=== PATIENT | male | born 1955 | race Caucasian/White ===

== ENCOUNTER 2017-03-11 08:49 | Emergency (ER) | payer MEDICARE, MEDICAID ==
[2017-03-11] MEDS ORDERED: MORPHINE SULFATE 10 MG/ML INJ IV ONE (09:42)
[2017-03-11 09:49] LABS: ABSOLUTE BASOPHILS # (AUTO) 0.1 10^3/uL (0.0-0.2); ABSOLUTE EOSINOPHILS # (AUTO) 0.5 10^3/uL (0.0-0.6); ABSOLUTE LYMPHOCYTES (AUTO) 2.4 10^3/uL (0.5-4.7); ABSOLUTE MONOCYTES (AUTO) 0.6 10^3/uL (0.1-1.4); ABSOLUTE NEUT (AUTO) 4.9 10^3/uL (1.7-8.2); BASOPHILS % (AUTO) 0.7 % (0-2); HEMATOCRIT 47.2 % (37.9-51.0); HEMOGLOBIN 15.9 g/dL (13.5-17.0); HGB HCT DIFFERENCE 0.5; LYMPHOCYTES % (AUTO) 28.5 % (13-45); MEAN CORPUSCULAR HGB CONC 33.8 g/dL (32.0-36.0); MEAN CORPUSCULAR VOLUME 98 fl (80-97); MONOCYTES % (AUTO) 7.2 % (3-13); RED BLOOD COUNT 4.83 10^6/uL (4.35-5.55); RED CELL DISTRIBUTION WIDTH 14.6 % (11.5-14.0); SEGMENTED NEUTROPHILS % (AUTO) 57.6 % (42-78); WHITE BLOOD COUNT 8.5 10^3/uL (4.0-10.5)
[2017-03-11 10:13] LABS: ALANINE AMINOTRANSFERASE 18 U/L (21-72); ALKALINE PHOSPHATASE 88 U/L (38-126); ANION GAP 9 (5-19); ASPARTATE AMINO TRANSFERASE 15 U/L (17-59); BILIRUBIN,DIRECT 0.5 mg/dL (0.0-0.4); BILIRUBIN,TOTAL 0.8 mg/dL (0.2-1.3); BLOOD UREA NITROGEN 14 mg/dL (7-20); CALCIUM 9.8 mg/dL (8.4-10.2); CARBON DIOXIDE 31 mmol/L (22-30); CHLORIDE 100 mmol/L (98-107); GLUCOSE 98 mg/dL (75-110); POTASSIUM 4.5 mmol/L (3.6-5.0); SODIUM 140.4 mmol/L (137-145); TOTAL PROTEIN 7.3 g/dL (6.3-8.2)
--- NOTE | 2017-03-11 10:49 | ER Document Report ---
ED General - General Chief Complaint: Fall Stated Complaint: FALL SLURRED SPEECH RIB PAIN Mode of Arrival: Wheelchair Information source: Patient Notes: 62 yr old male presents with complaints of head injury , chest wall injury 3 days ago. pt admits to pain with movement, had slurred speach the day after but as since resolved. denies any other complaints TRAVEL OUTSIDE OF THE [place] IN LAST 30 DAYS: No - HPI Onset: Other - 3 days Onset/Duration: Persistent Quality of pain: Achy Severity: Moderate Pain Level: 2 Associated symptoms: Shortness of breath Exacerbated by: Coughing, Deep breathing Relieved by: Denies Similar symptoms previously: No Recently seen / treated by doctor: No - Related Data Allergies/Adverse Reactions: No Known Allergies Allergy (Verified 03/11/17 08:57) Past Medical History - Social History Smoking Status: Current Every Day Smoker Cigarette use (# per day): Yes Chew tobacco use (# tins/day): No Smoking Education Provided: No Frequency of alcohol use: None Drug Abuse: None Family History: Reviewed & Not Pertinent Patient has suicidal ideation: No Patient has homicidal ideation: No - Past Medical History Cardiac Medical History: Reports: Hx Congestive Heart Failure - Right sided, Hx Hypertension Endocrine Medical History: Reports: Hx Diabetes Mellitus Type 2 Renal/ Medical History: Denies: Hx Peritoneal Dialysis Musculoskeltal Medical History: Reports Hx Arthritis Psychiatric Medical History: Reports: Hx Depression Past Surgical History: Reports: Hx Orthopedic Surgery - Cervical fusion, lumbar back surgery R rotator cuff, L knee arthrosscopy - Immunizations Hx Diphtheria, Pertussis, Tetanus Vaccination: Yes Hx Pneumococcal Vaccination: 08/05/13 Review of Systems - Review of Systems Notes: REVIEW OF SYSTEMS: CONSTITUTIONAL : Denies fever, chills, or sweats. Denies recent illness. EENT: Denies eye, ear, throat, or mouth pain or symptoms. Denies nasal or sinus congestion or discharge. Denies throat, tongue, or mouth swelling or difficulty swallowing. CARDIOVASCULAR: Denies chest pain. Denies palpitations or racing or irregular heart beat. Denies ankle edema. RESPIRATORY: Denies cough, cold, or chest congestion. Denies shortness of breath, difficulty breathing, or wheezing. GASTROINTESTINAL: Denies abdominal pain or distention. Denies nausea, vomiting , or diarrhea. Denies blood in vomitus, stools, or per rectum. Denies black, tarry stools. Denies constipation. GENITOURINARY: Denies difficulty urinating, painful urination, burning, frequency, blood in urine, or discharge. MUSCULOSKELETAL: Denies back or neck pain or stiffness. Denies joint pain or swelling. SKIN: Denies rash, lesions or sores. HEMATOLOGIC : Denies easy bruising or bleeding. LYMPHATIC: Denies swollen, enlarged glands. NEUROLOGICAL: Denies confusion or altered mental status. Denies passing out or loss of consciousness. Denies dizziness or lightheadedness. Denies headache. Denies weakness or paralysis or loss of use of either side. Denies problems with gait or speech. Denies sensory loss, numbness, or tingling. Denies seizures. PSYCHIATRIC: Denies anxiety or stress. Denies depression, suicidal ideation, or homicidal ideation. ALL OTHER SYSTEMS REVIEWED AND NEGATIVE. Dictation was performed using [employer] voice recognition software PHYSICAL EXAMINATION: GENERAL: Well-appearing, well-nourished and in no acute distress. HEAD: Right frontal contusion EYES: Pupils equal round and reactive to light, extraocular movements intact, sclera anicteric, conjunctiva are normal. ENT: Nares patent, oropharynx clear without exudates. Moist mucous membranes. NECK: Normal range of motion, supple without lymphadenopathy LUNGS: decreased breath sounds o nthe left, tender to palpation ribs 5 through 10 HEART: Regular rate and rhythm without murmurs ABDOMEN: Soft, nontender, nondistended abdomen. No guarding, no rebound. No masses appreciated. Musculoskeletal: Normal range of motion, no pitting or edema. No cyanosis. NEUROLOGICAL: Cranial nerves grossly intact. Normal speech, normal gait. Normal sensory, motor exams PSYCH: Normal mood, normal affect. SKIN: Warm, Dry, normal turgor, no rashes or lesions noted. Physical Exam - Vital signs Vitals: Temp Pulse Resp BP Pulse Ox 97.5 F 94 16 151/93 H 100 03/11/17 08:59 03/11/17 08:59 03/11/17 08:59 03/11/17 08:59 03/11/17 08:59 Course - Re-evaluation Re-evalutation: 03/11/17 10:49 emergent xray consistent with fx and small effusion, ct pending 03/11/17 11:41 CT does note a seventh rib fracture as well as a small effusion, patient will be discharged home with primary care follow-up After performing a Medical Screening Examination, I estimate there is LOW risk for INTRACRANIAL HEMORRHAGE, UNSTABLE SPINE FRACTURE, CENTRAL CORD SYNDROME, CAUDA EQUINA, THORACIC AORTIC DISSECTION, PNEUMOTHORAX, PERFORATED BOWEL, RUPTURED ABDOMINAL AORTIC ANEURYSM, ACUTE TENDON RUPTURE, COMPARTMENT SYNDROME, or OPEN FRACTURE, thus I consider the discharge disposition reasonable. Also, there is no evidence or peritonitis, sepsis, or toxicity. I have reevaluated this patient multiple times and no significant life threatening changes are noted. The patient and I have discussed the diagnosis and risks, and we agree with discharging home to follow-up with their primary doctor with the understanding that symptoms and presentations can change. We also discussed returning to the Emergency Department immediately if new or worsening symptoms occur. We have discussed the symptoms which are most concerning (e.g., bloody stool, fever, changing or worsening pain, vomiting) that necessitate immediate return. - Vital Signs Vital signs: Temp Pulse Resp BP Pulse Ox 97.5 F 94 16 151/93 H 100 03/11/17 08:59 03/11/17 08:59 03/11/17 08:59 03/11/17 08:59 03/11/17 08:59 - Laboratory Result Diagrams: 03/11/17 09:37 03/11/17 09:37 Laboratory results interpreted by me: 03/11/17 03/11/17 09:37 09:37 MCV 98 H RDW 14.6 H Carbon Dioxide 31 H Direct Bilirubin 0.5 H AST 15 L ALT 18 L - Diagnostic Test Radiology reviewed: Image reviewed, Reports reviewed Discharge - Discharge Clinical Impression: Pleural effusion Fracture of ribs, seven, closed Qualifiers: Encounter type: initial encounter Laterality: left Qualified Code(s): S22.42XA - Multiple fractures of ribs, left side, initial encounter for closed fracture Condition: Stable Disposition: HOME, SELF-CARE Instructions: Rib Injuries and Fractures ([facility]) Prescriptions: Oxycodone HCl/Acetaminophen [Percocet 5-325 mg Tablet] 1 - 2 tab PO Q4H PRN #25 tablet PRN Reason: Referrals: JAVON HOLLINS MD [NO LOCAL MD] - Follow up tomorrow
[2017-03-11] MEDS ORDERED: HYDROMORPHONE HCL INJ/PF 2 MG/ML AMPULE IV ONE (11:15)
[2017-03-11] MEDS ORDERED: HYDROCODONE/ACETAMINOPHEN 5-325 MG 6 TAB/DSPK PO SCH (13:00)
[2017-03-11 13:49] VITALS: BP 101/82
== END 2017-03-11 12:50 | disposition home or self-care (01) ==
LOC: ER 08:49
DX: S22.42XA Multiple fractures of ribs, left side, initial encounter for closed fracture (principal); S00.93XA Contusion of unspecified part of head, initial encounter; W19.XXXA Unspecified fall, initial encounter; J90 Pleural effusion, not elsewhere classified; F17.210 Nicotine dependence, cigarettes, uncomplicated; I10 Essential (primary) hypertension; E11.9 Type 2 diabetes mellitus without complications
CPT/HCPCS: 99284; 96374; 96375; 36415; 85025; 80053; 71020; 70450; 71260; 72125; J2270; J1170; A9270

== ENCOUNTER → 2017-09-19 | Outpatient (CLI) | payer MEDICARE, MEDICAID ==
--- NOTE | 2017-09-19 10:31 | RADIOLOGY REPORT (SQ) ---
EXAM DESCRIPTION: MRI HEAD WITHOUT COMPLETED DATE/TIME: 09/19/2017 9:37 am REASON FOR STUDY: G40.009LOCAL-REL IDIO EPI W SEIZ OF LOC ONST,NOT NTRCT,W/O STAT EPI G40.009 LOCAL -REL IDIO EPI W SEIZ OF LOC ONST,NOT NTRCT,W/O COMPARISON: None. TECHNIQUE: Multiplanar imaging includes non-contrasted T1, T2, FLAIR, and diffusion with ADC map seq uences. Images stored on PACS. LIMITATIONS: None. FINDINGS: ANATOMY: No anomalies. Normal vascular flow voids. Pituitary fossa normal. CSF SPACES: Normal in size and contour. No hemorrhage. CEREBRUM: Sulci and gyri normal in size and contour. Normal white matter signal on FLAIR imaging. No evidence of hemorrhage, mass, or extraaxial fluid collection. POSTERIOR FOSSA: No signal alteration. No hemorrhage. No edema, masses or mass effect. Internal judah tory canals, cerebello-pontine angles are normal. Small amount of fluid in the mastoid air cells anabella aterally. DIFFUSION IMAGING: Negative for acute or sub-acute infarction. ORBITS: No masses. Globes normal. PARANASAL SINUSES: No fluid levels. OTHER: No other significant finding. IMPRESSION: No acute abnormality in the brain. EVIDENCE OF ACUTE STROKE: NO. TECHNICAL DOCUMENTATION: JOB ID: [id number]- All Rights Reserved
--- NOTE | 2017-10-05 14:29 | CAROTID DOPPLER PRO FEE REPORT ---
CAROTID DUPLEX DOPPLER REPORT PATIENT NAME: ZI DAVE ROOM#: DATE OF STUDY: 09/19/2017 DATE OF : 1955 REFERRING MD: ULISSES JOHNSON M.D. ORDER NO: [id number] TECHNOLOGIST: Theodora Leon INDICATION: TIA STUDY: The color carotid duplex scan was performed with real time images and real time Doppler velocity measurements. Doppler velocity measurements were as follows: MEASUREMENT: RIGHT LEFT CCA PSV (prox/mid) 80 cm/sec 90 cm/sec CCA PSV (distal) 59 cm/sec 57 cm/sec CCA EDV (prox/mid) 14 cm/sec 17 cm/sec CCA EDV (distal) 13 cm/sec 12 cm/sec ICA PSV (proximal) 67 cm/sec 68 cm/sec ICA PSV (distal) 72 cm/sec 58 cm/sec ICA EDV (proximal) 11 cm/sec 10 cm/sec ICA EDV (distal) 24 cm/sec 14 cm/sec ECA 100 cm/sec 109 cm/sec ICA/CCA RATIO: 1.2 on the right and 1.2 on the left. Vertebral signals are antegrade. FINAL IMPRESSION: BILATERALLY NORMAL CAROTIDS WITH ANTERIOR GRADE VERTEBRAL SIGNALS. INTERPRETING PHYSICIAN: ULISSES JOHNSON M.D. /: LEONA TT: [id number] ID: [id number] /: [id number] TD: [id number] JOB: [id number] cc:ULISSES JOHNSON M.D. >
== END ==
LOC: SP 07:52
PROVIDERS: ATTEND Specialist
DX: G40.009 Localization-related (focal) (partial) idiopathic epilepsy and epileptic syndromes with seizures of localized onset, not intractable, without status epilepticus (principal); Z86.73 Personal history of transient ischemic attack (TIA), and cerebral infarction without residual deficits
CPT/HCPCS: 70551; 93880

== ENCOUNTER 2017-10-15 12:13 | Inpatient (IN) | payer MEDICARE, MEDICAID ==
--- NOTE | 2017-10-15 12:46 | ER Document Report ---
ED General - General Stated Complaint: WEAKNESS Time Seen by Provider: 10/15/17 12:22 Notes: 62-year-old male with past medical history including high blood pressure and COPD who presents today with EMS secondary to short periods of confusion for the last 24-48 hours. This was noticed by friends he lives with at home. Patient himself denies any confusion. He denies specifically also any headache , neck pain, chest pain, back pain, or extremity pain other than his chronic right leg pain for which he uses a cane. Patient denies any nausea, vomiting, fevers, or diarrhea. He states he has had a nonproductive cough without chest pain for week. Patient refused the first EMS call but then accepted the second both initiated by his roommates. Patient does state that he drinks occasionally but denies any recent alcohol usage. TRAVEL OUTSIDE OF THE [place] IN LAST 30 DAYS: No - HPI Onset: Other - See above Onset/Duration: Gradual Quality of pain: No pain Severity: Moderate Pain Level: Denies Associated symptoms: Other - See above Exacerbated by: Denies Relieved by: Denies Similar symptoms previously: No Recently seen / treated by doctor: No - Related Data Allergies/Adverse Reactions: No Known Allergies Allergy (Verified 03/11/17 08:57) Past Medical History - General Information source: Patient - Social History Smoking Status: Former Smoker Cigarette use (# per day): No Chew tobacco use (# tins/day): No Smoking Education Provided: No Frequency of alcohol use: None Family History: Reviewed & Not Pertinent - Past Medical History Cardiac Medical History: Reports: Hx Congestive Heart Failure - Right sided, Hx Hypertension Endocrine Medical History: Reports: Hx Diabetes Mellitus Type 2 Renal/ Medical History: Denies: Hx Peritoneal Dialysis Musculoskeltal Medical History: Reports Hx Arthritis Psychiatric Medical History: Reports: Hx Depression Past Surgical History: Reports: Hx Orthopedic Surgery - Cervical fusion, lumbar back surgery R rotator cuff, L knee arthrosscopy - Immunizations Hx Diphtheria, Pertussis, Tetanus Vaccination: Yes Hx Pneumococcal Vaccination: 08/05/13 Review of Systems - Review of Systems Constitutional: denies: Fever EENT: denies: Eye discharge, Nose discharge Respiratory: denies: Short of breath Gastrointestinal: denies: Vomiting Genitourinary: denies: Dysuria Musculoskeletal: denies: Leg swelling Skin: Other - no hives. denies: Rash Neurological/Psychological: Other - no slurred speech -: Yes All other systems reviewed and negative Physical Exam - Vital signs Vitals: Resp Pulse Ox 13 91 L 10/15/17 12:42 10/15/17 12:42 Notes: Reviewed vital signs and nursing note as charted by RN. CONSTITUTIONAL: Alert and oriented and responds appropriately to questions. Well -appearing; well-nourished HEAD: Normocephalic; atraumatic EYES: PERRL; no nystagmus; full extraocular range of motion ENT: Normal nose; no rhinorrhea; moist mucous membranes; pharynx without lesions noted NECK: Supple without meningismus; non-tender; carotid bruit; no cervical lymphadenopathy, no masses CARD: Regular rate and rhythm; no murmurs, no clicks, no rubs, no gallops; symmetric distal pulses RESP: Normal chest excursion without splinting or tachypnea; breath sounds clear and equal bilaterally; scattered rhonchi without wheezing ABD/GI: Normal bowel sounds; non-distended; soft, non-tender BACK: The back appears normal and is non-tender to palpation, there is no CVA tenderness EXT: Normal ROM in all joints; non-tender to palpation; no cyanosis, no effusions, no edema SKIN: Normal color for age and race; warm; dry; good turgor; capillary refill < 2 seconds; no acute lesions noted NEURO: CN II through XII are intact. Patient has 5 out of 5 bilateral upper and lower extremity strength with sensation intact to light touch. No nystagmus noted PSYCH: The patient's mood and manner are appropriate. Grooming and personal hygiene are appropriate. Course - Re-evaluation Re-evalutation: 10/15/17 12:45 Patient is AAO 4 at this time. No focal neurological deficits. Minimal rhonchi bilaterally. Patient has a history of COPD with a current room air saturation of 90-95%. Patient denies any and all pain. Given the history, we will obtain basic labs, and ammonia level, a PCO2 level, a CT scan of the head and an x-ray of the chest. 10/15/17 12:53 Patient had multiple oxycodone tablets without a bottle just loose in his pockets when we took off his pants. 10/15/17 13:58 EKG shows heart of 86, normal sinus rhythm, normal axis, no obvious ST elevation or depression. 10/15/17 14:54 Labs as recorded. Initial troponin as recorded. Patient still denies any chest pain. X-ray shows old rib fractures with no obvious pneumonia. CT scan of the head is unremarkable for an acute occlusive process. 10/15/17 14:58 Patient still has no focal neurological deficits. Patient is currently oriented AAO 4. Given the transient episodes of confusion, unknown to the patient, patient will be admitted for further evaluation including most likely an MRI of the brain, carotid Dopplers, and echo of the heart. There is some concern that this is related to the patient's Percocet usage, but patient does not agree. - Vital Signs Vital signs: Temp Pulse Resp BP Pulse Ox 20 145/74 H 94 10/15/17 14:01 10/15/17 14:01 10/15/17 14:01 - Laboratory Result Diagrams: 10/15/17 12:54 10/15/17 12:54 Laboratory results interpreted by me: 10/15/17 10/15/17 10/15/17 12:54 12:54 12:54 RBC 3.91 L Hgb 13.0 L MCV 98 H RDW 15.0 H Plt Count 138 L Chloride 97 L Carbon Dioxide 31 H Direct Bilirubin 0.5 H AST 16 L Urine Protein 30 H Discharge - Discharge Clinical Impression: Altered mental status, unspecified Qualifiers: Altered mental status type: unspecified Qualified Code(s): R41.82 - Altered mental status, unspecified Condition: Fair Disposition: ADMITTED OBSERVATION Admitting Provider: Hospitalist Unit Admitted: Telemetry
--- NOTE | 2017-10-15 13:19 | RADIOLOGY REPORT (SQ) ---
EXAM DESCRIPTION: CT HEAD WITHOUT COMPLETED DATE/TIME: 10/15/2017 1:09 pm REASON FOR STUDY: 20; intermittent AMS COMPARISON: MRI brain 09/19/2017 CT brain 03/11/2017, 09/29/2015, 07/23/2010, 04/10/2009, 01/07/2008 TECHNIQUE: Axial images acquired through the brain without intravenous contrast. Images reviewed wi th bone, brain and subdural windows. Images stored on PACS. All CT scanners at this facility use dose modulation, iterative reconstruction, and/or weight based d osing when appropriate to reduce radiation dose to as low as reasonably achievable (ALARA). [facility]: Dose Right [facility]: CareDose [facility]: Dose Right [facility]: Teradose 4D [facility]: [employer] RADIATION DOSE: CT Rad equipment meets quality standard of care and radiation dose reduction techniq ues were employed. CTDIvol: 64.6 mGy. DLP: 1163 mGy-cm. mGy. LIMITATIONS: Mild motion artifact FINDINGS: VENTRICLES: Normal size and contour. CEREBRUM: No masses. No hemorrhage. No midline shift. No evidence for acute infarction. Normal gra y/white matter differentiation. No areas of low density in the white matter. CEREBELLUM: No masses. No hemorrhage. No alteration of density. No evidence for acute infarction. EXTRAAXIAL SPACES: No fluid collections. No masses. ORBITS AND GLOBE: No intra- or extraconal masses. Normal contour of globe without masses. CALVARIUM: No fracture. PARANASAL SINUSES: There is mucous membrane thickening in the right frontal sinus, right anterior eth moid air cells, and bilateral maxillary sinuses. Fluid left mastoid air cell. SOFT TISSUES: No mass or hematoma. OTHER: No other significant finding. IMPRESSION: No acute intracranial changes Inflammatory changes in the paranasal sinuses and left mastoid air cells. EVIDENCE OF ACUTE STROKE: NO. COMMENT: Quality ID # [id number]: Final reports with documentation of one or more dose reduction techniques (e.g., Automated exposure control, adjustment of the mA and/or kV according to patient size, use of iterative reconstruction technique) TECHNICAL DOCUMENTATION: JOB ID: [id number] [employer]- All Rights Reserved
[2017-10-15 13:20] LABS: ABSOLUTE EOSINOPHILS # (AUTO) 0.1 10^3/uL (0.0-0.6); ABSOLUTE LYMPHOCYTES (AUTO) 1.5 10^3/uL (0.5-4.7); ABSOLUTE MONOCYTES (AUTO) 0.8 10^3/uL (0.1-1.4); ABSOLUTE NEUT (AUTO) 7.1 10^3/uL (1.7-8.2); BASOPHILS % (AUTO) 0.3 % (0-2); EOSINOPHILS % (AUTO) 1.5 % (0-6); HEMATOCRIT 38.4 % (37.9-51.0); HGB HCT DIFFERENCE 0.6; LYMPHOCYTES % (AUTO) 15.4 % (13-45); MEAN CORPUSCULAR HEMOGLOBIN 33.2 pg (27.0-33.4); MEAN CORPUSCULAR HGB CONC 33.8 g/dL (32.0-36.0); MEAN CORPUSCULAR VOLUME 98 fl (80-97); MONOCYTES % (AUTO) 8.3 % (3-13); RED BLOOD COUNT 3.91 10^6/uL (4.35-5.55); SEGMENTED NEUTROPHILS % (AUTO) 74.5 % (42-78); WHITE BLOOD COUNT 9.5 10^3/uL (4.0-10.5)
--- NOTE | 2017-10-15 13:26 | RADIOLOGY REPORT (SQ) ---
EXAM DESCRIPTION: CHEST PA/LAT COMPLETED DATE/TIME: 10/15/2017 1:16 pm REASON FOR STUDY: 20, confusion COMPARISON: CT chest 03/11/2017 Two-view chest 03/11/2017, 09/27/2015 EXAM PARAMETERS: NUMBER OF VIEWS: two views TECHNIQUE: Digital Frontal and Lateral radiographic views of the chest acquired. RADIATION DOSE: NA LIMITATIONS: none FINDINGS: LUNGS AND PLEURA: No opacities, masses or pneumothorax. No pleural effusion. MEDIASTINUM AND HILAR STRUCTURES: No masses or contour abnormalities. HEART AND VASCULAR STRUCTURES: Mild cardiomegaly, new compared to March 2017 BONES: Multiple old healed left lateral rib fractures. Old distal right clavicle fracture with widen ing at the AC joint stable compared to the 09/27/2015 HARDWARE: None in the chest. OTHER: No other significant finding. IMPRESSION: Mild cardiomegaly. No acute infiltrates Multiple old healed left lateral rib fractures TECHNICAL DOCUMENTATION: JOB ID: [id number]- All Rights Reserved
[2017-10-15 13:43] LABS: APPEARANCE,URINE CLEAR; BILIRUBIN,URINE NEGATIVE (NEGATIVE); GLUCOSE, URINE NEGATIVE (NEGATIVE); KETONES,URINE NEGATIVE (NEGATIVE); LEUKOCYTE ESTERASE,URINE NEGATIVE (NEGATIVE); NITRITE,URINE NEGATIVE (NEGATIVE); PROTEIN,URINE 30 mg/dL (NEGATIVE); URINE SPECIFIC GRAVITY 1.016; UROBILINOGEN,URINE NEGATIVE mg/dL (<2.0)
[2017-10-15 13:50] LABS: ALANINE AMINOTRANSFERASE 36 U/L (21-72); ALKALINE PHOSPHATASE 91 U/L (38-126); ANION GAP 10 (5-19); ASPARTATE AMINO TRANSFERASE 16 U/L (17-59); BILIRUBIN,DIRECT 0.5 mg/dL (0.0-0.4); BILIRUBIN,TOTAL 0.8 mg/dL (0.2-1.3); BLOOD UREA NITROGEN 17 mg/dL (7-20); CALCIUM 8.9 mg/dL (8.4-10.2); CARBON DIOXIDE 31 mmol/L (22-30); CHLORIDE 97 mmol/L (98-107); CREATININE RESULT 0.86 mg/dL (0.52-1.25); GLUCOSE 93 mg/dL (75-110); POTASSIUM 4.5 mmol/L (3.6-5.0); TOTAL PROTEIN 6.5 g/dL (6.3-8.2)
[2017-10-15 13:52] LABS: ALCOHOL < 10 mg/dL (NONE DETECTED)
[2017-10-15] MEDS ORDERED: IPRATROPIUM/ALBUTEROL 0.5-2.5 MG/3 ML AMPUL NEB PRN (16:56)
--- NOTE | 2017-10-15 18:15 | PDOC H&P ---
History of Present Illness Admission Date/PCP: 10/15/17 15:21 History of Present Illness: ZI DAVE JR is a 62 year old male With a past medical history of [id number] diabetes Hypertension Diabetic neuropathy Arthritis Dizziness/vertigo Chronic back pain Past surgical history: Multiple orthopedic surgeries in the past He lives with his friend Mr. Jarrell Carrillo's parents. I spoke to his friend as well as his friend's father and they said that over the past 2 years he has had difficulty with walking and has been unstable and this has been gradually getting worse. He does use a cane. He feels that he may have been taking his Ambien and oxycodone more frequently than prescribed. The patient's primary care physician Dr. Bright left town recently and he saw Dr. Cruz who is a neurologist last week. Dr. Cruz gave him a prescription for 120 pills of 20 mg oxycodone as well as a refill of Ambien. The patient's housemates noticed that last night he fell 2 or 3 times and this morning they found him in bed incoherent and confused. EMS was called. The patient refused to come to the hospital. Later today he was found to have persistent confusion and EMS was called again and he was brought to the emergency room. CAT scan of the brain was unremarkable. Chest x-ray was within normal limits. Labs were normal. He was referred for admission. He currently denies any chest pain or shortness of breath. No sore throat or cough. Denies any fever. Denies any nausea abdominal pain diarrhea hematemesis or melena. The emergency room nurse told me that while she was getting ready to help him go for the CAT scan of his brain she found a bottle of oxycodone in his trouser pocket and it had been filled 2 days ago- 120 pills of 20 mg each. She counted the remaining pills and that were only 83. Patient was unable to explain what happened to the remaining pills. Past him about it he says he thinks he has been taking 1 pill every 4-5 hours. Past Medical History Cardiac Medical History: Reports: Congestive Heart Failure - Right-sided, Hyperlipidema, Hypertension Pulmonary Medical History: Reports: Chronic Obstructive Pulmonary Disease (COPD) Endocrine Medical History: Reports: Diabetes Mellitus Type 2, Other Endocrine History Note: Diabetes Neuropathy Musculoskeltal Medical History: Reports: Arthritis Psychiatric Medical History: Reports: Depression Past Surgical History Past Surgical History: Reports: Orthopedic Surgery - Cervical fusion, lumbar back surgery R rotator cuff, L knee arthrosscopy Social History Smoking Status: Current Every Day Smoker Frequency of Alcohol Use: Rare Hx Recreational Drug Use: No Hx Prescription Drug Abuse: No - Advance Directive Resuscitation Status: Full Code Family History Family History: CAD, DM Parental Family History Reviewed: Yes - Diabetes Children Family History Reviewed: Yes Sibling(s) Family History Reviewed.: Yes Medication/Allergy Home Medications: Atorvastatin Calcium [Lipitor 10 mg Tablet] 10 mg PO QHS 10/15/17 Gabapentin [Neurontin] 600 mg PO Q6 10/15/17 Lisinopril [Prinivil] 20 mg PO DAILY 10/15/17 Meloxicam [Mobic] 15 mg PO DAILY 10/15/17 Metformin HCl [Glucophage 500 mg Tablet] 500 mg PO DAILY 10/15/17 Oxycodone HCl 20 mg PO Q6HP PRN 10/15/17 Zolpidem Tartrate [Ambien] 10 mg PO QHS 10/15/17 Allergies/Adverse Reactions: No Known Allergies Allergy (Verified 03/11/17 08:57) Review of Systems Constitutional: ABSENT: chills, fever(s), headache(s), weight gain, weight loss Eyes: ABSENT: as per HPI, visual disturbances, other Ears: ABSENT: as per HPI, hearing changes, other Cardiovascular: ABSENT: as per HPI, chest pain, dyspnea on exertion, edema, orthropnea, palpitations, other Respiratory: ABSENT: as per HPI, cough, dyspnea, hemoptysis, sputum, other Gastrointestinal: PRESENT: vomiting. ABSENT: as per HPI, abdominal pain, bloating, coffee ground emesis, constipation, diarrhea, dysphagia, heartburn, hematemesis, hematochezia, melena, nausea, other Neurological: PRESENT: abnormal gait, confusion, frequent falls, lack of coordination, memory loss Endocrine: ABSENT: as per HPI, cold intolerance, flushing, heat intolerance, menstrual abnormalities, polydipsia, polyphagia, polyuria, other Hematologic/Lymphatic: ABSENT: as per HPI, easy bleeding, easy bruising, lymphadenopathy, other Allergic/Immunologic: ABSENT: as per HPI, seasonal rhinorrhea, other Physical Exam Vital Signs: Temp Pulse Resp BP Pulse Ox 17 154/80 H 95 10/15/17 15:01 10/15/17 15:01 10/15/17 15:01 General appearance: PRESENT: no acute distress, obese Head exam: PRESENT: atraumatic, normocephalic Eye exam: PRESENT: conjunctiva pink, EOMI, PERRLA Ear exam: PRESENT: normal external ear exam Mouth exam: PRESENT: moist, tongue midline Teeth exam: PRESENT: poor dentation. ABSENT: dental caries, dental tenderness, edentulous, other Throat exam: ABSENT: post pharyngeal erythema, tonsillar erythema, tonsillar exudate, tonsillogmegaly, other Neck exam: ABSENT: carotid bruit, full ROM, JVD, meningismus, tenderness, thyromegaly, tracheal deviation, tracheostomy, other Respiratory exam: PRESENT: clear to auscultation anabella. ABSENT: rales, rhonchi, wheezes Cardiovascular exam: PRESENT: RRR. ABSENT: diastolic murmur, rubs, systolic murmur Pulses: PRESENT: normal carotid pulses GI/Abdominal exam: PRESENT: normal bowel sounds, soft Rectal exam: PRESENT: deferred Extremities exam: PRESENT: full ROM. ABSENT: calf tenderness, clubbing, pedal edema Musculoskeletal exam: ABSENT: normal inspection, other Neurological exam: PRESENT: oriented to place, oriented to situation Psychiatric exam: PRESENT: anxious Skin exam: PRESENT: abrasion Results Impressions: Head CT 10/15/17 12:22 IMPRESSION: No acute intracranial changes Inflammatory changes in the paranasal sinuses and left mastoid air cells. EVIDENCE OF ACUTE STROKE: NO. Chest X-Ray 10/15/17 12:41 IMPRESSION: Mild cardiomegaly. No acute infiltrates Multiple old healed left lateral rib fractures Assessment & Plan - Diagnosis (1) Diabetes type 2, uncontrolled Is this a current diagnosis for this admission?: Yes Plan: Hold metformin. Short Acting insulin sliding scale before meals Diabetic diet Check Hemoglobin A1c (2) Diabetic neuropathy Qualifiers: Diabetes mellitus complication detail: diabetic polyneuropathy Is this a current diagnosis for this admission?: Yes Plan: Continue gabapentin (3) Chronic back pain Qualifiers: Back pain location: back pain in unspecified location Is this a current diagnosis for this admission?: Yes Plan: Patient is likely taking multiple oxycodone pills inadvertently. (4) Hypertension Qualifiers: Hypertension type: essential hypertension Qualified Code(s): I10 - Essential (primary) hypertension Is this a current diagnosis for this admission?: Yes Plan: Continue lisinopril. Monitor closely. (5) Insomnia Is this a current diagnosis for this admission?: Yes Plan: Hold Ambien due to confusion (6) Altered mental status, unspecified Qualifiers: Altered mental status type: unspecified Qualified Code(s): R41.82 - Altered mental status, unspecified - Time Time Spent: 30 to 50 Minutes Medications reviewed and adjusted accordingly: Yes Anticipated discharge: Other Within: Other - Inpatient Certification Medical Necessity: Need Close Monitoring Due to Risk of Patient Decompensation, Need for Neurological Checks - Frequent falls confusion, Specter drug overdosesuspected inadvertent drug overdose. Post Hospital Care: Other
[2017-10-15] MEDS ORDERED: DEXTROSE 40% GEL 15 GM TUBE PO PRN ×2 (18:17)
[2017-10-15] MEDS ORDERED: DEXTROSE 50%-WATER 25 GM/50 ML DISP.SYRIN IV PRN ×2 (18:17)
[2017-10-15] MEDS ORDERED: INSULIN REG, HUMAN 100 UNIT/ML 3 ML VIAL (PYX) SUBCUT PRN (18:17)
[2017-10-15] MEDS ORDERED: GLUCAGON,HUMAN RECOMB 1 MG INJ IM PRN (18:17)
[2017-10-15 19:22] LABS: APPEARANCE,URINE CLEAR; BILIRUBIN,URINE NEGATIVE (NEGATIVE); GLUCOSE, URINE NEGATIVE (NEGATIVE); KETONES,URINE NEGATIVE (NEGATIVE); LEUKOCYTE ESTERASE,URINE NEGATIVE (NEGATIVE); NITRITE,URINE NEGATIVE (NEGATIVE); PROTEIN,URINE NEGATIVE (NEGATIVE); URINE SPECIFIC GRAVITY 1.004; UROBILINOGEN,URINE NEGATIVE mg/dL (<2.0)
[2017-10-15] MEDS: GABAPENTIN 300 MG CAPSULE PO SCH (19:37)
[2017-10-15 19:57] LABS: URINE BARBITURATES SCREEN NEGATIVE; URINE METHADONE SCREEN NEGATIVE; URINE PHENCYCLIDINE SCREEN NEGATIVE
[2017-10-15] MEDS ORDERED: INFLUENZA ADLT QUAD (36MOS+) 2017-18 VAC 0.5 ML SYR IM PRN (20:38)
[2017-10-15] MEDS ORDERED: ENOXAPARIN SODIUM INJ 40 MG/0.4 ML DISP.SYRIN SUBCUT ONE (20:45)
[2017-10-15 21:11] LABS: URINE OPIATES LOW UNCONFIRMED POSITIVE
[2017-10-15] MEDS: ATORVASTATIN CALCIUM 10 MG TABLET PO SCH (22:19)
[2017-10-15] MEDS: OXYCODONE HCL IR 5 MG TABLET PO PRN (22:19)
--- NOTE | 2017-10-15 22:58 | EKG REPORT ---
SEVERITY:- BORDERLINE ECG - SINUS RHYTHM PROBABLE LEFT ATRIAL ABNORMALITY : Confirmed by: Shahid Agarwal 15-Oct-2017 22:58:01
[2017-10-16] MEDS: GABAPENTIN 300 MG CAPSULE PO SCH ×5 (00:33→23:13)
[2017-10-16] MEDS ORDERED: LORAZEPAM INJ 2 MG/1 ML VIAL ONE (04:10)
[2017-10-16] MEDS ORDERED: LEVETIRACETAM 1500 MG/NACL-ISO 1,500 MG/100 ML RTUPB IV ONE (04:11)
[2017-10-16] MEDS ORDERED: LORAZEPAM INJ 2 MG/1 ML VIAL IV ONE (04:11)
[2017-10-16] MEDS ORDERED: FOLIC ACID INJ 5 MG/1 ML 10 ML VIAL IV PRN (04:32)
[2017-10-16] MEDS ORDERED: THIAMINE HCL INJ 200 MG/2 ML VIAL IV PRN (04:32)
[2017-10-16] MEDS ORDERED: THIAMINE HCL 100 MG, FOLIC ACID 1 MG in NORMAL SALINE 250 ML IV ONE (04:45)
[2017-10-16 04:52] LABS: PARTIAL THROMBOPLASTIN TIME 35.5 SEC (23.5-35.8); PROTHROMBIN TIME 13.2 SEC (11.4-15.4)
[2017-10-16 04:55] LABS: D-DIMER 0.57 ug/mL (0.00-0.50)
[2017-10-16 05:11] LABS: ANION GAP 9 (5-19); BLOOD UREA NITROGEN 12 mg/dL (7-20); CALCIUM 9.2 mg/dL (8.4-10.2); CARBON DIOXIDE 32 mmol/L (22-30); CHLORIDE 100 mmol/L (98-107); CHOLESTEROL 156.55 mg/dL (0-200); CREATININE RESULT 0.72 mg/dL (0.52-1.25); Direct HDL 66 mg/dL (>40); GLUCOSE 94 mg/dL (75-110); MAGNESIUM 1.6 mg/dL (1.6-2.3); PHOSPHORUS 2.7 mg/dL (2.5-4.5); POTASSIUM 4.5 mmol/L (3.6-5.0); SODIUM 140.6 mmol/L (137-145); TRIGLYCERIDES 75 mg/dL (<150)
[2017-10-16 05:21] LABS: DIRECT LDL 84 mg/dL (<100)
[2017-10-16] MEDS ORDERED: FOLIC ACID INJ 5 MG/1 ML 10 ML VIAL ONE (05:32)
[2017-10-16] MEDS ORDERED: THIAMINE HCL INJ 200 MG/2 ML VIAL ONE (05:33)
[2017-10-16] MEDS: OXYCODONE HCL IR 5 MG TABLET PO PRN ×2 (07:58→23:14)
--- NOTE | 2017-10-16 08:04 | EKG REPORT ---
SEVERITY:- ABNORMAL ECG - SINUS RHYTHM PROBABLE LEFT ATRIAL ABNORMALITY ABNORMAL T, CONSIDER ISCHEMIA, ANTERIOR LEADS BORDERLINE PROLONGED QT INTERVAL : Confirmed by: Shahid Agarwal 16-Oct-2017 08:04:32
--- NOTE | 2017-10-16 08:18 | Physician Advisory Note ---
Physician Advisor ProgressNote .: Pursuant to the plan for [facility], I have reviewed the medical record for this patient. Physician Advisor Statement: Welcome to [facility]! Please consider documenting, if you agree: 1. Principal Dx requiring hospitalization as Dx #1 in all notes (DM-2, or AMS? ) 2. Medical necessity: see below. Status: Medicare pt w/evidence for acute respiratory depression, intermittent confusion/incoherence, vomiting, elevated trop I, appropriately brought in as Outpt Obs to start due to suspected inadvertent overdose. As of 12/12 AM, pt w/ tachypnea of 23, O2 sat 100% RA. If not clinically stable for d/c on 12, please document ongoing issues/concerns, & consider change to Inpatient status. Thanks! CK
[2017-10-16] MEDS ORDERED: (PENDING PHARMACY ID) (Lisinopril [Prinivil] 20 MG) PO SCH (10:00)
[2017-10-16] MEDS ORDERED: DIAZEPAM 2 MG TABLET PO SCH (10:00)
--- NOTE | 2017-10-16 11:02 | RADIOLOGY REPORT (SQ) ---
EXAM DESCRIPTION: MRI HEAD WITHOUT COMPLETED DATE/TIME: 10/16/2017 9:25 am REASON FOR STUDY: Altered mental status R41.82 ALTERED MENTAL STATUS, UNSPECIFIED E10.69 TYPE 1 DI ABETES MELLITUS WITH OTHER SPECIFIED COMPLIC K29.70 GASTRITIS, UNSPECIFIED, WITHOUT BLEEDING COMPARISON: CT brain 09/29/2015, 03/11/2017, 10/15/2017 MRI brain 09/19/2017 TECHNIQUE: Multiplanar imaging includes non-contrasted T1, T2, FLAIR, and diffusion with ADC map seq uences. Images stored on PACS. LIMITATIONS: Motion artifact FINDINGS: ANATOMY: No developmental anomalies. Normal vascular flow voids. Pituitary fossa normal. CSF SPACES: Normal in size and contour. No hemorrhage. CEREBRUM: Sulci and gyri normal in size and contour. Normal white matter signal on FLAIR imaging. No evidence of hemorrhage, mass, or extraaxial fluid collection. POSTERIOR FOSSA: No signal alteration. No hemorrhage. No edema, masses or mass effect. Internal judah tory canals, cerebello-pontine angles, mastoids normal. DIFFUSION IMAGING: Negative for acute or sub-acute infarction. ORBITS: No masses. Globes normal. PARANASAL SINUSES: Right maxillary sinus mucus or serous retention cyst. Mucous membrane thickening bilateral ethmoid air cells. Fluid in the bilateral mastoid air cells OTHER: No other significant finding. IMPRESSION: No acute ischemic change Mucous membrane thickening in the ethmoid air cells and right maxillary sinus. Fluid in the bilatera l mastoid air cells. EVIDENCE OF ACUTE STROKE: NO. TECHNICAL DOCUMENTATION: JOB ID: [id number] [employer]- All Rights Reserved
[2017-10-16] MEDS: DOCUSATE SODIUM 100 MG CAPSULE PO SCH (11:33)
[2017-10-16] MEDS: LISINOPRIL 10 MG TABLET PO SCH (11:34)
[2017-10-16] MEDS: DIAZEPAM 2 MG TABLET PO SCH ×3 (11:34→18:44)
[2017-10-16] MEDS: MELOXICAM 15 MG TABLET PO SCH (11:36)
[2017-10-16] MEDS: ENOXAPARIN SODIUM INJ 40 MG/0.4 ML DISP.SYRIN SUBCUT SCH (12:52)
[2017-10-16] MEDS: MAGNESIUM OXIDE 400 MG TABLET PO SCH (15:34)
[2017-10-16] MEDS: MAGNESIUM SULFATE/D5W 1 GM/100 ML RTUPB IV SCH ×2 (15:38→15:41)
--- NOTE | 2017-10-16 17:47 | PDOC PROGRESS REPORT ---
Subjective Progress Note for:: 10/16/17 Reason For Visit: METABOLIC ENCEPHALOPATHY, SUSPECTED DUE The patient is a 62-year-old male with a history of diabetes and hypertension. He also has chronic back pain and was recently prescribed a one-month supply of oxycodone and Ambien. He lives with his friend's parents and they called EMS because he was confused. It was noted that multiple Ambien and oxycodone pills were missing. Patient was very confused and disoriented on admission it was felt to be secondary to inadvertent overuse of his medication. Patient also has a history of heavy alcohol use and overnight had some alcohol withdrawal seizures. MRI of the brain done today was unremarkable. He has been sedated all day with the Valium. The patient has been switched to inpatient status because he will certainly need more than 2 midnight stay and safe disposition planned. Physical Exam Vital Signs: Temp Pulse Resp BP Pulse Ox 98.7 F 87 19 160/95 H 98 10/16/17 15:22 10/16/17 15:22 10/16/17 15:22 10/16/17 15:22 10/16/17 15:22 Intake & Output 10/15/17 10/16/17 10/17/17 06:59 06:59 06:59 Intake Total 620 Balance 620 Additional comments: Middle-aged male lying comfortably in bed not in acute distress HEENT: Pupils equal reactive light. Moist pink oropharyngeal mucosa Lungs: Normal effort, faint expiratory wheezing with no crackles Cardiac: S1-S2 regular no murmurs heard, positive trace pedal edema bilaterally Abdomen: Soft, obese, no focal tenderness Results Impressions: Head CT 10/15/17 12:22 IMPRESSION: No acute intracranial changes Inflammatory changes in the paranasal sinuses and left mastoid air cells. EVIDENCE OF ACUTE STROKE: NO. Chest X-Ray 10/15/17 12:41 IMPRESSION: Mild cardiomegaly. No acute infiltrates Multiple old healed left lateral rib fractures Head MRI 10/16/17 00:00 IMPRESSION: No acute ischemic change Mucous membrane thickening in the ethmoid air cells and right maxillary sinus. Fluid in the bilateral mastoid air cells. EVIDENCE OF ACUTE STROKE: NO. Assessment & Plan - Diagnosis (1) Diabetes type 2, uncontrolled Is this a current diagnosis for this admission?: Yes Plan: Metformin on hold. Continue sliding scale insulin. (2) Diabetic neuropathy Qualifiers: Diabetes mellitus complication detail: diabetic polyneuropathy Is this a current diagnosis for this admission?: Yes (3) Chronic back pain Qualifiers: Back pain location: back pain in unspecified location Is this a current diagnosis for this admission?: Yes (4) Hypertension Qualifiers: Hypertension type: essential hypertension Qualified Code(s): I10 - Essential (primary) hypertension Is this a current diagnosis for this admission?: Yes Plan: On lisinopril (5) Insomnia Is this a current diagnosis for this admission?: Yes (6) Altered mental status, unspecified Qualifiers: Altered mental status type: unspecified Qualified Code(s): R41.82 - Altered mental status, unspecified (7) Alcohol withdrawal Plan: Continue current supportive treatment with benzodiazepines, seizure precautions , fall precautions, We will need to get case management involved since he will most likely require nursing home facility placement. - Time Time Spent with patient: 25-34 minutes
[2017-10-16] MEDS: ATORVASTATIN CALCIUM 10 MG TABLET PO SCH (21:43)
[2017-10-17] MEDS: ACETAMINOPHEN 325 MG TABLET PO PRN (03:25)
[2017-10-17] MEDS: GABAPENTIN 300 MG CAPSULE PO SCH ×4 (05:08→23:31)
[2017-10-17] MEDS: OXYCODONE HCL IR 5 MG TABLET PO PRN ×2 (05:08→22:10)
--- NOTE | 2017-10-17 10:51 | EEG PRO FEE REPORT ---
EEG INTERPRETATION PATIENT NAME: ZI DAVE ROOM#: 402 ORDER#: [id number] DATE OF STUDY: 10/16/2017 : 1955 REFERRING MD: AKHIL CHAVEZ M.D. DIAGNOSIS: Altered mental status REPORT The background activity consists of 6-7 Hz low to medium voltage theta throughout. There is occasional motion artifact but no clear further focal slowing, amplitude asymmetry, or other definite epileptiform or paroxysmal discharges are noted. IMPRESSION Overall the record appears a somewhat slow EEG for stated age of 62 implying possible very mild generalized cerebral dysfunction such as from a toxic, or metabolic or other generalized cause of cerebral dysfunction. INTERPRETING PHYSICIAN: ULISSES JOHNSON M.D. /: MTEFFT TT: 1043 ID: [id number] /: [id number] TD: 1530 JOB: [id number] cc:Kaylen MARROQUIN M.D. > MTDD
[2017-10-17] MEDS: LISINOPRIL 10 MG TABLET PO SCH (11:22)
[2017-10-17] MEDS: DOCUSATE SODIUM 100 MG CAPSULE PO SCH (11:22)
[2017-10-17] MEDS: DIAZEPAM 2 MG TABLET PO SCH ×2 (11:22→18:39)
[2017-10-17] MEDS: MELOXICAM 15 MG TABLET PO SCH (11:23)
[2017-10-17] MEDS: THIAMINE HCL 100 MG, FOLIC ACID 1 MG in NORMAL SALINE 250 ML IV SCH (11:26)
[2017-10-17] MEDS: ENOXAPARIN SODIUM INJ 40 MG/0.4 ML DISP.SYRIN SUBCUT SCH (11:27)
[2017-10-17] MEDS: MAGNESIUM OXIDE 400 MG TABLET PO SCH (14:29)
--- NOTE | 2017-10-17 18:47 | PDOC PROGRESS REPORT ---
Subjective Progress Note for:: 10/17/17 Subjective:: No complaints at present. Feels better today. Reason For Visit: METABOLIC ENCEPHALOPATHY, SUSPECTED DUE Physical Exam Vital Signs: Temp Pulse Resp BP Pulse Ox 98.3 F 73 16 142/73 H 93 10/17/17 15:45 10/17/17 15:45 10/17/17 15:45 10/17/17 15:45 10/17/17 15:45 Intake & Output 10/16/17 10/17/17 10/18/17 06:59 06:59 06:59 Intake Total 1162 1750 Output Total 1100 1620 Balance 62 130 Weight 125.4 kg Additional comments: Middle-aged gentleman lying comfortably in bed not in acute distress Lungs: Clear to auscultation bilaterally, normal respiratory effort Cardiac: S1-S2 regular no murmurs heard Abdomen: Soft, obese, no focal tenderness Skin: Warm and dry Results Impressions: Head CT 10/15/17 12:22 IMPRESSION: No acute intracranial changes Inflammatory changes in the paranasal sinuses and left mastoid air cells. EVIDENCE OF ACUTE STROKE: NO. Chest X-Ray 10/15/17 12:41 IMPRESSION: Mild cardiomegaly. No acute infiltrates Multiple old healed left lateral rib fractures Head MRI 10/16/17 00:00 IMPRESSION: No acute ischemic change Mucous membrane thickening in the ethmoid air cells and right maxillary sinus. Fluid in the bilateral mastoid air cells. EVIDENCE OF ACUTE STROKE: NO. Assessment & Plan - Diagnosis (1) Diabetic neuropathy Qualifiers: Diabetes mellitus complication detail: diabetic polyneuropathy Is this a current diagnosis for this admission?: Yes Plan: Continue gabapentin (2) Chronic back pain Qualifiers: Back pain location: back pain in unspecified location Is this a current diagnosis for this admission?: Yes (3) Hypertension Qualifiers: Hypertension type: essential hypertension Qualified Code(s): I10 - Essential (primary) hypertension Is this a current diagnosis for this admission?: Yes (4) Insomnia Is this a current diagnosis for this admission?: Yes (5) Altered mental status, unspecified Qualifiers: Altered mental status type: unspecified Qualified Code(s): R41.82 - Altered mental status, unspecified Plan: Multifactorial, improving. (7) Diabetes type 2, controlled Is this a current diagnosis for this admission?: Yes - Time Time Spent with patient: 15-24 minutes
[2017-10-17] MEDS: ATORVASTATIN CALCIUM 10 MG TABLET PO SCH (22:10)
[2017-10-18] MEDS: ACETAMINOPHEN 325 MG TABLET PO PRN (04:14)
[2017-10-18] MEDS: OXYCODONE HCL IR 5 MG TABLET PO PRN ×3 (05:12→21:23)
[2017-10-18] MEDS: GABAPENTIN 300 MG CAPSULE PO SCH ×4 (05:13→23:19)
[2017-10-18] MEDS: ENOXAPARIN SODIUM INJ 40 MG/0.4 ML DISP.SYRIN SUBCUT SCH (09:00)
[2017-10-18] MEDS: LISINOPRIL 10 MG TABLET PO SCH (09:09)
[2017-10-18] MEDS: THIAMINE HCL 100 MG, FOLIC ACID 1 MG in NORMAL SALINE 250 ML IV SCH (09:09)
[2017-10-18] MEDS: MELOXICAM 15 MG TABLET PO SCH (09:09)
[2017-10-18] MEDS: DIAZEPAM 2 MG TABLET PO SCH (09:09)
[2017-10-18] MEDS: DOCUSATE SODIUM 100 MG CAPSULE PO SCH (09:09)
[2017-10-18] MEDS ORDERED: LORAZEPAM 1 MG TABLET PO PRN (09:35)
[2017-10-18] MEDS ORDERED: LORAZEPAM INJ 2 MG/1 ML VIAL IV PRN (09:37)
[2017-10-18] MEDS: LORAZEPAM 1 MG TABLET PO SCH ×3 (10:48→17:49)
[2017-10-18] MEDS: THIAMINE HCL 100 MG TABLET PO SCH (10:48)
[2017-10-18] MEDS: FOLIC ACID 1 MG TABLET PO SCH (10:48)
[2017-10-18] MEDS: MAGNESIUM OXIDE 400 MG TABLET PO SCH (14:36)
--- NOTE | 2017-10-18 16:59 | PDOC PROGRESS REPORT ---
Subjective Progress Note for:: 10/18/17 Subjective:: No complaints at present. Reason For Visit: METABOLIC ENCEPHALOPATHY, SUSPECTED DUE Physical Exam Vital Signs: Temp Pulse Resp BP Pulse Ox 97.6 F 66 18 160/83 H 100 10/18/17 11:39 10/18/17 14:00 10/18/17 11:39 10/18/17 11:39 10/18/17 11:39 Intake & Output 10/17/17 10/18/17 10/19/17 06:59 06:59 06:59 Intake Total 1162 2666 Output Total 1100 2570 Balance 62 96 Weight 125.4 kg 123.5 kg Additional comments: Obese middle-aged male sitting up in bed not in acute distress Lungs: Clear to auscultation bilaterally normal respiratory effort Cardiac: S1-S2 regular no murmurs heard Abdomen: Soft, obese no focal tenderness normal bowel sounds Extremities: He has no swelling redness and tenderness of [place] to of both his feet which appears chronic. Results Impressions: Head CT 10/15/17 12:22 IMPRESSION: No acute intracranial changes Inflammatory changes in the paranasal sinuses and left mastoid air cells. EVIDENCE OF ACUTE STROKE: NO. Chest X-Ray 10/15/17 12:41 IMPRESSION: Mild cardiomegaly. No acute infiltrates Multiple old healed left lateral rib fractures Head MRI 10/16/17 00:00 IMPRESSION: No acute ischemic change Mucous membrane thickening in the ethmoid air cells and right maxillary sinus. Fluid in the bilateral mastoid air cells. EVIDENCE OF ACUTE STROKE: NO. Assessment & Plan - Diagnosis (1) Metabolic encephalopathy Plan: Multifactorial due to a combination of polypharmacy and alcohol use. (2) Seizures Plan: Due to alcohol withdrawal. EEG showed generalized slowing most likely due to metabolic encephalopathy. Continue Ativan scheduled and also as needed for signs of alcohol withdrawal or recurrent seizures. MRI of the brain was unremarkable. (3) Alcohol withdrawal Plan: Continue current supportive treatment with benzodiazepines, seizure precautions , fall precautions, Physical therapy and occupational therapy evaluation. (4) Diabetic neuropathy Qualifiers: Diabetes mellitus complication detail: diabetic polyneuropathy Is this a current diagnosis for this admission?: Yes Plan: Continue gabapentin (5) Chronic back pain Qualifiers: Back pain location: back pain in unspecified location Is this a current diagnosis for this admission?: Yes (6) Hypertension Qualifiers: Hypertension type: essential hypertension Qualified Code(s): I10 - Essential (primary) hypertension Is this a current diagnosis for this admission?: Yes Plan: Continue lisinopril (7) Insomnia Is this a current diagnosis for this admission?: Yes (8) Diabetes type 2, controlled Is this a current diagnosis for this admission?: Yes - Time Time Spent with patient: 15-24 minutes - Plan Summary Plan Summary: He will need physical therapy to determine safe disposition. He has been having multiple falls at home. He is also not safe due to his heavy alcohol use and also took multiple doses of oxycodone and Ambien
[2017-10-18] MEDS: POLYVINYL ALCOHOL 1.4% OPH SOLN 15 ML OU SCH ×2 (17:49→21:23)
--- NOTE | 2017-10-18 18:24 | RADIOLOGY REPORT (SQ) ---
EXAM DESCRIPTION: FOOT LEFT COMPLETE COMPLETED DATE/TIME: 10/18/2017 5:58 pm REASON FOR STUDY: pain and swelling, r/o trauma/fracture R41.82 ALTERED MENTAL STATUS, UNSPECIFIED E10.69 TYPE 1 DIABETES MELLITUS WITH OTHER SPECIFIED COMPLIC K29.70 GASTRITIS, UNSPECIFIED, WITHOUT BLEEDING COMPARISON: None. NUMBER OF VIEWS: Three views. TECHNIQUE: AP, lateral and oblique radiographic images acquired of the left foot. LIMITATIONS: None. FINDINGS: MINERALIZATION: Osteopenia. BONES: No acute fracture or dislocation. No worrisome bone lesions. Prominent plantar and dorsal ca lcaneal spurs are present. JOINTS: Degenerative joint changes seen in the 2nd proximal interphalangeal joint. Possible hammerto es involving the 2nd through 4th digits. SOFT TISSUES: No soft tissue swelling. No foreign body. OTHER: No other significant finding. IMPRESSION: Calcaneal spurs. Degenerative joint changes. Possible hammertoes. No acute abnormalit y. TECHNICAL DOCUMENTATION: JOB ID: [id number] [employer]- All Rights Reserved
--- NOTE | 2017-10-18 18:25 | RADIOLOGY REPORT (SQ) ---
EXAM DESCRIPTION: FOOT RIGHT COMPLETE COMPLETED DATE/TIME: 10/18/2017 5:58 pm REASON FOR STUDY: pain and swelling 2nd toe, r/o trauma/fracture R41.82 ALTERED MENTAL STATUS, UNSP ECIFIED E10.69 TYPE 1 DIABETES MELLITUS WITH OTHER SPECIFIED COMPLIC K29.70 GASTRITIS, UNSPECIFIED, WITHOUT BLEEDING COMPARISON: None. NUMBER OF VIEWS: Three views. TECHNIQUE: AP, lateral and oblique radiographic images acquired of the right foot. LIMITATIONS: None. FINDINGS: MINERALIZATION: Normal. BONES: No fracture dislocation. Plantar calcaneal spur. JOINTS: Degenerative joint changes involving the 1st metatarsal-phalangeal joint, the 1st interphalan geal joint, and the 2nd proximal interphalangeal joint. SOFT TISSUES: No soft tissue swelling. No foreign body. OTHER: No other significant finding. IMPRESSION: Calcaneal spur. Degenerative joint disease. No acute abnormality. TECHNICAL DOCUMENTATION: JOB ID: [id number] [employer]- All Rights Reserved
[2017-10-18] MEDS: ATORVASTATIN CALCIUM 10 MG TABLET PO SCH (21:23)
[2017-10-19 05:30] LABS: HEMOGLOBIN 13.1 g/dL (13.5-17.0); HGB HCT DIFFERENCE 1.3; MEAN CORPUSCULAR HEMOGLOBIN 33.7 pg (27.0-33.4); MEAN CORPUSCULAR HGB CONC 34.5 g/dL (32.0-36.0); MEAN CORPUSCULAR VOLUME 98 fl (80-97); RED BLOOD COUNT 3.88 10^6/uL (4.35-5.55); RED CELL DISTRIBUTION WIDTH 14.6 % (11.5-14.0); WHITE BLOOD COUNT 7.2 10^3/uL (4.0-10.5)
[2017-10-19] MEDS: GABAPENTIN 300 MG CAPSULE PO SCH ×4 (05:52→23:59)
[2017-10-19 05:56] LABS: ALANINE AMINOTRANSFERASE 21 U/L (21-72); ALBUMIN 3.5 g/dL (3.5-5.0); ALKALINE PHOSPHATASE 75 U/L (38-126); ANION GAP 9 (5-19); ASPARTATE AMINO TRANSFERASE 12 U/L (17-59); BILIRUBIN,DIRECT 0.2 mg/dL (0.0-0.4); BILIRUBIN,TOTAL 0.5 mg/dL (0.2-1.3); BLOOD UREA NITROGEN 24 mg/dL (7-20); CALCIUM 9.4 mg/dL (8.4-10.2); CARBON DIOXIDE 29 mmol/L (22-30); CHLORIDE 104 mmol/L (98-107); CREATININE RESULT 0.82 mg/dL (0.52-1.25); GLUCOSE 79 mg/dL (75-110); MAGNESIUM 1.8 mg/dL (1.6-2.3); POTASSIUM 4.7 mmol/L (3.6-5.0); SODIUM 142.4 mmol/L (137-145); TOTAL PROTEIN 5.9 g/dL (6.3-8.2)
[2017-10-19] MEDS: OXYCODONE HCL IR 5 MG TABLET PO PRN ×3 (05:59→18:29)
[2017-10-19] MEDS: LISINOPRIL 10 MG TABLET PO SCH (09:59)
[2017-10-19] MEDS: ENOXAPARIN SODIUM INJ 40 MG/0.4 ML DISP.SYRIN SUBCUT SCH (09:59)
[2017-10-19] MEDS: FOLIC ACID 1 MG TABLET PO SCH (10:00)
[2017-10-19] MEDS: LORAZEPAM 1 MG TABLET PO SCH ×3 (10:00→18:29)
[2017-10-19] MEDS: THIAMINE HCL 100 MG TABLET PO SCH (10:01)
[2017-10-19] MEDS: MELOXICAM 15 MG TABLET PO SCH (10:01)
[2017-10-19] MEDS: POLYVINYL ALCOHOL 1.4% OPH SOLN 15 ML OU SCH ×4 (10:01→21:41)
[2017-10-19] MEDS: DOCUSATE SODIUM 100 MG CAPSULE PO SCH (10:02)
[2017-10-19] MEDS: MAGNESIUM OXIDE 400 MG TABLET PO SCH (13:58)
--- NOTE | 2017-10-19 17:06 | PDOC PROGRESS REPORT ---
Subjective Progress Note for:: 10/19/17 Subjective:: He feels better today. Walked using a rolling walker with physical therapy. He is a chronic cough. Smokes half a pack a day. No shortness of breath no chest pain. Reason For Visit: METABOLIC ENCEPHALOPATHY, SUSPECTED DUE Physical Exam Vital Signs: Temp Pulse Resp BP Pulse Ox 98.3 F 72 19 160/73 H 98 10/19/17 15:29 10/19/17 15:29 10/19/17 15:29 10/19/17 15:29 10/19/17 15:29 Intake & Output 10/18/17 10/19/17 10/20/17 06:59 06:59 06:59 Intake Total 2666 1220 857 Output Total 2570 1375 575 Balance 96 -155 282 Weight 123.5 kg 124.1 kg Additional comments: Middle-aged gentleman sitting up in bed not in acute distress Lungs: Isolated rhonchi, no wheezing or crackles, normal respiratory effort Cardiac: S1-S2 regular, no calf tenderness no cyanosis no thrills palpable no JVD Abdomen: Soft, obese, no focal tenderness, normal bowel sounds Results Laboratory Results: 10/19/17 04:16 10/19/17 04:16 10/19/17 10/19/17 04:16 04:16 WBC 7.2 RBC 3.88 L Hgb 13.1 L Hct 38.0 MCV 98 H MCH 33.7 H MCHC 34.5 RDW 14.6 H Plt Count 145 L Sodium 142.4 Potassium 4.7 Chloride 104 Carbon Dioxide 29 Anion Gap 9 BUN 24 H Creatinine 0.82 Est GFR ( Amer) > 60 Est GFR (Non-Af Amer) > 60 Glucose 79 Calcium 9.4 Phosphorus 4.0 Magnesium 1.8 Total Bilirubin 0.5 AST 12 L ALT 21 Alkaline Phosphatase 75 Total Protein 5.9 L Albumin 3.5 Impressions: Head CT 10/15/17 12:22 IMPRESSION: No acute intracranial changes Inflammatory changes in the paranasal sinuses and left mastoid air cells. EVIDENCE OF ACUTE STROKE: NO. Chest X-Ray 10/15/17 12:41 IMPRESSION: Mild cardiomegaly. No acute infiltrates Multiple old healed left lateral rib fractures Head MRI 10/16/17 00:00 IMPRESSION: No acute ischemic change Mucous membrane thickening in the ethmoid air cells and right maxillary sinus. Fluid in the bilateral mastoid air cells. EVIDENCE OF ACUTE STROKE: NO. Foot X-Ray 10/18/17 00:00 IMPRESSION: Calcaneal spur. Degenerative joint disease. No acute abnormality. Status: Imported from PACS Assessment & Plan - Diagnosis (4) Diabetic neuropathy Qualifiers: Diabetes mellitus complication detail: diabetic polyneuropathy Is this a current diagnosis for this admission?: Yes (5) Chronic back pain Qualifiers: Back pain location: back pain in unspecified location Is this a current diagnosis for this admission?: Yes (6) Hypertension Qualifiers: Hypertension type: essential hypertension Qualified Code(s): I10 - Essential (primary) hypertension Is this a current diagnosis for this admission?: Yes (7) Insomnia Is this a current diagnosis for this admission?: Yes (8) Diabetes type 2, controlled Is this a current diagnosis for this admission?: Yes - Time Time Spent with patient: 25-34 minutes - He will need a safe disposition. The patient had alcohol withdrawal seizures and metabolic encephalopathy upon admission due to polypharmacy and inadvertent opiate and Ambien overdose. A new fall precautions and physical therapy. Case Management is working on disposition options.
[2017-10-19] MEDS: ATORVASTATIN CALCIUM 10 MG TABLET PO SCH (21:41)
[2017-10-20] MEDS: OXYCODONE HCL IR 5 MG TABLET PO PRN ×4 (03:14→22:02)
[2017-10-20] MEDS: GABAPENTIN 300 MG CAPSULE PO SCH ×4 (06:07→23:31)
[2017-10-20] MEDS: ENOXAPARIN SODIUM INJ 40 MG/0.4 ML DISP.SYRIN SUBCUT SCH (09:45)
[2017-10-20] MEDS: DOCUSATE SODIUM 100 MG CAPSULE PO SCH (09:51)
[2017-10-20] MEDS: FOLIC ACID 1 MG TABLET PO SCH (09:51)
[2017-10-20] MEDS: LISINOPRIL 10 MG TABLET PO SCH (09:52)
[2017-10-20] MEDS: POLYVINYL ALCOHOL 1.4% OPH SOLN 15 ML OU SCH ×4 (09:53→22:02)
[2017-10-20] MEDS: MELOXICAM 15 MG TABLET PO SCH (09:53)
[2017-10-20] MEDS: LORAZEPAM 1 MG TABLET PO SCH ×3 (09:53→16:57)
[2017-10-20] MEDS: THIAMINE HCL 100 MG TABLET PO SCH (09:53)
[2017-10-20] MEDS: MAGNESIUM OXIDE 400 MG TABLET PO SCH (13:36)
--- NOTE | 2017-10-20 18:44 | PDOC PROGRESS REPORT ---
Subjective Progress Note for:: 10/20/17 Subjective:: He feels better today. Walked using a rolling walker with physical therapy. He is a chronic cough. Smokes half a pack a day. No shortness of breath no chest pain. Is ambulating well with a walker. Awaiting disposition Reason For Visit: METABOLIC ENCEPHALOPATHY, SUSPECTED DUE Physical Exam Vital Signs: Temp Pulse Resp BP Pulse Ox 98.6 F 75 20 137/73 H 99 10/20/17 15:53 10/20/17 15:53 10/20/17 15:53 10/20/17 15:53 10/20/17 15:53 Intake & Output 10/19/17 10/20/17 10/21/17 06:59 06:59 06:59 Intake Total 1220 1667 1307 Output Total 1375 1575 550 Balance -155 92 757 Weight 124.1 kg 124.6 kg Head exam: PRESENT: atraumatic, normocephalic Eye exam: PRESENT: EOMI Ear exam: PRESENT: normal external ear exam Mouth exam: PRESENT: moist Respiratory exam: PRESENT: clear to auscultation anabella. ABSENT: accessory muscle use Cardiovascular exam: PRESENT: RRR. ABSENT: rubs GI/Abdominal exam: PRESENT: normal bowel sounds, soft. ABSENT: tenderness Rectal exam: PRESENT: deferred Results Laboratory Results: 10/19/17 04:16 10/19/17 04:16 Impressions: Head CT 10/15/17 12:22 IMPRESSION: No acute intracranial changes Inflammatory changes in the paranasal sinuses and left mastoid air cells. EVIDENCE OF ACUTE STROKE: NO. Chest X-Ray 10/15/17 12:41 IMPRESSION: Mild cardiomegaly. No acute infiltrates Multiple old healed left lateral rib fractures Head MRI 10/16/17 00:00 IMPRESSION: No acute ischemic change Mucous membrane thickening in the ethmoid air cells and right maxillary sinus. Fluid in the bilateral mastoid air cells. EVIDENCE OF ACUTE STROKE: NO. Foot X-Ray 10/18/17 00:00 IMPRESSION: Calcaneal spur. Degenerative joint disease. No acute abnormality. Assessment & Plan - Diagnosis (4) Diabetic neuropathy Qualifiers: Diabetes mellitus complication detail: diabetic polyneuropathy Is this a current diagnosis for this admission?: Yes (5) Chronic back pain Qualifiers: Back pain location: back pain in unspecified location Is this a current diagnosis for this admission?: Yes (6) Hypertension Qualifiers: Hypertension type: essential hypertension Qualified Code(s): I10 - Essential (primary) hypertension Is this a current diagnosis for this admission?: Yes (7) Insomnia Is this a current diagnosis for this admission?: Yes (8) Diabetes type 2, controlled Is this a current diagnosis for this admission?: Yes - Time Time Spent with patient: Less than 15 minutes - Plan Summary Plan Summary: Awaiting disposition.
[2017-10-20] MEDS: ATORVASTATIN CALCIUM 10 MG TABLET PO SCH (22:02)
[2017-10-21] MEDS: GABAPENTIN 300 MG CAPSULE PO SCH ×4 (05:13→21:28)
[2017-10-21] MEDS: OXYCODONE HCL IR 5 MG TABLET PO PRN ×4 (05:13→23:16)
[2017-10-21] MEDS: ENOXAPARIN SODIUM INJ 40 MG/0.4 ML DISP.SYRIN SUBCUT SCH (09:11)
[2017-10-21] MEDS: FOLIC ACID 1 MG TABLET PO SCH (09:12)
[2017-10-21] MEDS: LISINOPRIL 10 MG TABLET PO SCH (09:12)
[2017-10-21] MEDS: DOCUSATE SODIUM 100 MG CAPSULE PO SCH (09:12)
[2017-10-21] MEDS: LORAZEPAM 1 MG TABLET PO SCH ×3 (09:13→17:06)
[2017-10-21] MEDS: MELOXICAM 15 MG TABLET PO SCH (09:13)
[2017-10-21] MEDS: THIAMINE HCL 100 MG TABLET PO SCH (09:14)
[2017-10-21] MEDS: POLYVINYL ALCOHOL 1.4% OPH SOLN 15 ML OU SCH ×4 (09:14→21:28)
[2017-10-21] MEDS ORDERED: HYDROCHLOROTHIAZIDE 12.5 MG CAPSULE PO SCH (12:33)
--- NOTE | 2017-10-21 12:40 | PDOC PROGRESS REPORT ---
Subjective Progress Note for:: 10/21/17 Subjective:: He feels better today. Walked using a rolling walker with physical therapy. He is a chronic cough. Smokes half a pack a day. No shortness of breath no chest pain. Is requesting oxycodone be increased to 10 mg every 6 hours. He feels well he has been ambulating well. His arthritis does bother him and he usually takes 20 mg of oxycodone at home. Patient has found housing and tells me that he will be ready to leave tomorrow. Pressures are running high. Lisinopril dose was increased to 40 mg. I will also go ahead and add 12.5 mg of hydrochlorothiazide. Reason For Visit: METABOLIC ENCEPHALOPATHY, SUSPECTED DUE Physical Exam Vital Signs: Temp Pulse Resp BP Pulse Ox 98.0 F 76 20 146/83 H 98 10/21/17 11:34 10/21/17 11:34 10/21/17 11:34 10/21/17 11:34 10/21/17 11:34 Intake & Output 10/20/17 10/21/17 10/22/17 06:59 06:59 06:59 Intake Total 1667 1557 Output Total 1575 850 Balance 92 707 Weight 124.6 kg 124.6 kg Additional comments: Middle-aged gentleman sitting up comfortably in bed not in acute distress Lungs: Clear to auscultation bilaterally normal respiratory effort Cardiac: S1-S2 regular no peripheral edema no cyanosis no calf tenderness Abdomen: Soft, obese, no focal tenderness normal bowel sounds Skin: Warm and dry Results Laboratory Results: 10/19/17 04:16 10/19/17 04:16 Impressions: Head CT 10/15/17 12:22 IMPRESSION: No acute intracranial changes Inflammatory changes in the paranasal sinuses and left mastoid air cells. EVIDENCE OF ACUTE STROKE: NO. Chest X-Ray 10/15/17 12:41 IMPRESSION: Mild cardiomegaly. No acute infiltrates Multiple old healed left lateral rib fractures Head MRI 10/16/17 00:00 IMPRESSION: No acute ischemic change Mucous membrane thickening in the ethmoid air cells and right maxillary sinus. Fluid in the bilateral mastoid air cells. EVIDENCE OF ACUTE STROKE: NO. Foot X-Ray 10/18/17 00:00 IMPRESSION: Calcaneal spur. Degenerative joint disease. No acute abnormality. Assessment & Plan - Diagnosis (4) Diabetic neuropathy Qualifiers: Diabetes mellitus complication detail: diabetic polyneuropathy Is this a current diagnosis for this admission?: Yes (5) Chronic back pain Qualifiers: Back pain location: back pain in unspecified location Is this a current diagnosis for this admission?: Yes (6) Hypertension Qualifiers: Hypertension type: essential hypertension Qualified Code(s): I10 - Essential (primary) hypertension Is this a current diagnosis for this admission?: Yes (7) Insomnia Is this a current diagnosis for this admission?: Yes (8) Diabetes type 2, controlled Is this a current diagnosis for this admission?: Yes - Time Time Spent with patient: Less than 15 minutes - Plan Summary Plan Summary: Waiting disposition. Continue current management.
[2017-10-21] MEDS: MAGNESIUM OXIDE 400 MG TABLET PO SCH (13:29)
[2017-10-21] MEDS ORDERED: HYDROCHLOROTHIAZIDE 12.5 MG CAPSULE PO ONE (13:30)
--- NOTE | 2017-10-21 16:26 | PDOC CONSULTATION ---
Consultation Consult Date: 10/19/17 Attending physician:: AKHIL SOMMER Consult reason:: dyspnea History of Present Illness Admission Date/PCP: 10/16/17 07:58 History of Present Illness: ZI DAVE JR is a 62 year old male the emergency room because of falls CT scan significant amounts of which cannot be accounted for. He has been noted in the past have witnessed apneas admits to restless sleep nocturia 2-3 times per night unrestful sleep and excessive daytime somnolence. He denies shortness of breath with dips and exertion has occasional cough is usually nonproductive he denies hemoptysis his PPD status is negative dates unknown. Denies history of chronic lung disease as a child or adolescent. He states that he has been exposed to large amounts of chemicals and dust in the past. Has no pets and no recent travel. He denies angina-like chest pain sleeps on 2 pillows occasional PND occasional nocturnal cough and rare edema. Past Medical History Cardiac Medical History: Reports: Congestive Heart Failure - Right-sided, Hyperlipidema, Hypertension Pulmonary Medical History: Reports: Chronic Obstructive Pulmonary Disease (COPD) EENT Medical History: Denies: Ears, Nose Neurological Medical History: Denies: Multiple Sclerosis, Seizures Endocrine Medical History: Reports: Diabetes Mellitus Type 2, Other Renal/ Medical History: Denies: Nephrolithiasis Malignancy Medical History: Reports: None GI Medical History: Denies: Crohn's Disease, Ulcerative Colitis Musculoskeltal Medical History: Reports: Arthritis Denies: Fibromyalgia Skin Medical History: Denies: Psoriasis Psychiatric Medical History: Reports: Depression Traumatic Medical History: Denies: Traumatic Brain Injury Hematology: Denies: Sickle Cell Disease, Bleeding Tendencies Infectious Medical History: Denies: Hepatitis B, Hepatitis C Past Surgical History Past Surgical History: Reports: Orthopedic Surgery - Cervical fusion, lumbar back surgery R rotator cuff, L knee arthrosscopy Social History Information Source: Patient, [facility] Records 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 Smoking Status: Current Every Day Smoker Cigarettes Packs Per Day: 10 Number of Years Smokin Passive smoke exposure as: Both Frequency of Alcohol Use: Occasional Hx Recreational Drug Use: Yes Drugs: Cocaine, Marijuana Hx Prescription Drug Abuse: Yes Do you have pets?: No Have you had any respiratory illnesses as a child?: No Have you been exposed to any sick contacts recently?: No Have you had any recent respiratory illnesses?: No Have you travelled outside of [place] in the past 12 months?: No - Advance Directive Resuscitation Status: Full Code Family History Family History: CAD, DM Parental Family History Reviewed: Yes Children Family History Reviewed: Yes Sibling(s) Family History Reviewed.: Yes Medication/Allergy Home Medications: Atorvastatin Calcium [Lipitor 10 mg Tablet] 10 mg PO QHS 10/15/17 Gabapentin [Neurontin] 600 mg PO Q6 10/15/17 Lisinopril [Prinivil] 20 mg PO DAILY 10/15/17 Meloxicam [Mobic] 15 mg PO DAILY 10/15/17 Metformin HCl [Glucophage 500 mg Tablet] 500 mg PO DAILY 10/15/17 Oxycodone HCl 20 mg PO Q6HP PRN 10/15/17 Zolpidem Tartrate [Ambien] 10 mg PO QHS 10/15/17 Allergies/Adverse Reactions: No Known Allergies Allergy (Verified 03/11/17 08:57) Review of Systems Constitutional: PRESENT: fatigue, headache(s). ABSENT: anorexia, chills, fever( s), night sweats Eyes: ABSENT: visual disturbances Ears: ABSENT: hearing changes Nose, Mouth, and Throat: ABSENT: mouth pain, sore throat Cardiovascular: PRESENT: orthropnea. ABSENT: chest pain, dyspnea on exertion Respiratory: ABSENT: hemoptysis Gastrointestinal: ABSENT: abdominal pain, bloating, coffee ground emesis, diarrhea, dysphagia, heartburn, hematemesis, hematochezia, melena, nausea, vomiting Genitourinary: PRESENT: nocturia. ABSENT: difficulty urinating, dysuria, hematuria Musculoskeletal: ABSENT: deformity, joint swelling Integumentary: ABSENT: lesions, pruritus, rash Neurological: PRESENT: dizziness, frequent falls. ABSENT: abnormal gait, abnormal movements, abnormal speech, confusion, convulsions, memory loss Psychiatric: ABSENT: hallucinations, homidical ideation, suicidal ideation Endocrine: ABSENT: menstrual abnormalities, polydipsia, polyuria Hematologic/Lymphatic: ABSENT: easy bruising Physical Exam Vital Signs: Temp Pulse Resp BP Pulse Ox 98.0 F 78 19 147/67 H 96 10/19/17 11:22 10/19/17 11:22 10/19/17 11:22 10/19/17 11:22 10/19/17 11:22 Intake & Output 10/18/17 10/19/17 10/20/17 06:59 06:59 06:59 Intake Total 2666 1220 Output Total 9940 1375 Balance 96 -155 Weight 123.5 kg 124.1 kg General appearance: PRESENT: no acute distress, cooperative, disheveled, obese. ABSENT: hard of hearing, mild distress, morbidly obese, severe distress, thin , well-developed Head exam: PRESENT: atraumatic, normocephalic Eye exam: PRESENT: conjunctiva pale, EOMI. ABSENT: conjunctival injection, conjunctiva pink, nystagmus, periorbital swelling, scleral icterus Mouth exam: PRESENT: moist, neck supple, tongue midline, other - [place] 4. ABSENT: dry mucosa, laceration Neck exam: ABSENT: carotid bruit, JVD, lymphadenopathy, thyromegaly, tracheal deviation, tracheostomy Respiratory exam: PRESENT: decreased breath sounds, prolonged expiratory phas, rhonchi, symmetrical, unlabored. ABSENT: accessory muscle use, chest wall tenderness, clear to auscultation anabella, crackles, rales, retraction, stridor, tachypnea, wheezes Cardiovascular exam: PRESENT: RRR, +S1, +S2. ABSENT: irregular rhythm, rubs Pulses: PRESENT: normal radial pulses GI/Abdominal exam: PRESENT: normal bowel sounds, soft. ABSENT: distended, guarding, mass, organolmegaly, rebound, tenderness Extremities exam: ABSENT: clubbing, joint swelling Musculoskeletal exam: ABSENT: deformity, dislocation Neurological exam: PRESENT: alert, awake Psychiatric exam: PRESENT: normal mood Skin exam: PRESENT: dry, warm Results Laboratory Results: 10/19/17 04:16 10/19/17 04:16 10/19/17 10/19/17 04:16 04:16 WBC 7.2 RBC 3.88 L Hgb 13.1 L Hct 38.0 MCV 98 H MCH 33.7 H MCHC 34.5 RDW 14.6 H Plt Count 145 L Sodium 142.4 Potassium 4.7 Chloride 104 Carbon Dioxide 29 Anion Gap 9 BUN 24 H Creatinine 0.82 Est GFR ( Amer) > 60 Est GFR (Non-Af Amer) > 60 Glucose 79 Calcium 9.4 Phosphorus 4.0 Magnesium 1.8 Total Bilirubin 0.5 AST 12 L ALT 21 Alkaline Phosphatase 75 Total Protein 5.9 L Albumin 3.5 Impressions: Head CT 10/15/17 12:22 IMPRESSION: No acute intracranial changes Inflammatory changes in the paranasal sinuses and left mastoid air cells. EVIDENCE OF ACUTE STROKE: NO. Chest X-Ray 10/15/17 12:41 IMPRESSION: Mild cardiomegaly. No acute infiltrates Multiple old healed left lateral rib fractures Head MRI 10/16/17 00:00 IMPRESSION: No acute ischemic change Mucous membrane thickening in the ethmoid air cells and right maxillary sinus. Fluid in the bilateral mastoid air cells. EVIDENCE OF ACUTE STROKE: NO. Foot X-Ray 10/18/17 00:00 IMPRESSION: Calcaneal spur. Degenerative joint disease. No acute abnormality. Assessment & Plan - Diagnosis (1) Uncontrolled daytime somnolence Is this a current diagnosis for this admission?: Yes Plan: nocturnal polysomnogram as outpatient (2) Alcohol withdrawal Is this a current diagnosis for this admission?: Yes Plan: DT precautions nutritional supplements (3) Hypertension Qualifiers: Hypertension type: essential hypertension Qualified Code(s): I10 - Essential (primary) hypertension Is this a current diagnosis for this admission?: Yes Plan: stable at this time
[2017-10-21] MEDS: ATORVASTATIN CALCIUM 10 MG TABLET PO SCH (21:28)
[2017-10-22] MEDS: OXYCODONE HCL IR 5 MG TABLET PO PRN ×2 (05:24→11:13)
[2017-10-22 06:40] LABS: ANION GAP 10 (5-19); BLOOD UREA NITROGEN 23 mg/dL (7-20); CALCIUM 9.7 mg/dL (8.4-10.2); CARBON DIOXIDE 32 mmol/L (22-30); CHLORIDE 100 mmol/L (98-107); CREATININE RESULT 0.93 mg/dL (0.52-1.25); GLUCOSE 91 mg/dL (75-110); MAGNESIUM 1.9 mg/dL (1.6-2.3); POTASSIUM 4.9 mmol/L (3.6-5.0)
[2017-10-22] MEDS: DOCUSATE SODIUM 100 MG CAPSULE PO SCH (09:27)
[2017-10-22] MEDS: MELOXICAM 15 MG TABLET PO SCH (09:28)
[2017-10-22] MEDS: LISINOPRIL 10 MG TABLET PO SCH (09:28)
[2017-10-22] MEDS: THIAMINE HCL 100 MG TABLET PO SCH (09:28)
[2017-10-22] MEDS: LORAZEPAM 1 MG TABLET PO SCH (09:29)
[2017-10-22] MEDS: FOLIC ACID 1 MG TABLET PO SCH (09:29)
[2017-10-22] MEDS: POLYVINYL ALCOHOL 1.4% OPH SOLN 15 ML OU SCH (09:29)
[2017-10-22] MEDS: GABAPENTIN 300 MG CAPSULE PO SCH (09:43)
[2017-10-22] MEDS ORDERED: HYDROCHLOROTHIAZIDE 12.5 MG CAPSULE PO SCH (10:00)
[2017-10-22 12:32] VITALS: BP 152/76
--- NOTE | 2017-10-22 12:51 | PDOC PROGRESS REPORT ---
Subjective Progress Note for:: 10/22/17 Subjective:: Without complaints Reason For Visit: METABOLIC ENCEPHALOPATHY, SUSPECTED DUE Physical Exam Vital Signs: Temp Pulse Resp BP Pulse Ox 98.2 F 77 19 152/76 H 97 10/22/17 12:29 10/22/17 12:29 10/22/17 12:29 10/22/17 12:29 10/22/17 12:29 Intake & Output 10/21/17 10/22/17 10/23/17 06:59 06:59 06:59 Intake Total 1557 680 Output Total 850 300 Balance 707 380 Weight 124.6 kg 124.6 kg General appearance: PRESENT: no acute distress, cooperative, disheveled, obese, well-developed. ABSENT: mild distress, morbidly obese, severe distress Head exam: PRESENT: atraumatic, normocephalic Eye exam: PRESENT: conjunctiva pale, EOMI. ABSENT: conjunctival injection, conjunctiva pink, nystagmus, periorbital swelling, scleral icterus Mouth exam: PRESENT: moist, neck supple, tongue midline. ABSENT: dry mucosa, laceration Neck exam: ABSENT: carotid bruit, JVD, lymphadenopathy, thyromegaly, tracheal deviation, tracheostomy Respiratory exam: PRESENT: decreased breath sounds, prolonged expiratory phas, rhonchi, symmetrical, unlabored. ABSENT: accessory muscle use, chest wall tenderness, clear to auscultation anabella, crackles, rales, retraction, stridor, tachypnea, wheezes Cardiovascular exam: PRESENT: RRR, +S1, +S2. ABSENT: irregular rhythm, rubs Pulses: PRESENT: normal radial pulses GI/Abdominal exam: PRESENT: normal bowel sounds, soft. ABSENT: distended, guarding, mass, organolmegaly, rebound, tenderness Extremities exam: ABSENT: clubbing, joint swelling Musculoskeletal exam: ABSENT: deformity, dislocation Neurological exam: PRESENT: alert, awake Psychiatric exam: PRESENT: normal mood Skin exam: PRESENT: dry, warm Results Laboratory Results: 10/19/17 04:16 10/22/17 05:44 10/22/17 05:44 Sodium 142.0 Potassium 4.9 Chloride 100 Carbon Dioxide 32 H Anion Gap 10 BUN 23 H Creatinine 0.93 Est GFR ( Amer) > 60 Est GFR (Non-Af Amer) > 60 Glucose 91 Calcium 9.7 Magnesium 1.9 Impressions: Head CT 10/15/17 12:22 IMPRESSION: No acute intracranial changes Inflammatory changes in the paranasal sinuses and left mastoid air cells. EVIDENCE OF ACUTE STROKE: NO. Chest X-Ray 10/15/17 12:41 IMPRESSION: Mild cardiomegaly. No acute infiltrates Multiple old healed left lateral rib fractures Head MRI 10/16/17 00:00 IMPRESSION: No acute ischemic change Mucous membrane thickening in the ethmoid air cells and right maxillary sinus. Fluid in the bilateral mastoid air cells. EVIDENCE OF ACUTE STROKE: NO. Foot X-Ray 10/18/17 00:00 IMPRESSION: Calcaneal spur. Degenerative joint disease. No acute abnormality. Assessment & Plan - Diagnosis (1) Uncontrolled daytime somnolence Is this a current diagnosis for this admission?: Yes Plan: sleep study as OP (2) Alcohol withdrawal Is this a current diagnosis for this admission?: No (3) Hypertension Qualifiers: Qualified Code(s): I10 - Essential (primary) hypertension Is this a current diagnosis for this admission?: Yes Plan: stable at this time
--- NOTE | 2017-10-22 13:18 | Pulmonary Function Test ---
Pulmonary Function Test Date of Procedure:: 10/19/17 INDICATION:: Dyspnea Referring Provider: Dr. João Green - Report Spirometry: FVC 2.57 L 45% postbronchodilator therapy 2.89 L 55% FEV1 1.99 L 47% post bronchodilator therapy 2.35 L 56% FEV1/FVC % 70 postbronchodilator therapy 81 predicted 77 FEF 25-75% 3.04 L 73% postbronchodilator therapy 3.13 L 75% Impression: Severe obstructive ventilatory defect insignificant response to bronchodilator therapy. If clinically warranted complete PFT study may add additional information
--- NOTE | 2017-10-22 18:42 | PDOC DISCHARGE SUMMARY ---
General - Admit/Disc Date/PCP Admission Date/Primary Care Provider: 10/16/17 07:58 DR. Darren Reid- formerly [facility] care Appointment on 11/09/17 Discharge Date: 10/22/17 - Discharge Diagnosis (3) Alcohol withdrawal Is this a current diagnosis for this admission?: Yes (4) Diabetic neuropathy Is this a current diagnosis for this admission?: Yes (5) Chronic back pain Is this a current diagnosis for this admission?: Yes (6) Hypertension Is this a current diagnosis for this admission?: Yes (7) Insomnia Is this a current diagnosis for this admission?: Yes (8) Diabetes type 2, controlled Is this a current diagnosis for this admission?: Yes - Additional Information Resuscitation Status: Full Code Discharge Diet: As Tolerated Discharge Activity: Activity As Tolerated Prescriptions: Hydrochlorothiazide [Hydrodiuril 12.5 mg Capsule] 12.5 mg PO DAILY #30 capsule Lisinopril [Prinivil 10 mg Tablet] 40 mg PO DAILY #30 tablet Magnesium Oxide [Mag-Ox 400 mg Tablet] 400 mg PO DAILY@1400 #30 tablet Thiamine HCl [Thiamine 100 mg Tablet] 100 mg PO DAILY #30 tablet Home Medications: Atorvastatin Calcium [Lipitor 10 mg Tablet] 10 mg PO QHS 10/15/17 Gabapentin [Neurontin] 600 mg PO Q6 10/15/17 Meloxicam [Mobic] 15 mg PO DAILY 10/15/17 Metformin HCl [Glucophage 500 mg Tablet] 500 mg PO DAILY 10/15/17 Hydrochlorothiazide [Hydrodiuril 12.5 mg Capsule] 12.5 mg PO DAILY #30 capsule 10/22/17 Lisinopril [Prinivil 10 mg Tablet] 40 mg PO DAILY #30 tablet 10/22/17 Magnesium Oxide [Mag-Ox 400 mg Tablet] 400 mg PO DAILY@1400 #30 tablet 10/22/17 Oxycodone HCl [Oxy-Ir 5 mg Tablet] 10 mg PO Q6HP PRN tablet 10/22/17 Thiamine HCl [Thiamine 100 mg Tablet] 100 mg PO DAILY #30 tablet 10/22/17 History of Present Illness History of Present Illness: ZI DAVE JR is a 62 year old male With a past medical history of Yju-yonnxvm-vthpzyujc diabetes Hypertension Diabetic neuropathy Arthritis Dizziness/vertigo Chronic back pain Past surgical history: Multiple orthopedic surgeries in the past He lives with his friend Mr. Jarrell Carrillo's parents. I spoke to his friend as well as his friend's father and they said that over the past 2 years he has had difficulty with walking and has been unstable and this has been gradually getting worse. He does use a cane. He feels that he may have been taking his Ambien and oxycodone more frequently than prescribed. The patient's primary care physician Dr. Bright left town recently and he saw Dr. Cruz who is a neurologist last week. Dr. Cruz gave him a prescription for 120 pills of 20 mg oxycodone as well as a refill of Ambien. The patient's housemates noticed that last night he fell 2 or 3 times and this morning they found him in bed incoherent and confused. EMS was called. The patient refused to come to the hospital. Later today he was found to have persistent confusion and EMS was called again and he was brought to the emergency room. CAT scan of the brain was unremarkable. Chest x-ray was within normal limits. Labs were normal. He was referred for admission. He currently denies any chest pain or shortness of breath. No sore throat or cough. Denies any fever. Denies any nausea abdominal pain diarrhea hematemesis or melena. The emergency room nurse told me that while she was getting ready to help him go for the CAT scan of his brain she found a bottle of oxycodone in his trouser pocket and it had been filled 2 days ago- 120 pills of 20 mg each. She counted the remaining pills and that were only 83. He admitted to drinking heavily at home and forgetting home frequently he was taking his oxycodone and Ambien. He also reported that he thought that his housemates were perhaps delaying his oxycodone and Ambien pills and also his money. Overnight on the night of his admission he developed alcohol withdrawal seizures. MRI of the brain was unremarkable EEG showed diffuse going suggestive of metabolic encephalopathy. He was treated with benzodiazepines vgkbio-zmv-ugcju and as needed. His Ambien was stopped. Oxycodone was cut back initially to 5 mg as needed every 6 hours and then to 10 mg as needed. He arranged for a different living arrangement and home health was set up for him. He was prescribed a rolling walker. He is to establish primary care as an outpatient. Blood pressures remained high so adjustments were made. Lisinopril dose was doubled to 40 mg and hydrochlorothiazide 12.5 mg was added to his regimen. Hospital Course Hospital Course: See above. Physical Exam Vital Signs: Temp Pulse Resp BP Pulse Ox 98.2 F 77 19 152/76 H 97 10/22/17 12:29 10/22/17 12:29 10/22/17 12:29 10/22/17 12:29 10/22/17 12:29 Intake & Output 10/21/17 10/22/17 10/23/17 06:59 06:59 06:59 Intake Total 1557 680 Output Total 850 300 Balance 707 380 Weight 124.6 kg 124.6 kg Additional comments: Lace gentleman sitting up in bed not in acute distress Lungs: Clear to auscultation bilaterally normal respiratory effort Abdomen: Soft, obese, no focal tenderness normal bowel sounds Cardiac: S1-S2 regular no murmurs heard no peripheral edema no cyanosis no calf tenderness Results Laboratory Results: 10/19/17 04:16 10/22/17 05:44 10/22/17 05:44 Sodium 142.0 Potassium 4.9 Chloride 100 Carbon Dioxide 32 H Anion Gap 10 BUN 23 H Creatinine 0.93 Est GFR ( Amer) > 60 Est GFR (Non-Af Amer) > 60 Glucose 91 Calcium 9.7 Magnesium 1.9 Impressions: Head CT 10/15/17 12:22 IMPRESSION: No acute intracranial changes Inflammatory changes in the paranasal sinuses and left mastoid air cells. EVIDENCE OF ACUTE STROKE: NO. Chest X-Ray 10/15/17 12:41 IMPRESSION: Mild cardiomegaly. No acute infiltrates Multiple old healed left lateral rib fractures Head MRI 10/16/17 00:00 IMPRESSION: No acute ischemic change Mucous membrane thickening in the ethmoid air cells and right maxillary sinus. Fluid in the bilateral mastoid air cells. EVIDENCE OF ACUTE STROKE: NO. Foot X-Ray 10/18/17 00:00 IMPRESSION: Calcaneal spur. Degenerative joint disease. No acute abnormality. Plan Time Spent: Greater than 30 Minutes - Discharge home. Home health set up. Rolling walker prescribed. Establish primary care 1 week.
== END 2017-10-22 13:30 | disposition home or self-care (01) | DRG 897 ==
LOC: ER 12:13 → EH 15:21 → 4N 17:47 → OBSVTOIN 10-16 07:58
PROVIDERS: ADMIT Internal Medicine; ATTEND Internal Medicine
PROC: 3E0F73Z Introduction of Anti-inflammatory into Respiratory Tract, Via Natural or Artificial Opening (ICD-10-PCS; principal; 2017-10-16)
PROC: 3E0234Z Introduction of Serum, Toxoid and Vaccine into Muscle, Percutaneous Approach (ICD-10-PCS; 2017-10-22)
DX: F10.239 Alcohol dependence with withdrawal, unspecified (principal); G89.29 Other chronic pain; M54.9 Dorsalgia, unspecified; G47.00 Insomnia, unspecified; M19.90 Unspecified osteoarthritis, unspecified site; M77.30 Calcaneal spur, unspecified foot; I50.814 Right heart failure due to left heart failure; E78.5 Hyperlipidemia, unspecified; I11.0 Hypertensive heart disease with heart failure; J44.9 Chronic obstructive pulmonary disease, unspecified; F32.9 Major depressive disorder, single episode, unspecified; F17.210 Nicotine dependence, cigarettes, uncomplicated; F14.90 Cocaine use, unspecified, uncomplicated; F12.90 Cannabis use, unspecified, uncomplicated; R40.0 Somnolence; E11.42 Type 2 diabetes mellitus with diabetic polyneuropathy; E66.01 Morbid (severe) obesity due to excess calories; Z68.35 Body mass index [BMI] 35.0-35.9, adult; Z23 Encounter for immunization; Z79.899 Other long term (current) drug therapy; Z83.3 Family history of diabetes mellitus; Z82.49 Family history of ischemic heart disease and other diseases of the circulatory system
CPT/HCPCS: 36415; 70450; 70551; 71020; 80048; 80053; 80061; 80307; 81001; 82140; 82962; 83036; 83735; 84100; 84443; 84484; 85025; 85027; 85379; 85610; 85730; 90686; 93005; 93010; 94010; 94640; 95819; 99285; G8978-GP; G8979-GP; G8987-GO; G8988-GO; J1650; J2060; J3411; J3475; J3490; J7050; J7620

== ENCOUNTER → 2018-01-28 | Outpatient (CLI) | payer MEDICARE, MEDICAID ==
--- NOTE | 2018-01-28 10:36 | RADIOLOGY REPORT (SQ) ---
EXAM DESCRIPTION: MRA HEAD WITHOUT COMPLETED DATE/TIME: 01/28/2018 9:58 am REASON FOR STUDY: OTHER TRANSIENT CEREBRAL ISCHEMIC ATTACKS AND RELATED SYNDROME M54.12 RADICULOPAT HY, CERVICAL REGION G45.8 OTH TRANSIENT CEREBRAL ISCHEMIC ATTACKS AND RELATED SY COMPARISON: None. TECHNIQUE: Axial 3-D [id number]-[id number] acquisition imaging performed through the brain in the area of t [place]. Images reformatted using 3-D MIPS. LIMITATIONS: None. FINDINGS: SOURCE IMAGES: No unexpected findings on source images. No large masses. 3-D MIP: No aneurysm. No occlusions. No significant stenosis. OTHER: No other significant finding. IMPRESSION: NORMAL MRA OF THE [place]. TECHNICAL DOCUMENTATION: JOB ID: [id number] [employer]- All Rights Reserved Reading location - IP/workstation name: [email or web address]
--- NOTE | 2018-01-28 11:00 | RADIOLOGY REPORT (SQ) ---
EXAM DESCRIPTION: MRI CERVICAL SPINE WITHOUT COMPLETED DATE/TIME: 01/28/2018 9:58 am REASON FOR STUDY: RADICULOPATHY, CERVICAL REGION M54.12 RADICULOPATHY, CERVICAL REGION G45.8 OTH T RANSIENT CEREBRAL ISCHEMIC ATTACKS AND RELATED SY COMPARISON: None. TECHNIQUE: Sagittal and Axial imaging includes T1, T2, STIR and gradient echo sequences. LIMITATIONS: Patient motion. FINDINGS: ALIGNMENT: Mild anterolisthesis C4 relative to C5. VERTEBRAE: Intact. BONE MARROW: Normal. No marrow replacement or reactive changes. DISCS: Desiccation multiple levels. C5- 6 is fused. HARDWARE: None in the spine. CORD AND BASE OF BRAIN: Normal in size and signal intensity. SOFT TISSUES: No soft tissue masses. C1-C2: No significant spinal stenosis. C2-C3: Mild spinal stenosis due disc osteophyte complex and ligament thickening. Severe neural yudith inal narrowing bilaterally. C3-C4: Mild spinal stenosis. Severe neural foraminal narrowing bilaterally. C4-C5: Mild spinal stenosis. Severe neural foraminal narrowing bilaterally. C5-C6: Mild -moderate spinal stenosis. Moderate left and severe right neural foraminal narrowing. C6-C7: Mild spinal stenosis. Severe neural foraminal narrowing bilaterally. C7-T1: Mild spinal stenosis. Severe neural foraminal narrowing bilaterally. UPPER THORACIC: Incompletely imaged. No significant spinal stenosis or exit foraminal stenosis. OTHER: No other significant finding. IMPRESSION: Mild -moderate spinal stenosis. Varying degrees of neural foraminal stenosis. TECHNICAL DOCUMENTATION: JOB ID: [id number] [employer]- All Rights Reserved Reading location - IP/workstation name: [email or web address]
== END ==
LOC: RAD 09:12
PROVIDERS: ATTEND Specialist
DX: M54.12 Radiculopathy, cervical region (principal); M48.02 Spinal stenosis, cervical region; G45.8 Other transient cerebral ischemic attacks and related syndromes
CPT/HCPCS: 70544; 72141

== ENCOUNTER → 2018-04-10 | Outpatient (CLI) | payer MEDICARE, MEDICAID ==
--- NOTE | 2018-04-10 10:16 | RADIOLOGY REPORT (SQ) ---
EXAM DESCRIPTION: HAND BILATERAL 2 VIEWS COMPLETED DATE/TIME: 04/10/2018 9:46 am REASON FOR STUDY: RHEUMATOID ARTHRITIS WITH RHEUMATOID FACTOR M05.9 RHEUMATOID ARTHRITIS WITH RHEUM ATOID FACTOR, UNSPECIFIED COMPARISON: None. EXAM PARAMETERS: NUMBER OF VIEWS: Two views right hand. Two views left hand. TECHNIQUE: AP and lateral radiographic images acquired of bilateral hands. LIMITATIONS: None. FINDINGS: RIGHT HAND: MINERALIZATION: Normal. BONES: No acute fracture or dislocation. No worrisome bone lesions. No significant osteophytes. JOINTS: No erosions. No rubin-articular osteopenia. No chondrocalcinosis. SOFT TISSUES: No swelling. No calcifications. OTHER: No other significant finding. LEFT HAND: MINERALIZATION: Normal. BONES: No acute fracture or dislocation. No worrisome bone lesions. No significant osteophytes. JOINTS: No erosions. No rubin-articular osteopenia. No chondrocalcinosis. SOFT TISSUES: No swelling. No calcifications. OTHER: No other significant finding. IMPRESSION: NEGATIVE STUDY BILATERAL HANDS. NO ACUTE POST-TRAUMATIC CHANGES. NO EXPLANATION FOR PAIN . TECHNICAL DOCUMENTATION: JOB ID: [id number] [employer]- All Rights Reserved Reading location - IP/workstation name: [email or web address]
--- NOTE | 2018-04-10 10:20 | RADIOLOGY REPORT (SQ) ---
EXAM DESCRIPTION: KNEE BILAT AP UPRIGHT COMPLETED DATE/TIME: 04/10/2018 9:46 am REASON FOR STUDY: RHEUMATOID ARTHRITIS WITH RHEUMATOID FACTOR,UNSPECIFIED M05.9 RHEUMATOID ARTHRITI S WITH RHEUMATOID FACTOR, UNSPECIFI COMPARISON: None. NUMBER OF VIEWS: One view. TECHNIQUE: AP standing bilateral knees. LIMITATIONS: None. FINDINGS: MINERALIZATION: Normal. RIGHT KNEE BONES: No acute fracture. No worrisome bone lesions. MEDIAL COMPARTMENT: Prominent marginal osteophytes. Moderate joint space narrowing. No chondrocal cinosis. LATERAL COMPARTMENT: No significant osteophytes. No joint space narrowing. Mild chondrocalcinosis . LEFT KNEE BONES: No acute fracture. No worrisome bone lesions. MEDIAL COMPARTMENT: No significant osteophytes. Moderate joint space narrowing. No chondrocalcino sis. LATERAL COMPARTMENT: Marginal osteophytes. No joint space narrowing. Mild chondrocalcinosis IMPRESSION: Mild degenerative joint changes as described. TECHNICAL DOCUMENTATION: JOB ID: [id number] [employer]- All Rights Reserved Reading location - IP/workstation name: [email or web address]
--- NOTE | 2018-04-10 10:25 | RADIOLOGY REPORT (SQ) ---
EXAM DESCRIPTION: HIPS BILATERAL COMPLETED DATE/TIME: 04/10/2018 9:46 am REASON FOR STUDY: RHEUMATOID ARTHRITIS WITH RHEUMATOID FACTOR,UNSPECIFIED M05.9 RHEUMATOID ARTHRITI S WITH RHEUMATOID FACTOR, UNSPECIFI COMPARISON: None. NUMBER OF VIEWS: Two views TECHNIQUE: AP pelvis and additional frog-leg view of both hips. LIMITATIONS: None. FINDINGS: MINERALIZATION: Normal. HIPS: No acute fracture or dislocation. No worrisome bone lesions. PELVIS AND SACRUM: No acute fracture or dislocation. No worrisome bone lesions. PUBIS AND ISCHIUM: No acute fracture. LOWER LUMBAR SPINE: Degenerative disc changes and spondylosis. SOFT TISSUES: No findings. OTHER: No other significant finding. IMPRESSION: Normal pelvis and hips. Lumbar degenerative disc changes and spondylosis. TECHNICAL DOCUMENTATION: JOB ID: [id number] [employer]- All Rights Reserved Reading location - IP/workstation name: [email or web address]
--- NOTE | 2018-04-10 10:29 | RADIOLOGY REPORT (SQ) ---
EXAM DESCRIPTION: SHOULDER BILAT 2 OR MORE VIEWS COMPLETED DATE/TIME: 04/10/2018 9:46 am REASON FOR STUDY: RHEUMATOID ARTHRITIS WITH RHEUMATOID FACTOR,UNSPECIFIED M05.9 RHEUMATOID ARTHRITI S WITH RHEUMATOID FACTOR, UNSPECIFI COMPARISON: None. NUMBER OF VIEWS: Three views. TECHNIQUE: Internal rotation, external rotation, and Y view images acquired of the right and left sh oulder. LIMITATIONS: None. FINDINGS: MINERALIZATION: Normal. BONES: No acute fracture or dislocation. No worrisome bone lesions. JOINTS: No dislocation. VISUALIZED LUNGS AND RIBS: No pneumothorax. No rib fracture. SOFT TISSUES: No radiopaque foreign body. Faintly defined soft tissue calcifications are present on the right just lateral to and inferior to the acromion. OTHER: No other significant finding. IMPRESSION: Calcific tendinopathy on the right. No acute abnormality. TECHNICAL DOCUMENTATION: JOB ID: [id number] [employer]- All Rights Reserved Reading location - IP/workstation name: [email or web address]
== END ==
LOC: OD 08:35
PROVIDERS: ATTEND Internal Medicine
DX: M05.9 Rheumatoid arthritis with rheumatoid factor, unspecified (principal)
CPT/HCPCS: 73522; 73565

== ENCOUNTER → 2019-02-11 | Outpatient (CLI) | payer MEDICARE, MEDICAID ==
--- NOTE | 2019-02-11 11:57 | RADIOLOGY REPORT (SQ) ---
EXAM DESCRIPTION: KNEE LEFT 2 VIEWS COMPLETED DATE/TIME: 02/11/2019 11:32 am REASON FOR STUDY: PAIN IN LEFT KNEE M25.562 PAIN IN LEFT KNEE COMPARISON: Left knee films 12/30/2012 NUMBER OF VIEWS: Two views. TECHNIQUE: AP and lateral radiographic images acquired of the left knee. LIMITATIONS: None. FINDINGS: MINERALIZATION: Normal. BONES: No acute fracture or dislocation. No worrisome bone lesions. JOINT: Small suprapatellar knee joint effusion. There is diffuse chondrocalcinosis throughout the me dial and lateral compartment. Moderate medial and lateral compartment joint space narrowing and oste ophyte formation. High-grade patellofemoral compartment joint space narrowing with moderate bony spu rring. SOFT TISSUES: No soft tissue swelling. No radio-opaque foreign body. OTHER: No other significant finding. IMPRESSION: Joint effusion Tricompartment osteoarthritis No acute displaced fracture TECHNICAL DOCUMENTATION: JOB ID: [id number] [employer]- All Rights Reserved Reading location - IP/workstation name: [email or web address]
== END ==
LOC: OD 11:13
PROVIDERS: ATTEND Internal Medicine
DX: M25.562 Pain in left knee (principal); M17.12 Unilateral primary osteoarthritis, left knee; M25.462 Effusion, left knee

== ENCOUNTER → 2019-04-30 | Outpatient (CLI) | payer MEDICARE, MEDICAID ==
[2019-04-30 11:08] LABS: ABSOLUTE BASOPHILS # (AUTO) 0.1 10^3/uL (0.0-0.2); ABSOLUTE EOSINOPHILS # (AUTO) 0.4 10^3/uL (0.0-0.6); ABSOLUTE LYMPHOCYTES (AUTO) 2.8 10^3/uL (0.5-4.7); ABSOLUTE MONOCYTES (AUTO) 0.8 10^3/uL (0.1-1.4); ABSOLUTE NEUT (AUTO) 6.7 10^3/uL (1.7-8.2); BASOPHILS % (AUTO) 0.6 % (0-2); EOSINOPHILS % (AUTO) 3.6 % (0-6); HEMATOCRIT 37.6 % (37.9-51.0); HEMOGLOBIN 12.7 g/dL (13.5-17.0); LYMPHOCYTES % (AUTO) 25.9 % (13-45); MEAN CORPUSCULAR HEMOGLOBIN 33.2 pg (27.0-33.4); MEAN CORPUSCULAR HGB CONC 33.7 g/dL (32.0-36.0); MEAN CORPUSCULAR VOLUME 99 fl (80-97); MONOCYTES % (AUTO) 7.5 % (3-13); PLATELET COUNT 235 10^3/uL (150-450); RED BLOOD COUNT 3.82 10^6/uL (4.35-5.55); SEGMENTED NEUTROPHILS % (AUTO) 62.4 % (42-78); TOTAL CELLS COUNTED % (AUTO) 100 %; WHITE BLOOD COUNT 10.7 10^3/uL (4.0-10.5)
[2019-04-30 11:40] LABS: ALANINE AMINOTRANSFERASE 15 U/L (21-72); ALBUMIN 4.2 g/dL (3.5-5.0); ALKALINE PHOSPHATASE 74 U/L (38-126); ANION GAP 9 (5-19); ASPARTATE AMINO TRANSFERASE 15 U/L (17-59); BILIRUBIN,DIRECT 0.3 mg/dL (0.0-0.4); BILIRUBIN,TOTAL 0.5 mg/dL (0.2-1.3); BLOOD UREA NITROGEN 12 mg/dL (7-20); CALCIUM 9.4 mg/dL (8.4-10.2); CARBON DIOXIDE 30 mmol/L (22-30); CHLORIDE 97 mmol/L (98-107); GLUCOSE 109 mg/dL (75-110); POTASSIUM 4.9 mmol/L (3.6-5.0); TOTAL PROTEIN 6.6 g/dL (6.3-8.2)
[2019-05-02 11:38] LABS: CREATININE URINE 19.2 mg/dL (Not Estab.)
[2019-05-02 14:55] LABS: MICROALBUMIN URINE <3.0 ug/mL (Not Estab.)
== END ==
LOC: OD 10:33
PROVIDERS: ATTEND Family Medicine
DX: T14.8XXA Other injury of unspecified body region, initial encounter (principal); E11.9 Type 2 diabetes mellitus without complications; X58.XXXA Exposure to other specified factors, initial encounter
CPT/HCPCS: 36415; 80053; 82043; 82570; 83036; 85025

== ENCOUNTER 2020-07-19 16:10 | Inpatient (IN) | payer MEDICARE, MEDICAID ==
[2020-07-19] MEDS ORDERED: MORPHINE SULFATE 10 MG/ML INJ IV ONE (16:31)
[2020-07-19] MEDS ORDERED: ONDANSETRON HCL INJ/PF 4 MG/2 ML SDV IV ONE (16:32)
--- NOTE | 2020-07-19 16:40 | RADIOLOGY REPORT (SQ) ---
EXAM DESCRIPTION: CHEST SINGLE VIEW IMAGES COMPLETED DATE/TIME: 07/19/2020 4:25 pm REASON FOR STUDY: bed mp fall elevated hr COMPARISON: 02/18/2019 EXAM PARAMETERS: NUMBER OF VIEWS: One view. TECHNIQUE: Single frontal radiographic view of the chest acquired. RADIATION DOSE: NA LIMITATIONS: None. FINDINGS: LUNGS AND PLEURA: Patchy right basilar airspace disease. Questionable additional left bas ilar opacities. Likely small bilateral effusions, right greater than left. No pneumothorax. MEDIASTINUM AND HILAR STRUCTURES: No masses. Contour normal. HEART AND VASCULAR STRUCTURES: Enlarged cardiac silhouette. BONES: No acute findings. HARDWARE: None in the chest. OTHER: No other significant finding. IMPRESSION: Ill-defined bibasilar opacities possibly infectious/inflammatory or edema. Small bilateral effusions, right greater left. TECHNICAL DOCUMENTATION: JOB ID: [id number] 2010 [employer]- All Rights Reserved Reading location - IP/workstation name: [email or web address]
[2020-07-19] MEDS ORDERED: NORMAL SALINE 1000 ML 1,000 ML IV ONE ×2 (16:51→20:18)
[2020-07-19 16:57] LABS: HEMATOCRIT 37.5 % (37.9-51.0); HEMOGLOBIN 12.7 g/dL (13.5-17.0); MEAN CORPUSCULAR HEMOGLOBIN 30.4 pg (27.0-33.4); MEAN CORPUSCULAR HGB CONC 33.8 g/dL (32.0-36.0); MEAN CORPUSCULAR VOLUME 90 fl (80-97); PLATELET COUNT 289 10^3/uL (150-450); RED BLOOD COUNT 4.16 10^6/uL (4.35-5.55)
[2020-07-19 16:59] LABS: INTERNATIONAL RATION (INR) 1.19; PROTHROMBIN TIME 15.3 SEC (11.4-15.4)
[2020-07-19 17:08] LABS: VENOUS BLOOD BASE EXCESS -0.2 mmol/L; VENOUS BLOOD HCO3 23.3 mmol/L (20-32); VENOUS BLOOD PCO2 34.8 mmHg (35-63); VENOUS BLOOD PH 7.44 (7.30-7.42)
[2020-07-19 17:21] LABS: ALBUMIN 3.8 g/dL (3.5-5.0); ALKALINE PHOSPHATASE 140 U/L (38-126); ANION GAP 11 (5-19); ASPARTATE AMINO TRANSFERASE 20 U/L (17-59); BILIRUBIN,DIRECT 0.8 mg/dL (0.0-0.4); BILIRUBIN,TOTAL 1.2 mg/dL (0.2-1.3); BLOOD UREA NITROGEN 17 mg/dL (7-20); CARBON DIOXIDE 26 mmol/L (22-30); CHLORIDE 92 mmol/L (98-107); GLUCOSE 184 mg/dL (75-110); POTASSIUM 3.9 mmol/L (3.6-5.0); TOTAL PROTEIN 6.7 g/dL (6.3-8.2)
[2020-07-19 17:24] LABS: ABSOLUTE MONOCYTES # (MANUAL) 1.2 10^3/uL (0.1-1.4); BASOPHILS % (MANUAL) 0 % (0-2); EOSINOPHILS % (MANUAL) 0 % (0-6); LYMPHOCYTES % (MANUAL) 0 % (13-45); METAMYELOCYTES % (MANUAL) 2 % (0-1); MONOCYTES % (MANUAL) 3 % (3-13); SEGMENTED NEUTROPHILS % (MAN) 95 % (42-78); TOTAL CELLS COUNTED 100
[2020-07-19 17:25] LABS: ANISOCYTOSIS SLIGHT; PLATELET COMMENT ADEQUATE
--- NOTE | 2020-07-19 17:26 | EKG REPORT ---
SEVERITY:- BORDERLINE ECG - SINUS TACHYCARDIA PROBABLE LEFT ATRIAL ABNORMALITY : Confirmed by: Shahid Agarwal 19-Jul-2020 17:25:16
[2020-07-19 17:27] LABS: WHITE BLOOD COUNT 38.9 10^3/uL (4.0-10.5)
[2020-07-19 17:31] LABS: NT PRO BNP 537 pg/mL (<125)
[2020-07-19 17:42] LABS: TROPONIN I < 0.012 ng/mL
--- NOTE | 2020-07-19 18:33 | RADIOLOGY REPORT (SQ) ---
EXAM DESCRIPTION: CTA CHEST IMAGES COMPLETED DATE/TIME: 07/19/2020 6:16 pm REASON FOR STUDY: right sided cp COMPARISON: 03/11/2017 TECHNIQUE: CT scan of the chest performed using helical scanning technique with dynamic intravenous contrast injection. Images reviewed with lung, soft tissue and bone windows. Reconstructed coronal and sagittal MPR images reviewed. Additional 3 dimensional post-processing performed to develop Maximal Intensity Projection images (OH P). All images stored on PACS. All CT scanners at this facility use dose modulation, iterative reconstruction, and/or weight based d osing when appropriate to reduce radiation dose to as low as reasonably achievable (ALARA). [facility]: Dose Right [facility]: CareDose [facility]: Dose Right [facility]: Teradose 4D [facility]: [place] CONTRAST TYPE AND DOSE: 75 mL Omnipaque 350- low osmolar. Contrast bolus adequate for pulmonary arteries and aorta. RENAL FUNCTION: BUN 17 creatinine 1.01 RADIATION DOSE: CT Rad equipment meets quality standard of care and radiation dose reduction techniq ues were employed. CTDIvol: 19.8 - 41.8 mGy. DLP: 5424 mGy-cm. . LIMITATIONS: None. FINDINGS: LUNGS AND PLEURA: Somewhat loculated pleural effusion with associated atelectatic changes in the right lower lobe. AORTA AND GREAT VESSELS: No aneurysm. No dissection. HEART: No pericardial effusion. Moderate to marked coronary artery calcifications. PULMONARY ARTERIES: No emboli visualized in the main pulmonary arteries or the segmental branches. HILAR AND MEDIASTINAL STRUCTURES: No identified masses or abnormal nodes. HARDWARE: None in the chest. UPPER ABDOMEN: See separate report of the CT of the abdomen. THYROID AND OTHER SOFT TISSUES: No masses. No adenopathy. BONES: No acute or significant finding. 3D MIPS: Confirm above findings. OTHER: No other significant finding. IMPRESSION: 1. No pulmonary embolus. No aortic aneurysm or dissection. 2. Somewhat loculated right pleural effusion with airspace disease in the right lower lobe, atelecta sis versus pneumonia. COMMENT: Quality ID # [id number]: Final reports with documentation of one or more dose reduction techniques (e.g., Automated exposure control, adjustment of the mA and/or kV according to patient size, use of iterative reconstruction technique) TECHNICAL DOCUMENTATION: JOB ID: [id number] 2010 [employer]- All Rights Reserved Reading location - IP/workstation name: [email or web address]
--- NOTE | 2020-07-19 18:40 | RADIOLOGY REPORT (SQ) ---
EXAM DESCRIPTION: CT ABD/PELVIS WITH IV ONLY IMAGES COMPLETED DATE/TIME: 07/19/2020 6:16 pm REASON FOR STUDY: right abd pain COMPARISON: None. TECHNIQUE: CT scan of the abdomen and pelvis performed using helical scanning technique with dynamic intravenous contrast injection. No oral contrast. Images reviewed with lung, soft tissue, and bone windows. Reconstructed coronal and sagittal MPR images reviewed. Delayed images for evaluation of the urinary system also acquired. All images stored on PACS. All CT scanners at this facility use dose modulation, iterative reconstruction, and/or weight based d osing when appropriate to reduce radiation dose to as low as reasonably achievable (ALARA). [facility]: Dose Right [facility]: CareDose [facility]: Dose Right [facility]: Teradose 4D [facility]: [employer] CONTRAST TYPE AND DOSE: contrast/concentration: Isovue 350.00 mmol/ml; Total Contrast Delivered: 75. 0 ml; Total Saline Delivered: 55.0 ml RENAL FUNCTION: BUN 17 creatinine 1.01 RADIATION DOSE: . LIMITATIONS: None. FINDINGS: LOWER CHEST: See separate report of the CT of the chest. LIVER: Normal size. No masses. No dilated ducts. SPLEEN: Normal size. No focal lesions. PANCREAS: No masses. No significant calcifications. No adjacent inflammation or peripancreatic fluid collections. Pancreatic duct not dilated. GALLBLADDER: No identified stones by CT criteria. No inflammatory changes to suggest cholecystitis. ADRENAL GLANDS: No significant masses or asymmetry. RIGHT KIDNEY AND URETER: No solid masses. No significant calcifications. No hydronephrosis or hyd roureter. LEFT KIDNEY AND URETER: No solid masses. No significant calcifications. No hydronephrosis or hydr oureter. AORTA AND VESSELS: No aneurysm. No dissection. Renal arteries, SMA, celiac without stenosis. RETROPERITONEUM: No retroperitoneal adenopathy, hemorrhage or masses. BOWEL AND PERITONEAL CAVITY: No masses or inflammatory changes. No free fluid or peritoneal masses. APPENDIX: Not identified. PELVIS: No mass. No free fluid. Normal bladder. ABDOMINAL WALL: No masses. No hernias. BONES: Lumbar degenerative disc disease and spondylosis. OTHER: No other significant finding. IMPRESSION: No acute finding in the abdomen or pelvis. Lumbar degenerative changes. TECHNICAL DOCUMENTATION: JOB ID: [id number] Quality ID # [id number]: Final reports with documentation of one or more dose reduction techniques (e.g., Au tomated exposure control, adjustment of the mA and/or kV according to patient size, use of iterative reconstruction technique) 2010 [employer]- All Rights Reserved Reading location - IP/workstation name: [email or web address]
[2020-07-19] MEDS ORDERED: AZITHROMYCIN INJ 500 MG VIAL IV ONE (18:42)
[2020-07-19] MEDS ORDERED: CEFTRIAXONE 2 GM/D5W RTU 2 GM/50 ML RTUPB IV ONE (18:42)
--- NOTE | 2020-07-19 19:39 | ER Document Report ---
ED Cardiac - General Chief Complaint: Chest Wall Pain Stated Complaint: CHEST WALL PAIN Time Seen by Provider: 07/19/20 16:25 Mode of Arrival: Medic Information source: Patient TRAVEL OUTSIDE OF THE [place] IN LAST 30 DAYS: No - HPI Notes: Patient presents with right-sided chest pain. He states that he had a fall 2 days ago when he was taking out the garbage. He states he slipped and fell on his right side. He states since that time he has had increasing right-sided pain. It is worse with movement and better with rest. It does radiate up the right side of his body. It is constant severe and sharp. He has had somewhat of a cough and he is also felt mildly short of breath. No vomiting or diarrhea. No significant abdominal pain. No head injuries. Patient states he has not had any type of tobacco use or alcohol use since before 2018. - Related Data Allergies/Adverse Reactions: No Known Allergies Allergy (Verified 03/11/17 08:57) Past Medical History - General Information source: Patient - Social History Smoking Status: Former Smoker Frequency of alcohol use: None Drug Abuse: None Family History: CAD, DM - Past Medical History Cardiac Medical History: Reports: Hx Congestive Heart Failure - Right-sided, Hx Hypercholesterolemia, Hx Hypertension Pulmonary Medical History: Reports: Hx COPD Neurological Medical History: Denies: Hx Seizures Endocrine Medical History: Reports: Hx Diabetes Mellitus Type 2 Renal/ Medical History: Denies: Hx Peritoneal Dialysis GI Medical History: Denies: Hx Crohn's Disease, Hx Ulcerative Colitis Musculoskeletal Medical History: Reports Hx Arthritis, Denies Hx Fibromyalgia Skin Medical History: Denies Hx Psoriasis Psychiatric Medical History: Reports: Hx Depression Traumatic Medical History: Denies: Hx Traumatic Brain Injury Past Surgical History: Reports: Hx Orthopedic Surgery - Cervical fusion, lumbar back surgery R rotator cuff, L knee arthrosscopy - Immunizations Hx Diphtheria, Pertussis, Tetanus Vaccination: Yes Hx Pneumococcal Vaccination: 08/05/13 Review of Systems - Review of Systems Constitutional: Malaise, Weakness Cardiovascular: Chest pain, Palpitations Respiratory: Hurts to breathe, Short of breath Gastrointestinal: denies: Abdominal pain -: Yes All other systems reviewed and negative Physical Exam - Vital signs Vitals: Resp Pulse Ox 22 H 92 07/19/20 16:13 07/19/20 16:13 Interpretation: Tachycardic, Tachypneic - General General appearance: Alert, Anxious In distress: Mild - HEENT Head: Normocephalic, Atraumatic Eyes: Normal Pupils: PERRL - Respiratory Respiratory status: Respiratory distress - mild Chest status: Tender - Patient's right lateral chest is tender to palpation but there is no crepitus. Breath sounds: Decreased air movement - Bilaterally greatest on the right Chest palpation: Normal - Cardiovascular Rhythm: Tachycardia Heart sounds: Normal auscultation Murmur: No - Abdominal Inspection: Morbidly Obese Distension: No distension Bowel sounds: Normal Tenderness: Nontender Organomegaly: No organomegaly - Back Back: Normal, Nontender - Extremities General upper extremity: Normal inspection, Nontender, Normal color, Normal ROM, Normal temperature General lower extremity: Normal inspection, Nontender, Normal color, Normal ROM, Normal temperature. No: Marlena's sign - Neurological Neuro grossly intact: Yes Cognition: Normal Orientation: AAOx4 [place] Coma Scale Eye Opening: Spontaneous [place] Coma Scale Verbal: Oriented [place] Coma Scale Motor: Obeys Commands [place] Coma Scale Total: 15 Speech: Normal Motor strength normal: LUE, RUE, LLE, RLE Sensory: Normal - Psychological Associated symptoms: Normal affect, Normal mood - Skin Skin Temperature: Warm Skin Moisture: Dry Skin Color: Pale Course - Re-evaluation Re-evalutation: 07/19/20 19:41 Patient presents with right-sided chest pain after a fall. There is no evidence of bony injury. He does have an apparent effusion and infiltrate. He also has a significantly elevated white blood cell count. There is no evidence of COVID exposure. He will be treated as an outpatient pneumonia. He has some diffuse ST depression that was not present on previous EKG however all of his pain is right lateral. I think that the ST depression may be demand related because of his significant tachycardia when the EKG was done. After fluids and antibiotics patient is no longer tachycardic. And does feel better. His initial troponin is negative. Patient will require admission for observation and serial laboratories, and antibiotic and fluids. - Vital Signs Vital signs: Temp Pulse Resp BP Pulse Ox 98.8 F 20 119/63 94 07/19/20 18:52 07/19/20 19:16 07/19/20 19:16 07/19/20 19:16 - Laboratory Result Diagrams: 07/19/20 16:28 07/19/20 16:28 Laboratory results interpreted by me: 07/19/20 07/19/20 07/19/20 16:28 16:28 16:28 WBC 38.9 H* RBC 4.16 L Hgb 12.7 L Hct 37.5 L Seg Neuts % (Manual) 95 H Lymphocytes % (Manual) 0 L Metamyelocytes % 2 H Abs Neuts (Manual) 37.7 H Abs Lymphs (Manual) 0.0 L VBG pH VBG pCO2 Sodium 128.8 L Chloride 92 L Glucose 184 H Direct Bilirubin 0.8 H Alkaline Phosphatase 140 H NT-Pro-B Natriuret Pep 537 H 07/19/20 16:28 WBC RBC Hgb Hct Seg Neuts % (Manual) Lymphocytes % (Manual) Metamyelocytes % Abs Neuts (Manual) Abs Lymphs (Manual) VBG pH 7.44 H VBG pCO2 34.8 L Sodium Chloride Glucose Direct Bilirubin Alkaline Phosphatase NT-Pro-B Natriuret Pep - Diagnostic Test Radiology reviewed: Image reviewed, Reports reviewed - EKG Interpretation by Co EKG shows normal: Sinus rhythm Rate: Tachycardia - 123 Rhythm: NSR Flomot/QRS: No: Right axis deviation, Left axis deviation Additional EKG results interpreted by wa: 07/19/20 19:39 Patient appears to have diffuse ST depression. Discharge - Discharge Clinical Impression: Pneumonia Qualifiers: Pneumonia type: due to unspecified organism Laterality: right Lung location: lower lobe of lung Qualified Code(s): J18.9 - Pneumonia, unspecified organism Condition: Serious Disposition: ADMITTED INPATIENT Admitting Provider: Solitario (Hospitalist) Unit Admitted: Medical Floor
[2020-07-19] MEDS ORDERED: LORAZEPAM INJ 2 MG/1 ML VIAL IV PRN (20:43)
[2020-07-19] MEDS ORDERED: GLUCAGON,HUMAN RECOMB 1 MG INJ IM PRN (20:43)
[2020-07-19] MEDS ORDERED: PROMETHAZINE HCL INJ 25 MG/1 ML VIAL IV PRN (20:43)
[2020-07-19] MEDS ORDERED: DEXTROSE 40% GEL 15 GM TUBE PO PRN ×2 (20:43)
[2020-07-19] MEDS ORDERED: DEXTROSE 50%-WATER 25 GM/50 ML DISP.SYRIN IV PRN ×2 (20:43)
[2020-07-19] MEDS ORDERED: GUAIFENESIN SYRP 200 MG/10 ML UDC PO PRN (20:43)
[2020-07-19] MEDS ORDERED: HYDRALAZINE HCL INJ/PF 20 MG/1 ML SDV IV PRN (20:43)
[2020-07-19] MEDS ORDERED: MAG HYDROX/AL HYDROX/SIMETH SUSP 30 ML UDCUP PO PRN (20:43)
[2020-07-19] MEDS ORDERED: METOPROLOL TARTRATE PF/INJ 5 MG/5 ML SDV IV PRN (20:43)
[2020-07-19] MEDS ORDERED: MAGNESIUM HYDROXIDE SUSP 30 ML UDCUP PO PRN (20:43)
--- NOTE | 2020-07-19 21:43 | EKG REPORT ---
SEVERITY:- ABNORMAL ECG - SINUS RHYTHM NONSPECIFIC T ABNORMALITIES, ANTERIOR LEADS : Confirmed by: Shahid Agarwal 19-Jul-2020 21:43:10
[2020-07-19] MEDS: HEPARIN SOD (PORCINE) 5,000 UNIT/ML 1 ML VIAL SUBCUT SCH (22:37)
[2020-07-19] MEDS: FAMOTIDINE 20 MG TABLET PO SCH (22:38)
[2020-07-19] MEDS: MORPHINE SULFATE 10 MG/ML INJ IV PRN (22:44)
[2020-07-19] MEDS: MELATONIN 5 MG TABLET PO PRN (22:57)
[2020-07-20] MEDS: RINGERS SOLUTION,LACTATED 1,000 ML IV PRN ×4 (00:55→20:00)
[2020-07-20] MEDS: MORPHINE SULFATE 10 MG/ML INJ IV PRN ×6 (01:13→22:11)
[2020-07-20] MEDS: IPRATROPIUM BROMIDE 0.02% NEB 0.5 MG/2.5 ML AMPUL NEB SCH ×3 (01:21→15:58)
[2020-07-20] MEDS: LEVALBUTEROL HCL NEB 1.25 MG/3 ML AMPUL NEB SCH ×3 (01:21→15:58)
[2020-07-20] MEDS: HEPARIN SOD (PORCINE) 5,000 UNIT/ML 1 ML VIAL SUBCUT SCH ×3 (05:08→21:19)
--- NOTE | 2020-07-20 06:07 | PDOC H&P ---
History of Present Illness Admission Date/PCP: 07/19/20 19:55 Dr. Vaughan Patient complains of: Right chest pain History of Present Illness: ZI MAHONEY is a 65 year old male who presents the emergency room with a 2- day history of right-sided chest pain. He admits suffering a fall 2 days ago, when he slipped while putting garbage in a dumpster, suffering a blow to his right chest. He immediately experienced severe sharp pain in his lateral right lower chest that has been constant since the injury. His pain has been accompanied by mild dyspnea and is associated with an intermittent nonproductive cough. He has chest pain is worsened with movements of his torso. He denies other injuries or loss of consciousness. He denies other associated or accompanying signs and symptoms. He denies prior similar episodes. He has not identified any additional aggravating or ameliorating factors for his right chest pain. In the emergency room he was found to have a white blood count of 3 8,900 with a right-sided pneumonia and loculated pleural effusion on CT of the chest. He was initially tachycardic and hypoxic but his tachycardia responded to IV fluid and his hypoxia was corrected with supplemental oxygen 2 L/min via nasal cannula. He was subsequently admitted to the hospital for further evaluation and treatment. Past Medical History Cardiac Medical History: Reports: Congestive Heart Failure - Right-sided, Hyperlipidema, Hypertension Denies: Atrial Fibrillation, Coronary Artery Disease, Myocardial Infarction Pulmonary Medical History: Reports: Chronic Obstructive Pulmonary Disease (COPD) Denies: Asthma EENT Medical History: Denies: Cataracts, Ears - Hearing aids Neurological Medical History: Reports: Other - Diabetic peripheral neuropathy Denies: Hemorrhagic CVA, Ischemic CVA, Seizures Endocrine Medical History: Reports: Diabetes Mellitus Type 2, Obesity Denies: Diabetes Mellitus Type 1, Hyperthyroidism, Hypothyroidism Renal/ Medical History: Denies: Chronic Kidney Disease, Nephrolithiasis Malignancy Medical History: Reports: None GI Medical History: Denies: Cirrhosis, Crohn's Disease, Gastroesophageal Reflux Disease, Hepatitis, Peptic Ulcer Disease, Ulcerative Colitis Musculoskeltal Medical History: Reports: Arthritis - Rheumatoid arthritis, Other - Chronic back pain Denies: Fibromyalgia, Gout Skin Medical History: Denies: Eczema, Psoriasis Psychiatric Medical History: Reports: Alcohol Dependency, Depression, Tobacco Dependency Denies: Substance Abuse Traumatic Medical History: Reports: None Denies: Traumatic Brain Injury Hematology: Denies: Anemia, Sickle Cell Disease, Bleeding Tendencies Infectious Medical History: Reports: None Past Surgical History Past Surgical History: Reports: Orthopedic Surgery - Cervical fusion, lumbar back surgery, R rotator cuff, L knee arthroscopy Social History Information Source: Patient Lives with: Family Smoking Status: Former Smoker - Discontinued use of tobacco in late 2018 Electronic Cigarette use?: No Frequency of Alcohol Use: None - Discontinued use of alcohol in late 2018 Hx Recreational Drug Use: No Drugs: None Hx Prescription Drug Abuse: No - Advance Directive Resuscitation Status: Full Code Surrogate healthcare decision maker:: Edmundo Mahoney Family History Family History: CAD, DM Parental Family History Reviewed: Yes Children Family History Reviewed: No Sibling(s) Family History Reviewed.: Yes Medication/Allergy Home Medications: Amlodipine Besylate [Norvasc 10 mg Tablet] 10 mg PO DAILY 02/19/19 Aspirin [Ecotrin] 81 mg PO DAILY 02/19/19 Metformin HCl [Glucophage] 1,000 mg PO BID 02/19/19 Methotrexate Sodium [Rheumatrex 2.5 mg Tablet] 7.5 mg PO MO@1000 02/19/19 Oxycodone HCl 15 mg PO QIDP PRN 02/19/19 Tamsulosin HCl [Flomax 0.4 mg Cap.sr] 0.4 mg PO DAILY 02/19/19 Valsartan/Hydrochlorothiazide [Valsartan-Hctz 320-25 mg Tab] 1 each PO DAILY 02/19/19 Allergies/Adverse Reactions: No Known Allergies Allergy (Verified 03/11/17 08:57) Review of Systems Constitutional: ABSENT: chills, fever(s) Eyes: ABSENT: visual disturbances, other - Eye pain Ears: ABSENT: hearing changes, other - Ear pain Nose, Mouth, and Throat: ABSENT: headache(s), sore throat Cardiovascular: PRESENT: as per HPI, chest pain. ABSENT: palpitations Respiratory: PRESENT: as per HPI, cough, dyspnea. ABSENT: hemoptysis, sputum Gastrointestinal: ABSENT: abdominal pain, constipation, diarrhea, nausea, vomiting Genitourinary: ABSENT: dysuria, hematuria Musculoskeletal: PRESENT: back pain - Chronic. ABSENT: joint swelling, muscle weakness Integumentary: ABSENT: pruritus, rash Neurological: ABSENT: confusion, convulsions, focal weakness, memory loss, syncope Psychiatric: ABSENT: anxiety, depression Endocrine: ABSENT: cold intolerance, heat intolerance Hematologic/Lymphatic: ABSENT: easy bleeding, easy bruising Allergic/Immunologic: ABSENT: seasonal rhinorrhea Physical Exam Vital Signs: Temp Pulse Resp BP Pulse Ox 98.8 F 20 119/63 94 07/19/20 18:52 07/19/20 19:16 07/19/20 19:16 07/19/20 19:16 Intake & Output 07/17/20 07/18/20 07/19/20 23:59 23:59 23:59 Intake Total 1300 Balance 1300 Weight 139.6 kg General appearance: PRESENT: no acute distress, cooperative, morbidly obese Head exam: PRESENT: atraumatic, normocephalic Eye exam: PRESENT: conjunctiva pink. ABSENT: conjunctival injection, scleral icterus Ear exam: PRESENT: normal external ear exam. ABSENT: bleeding, drainage Mouth exam: PRESENT: dry mucosa, neck supple Neck exam: ABSENT: thyromegaly, tracheal deviation Respiratory exam: PRESENT: chest wall tenderness - Right lateral lower chest wall tender to palpation, decreased breath sounds - Right lower chest, rales - Coarse rales right lower lung galvan, symmetrical Cardiovascular exam: PRESENT: RRR. ABSENT: clicks, gallop, rubs Pulses: PRESENT: normal radial pulses, normal dorsalis pedis pul Vascular exam: PRESENT: normal capillary refill. ABSENT: pallor GI/Abdominal exam: PRESENT: normal bowel sounds, soft. ABSENT: tenderness Rectal exam: PRESENT: deferred Extremities exam: ABSENT: joint swelling, pedal edema Musculoskeletal exam: ABSENT: deformity, dislocation Neurological exam: PRESENT: alert, oriented to person, oriented to place, oriented to time, oriented to situation, CN II-XII grossly intact. ABSENT: motor sensory deficit Psychiatric exam: PRESENT: appropriate affect, normal mood Skin exam: PRESENT: dry, intact, warm. ABSENT: jaundice, rash, urticaria Results Laboratory Results: 07/19/20 16:28 07/19/20 16:28 07/19/20 07/19/20 07/19/20 16:28 16:28 16:28 WBC 38.9 H* RBC 4.16 L Hgb 12.7 L Hct 37.5 L MCV 90 MCH 30.4 MCHC 33.8 RDW 14.0 Plt Count 289 Seg Neutrophils % Not Reportable VBG pH 7.44 H VBG pCO2 34.8 L VBG HCO3 23.3 VBG Base Excess -0.2 Sodium 128.8 L Potassium 3.9 Chloride 92 L Carbon Dioxide 26 Anion Gap 11 BUN 17 Creatinine 1.01 Est GFR ( Amer) > 60 Glucose 184 H Lactic Acid Calcium 9.0 Total Bilirubin 1.2 AST 20 Alkaline Phosphatase 140 H Total Protein 6.7 Albumin 3.8 07/19/20 07/19/20 16:28 19:41 WBC RBC Hgb Hct MCV MCH MCHC RDW Plt Count Seg Neutrophils % VBG pH VBG pCO2 VBG HCO3 VBG Base Excess Sodium Potassium Chloride Carbon Dioxide Anion Gap BUN Creatinine Est GFR ( Amer) Glucose Lactic Acid 1.9 1.5 Calcium Total Bilirubin AST Alkaline Phosphatase Total Protein Albumin 07/19/20 16:28 Troponin I < 0.012 NT-Pro-B Natriuret Pep 537 H Impressions: Chest X-Ray 07/19/20 00:00 IMPRESSION: Ill-defined bibasilar opacities possibly infectious/inflammatory or edema. Small bilateral effusions, right greater left. Abdomen/Pelvis CT 07/19/20 16:27 IMPRESSION: No acute finding in the abdomen or pelvis. Lumbar degenerative changes. Chest/Abdomen CTA 07/19/20 16:27 IMPRESSION: 1. No pulmonary embolus. No aortic aneurysm or dissection. 2. Somewhat loculated right pleural effusion with airspace disease in the right lower lobe, atelectasis versus pneumonia. Assessment and Plan - Diagnosis (1) Community acquired pneumonia of right lower lobe of lung Is this a current diagnosis for this admission?: Yes (2) Acute respiratory failure with hypoxia Is this a current diagnosis for this admission?: Yes (3) Leukocytosis Qualifiers: Leukocytosis type: unspecified Qualified Code(s): D72.829 - Elevated white blood cell count, unspecified Is this a current diagnosis for this admission?: Yes (4) Fall Qualifiers: Encounter type: initial encounter Qualified Code(s): W19.XXXA - Unspecified fall, initial encounter Is this a current diagnosis for this admission?: Yes (5) Contusion of right chest wall Qualifiers: Encounter type: initial encounter Qualified Code(s): S20.211A - Contusion of right front wall of thorax, initial encounter Is this a current diagnosis for this admission?: Yes (6) Diabetes mellitus type 2 in obese Is this a current diagnosis for this admission?: Yes (7) Diabetic neuropathy Qualifiers: Diabetes mellitus type: type 2 Diabetes mellitus complication detail: diabetic polyneuropathy Qualified Code(s): E11.42 - Type 2 diabetes mellitus with diabetic polyneuropathy Is this a current diagnosis for this admission?: Yes (8) Hypertension Qualifiers: Hypertension type: essential hypertension Qualified Code(s): I10 - Essential (primary) hypertension Is this a current diagnosis for this admission?: Yes (9) Rheumatoid arthritis Qualifiers: Rheumatoid arthritis location: knee Laterality: bilateral Is this a current diagnosis for this admission?: Yes (10) Chronic back pain Qualifiers: Back pain location: low back pain Back pain laterality: unspecified Sciatica presence: unspecified whether sciatica present Qualified Code(s): M54.5 - Low back pain; G89.29 - Other chronic pain Is this a current diagnosis for this admission?: Yes (11) Morbid obesity with BMI of 40.0-44.9, adult Is this a current diagnosis for this admission?: Yes - Plan Summary Summary: Patient will be admitted to medical floor he will receive routine supportive and symptomatic cares. He will be treated with IV antibiotics utilizing Rocephin and azithromycin. An interventional radiology consultation will be obtained for evacuation of his loculated right pleural effusion. Serial CBCs will be o btained to monitor his leukocytosis. Serial lactic acid levels will be performed. He will receive IV fluids utilizing lactated Ringer solution at 167 mL/h initially. He will receive supplemental oxygen utilizing O2 via nasal cannula as needed to maintain an adequate oxygen saturation. He will receive an aggressive pulmonary toilet utilizing Xopenex, Atrovent, Pulmicort and Mucomyst delivered via nebulizer. He will receive morphine sulfate 2 to 4 mg IV every 2 hours as needed for pain. He will receive Ativan 1 mg IV every 4 hours as needed anxiety or restlessness. Before meals and at bedtime Accu-Cheks will be obtained with sliding scale insulin for hyperglycemia and with a hypoglycemic protocol in place. Patient will be on a cardiac and diabetic restricted diet. Patient's usual home medications will be restarted, as appropriate, as soon as his medication list can be verified and reconciled. CBCs, metabolic profiles and additional laboratory and/or radiographic evaluations will be obtained as needed. - Time Time Spent with patient: 15-24 minutes Medications reviewed and adjusted accordingly: Yes Anticipated Discharge Disposition: Home with Home Health Anticipated Discharge Timeframe: Undetermined - Inpatient Certification Based on my medical assessment, after consideration of the patient's comorbidities, presenting symptoms, or acuity I expect that the services needed warrant INPATIENT care.: Yes I certify that my determination is in accordance with my understanding of Medicare's requirements for reasonable and necessary INPATIENT services [42 CFR 412.3e].: Yes Medical Necessity: Significant Comorbidiites Make Outpatient Treatment Too Risky, Need For IV Fluids, Need for Nebulizer Therapy and Monitoring of Response, Need for IV Antibiotics, Risk of Complication if Not Cared For in Hospital
[2020-07-20 07:59] LABS: VENOUS BLOOD PH 7.46 (7.30-7.42)
[2020-07-20 08:00] LABS: VENOUS BLOOD BASE EXCESS 0.3 mmol/L; VENOUS BLOOD HCO3 23.6 mmol/L (20-32)
[2020-07-20] MEDS: ACETYLCYSTEINE 20% SOLN 800 MG/4 ML VIAL.NEB NEB SCH ×2 (08:06→20:27)
[2020-07-20] MEDS: BUDESONIDE NEB 0.5 MG/2 ML AMPUL NEB SCH ×2 (08:06→20:27)
[2020-07-20 08:11] LABS: HEMATOCRIT 34.2 % (37.9-51.0); HEMOGLOBIN 11.7 g/dL (13.5-17.0); MEAN CORPUSCULAR HEMOGLOBIN 31.7 pg (27.0-33.4); MEAN CORPUSCULAR HGB CONC 34.3 g/dL (32.0-36.0); MEAN CORPUSCULAR VOLUME 92 fl (80-97); PLATELET COUNT 261 10^3/uL (150-450); WHITE BLOOD COUNT 27.7 10^3/uL (4.0-10.5)
[2020-07-20 08:16] LABS: ANION GAP 10 (5-19); BLOOD UREA NITROGEN 16 mg/dL (7-20); CALCIUM 8.6 mg/dL (8.4-10.2); CARBON DIOXIDE 23 mmol/L (22-30); CHLORIDE 94 mmol/L (98-107); CHOLESTEROL 130.91 mg/dL (0-200); GLUCOSE 131 mg/dL (75-110); POTASSIUM 4.4 mmol/L (3.6-5.0); TRIGLYCERIDES 111 mg/dL (<150)
[2020-07-20 08:27] LABS: DIRECT LDL 53 mg/dL (<100)
[2020-07-20] MEDS: CEFTRIAXONE 1 GM/D5W RTU 1 GM/50 ML RTUPB IV SCH (09:57)
[2020-07-20] MEDS: DOCUSATE SODIUM 100 MG CAPSULE PO SCH ×2 (10:00→20:57)
[2020-07-20] MEDS ORDERED: MIDAZOLAM 2 MG/2 ML INJ ONE (11:17)
[2020-07-20] MEDS ORDERED: FENTANYL CITRATE INJ/PF 100 MCG/2 ML AMPUL ONE (11:18)
[2020-07-20 12:32] LABS: PATH REVIEW PATHOLOGIST REVIEWED
[2020-07-20] MEDS ORDERED: DEXAMETHASONE SOD PHOS INJ 10 MG/1 ML VIAL IV ONE (12:55)
[2020-07-20] MEDS ORDERED: DEXAMETHASONE SOD PHOSPHATE INJ 4 MG/1 ML VIAL IV ONE (13:30)
[2020-07-20 13:42] LABS: C-REACTIVE PROTEIN 526.4 mg/L (<10.0)
--- NOTE | 2020-07-20 13:43 | PDOC PROGRESS REPORT ---
Subjective Progress Note for:: 07/20/20 Subjective:: Critical care intervention Rapid response was called while the patient was in CAT scan. He had just had the drain placed in the loculated pleural effusion. He became extremely short of breath, tachycardic, hypoxic and diaphoretic. Reason For Visit: PNEUMONIA Physical Exam Vital Signs: Temp Pulse Resp BP Pulse Ox 98.8 F 111 H 20 128/59 H 99 07/20/20 09:16 07/20/20 09:16 07/20/20 09:16 07/20/20 09:16 07/20/20 09:16 Pulse Oximeter Continuous Start: 07/19/20 20:46 Freq: RTQ4 Status: Hold Protocol: Document 07/20/20 08:05 JDR (Rec: 07/20/20 10:02 [id number] [email or web address]) Additional RT Notes Other pt on nurse monitor for O2 sats. Pulse Oximetry Assessment Equipment Usage Equipment Standby Continuous SpO2 Machine # 0 Intake & Output 07/19/20 07/20/20 07/21/20 06:59 06:59 06:59 Intake Total 2500 250 Output Total 400 Balance 2100 250 Weight 133.3 kg General appearance: PRESENT: severe distress - Patient is diaphoretic. Struggling to find a comfortable position. IR stated that heels are ready pulled on his pleural drain Head exam: PRESENT: atraumatic, normocephalic Ear exam: PRESENT: normal external ear exam. ABSENT: bleeding, drainage Respiratory exam: PRESENT: accessory muscle use, chest wall tenderness - Right side. He did fall and hit his ribs prior to admission. Pigtail drain emanating from the right side of his back., prolonged expiratory phas, rales, symmetrical, tachypnea, wheezes, other - Pigtail chest tube right back. ABSENT: retraction Cardiovascular exam: PRESENT: +S1, +S2, tachycardia. ABSENT: bradycardia, diastolic murmur, irregular rhythm, systolic murmur GI/Abdominal exam: PRESENT: normal bowel sounds, soft, other - Protuberant abdomen. ABSENT: tenderness Extremities exam: PRESENT: +1 edema Neurological exam: PRESENT: alert, awake, oriented to person, oriented to place, oriented to situation Psychiatric exam: PRESENT: agitated - Was able to redirect and settle with verbal interaction, anxious Skin exam: PRESENT: pallor, other - Diaphoresis Results Laboratory Results: 07/20/20 07:39 07/20/20 07:39 07/19/20 07/19/20 07/19/20 16:28 16:28 16:28 WBC 38.9 H* RBC 4.16 L Hgb 12.7 L Hct 37.5 L MCV 90 MCH 30.4 MCHC 33.8 RDW 14.0 Plt Count 289 Seg Neutrophils % Not Reportable VBG pH 7.44 H VBG pCO2 34.8 L VBG HCO3 23.3 VBG Base Excess -0.2 Sodium 128.8 L Potassium 3.9 Chloride 92 L Carbon Dioxide 26 Anion Gap 11 BUN 17 Creatinine 1.01 Est GFR ( Amer) > 60 Glucose 184 H Lactic Acid Calcium 9.0 Magnesium Total Bilirubin 1.2 AST 20 Alkaline Phosphatase 140 H Total Protein 6.7 Albumin 3.8 Triglycerides Cholesterol LDL Cholesterol Direct VLDL Cholesterol HDL Cholesterol TSH 07/19/20 07/19/20 07/19/20 16:28 19:41 22:43 WBC RBC Hgb Hct MCV MCH MCHC RDW Plt Count Seg Neutrophils % VBG pH VBG pCO2 VBG HCO3 VBG Base Excess Sodium Potassium Chloride Carbon Dioxide Anion Gap BUN Creatinine Est GFR ( Amer) Glucose Lactic Acid 1.9 1.5 1.3 Calcium Magnesium Total Bilirubin AST Alkaline Phosphatase Total Protein Albumin Triglycerides Cholesterol LDL Cholesterol Direct VLDL Cholesterol HDL Cholesterol TSH 07/20/20 07/20/20 07/20/20 02:54 07:39 07:39 WBC 27.7 H RBC 3.70 L Hgb 11.7 L Hct 34.2 L MCV 92 MCH 31.7 MCHC 34.3 RDW 14.0 Plt Count 261 Seg Neutrophils % VBG pH VBG pCO2 VBG HCO3 VBG Base Excess Sodium Potassium Chloride Carbon Dioxide Anion Gap BUN Creatinine Est GFR ( Amer) Glucose Lactic Acid 1.1 1.0 Calcium Magnesium Total Bilirubin AST Alkaline Phosphatase Total Protein Albumin Triglycerides Cholesterol LDL Cholesterol Direct VLDL Cholesterol HDL Cholesterol TSH 07/20/20 07/20/20 07/20/20 07:39 07:39 07:39 WBC RBC Hgb Hct MCV MCH MCHC RDW Plt Count Seg Neutrophils % VBG pH 7.46 H VBG pCO2 34.0 L VBG HCO3 23.6 VBG Base Excess 0.3 Sodium 127.3 L Potassium 4.4 Chloride 94 L Carbon Dioxide 23 Anion Gap 10 BUN 16 Creatinine 0.79 Est GFR ( Amer) > 60 Glucose 131 H Lactic Acid Calcium 8.6 Magnesium 1.7 Total Bilirubin AST Alkaline Phosphatase Total Protein Albumin Triglycerides 111 Cholesterol 130.91 LDL Cholesterol Direct 53 VLDL Cholesterol 22.0 HDL Cholesterol 44 TSH 0.85 07/19/20 07/19/20 16:28 20:05 Troponin I < 0.012 < 0.012 NT-Pro-B Natriuret Pep 537 H Impressions: Abdomen/Pelvis CT 07/19/20 16:27 IMPRESSION: No acute finding in the abdomen or pelvis. Lumbar degenerative changes. Chest/Abdomen CTA 07/19/20 16:27 IMPRESSION: 1. No pulmonary embolus. No aortic aneurysm or dissection. 2. Somewhat loculated right pleural effusion with airspace disease in the right lower lobe, atelectasis versus pneumonia. Assessment and Plan - Diagnosis (1) Acute respiratory failure with hypoxia Is this a current diagnosis for this admission?: Yes Plan: Upon arrival to CT scan the patient is already diaphoretic. He is tachypneic. A nonrebreather mask has been put on the patient. The pigtail drain chest tube is in the right side of the back. Patient is very restless trying to find a comfortable position. On exam and then confirmed with chest x-ray there is no evidence of a pneumothorax. Once the nonrebreather mask was in place and the patient settled somewhat his oxygen saturations increased into the 90s. BiPAP was available but not utilized immediately. Once the patient was stable he was transported back to the third floor to room 301. Once back in the room he was most comfortable sitting up in the chair. He still required oxygen but we will try and wean from the nonrebreather mask as tolerated. He does have nebulizer treatments available. He is white blood cell count was 38,000 on admission. His absolute neutrophil count was 0 and this is concerning for COVID. I did add ferritin and C-reactive protein. C-reactive protein was 526 with a normal ferritin. Unfortunately it was too late to add dimer and LDH. I will add those for tomorrow. We will connect the Pleur-evac to continuous wall suction. I did explain to Mr. Mahoney that Dr. Reid is aware of his admission and will be seeing him as opposed to the hospitalist service. (2) Tachycardia Is this a current diagnosis for this admission?: Yes Plan: The patient was tachycardic with pulse rate into the 130s. It is hard to know how much of this is due to his anxiety and tachypnea with difficulty breathing. Twelve-lead EKG shows sinus tach and there are no ST changes. (3) Pleural effusion Is this a current diagnosis for this admission?: Yes Plan: The percutaneous drain was successfully placed. Radiology feels that the patient is dislodged the tube somewhat but chest x-ray confirmed that there was enough of the tube left in place to continue drainage into the Pleur-evac. (4) Rib pain Is this a current diagnosis for this admission?: Yes Plan: The patient did continue to report pain on his right side. Evidently he had fallen at home. I did not see any large ecchymosis. He was slightly tender in that area. - Plan Summary Summary: Patient will be admitted to medical floor he will receive routine supportive and symptomatic cares. He will be treated with IV antibiotics utilizing Rocephin and azithromycin. An interventional radiology consultation will be obtained for evacuation of his loculated right pleural effusion. Serial CBCs will be obtained to monitor his leukocytosis. Serial lactic acid levels will be performed. He will receive IV fluids utilizing lactated Ringer solution at 167 mL/h initially. He will receive supplemental oxygen utilizing O2 via nasal cannula as needed to maintain an adequate oxygen saturation. He will receive an aggressive pulmonary toilet utilizing Xopenex, Atrovent, Pulmicort and Mucomyst delivered via nebulizer. He will receive morphine sulfate 2 to 4 mg IV every 2 hours as needed for pain. He will receive Ativan 1 mg IV every 4 hours as needed anxiety or restlessness. Before meals and at bedtime Accu-Cheks will be obtained with sliding scale insulin for hyperglycemia and with a hypoglycemic protocol in place. Patient will be on a cardiac and diabetic restricted diet. Patient's usual home medications will be restarted, as appropriate, as soon as his medication list can be verified and reconciled. CBCs, metabolic profiles and additional laboratory and/or radiographic evaluations will be obtained as needed. - Time Total Critical Time (Minutes): 50 Anticipated Discharge Disposition: Unknown Anticipated Discharge Timeframe: Unknown
[2020-07-20] MEDS: AZITHROMYCIN 500 MG in DEXTROSE 5%-WATER 250 ML IV SCH (14:11)
[2020-07-20] MEDS: FAMOTIDINE 20 MG TABLET PO SCH ×2 (14:14→21:20)
--- NOTE | 2020-07-20 14:22 | RADIOLOGY REPORT (SQ) ---
EXAM DESCRIPTION: CHEST SINGLE VIEW IMAGES COMPLETED DATE/TIME: 07/20/2020 12:44 pm REASON FOR STUDY: SUDDEN SOB COMPARISON: 07/19/2020. NUMBER OF VIEWS: One view. TECHNIQUE: Single frontal radiographic image of the chest acquired. LIMITATIONS: None. FINDINGS: LUNGS AND PLEURA: Decrease in right pleural effusion. No pneumothorax. MEDIASTINUM AND HEART: Stable heart size and mediastinal structures. SUPPORT DEVICES: Pleural drainage catheter tip overlying right diaphragm and midclavicular line. BONY STRUCTURES: No acute findings. HARDWARE: None. OTHER: No other significant finding. IMPRESSION: No pneumothorax status post thoracentesis. Reading location - IP/workstation name: [email or web address]
--- NOTE | 2020-07-20 14:43 | RADIOLOGY REPORT (SQ) ---
EXAM DESCRIPTION: CT THORACENTESIS W/CHEST TUBE; CT NEEDLE PLACEMENT IMAGES COMPLETED DATE/TIME: 07/20/2020 12:07 pm REASON FOR STUDY: Loculated right pleural effusion; CHEST TUBE COMPARISON: None FLUORO TIME: 2.7 minute 47 images saved to PACS. TECHNIQUE: Image guided chest tube placement using sterile technique. LIMITATIONS: None FINDINGS: After written consent was obtained and explaining the risks and benefits of conscious luan tion , the patient was placed left side down. A time out was then called for site verification. An e ntry site was then marked using CT guidance. The posterior right wall was then prepped and draped in a sterile fashion. The site was then anesthetized using 2.5 ml of 1% lidocaine solution. An 11 blad e scalpel was used to make a small skin incision. A 18g -7cm needle was advanced into the chest wall . A.038 guidewire was passed through the needle. The tract was then dilated using a 10 Mexican dilat or. A 10 fr drain was then placed over the wire. The catheter was then attached to the collection d evice. The entry site was covered with a sterile bandage. IV conscious sedation was administered and physician direction by the registered nurse using 1 keyshawn grams of Versed and 50 micrograms of fentanyl. Physiologic monitoring was provided before, during, an d after sedation. The total sedation time was 30 minutes. Documentation face to face time, the performing proceduralist, spent monitoring the patient: 10minute s. IMPRESSION: SUCCESSFUL PLACEMENT OF A RIGHT SIDED CHEST TUBE USING CT GUIDANCE. COMMENT: Patient medication list reviewed: Yes- Quality ID# [id number]:Eligible professional attests to do cumenting in the medical record they obtained, updated, or reviewed the patient's current medications . Quality ID 145: Final reports for procedures using fluoroscopy that document radiation exposure fara sayda, or exposure time and number of fluorographic images (if radiation exposure indices are not avail able) TECHNICAL DOCUMENTATION: JOB ID: [id number] 2010 [employer]- All Rights Reserved Reading location - IP/workstation name: [email or web address]
[2020-07-20 15:07] LABS: FLUID APPEARANCE SLIGHTLY HAZY; FLUID COLOR YELLOW; FLUID TYPE PLEURAL; FLUID VISCOSITY LIQUID
[2020-07-20 15:50] LABS: FLUID SOURCE LUNG
[2020-07-20] MEDS: HYDROCHLOROTHIAZIDE 25 MG TABLET PO SCH (17:26)
[2020-07-20] MEDS: VALSARTAN 160 MG TABLET PO SCH (17:27)
[2020-07-20] MEDS: METFORMIN HCL 500 MG TABLET PO SCH (17:27)
[2020-07-20] MEDS: GABAPENTIN 300 MG CAPSULE PO SCH (21:20)
[2020-07-20] MEDS: MELATONIN 5 MG TABLET PO PRN (21:20)
[2020-07-20] MEDS: INSULIN REG, HUMAN 100 UNIT/ML 3 ML VIAL (PYX) SUBCUT PRN (22:12)
[2020-07-21] MEDS: LEVALBUTEROL HCL NEB 1.25 MG/3 ML AMPUL NEB SCH ×3 (00:07→16:15)
[2020-07-21] MEDS: IPRATROPIUM BROMIDE 0.02% NEB 0.5 MG/2.5 ML AMPUL NEB SCH ×3 (00:07→16:15)
[2020-07-21] MEDS: RINGERS SOLUTION,LACTATED 1,000 ML IV PRN (04:09)
[2020-07-21] MEDS: MORPHINE SULFATE 10 MG/ML INJ IV PRN ×9 (04:18→22:14)
[2020-07-21 04:37] LABS: HEMATOCRIT 30.5 % (37.9-51.0); HEMOGLOBIN 10.3 g/dL (13.5-17.0); MEAN CORPUSCULAR HEMOGLOBIN 31.1 pg (27.0-33.4); MEAN CORPUSCULAR VOLUME 92 fl (80-97); PLATELET COUNT 219 10^3/uL (150-450); RED BLOOD COUNT 3.32 10^6/uL (4.35-5.55); RED CELL DISTRIBUTION WIDTH 14.2 % (11.5-14.0); WHITE BLOOD COUNT 17.5 10^3/uL (4.0-10.5)
[2020-07-21 04:58] LABS: ANION GAP 11 (5-19); BLOOD UREA NITROGEN 24 mg/dL (7-20); CALCIUM 8.7 mg/dL (8.4-10.2); CARBON DIOXIDE 23 mmol/L (22-30); CHLORIDE 94 mmol/L (98-107); GLUCOSE 150 mg/dL (75-110); POTASSIUM 4.7 mmol/L (3.6-5.0)
[2020-07-21] MEDS: HEPARIN SOD (PORCINE) 5,000 UNIT/ML 1 ML VIAL SUBCUT SCH ×3 (05:03→22:12)
[2020-07-21] MEDS: GABAPENTIN 300 MG CAPSULE PO SCH ×3 (05:03→22:12)
[2020-07-21] MEDS: BUDESONIDE NEB 0.5 MG/2 ML AMPUL NEB SCH ×2 (08:15→20:45)
[2020-07-21] MEDS: ACETYLCYSTEINE 20% SOLN 800 MG/4 ML VIAL.NEB NEB SCH ×2 (08:15→20:45)
--- NOTE | 2020-07-21 09:16 | RADIOLOGY REPORT (SQ) ---
EXAM DESCRIPTION: CHEST SINGLE VIEW IMAGES COMPLETED DATE/TIME: 07/21/2020 8:54 am REASON FOR STUDY: follow up RT chest tube placement COMPARISON: 07/20/2020 NUMBER OF VIEWS: One view. TECHNIQUE: Single frontal radiographic image of the chest acquired. LIMITATIONS: None. FINDINGS: LUNGS AND PLEURA: Small bore right-sided chest tube remains in place. No pneumothorax. P ersistent small right effusion and right basilar airspace disease. MEDIASTINUM AND HILAR STRUCTURES: Stable heart size and mediastinal structures. HEART AND VASCULAR STRUCTURES: Stable appearance. BONES: No acute findings. HARDWARE: None in the chest. OTHER: No other significant finding. IMPRESSION: Right-sided chest tube remains in place. No pneumothorax. No significant interval kapoor ge in the chest. TECHNICAL DOCUMENTATION: JOB ID: [id number] 2010 [employer]- All Rights Reserved Reading location - IP/workstation name: [email or web address]
[2020-07-21] MEDS: DOCUSATE SODIUM 100 MG CAPSULE PO SCH ×2 (09:38→17:28)
[2020-07-21] MEDS: ASPIRIN 81 MG TABLET, ENT COATED PO SCH (09:59)
[2020-07-21] MEDS: METFORMIN HCL 500 MG TABLET PO SCH (09:59)
[2020-07-21] MEDS: AMLODIPINE BESYLATE 10 MG TABLET PO SCH (09:59)
[2020-07-21] MEDS: FAMOTIDINE 20 MG TABLET PO SCH ×2 (09:59→22:12)
[2020-07-21] MEDS: VALSARTAN 160 MG TABLET PO SCH (09:59)
[2020-07-21] MEDS: HYDROCHLOROTHIAZIDE 25 MG TABLET PO SCH (10:00)
[2020-07-21] MEDS: DEXAMETHASONE SOD PHOS INJ 10 MG/1 ML VIAL IV SCH (10:00)
[2020-07-21] MEDS ORDERED: (PENDING PHARMACY ID) (Valsartan/Hydrochlorothiazide [Valsartan-Hctz 320-25 Mg Tab] 1 EACH PO SCH (10:00)
[2020-07-21] MEDS: CEFTRIAXONE 1 GM/D5W RTU 1 GM/50 ML RTUPB IV SCH (10:04)
[2020-07-21] MEDS: AZITHROMYCIN 500 MG in DEXTROSE 5%-WATER 250 ML IV SCH (11:54)
--- NOTE | 2020-07-21 18:17 | PDOC PROGRESS REPORT ---
Subjective Progress Note for:: 07/21/20 Subjective:: Patient was seen today by the bedside, he was admitted on July 19, 2020 when he presented to the emergency room for evaluation of 2-day history of right-sided chest pain. There was antecedent history of fall, he slipped while putting garbage in a dumpster he thought the chest pain was related to the fall the emergency room he was found to have severe leukocytosis WBC at presentation was 30,900, There was associated pneumonia., CT chest demonstrated loculated right pleural effusion. Patient was admitted initially by hospitalist was transferred to my service today, is a patient I followed outpatient previously until he transfer his service to another physician, he wants to return back to our practice and is requesting for me to take over his care in the hospital.The chart was reviewed Reason For Visit: PNEUMONIA Physical Exam Vital Signs: Temp Pulse Resp BP Pulse Ox 97.5 F 80 16 121/94 H 95 07/21/20 15:50 07/21/20 16:19 07/21/20 16:19 07/21/20 15:50 07/21/20 16:19 Pulse Oximeter Continuous Start: 07/19/20 20:46 Freq: RTQ4 Status: Hold Protocol: Document 07/20/20 08:05 JDR (Rec: 07/20/20 10:02 J [email or web address]) Additional RT Notes Other pt on nurse monitor for O2 sats. Pulse Oximetry Assessment Equipment Usage Equipment Standby Continuous SpO2 Machine # 0 Intake & Output 07/20/20 07/21/20 07/22/20 06:59 06:59 06:59 Intake Total 2500 4304 800 Output Total 400 1180 30 Balance 2100 3124 770 Weight 133.3 kg 133.3 kg General appearance: PRESENT: no acute distress Eye exam: PRESENT: PERRLA Respiratory exam: PRESENT: clear to auscultation anabella Cardiovascular exam: PRESENT: +S1, +S2 GI/Abdominal exam: PRESENT: soft Neurological exam: PRESENT: alert Results Laboratory Results: 07/21/20 03:40 07/21/20 03:40 07/21/20 07/21/20 03:40 03:40 WBC 17.5 H RBC 3.32 L Hgb 10.3 L Hct 30.5 L MCV 92 MCH 31.1 MCHC 34.0 RDW 14.2 H Plt Count 219 Sodium 127.5 L Potassium 4.7 Chloride 94 L Carbon Dioxide 23 Anion Gap 11 BUN 24 H Creatinine 1.02 Est GFR ( Amer) > 60 Glucose 150 H Calcium 8.7 Magnesium 2.0 07/19/20 07/19/20 16:28 20:05 Troponin I < 0.012 < 0.012 NT-Pro-B Natriuret Pep 537 H Impressions: Thoracentesis 07/19/20 11:00 IMPRESSION: SUCCESSFUL PLACEMENT OF A RIGHT SIDED CHEST TUBE USING CT GUIDANCE. Abdomen/Pelvis CT 07/19/20 16:27 IMPRESSION: No acute finding in the abdomen or pelvis. Lumbar degenerative changes. Chest/Abdomen CTA 07/19/20 16:27 IMPRESSION: 1. No pulmonary embolus. No aortic aneurysm or dissection. 2. Somewhat loculated right pleural effusion with airspace disease in the right lower lobe, atelectasis versus pneumonia. Guidance Needle Placement CT 07/20/20 00:00 IMPRESSION: SUCCESSFUL PLACEMENT OF A RIGHT SIDED CHEST TUBE USING CT GUIDANCE. Chest X-Ray 07/20/20 23:59 IMPRESSION: Right-sided chest tube remains in place. No pneumothorax. No significant interval change in the chest. Assessment & Plan - Diagnosis (1) Acute respiratory failure with hypoxia Is this a current diagnosis for this admission?: Yes Plan: Patient presently not requiring noninvasive positive pressure ventilation, BiPAP is on supplemental oxygen (2) Pleural effusion, right Is this a current diagnosis for this admission?: Yes Plan: He has a chest tube in place at the moment (3) Morbid obesity due to excess calories Is this a current diagnosis for this admission?: Yes (4) Community acquired pneumonia of right lower lobe of lung Is this a current diagnosis for this admission?: Yes Plan: Continue present IV antibiotic, ceftriaxone and azithromycin (5) Rheumatoid arthritis Qualifiers: Rheumatoid arthritis location: knee Laterality: bilateral Is this a current diagnosis for this admission?: Yes - Time Time Spent with patient: 35 or more minutes Level of Care: IMCU Medications reviewed and adjusted accordingly: Yes Anticipated DC Timeframe: within 72 hours
[2020-07-21] MEDS: MELATONIN 5 MG TABLET PO PRN (22:12)
[2020-07-22] MEDS: MORPHINE SULFATE 10 MG/ML INJ IV PRN ×10 (00:30→20:15)
[2020-07-22] MEDS: LEVALBUTEROL HCL NEB 1.25 MG/3 ML AMPUL NEB SCH ×3 (01:01→15:45)
[2020-07-22] MEDS: IPRATROPIUM BROMIDE 0.02% NEB 0.5 MG/2.5 ML AMPUL NEB SCH ×3 (01:01→15:45)
[2020-07-22] MEDS: GABAPENTIN 300 MG CAPSULE PO SCH ×3 (05:40→21:09)
[2020-07-22] MEDS: HEPARIN SOD (PORCINE) 5,000 UNIT/ML 1 ML VIAL SUBCUT SCH ×3 (05:40→21:09)
[2020-07-22 05:43] LABS: HEMATOCRIT 30.1 % (37.9-51.0); HEMOGLOBIN 10.2 g/dL (13.5-17.0); MEAN CORPUSCULAR HEMOGLOBIN 30.9 pg (27.0-33.4); MEAN CORPUSCULAR HGB CONC 33.9 g/dL (32.0-36.0); MEAN CORPUSCULAR VOLUME 91 fl (80-97); PLATELET COUNT 256 10^3/uL (150-450); RED BLOOD COUNT 3.31 10^6/uL (4.35-5.55); RED CELL DISTRIBUTION WIDTH 14.1 % (11.5-14.0); WHITE BLOOD COUNT 14.4 10^3/uL (4.0-10.5)
[2020-07-22 06:05] LABS: ANION GAP 8 (5-19); BLOOD UREA NITROGEN 29 mg/dL (7-20); CALCIUM 8.9 mg/dL (8.4-10.2); CARBON DIOXIDE 24 mmol/L (22-30); CHLORIDE 97 mmol/L (98-107); GLUCOSE 152 mg/dL (75-110)
[2020-07-22] MEDS: BUDESONIDE NEB 0.5 MG/2 ML AMPUL NEB SCH ×2 (07:43→20:18)
[2020-07-22] MEDS: ACETYLCYSTEINE 20% SOLN 800 MG/4 ML VIAL.NEB NEB SCH ×2 (07:43→20:18)
[2020-07-22] MEDS: CEFTRIAXONE 1 GM/D5W RTU 1 GM/50 ML RTUPB IV SCH (09:13)
[2020-07-22] MEDS: HYDROCHLOROTHIAZIDE 25 MG TABLET PO SCH (09:14)
[2020-07-22] MEDS: VALSARTAN 160 MG TABLET PO SCH (09:14)
[2020-07-22] MEDS: DOCUSATE SODIUM 100 MG CAPSULE PO SCH ×2 (09:14→17:19)
[2020-07-22] MEDS: METFORMIN HCL 500 MG TABLET PO SCH (09:14)
[2020-07-22] MEDS: FAMOTIDINE 20 MG TABLET PO SCH ×2 (09:14→21:09)
[2020-07-22] MEDS: ASPIRIN 81 MG TABLET, ENT COATED PO SCH (09:14)
[2020-07-22] MEDS: AMLODIPINE BESYLATE 10 MG TABLET PO SCH (09:15)
[2020-07-22] MEDS: DEXAMETHASONE SOD PHOS INJ 10 MG/1 ML VIAL IV SCH (09:21)
[2020-07-22] MEDS: AZITHROMYCIN 500 MG in DEXTROSE 5%-WATER 250 ML IV SCH (10:12)
[2020-07-22] MEDS: OXYCODONE HCL IR 5 MG TABLET PO PRN ×3 (11:10→22:45)
[2020-07-22] MEDS: INSULIN REG, HUMAN 100 UNIT/ML 3 ML VIAL (PYX) SUBCUT PRN (17:19)
[2020-07-22] MEDS: RINGERS SOLUTION,LACTATED 1,000 ML IV PRN (20:16)
[2020-07-22] MEDS: LEVALBUTEROL HCL NEB 0.63 MG/3 ML AMPUL NEB PRN (20:18)
[2020-07-22] MEDS: MELATONIN 5 MG TABLET PO PRN (21:09)
--- NOTE | 2020-07-22 21:18 | PDOC PROGRESS REPORT ---
Subjective Progress Note for:: 07/22/20 Subjective:: Patient was seen today by the bedside, he was admitted on July 19, 2020 when he presented to the emergency room for evaluation of 2-day history of right-sided chest pain. There was antecedent history of fall, he slipped while putting garbage in a dumpster he thought the chest pain was related to the fall the emergency room he was found to have severe leukocytosis WBC at presentation was 30,900, There was associated pneumonia., CT chest demonstrated loculated right pleural effusion. Patient was admitted initially by hospitalist was transferred to my service today, is a patient I followed outpatient previously until he transfer his service to another physician, he wants to return back to our practice and is requesting for me to take over his care in the hospital.The chart was reviewed. She complains of pain, requesting increase frequency of oxycodone Reason For Visit: PNEUMONIA Physical Exam Vital Signs: Temp Pulse Resp BP Pulse Ox 97.9 F 76 16 120/61 96 07/22/20 17:08 07/22/20 20:18 07/22/20 20:18 07/22/20 17:08 07/22/20 20:18 Pulse Oximeter Continuous Start: 07/19/20 20:46 Freq: RTQ4 Status: Complete Protocol: Document 07/20/20 08:05 J (Rec: 07/20/20 10:02 J [email or web address]) Additional RT Notes Other pt on nurse monitor for O2 sats. Pulse Oximetry Assessment Equipment Usage Equipment Standby Continuous SpO2 Machine # 0 Intake & Output 07/21/20 07/22/20 07/23/20 06:59 06:59 06:59 Intake Total 4304 2540 800 Output Total 1180 2080 1000 Balance 3124 460 -200 Weight 133.3 kg 133.4 kg 133.4 kg General appearance: PRESENT: no acute distress Eye exam: PRESENT: PERRLA Respiratory exam: PRESENT: clear to auscultation anabella Cardiovascular exam: PRESENT: +S1, +S2 GI/Abdominal exam: PRESENT: soft Neurological exam: PRESENT: alert Results Laboratory Results: 07/22/20 04:33 07/22/20 04:33 07/20/20 07/22/20 07/22/20 11:55 04:33 04:33 WBC 14.4 H RBC 3.31 L Hgb 10.2 L Hct 30.1 L MCV 91 MCH 30.9 MCHC 33.9 RDW 14.1 H Plt Count 256 Sodium 128.8 L Potassium 5.0 Chloride 97 L Carbon Dioxide 24 Anion Gap 8 BUN 29 H Creatinine 0.98 Est GFR ( Amer) > 60 Glucose 152 H Calcium 8.9 Magnesium 2.0 Fluid Total Protein 4.1 07/19/20 16:28 Blood Blood Culture (PCR) - Final 07/20/20 11:55 Pleural Fluid Gram Stain - Final 07/19/20 07/19/20 16:28 20:05 Troponin I < 0.012 < 0.012 NT-Pro-B Natriuret Pep 537 H Impressions: Thoracentesis 07/19/20 11:00 IMPRESSION: SUCCESSFUL PLACEMENT OF A RIGHT SIDED CHEST TUBE USING CT GUIDANCE. Abdomen/Pelvis CT 07/19/20 16:27 IMPRESSION: No acute finding in the abdomen or pelvis. Lumbar degenerative changes. Chest/Abdomen CTA 07/19/20 16:27 IMPRESSION: 1. No pulmonary embolus. No aortic aneurysm or dissection. 2. Somewhat loculated right pleural effusion with airspace disease in the right lower lobe, atelectasis versus pneumonia. Guidance Needle Placement CT 07/20/20 00:00 IMPRESSION: SUCCESSFUL PLACEMENT OF A RIGHT SIDED CHEST TUBE USING CT GUIDANCE. Chest X-Ray 07/20/20 23:59 IMPRESSION: Right-sided chest tube remains in place. No pneumothorax. No significant interval change in the chest. Assessment & Plan - Diagnosis (1) Acute respiratory failure with hypoxia Is this a current diagnosis for this admission?: Yes Plan: Patient presently not requiring noninvasive positive pressure ventilation, BiPAP is on supplemental oxygen (2) Pleural effusion, right Is this a current diagnosis for this admission?: Yes (3) Morbid obesity due to excess calories Is this a current diagnosis for this admission?: Yes (4) Community acquired pneumonia of right lower lobe of lung Is this a current diagnosis for this admission?: Yes Plan: Patient is negative for SARS-CoV-2, follow chest x-ray (5) Rheumatoid arthritis Qualifiers: Rheumatoid arthritis location: knee Laterality: bilateral Is this a current diagnosis for this admission?: Yes - Time Time Spent with patient: 35 or more minutes Level of Care: IMCU Medications reviewed and adjusted accordingly: Yes Anticipated discharge: Home Anticipated DC Timeframe: within 72 hours
--- NOTE | 2020-07-22 22:30 | RADIOLOGY REPORT (SQ) ---
AP Portable chest: 07/22/2020 9:28 PM CDT History: 65-year old patient with concerns for pneumonia. Comparison: Chest radiograph performed 07/19/2020. Findings: The cardiomediastinal silhouette is enlarged. There are bibasilar airspace opacities with a trace left effusion.. There is a pigtail catheter seen at the right lung base. There is suggestion of a trace right medial basilar pneumothorax. The patient has known fractures of the left and seventh ribs. Impression: There is a pigtail catheter at the right lung base with suggestion of a trace medial basilar pneumothorax. There is a trace left effusion with bibasilar airspace opacities present.
[2020-07-23] MEDS: IPRATROPIUM BROMIDE 0.02% NEB 0.5 MG/2.5 ML AMPUL NEB SCH ×3 (00:09→15:43)
[2020-07-23] MEDS: LEVALBUTEROL HCL NEB 1.25 MG/3 ML AMPUL NEB SCH ×3 (00:09→15:43)
[2020-07-23] MEDS: OXYCODONE HCL IR 5 MG TABLET PO PRN ×5 (03:13→20:51)
[2020-07-23] MEDS: GABAPENTIN 300 MG CAPSULE PO SCH ×3 (05:53→21:28)
[2020-07-23] MEDS: HEPARIN SOD (PORCINE) 5,000 UNIT/ML 1 ML VIAL SUBCUT SCH ×3 (05:53→21:28)
[2020-07-23] MEDS: ACETYLCYSTEINE 20% SOLN 800 MG/4 ML VIAL.NEB NEB SCH ×2 (08:39→21:06)
[2020-07-23] MEDS: BUDESONIDE NEB 0.5 MG/2 ML AMPUL NEB SCH ×2 (08:39→21:06)
[2020-07-23] MEDS: CEFTRIAXONE 1 GM/D5W RTU 1 GM/50 ML RTUPB IV SCH (09:11)
[2020-07-23] MEDS: DOCUSATE SODIUM 100 MG CAPSULE PO SCH ×2 (09:12→17:11)
[2020-07-23] MEDS: METFORMIN HCL 500 MG TABLET PO SCH (09:13)
[2020-07-23] MEDS: AMLODIPINE BESYLATE 10 MG TABLET PO SCH (09:13)
[2020-07-23] MEDS: HYDROCHLOROTHIAZIDE 25 MG TABLET PO SCH (09:13)
[2020-07-23] MEDS: FAMOTIDINE 20 MG TABLET PO SCH ×2 (09:13→21:28)
[2020-07-23] MEDS: ASPIRIN 81 MG TABLET, ENT COATED PO SCH (09:13)
[2020-07-23] MEDS: VALSARTAN 160 MG TABLET PO SCH (09:15)
[2020-07-23 09:32] LABS: HEMOGLOBIN 10.6 g/dL (13.5-17.0); MEAN CORPUSCULAR HEMOGLOBIN 31.1 pg (27.0-33.4); MEAN CORPUSCULAR HGB CONC 34.3 g/dL (32.0-36.0); MEAN CORPUSCULAR VOLUME 91 fl (80-97); PLATELET COUNT 255 10^3/uL (150-450); RED BLOOD COUNT 3.41 10^6/uL (4.35-5.55); RED CELL DISTRIBUTION WIDTH 14.2 % (11.5-14.0); WHITE BLOOD COUNT 10.2 10^3/uL (4.0-10.5)
[2020-07-23 09:51] LABS: ALBUMIN 3.1 g/dL (3.5-5.0); ALKALINE PHOSPHATASE 107 U/L (38-126); ANION GAP 11 (5-19); ASPARTATE AMINO TRANSFERASE 19 U/L (17-59); BILIRUBIN,DIRECT 0.3 mg/dL (0.0-0.4); BILIRUBIN,TOTAL 0.4 mg/dL (0.2-1.3); BLOOD UREA NITROGEN 27 mg/dL (7-20); CALCIUM 9.2 mg/dL (8.4-10.2); CARBON DIOXIDE 23 mmol/L (22-30); CHLORIDE 95 mmol/L (98-107); GLUCOSE 147 mg/dL (75-110); POTASSIUM 4.8 mmol/L (3.6-5.0); TOTAL PROTEIN 5.8 g/dL (6.3-8.2)
[2020-07-23] MEDS: AZITHROMYCIN 500 MG in DEXTROSE 5%-WATER 250 ML IV SCH (10:01)
[2020-07-23 10:12] LABS: ABSOLUTE LYMPHOCYTES# (MANUAL) 2.1 10^3/uL (0.5-4.7); ABSOLUTE MONOCYTES # (MANUAL) 0.7 10^3/uL (0.1-1.4); BAND NEUTROPHILS % (MANUAL) 2 % (3-5); BASOPHILS % (MANUAL) 0 % (0-2); EOSINOPHILS % (MANUAL) 0 % (0-6); LYMPHOCYTES % (MANUAL) 21 % (13-45); MONOCYTES % (MANUAL) 7 % (3-13); SEGMENTED NEUTROPHILS % (MAN) 70 % (42-78); TOTAL CELLS COUNTED 100
[2020-07-23 10:13] LABS: ANISOCYTOSIS SLIGHT; PLATELET COMMENT ADEQUATE
[2020-07-23] MEDS: INSULIN REG, HUMAN 100 UNIT/ML 3 ML VIAL (PYX) SUBCUT PRN ×2 (11:56→17:11)
[2020-07-23] MEDS: RINGERS SOLUTION,LACTATED 1,000 ML IV PRN (14:47)
--- NOTE | 2020-07-23 17:26 | Operative Report ---
Nonrecallable Operative Report DATE OF SURGERY: 07/23/20 PREOPERATIVE DIAGNOSIS: rt pleural effusion POSTOPERATIVE DIAGNOSIS: rt pleural effkusion OPERATION: removal of chest tube right chest SURGEON: CHELSEA FORTUNE ANESTHESIA: Other TISSUE REMOVED OR ALTERED: none COMPLICATIONS: none ESTIMATED BLOOD LOSS: 0 INTRAOPERATIVE FINDINGS: see note PROCEDURE: Procedure was done in the patient's room. She had a previous percutaneous pleural catheter placed by interventional radiology for a small right pleural effusion which is resolved since his hospital stay. The tube has not been draining any fluid for the last couple of days and in fact has been off to suction. Dr. Reid asked me to remove the tube as the patient is being discharged home the next day or so. Procedure the chest tube site was prepped with Betadine the dressing was removed the sutures were divided with a sterile scissors and the tube was removed quickly with a deep inspiration and a Xeroform gauze was placed over the hole. It was fixed in place with secure tape which completed the procedure. We will obtain a chest x-ray as a follow-up.
--- NOTE | 2020-07-23 18:17 | RADIOLOGY REPORT (SQ) ---
EXAM DESCRIPTION: CHEST SINGLE VIEW IMAGES COMPLETED DATE/TIME: 07/23/2020 5:53 pm REASON FOR STUDY: f/u chest tube removal right chest COMPARISON: 07/22/2020 EXAM PARAMETERS: NUMBER OF VIEWS: One view. TECHNIQUE: Single frontal radiographic view of the chest acquired. RADIATION DOSE: NA LIMITATIONS: None. FINDINGS: LUNGS AND PLEURA: Cannot exclude medial basilar pneumothorax. Hazy opacification in the r ight lung is unchanged. Chest tube has been removed. MEDIASTINUM AND HILAR STRUCTURES: No masses. Contour normal. HEART AND VASCULAR STRUCTURES: Heart size is borderline. No pulmonary edema. BONES: No acute findings. HARDWARE: None in the chest. OTHER: No other significant finding. IMPRESSION: Borderline heart size without pulmonary edema. Cannot exclude a right medial basilar pn eumothorax. Cannot exclude airspace disease in the right mid and lower lung versus fluid in the fiss ure. TECHNICAL DOCUMENTATION: JOB ID: [id number] 2010 [employer]- All Rights Reserved Reading location - IP/workstation name: [email or web address]
[2020-07-23] MEDS: LEVALBUTEROL HCL NEB 0.63 MG/3 ML AMPUL NEB PRN (21:06)
--- NOTE | 2020-07-23 21:10 | PDOC PROGRESS REPORT ---
Subjective Progress Note for:: 07/23/20 Subjective:: Patient seen by the bedside, chest tube was removed today, he continues to make progress Reason For Visit: PNEUMONIA Physical Exam Vital Signs: Temp Pulse Resp BP Pulse Ox 98.1 F 82 20 110/52 L 99 07/23/20 16:06 07/23/20 16:06 07/23/20 16:06 07/23/20 16:06 07/23/20 16:06 Pulse Oximeter Continuous Start: 07/19/20 20:46 Freq: RTQ4 Status: Complete Protocol: Document 07/20/20 08:05 JDR (Rec: 07/20/20 10:02 JDR [email or web address]) Additional RT Notes Other pt on nurse monitor for O2 sats. Pulse Oximetry Assessment Equipment Usage Equipment Standby Continuous SpO2 Machine # 0 Intake & Output 07/22/20 07/23/20 07/24/20 06:59 06:59 06:59 Intake Total 2540 800 2425 Output Total 2080 2175 2275 Balance 460 -1375 150 Weight 133.4 kg 133.4 kg General appearance: PRESENT: no acute distress Eye exam: PRESENT: PERRLA Respiratory exam: PRESENT: clear to auscultation anabella Cardiovascular exam: PRESENT: +S1, +S2 GI/Abdominal exam: PRESENT: soft Neurological exam: PRESENT: alert Results Laboratory Results: 07/23/20 09:05 07/23/20 09:05 07/23/20 07/23/20 09:05 09:05 WBC 10.2 RBC 3.41 L Hgb 10.6 L Hct 31.0 L MCV 91 MCH 31.1 MCHC 34.3 RDW 14.2 H Plt Count 255 Seg Neutrophils % Not Reportable Sodium 128.6 L Potassium 4.8 Chloride 95 L Carbon Dioxide 23 Anion Gap 11 BUN 27 H Creatinine 0.77 Est GFR ( Amer) > 60 Glucose 147 H Calcium 9.2 Total Bilirubin 0.4 AST 19 Alkaline Phosphatase 107 Total Protein 5.8 L Albumin 3.1 L 07/19/20 16:28 Blood Blood Culture (PCR) - Final 07/19/20 16:28 Blood Blood Culture - Final Micrococcus Species 07/20/20 11:55 Pleural Fluid Gram Stain - Final 07/19/20 07/19/20 16:28 20:05 Troponin I < 0.012 < 0.012 NT-Pro-B Natriuret Pep 537 H Impressions: Thoracentesis 07/19/20 11:00 IMPRESSION: SUCCESSFUL PLACEMENT OF A RIGHT SIDED CHEST TUBE USING CT GUIDANCE. Abdomen/Pelvis CT 07/19/20 16:27 IMPRESSION: No acute finding in the abdomen or pelvis. Lumbar degenerative changes. Chest/Abdomen CTA 07/19/20 16:27 IMPRESSION: 1. No pulmonary embolus. No aortic aneurysm or dissection. 2. Somewhat loculated right pleural effusion with airspace disease in the right lower lobe, atelectasis versus pneumonia. Guidance Needle Placement CT 07/20/20 00:00 IMPRESSION: SUCCESSFUL PLACEMENT OF A RIGHT SIDED CHEST TUBE USING CT GUIDANCE. Chest X-Ray 07/23/20 00:00 IMPRESSION: Borderline heart size without pulmonary edema. Cannot exclude a right medial basilar pneumothorax. Cannot exclude airspace disease in the right mid and lower lung versus fluid in the fissure. Assessment & Plan - Diagnosis (1) Acute respiratory failure with hypoxia Is this a current diagnosis for this admission?: Yes Plan: Patient presently not requiring noninvasive positive pressure ventilation, BiPAP is on supplemental oxygen (2) Pleural effusion, right Is this a current diagnosis for this admission?: Yes (3) Morbid obesity due to excess calories Is this a current diagnosis for this admission?: Yes (4) Community acquired pneumonia of right lower lobe of lung Is this a current diagnosis for this admission?: Yes Plan: Patient is negative for SARS-CoV-2, continue antibiotic (5) Rheumatoid arthritis Qualifiers: Rheumatoid arthritis location: knee Laterality: bilateral Is this a current diagnosis for this admission?: Yes - Time Time Spent with patient: 25-34 minutes Level of Care: IMCU Medications reviewed and adjusted accordingly: Yes Anticipated discharge: Home Anticipated DC Timeframe: within 72 hours
[2020-07-23] MEDS: MELATONIN 5 MG TABLET PO PRN (21:28)
[2020-07-24] MEDS: IPRATROPIUM BROMIDE 0.02% NEB 0.5 MG/2.5 ML AMPUL NEB SCH ×4 (00:07→23:35)
[2020-07-24] MEDS: LEVALBUTEROL HCL NEB 1.25 MG/3 ML AMPUL NEB SCH ×4 (00:07→23:35)
[2020-07-24] MEDS: OXYCODONE HCL IR 5 MG TABLET PO PRN ×6 (01:01→22:11)
[2020-07-24] MEDS: RINGERS SOLUTION,LACTATED 1,000 ML IV PRN (01:03)
[2020-07-24] MEDS: GABAPENTIN 300 MG CAPSULE PO SCH ×3 (05:30→21:52)
[2020-07-24] MEDS: HEPARIN SOD (PORCINE) 5,000 UNIT/ML 1 ML VIAL SUBCUT SCH ×3 (05:30→21:52)
--- NOTE | 2020-07-24 06:45 | Progress Note ---
Provider Note Provider Note: f/u cxr does not show sig ptx please reconsutl surgery as necessary.
[2020-07-24] MEDS: BUDESONIDE NEB 0.5 MG/2 ML AMPUL NEB SCH ×2 (08:30→20:04)
[2020-07-24] MEDS: ACETYLCYSTEINE 20% SOLN 800 MG/4 ML VIAL.NEB NEB SCH ×2 (08:30→20:04)
[2020-07-24] MEDS: FAMOTIDINE 20 MG TABLET PO SCH ×2 (09:44→21:52)
[2020-07-24] MEDS: AMLODIPINE BESYLATE 10 MG TABLET PO SCH (09:44)
[2020-07-24] MEDS: DOCUSATE SODIUM 100 MG CAPSULE PO SCH ×2 (09:44→18:15)
[2020-07-24] MEDS: ASPIRIN 81 MG TABLET, ENT COATED PO SCH (09:44)
[2020-07-24] MEDS: METFORMIN HCL 500 MG TABLET PO SCH (09:44)
[2020-07-24] MEDS: HYDROCHLOROTHIAZIDE 25 MG TABLET PO SCH (09:44)
[2020-07-24] MEDS: VALSARTAN 160 MG TABLET PO SCH (09:45)
--- NOTE | 2020-07-24 10:16 | PDOC PROGRESS REPORT ---
Subjective Progress Note for:: 07/24/20 Subjective:: Patient is feeling better Patient with chest tube removed yesterday No chest pain no short of breath Patient only complaint with ongoing chronic pain issue Reason For Visit: PNEUMONIA Physical Exam Vital Signs: Temp Pulse Resp BP Pulse Ox 98.4 F 113 H 16 103/88 H 95 07/24/20 08:58 07/24/20 07:43 07/24/20 07:43 07/24/20 07:43 07/24/20 07:43 Pulse Oximeter Continuous Start: 07/19/20 20:46 Freq: RTQ4 Status: Complete Protocol: Document 07/20/20 08:05 JDR (Rec: 07/20/20 10:02 JDR [email or web address]) Additional RT Notes Other pt on nurse monitor for O2 sats. Pulse Oximetry Assessment Equipment Usage Equipment Standby Continuous SpO2 Machine # 0 Intake & Output 07/23/20 07/24/20 07/25/20 06:59 06:59 06:59 Intake Total 800 3425 Output Total 2175 3850 Balance -1375 -425 Weight 133.4 kg 129.8 kg General appearance: PRESENT: no acute distress, well-developed, well-nourished Head exam: PRESENT: atraumatic, normocephalic Eye exam: PRESENT: conjunctiva pink, EOMI, PERRLA. ABSENT: scleral icterus Ear exam: PRESENT: normal external ear exam Mouth exam: PRESENT: moist, tongue midline Neck exam: PRESENT: full ROM. ABSENT: carotid bruit, JVD, lymphadenopathy, thyromegaly Respiratory exam: PRESENT: clear to auscultation anabella Cardiovascular exam: PRESENT: RRR. ABSENT: diastolic murmur, rubs, systolic murmur Pulses: PRESENT: normal dorsalis pedis pul, +2 pedal pulses bilateral Vascular exam: PRESENT: normal capillary refill GI/Abdominal exam: PRESENT: normal bowel sounds, soft. ABSENT: distended, guarding, mass, organolmegaly, rebound, tenderness Rectal exam: PRESENT: deferred Neurological exam: PRESENT: alert, awake, oriented to person, oriented to place, oriented to time, oriented to situation, CN II-XII grossly intact. ABSENT: motor sensory deficit Psychiatric exam: PRESENT: appropriate affect, normal mood. ABSENT: homicidal ideation, suicidal ideation Skin exam: PRESENT: dry, intact, warm. ABSENT: cyanosis, rash Results Laboratory Results: 07/23/20 09:05 07/23/20 09:05 07/20/20 11:55 Pleural Fluid Gram Stain - Final 07/20/20 11:55 Pleural Fluid Body Fluid Culture - Final NO AEROBIC OR ANAEROBIC ORGANISMS RECOVERED 07/19/20 16:28 Blood Blood Culture (PCR) - Final 07/19/20 16:28 Blood Blood Culture - Final Micrococcus Species 07/19/20 07/19/20 16:28 20:05 Troponin I < 0.012 < 0.012 NT-Pro-B Natriuret Pep 537 H Impressions: Thoracentesis 07/19/20 11:00 IMPRESSION: SUCCESSFUL PLACEMENT OF A RIGHT SIDED CHEST TUBE USING CT GUIDANCE. Abdomen/Pelvis CT 07/19/20 16:27 IMPRESSION: No acute finding in the abdomen or pelvis. Lumbar degenerative changes. Chest/Abdomen CTA 07/19/20 16:27 IMPRESSION: 1. No pulmonary embolus. No aortic aneurysm or dissection. 2. Somewhat loculated right pleural effusion with airspace disease in the right lower lobe, atelectasis versus pneumonia. Guidance Needle Placement CT 07/20/20 00:00 IMPRESSION: SUCCESSFUL PLACEMENT OF A RIGHT SIDED CHEST TUBE USING CT GUIDANCE. Chest X-Ray 07/23/20 00:00 IMPRESSION: Borderline heart size without pulmonary edema. Cannot exclude a right medial basilar pneumothorax. Cannot exclude airspace disease in the right mid and lower lung versus fluid in the fissure. Assessment & Plan - Diagnosis (1) Acute respiratory failure with hypoxia Is this a current diagnosis for this admission?: Yes (2) Community acquired pneumonia of right lower lobe of lung Is this a current diagnosis for this admission?: Yes (3) Diabetes mellitus type 2 in obese Is this a current diagnosis for this admission?: Yes (4) Chronic back pain Qualifiers: Back pain location: low back pain Back pain laterality: unspecified Sciatica presence: unspecified whether sciatica present Qualified Code(s): M54.5 - Low back pain; G89.29 - Other chronic pain Is this a current diagnosis for this admission?: Yes - Time Time Spent with patient: 15-24 minutes Level of Care: IMCU Medications reviewed and adjusted accordingly: Yes Anticipated discharge: Home Anticipated DC Timeframe: within 48 hours - Plan Summary Plan Summary: We will switch the IV to the p.o. antibiotic continues the current medications
[2020-07-24] MEDS: LEVOFLOXACIN 500 MG TABLET PO SCH (10:27)
[2020-07-24] MEDS: LEVALBUTEROL HCL NEB 0.63 MG/3 ML AMPUL NEB PRN (20:04)
[2020-07-24] MEDS: MELATONIN 5 MG TABLET PO PRN (21:52)
[2020-07-25] MEDS: OXYCODONE HCL IR 5 MG TABLET PO PRN ×6 (02:26→22:16)
[2020-07-25 05:54] LABS: HEMATOCRIT 30.8 % (37.9-51.0); HEMOGLOBIN 10.4 g/dL (13.5-17.0); MEAN CORPUSCULAR HEMOGLOBIN 30.8 pg (27.0-33.4); MEAN CORPUSCULAR HGB CONC 33.8 g/dL (32.0-36.0); MEAN CORPUSCULAR VOLUME 91 fl (80-97); PLATELET COUNT 280 10^3/uL (150-450); RED BLOOD COUNT 3.39 10^6/uL (4.35-5.55); RED CELL DISTRIBUTION WIDTH 14.1 % (11.5-14.0)
[2020-07-25 06:15] LABS: ANION GAP 7 (5-19); BLOOD UREA NITROGEN 25 mg/dL (7-20); CALCIUM 8.7 mg/dL (8.4-10.2); CARBON DIOXIDE 28 mmol/L (22-30); CHLORIDE 94 mmol/L (98-107); GLUCOSE 114 mg/dL (75-110); POTASSIUM 5.1 mmol/L (3.6-5.0)
[2020-07-25] MEDS: HEPARIN SOD (PORCINE) 5,000 UNIT/ML 1 ML VIAL SUBCUT SCH ×3 (06:18→22:20)
[2020-07-25] MEDS: GABAPENTIN 300 MG CAPSULE PO SCH ×3 (06:18→22:17)
[2020-07-25 07:10] LABS: ABSOLUTE LYMPHOCYTES# (MANUAL) 2.1 10^3/uL (0.5-4.7); ABSOLUTE MONOCYTES # (MANUAL) 0.8 10^3/uL (0.1-1.4); BASOPHILS % (MANUAL) 0 % (0-2); EOSINOPHILS % (MANUAL) 1 % (0-6); LYMPHOCYTES % (MANUAL) 14 % (13-45); MONOCYTES % (MANUAL) 5 % (3-13); SEGMENTED NEUTROPHILS % (MAN) 80 % (42-78); TOTAL CELLS COUNTED 100
[2020-07-25 07:12] LABS: ANISOCYTOSIS SLIGHT; PLATELET COMMENT ADEQUATE; PLATELET LARGE PRESENT; TOXIC GRANULATION SLIGHT
[2020-07-25] MEDS: BUDESONIDE NEB 0.5 MG/2 ML AMPUL NEB SCH ×2 (08:03→20:25)
[2020-07-25] MEDS: ACETYLCYSTEINE 20% SOLN 800 MG/4 ML VIAL.NEB NEB SCH ×2 (08:03→20:26)
[2020-07-25] MEDS: IPRATROPIUM BROMIDE 0.02% NEB 0.5 MG/2.5 ML AMPUL NEB SCH ×2 (08:03→16:03)
[2020-07-25] MEDS: LEVALBUTEROL HCL NEB 1.25 MG/3 ML AMPUL NEB SCH ×2 (08:03→16:04)
[2020-07-25] MEDS: INSULIN REG, HUMAN 100 UNIT/ML 3 ML VIAL (PYX) SUBCUT PRN (08:37)
--- NOTE | 2020-07-25 09:50 | PDOC PROGRESS REPORT ---
Subjective Progress Note for:: 07/25/20 Subjective:: Patient is still complaining of fall right side of the chest tube site pain Patient having no fever no chills Patient's white count is elevated Patient is yesterday refused for any IV antibiotic for the Levaquin yesterday Denied any chest pain no short of breath Reason For Visit: PNEUMONIA Physical Exam Vital Signs: Temp Pulse Resp BP Pulse Ox 97.3 F 91 16 110/56 L 97 07/25/20 08:41 07/25/20 07:52 07/25/20 07:52 07/25/20 07:52 07/25/20 07:52 Pulse Oximeter Continuous Start: 07/19/20 20:46 Freq: RTQ4 Status: Complete Protocol: Document 07/20/20 08:05 JDR (Rec: 07/20/20 10:02 J [email or web address]) Additional RT Notes Other pt on nurse monitor for O2 sats. Pulse Oximetry Assessment Equipment Usage Equipment Standby Continuous SpO2 Machine # 0 Intake & Output 07/24/20 07/25/20 07/26/20 06:59 06:59 06:59 Intake Total 3425 1934 Output Total 3850 1575 Balance -425 359 Weight 129.8 kg 134.6 kg General appearance: PRESENT: no acute distress, well-developed, well-nourished Head exam: PRESENT: atraumatic, normocephalic Eye exam: PRESENT: conjunctiva pink, EOMI, PERRLA. ABSENT: scleral icterus Ear exam: PRESENT: normal external ear exam Mouth exam: PRESENT: moist, tongue midline Neck exam: PRESENT: full ROM. ABSENT: carotid bruit, JVD, lymphadenopathy, thyromegaly Cardiovascular exam: PRESENT: RRR. ABSENT: diastolic murmur, rubs, systolic murmur Pulses: PRESENT: normal dorsalis pedis pul, +2 pedal pulses bilateral Vascular exam: PRESENT: normal capillary refill GI/Abdominal exam: PRESENT: normal bowel sounds, soft. ABSENT: distended, guarding, mass, organolmegaly, rebound, tenderness Rectal exam: PRESENT: deferred Musculoskeletal exam: PRESENT: ambulatory Neurological exam: PRESENT: alert, awake, oriented to person, oriented to place, oriented to time, oriented to situation, CN II-XII grossly intact. ABSENT: motor sensory deficit Psychiatric exam: PRESENT: appropriate affect, normal mood. ABSENT: homicidal ideation, suicidal ideation Skin exam: PRESENT: dry, intact, warm. ABSENT: cyanosis, rash Results Laboratory Results: 07/25/20 05:10 07/25/20 05:10 07/25/20 07/25/20 05:10 05:10 WBC 15.0 H RBC 3.39 L Hgb 10.4 L Hct 30.8 L MCV 91 MCH 30.8 MCHC 33.8 RDW 14.1 H Plt Count 280 Seg Neutrophils % Not Reportable Sodium 129.4 L Potassium 5.1 H Chloride 94 L Carbon Dioxide 28 Anion Gap 7 BUN 25 H Creatinine 0.98 Est GFR ( Amer) > 60 Glucose 114 H Calcium 8.7 07/19/20 16:58 Blood Blood Culture - Final NO GROWTH IN 5 DAYS 07/20/20 11:55 Pleural Fluid Gram Stain - Final 07/20/20 11:55 Pleural Fluid Body Fluid Culture - Final NO AEROBIC OR ANAEROBIC ORGANISMS RECOVERED 07/19/20 07/19/20 16:28 20:05 Troponin I < 0.012 < 0.012 NT-Pro-B Natriuret Pep 537 H Impressions: Thoracentesis 07/19/20 11:00 IMPRESSION: SUCCESSFUL PLACEMENT OF A RIGHT SIDED CHEST TUBE USING CT GUIDANCE. Abdomen/Pelvis CT 07/19/20 16:27 IMPRESSION: No acute finding in the abdomen or pelvis. Lumbar degenerative changes. Chest/Abdomen CTA 07/19/20 16:27 IMPRESSION: 1. No pulmonary embolus. No aortic aneurysm or dissection. 2. Somewhat loculated right pleural effusion with airspace disease in the right lower lobe, atelectasis versus pneumonia. Guidance Needle Placement CT 07/20/20 00:00 IMPRESSION: SUCCESSFUL PLACEMENT OF A RIGHT SIDED CHEST TUBE USING CT GUIDANCE. Chest X-Ray 07/23/20 00:00 IMPRESSION: Borderline heart size without pulmonary edema. Cannot exclude a right medial basilar pneumothorax. Cannot exclude airspace disease in the right mid and lower lung versus fluid in the fissure. Assessment & Plan - Diagnosis (1) Acute respiratory failure with hypoxia Is this a current diagnosis for this admission?: Yes (2) Community acquired pneumonia of right lower lobe of lung Is this a current diagnosis for this admission?: Yes (3) Diabetes mellitus type 2 in obese Is this a current diagnosis for this admission?: Yes (4) Chronic back pain Qualifiers: Back pain location: low back pain Back pain laterality: unspecified Sciatica presence: unspecified whether sciatica present Qualified Code(s): M5 4.5 - Low back pain; G89.29 - Other chronic pain Is this a current diagnosis for this admission?: Yes - Time Time Spent with patient: 15-24 minutes Level of Care: IMCU Medications reviewed and adjusted accordingly: Yes Anticipated discharge: Other Anticipated DC Timeframe: Other - Plan Summary Plan Summary: We will repeat start the IV cefepime Get the chest x-ray Use a lidocaine patch
[2020-07-25] MEDS: METFORMIN HCL 500 MG TABLET PO SCH (10:36)
[2020-07-25] MEDS: AMLODIPINE BESYLATE 10 MG TABLET PO SCH (10:36)
[2020-07-25] MEDS: LEVOFLOXACIN 500 MG TABLET PO SCH (10:36)
[2020-07-25] MEDS: ASPIRIN 81 MG TABLET, ENT COATED PO SCH (10:36)
[2020-07-25] MEDS: DOCUSATE SODIUM 100 MG CAPSULE PO SCH ×2 (10:36→18:16)
[2020-07-25] MEDS: HYDROCHLOROTHIAZIDE 25 MG TABLET PO SCH (10:36)
[2020-07-25] MEDS: VALSARTAN 160 MG TABLET PO SCH (10:37)
[2020-07-25] MEDS: FAMOTIDINE 20 MG TABLET PO SCH ×2 (10:40→22:21)
--- NOTE | 2020-07-25 10:41 | RADIOLOGY REPORT (SQ) ---
EXAM DESCRIPTION: CHEST SINGLE VIEW IMAGES COMPLETED DATE/TIME: 07/25/2020 10:21 am REASON FOR STUDY: pain COMPARISON: 07/23/2020 EXAM PARAMETERS: NUMBER OF VIEWS: One view. TECHNIQUE: Single frontal radiographic view of the chest acquired. RADIATION DOSE: NA LIMITATIONS: None. FINDINGS: LUNGS AND PLEURA: Persistent opacity in the right lung with right pleural reaction. Left lung is clear. No obvious pneumothorax. MEDIASTINUM AND HILAR STRUCTURES: No masses. Contour normal. HEART AND VASCULAR STRUCTURES: Heart enlarged. No overt failure. BONES: No acute findings. HARDWARE: None in the chest. OTHER: No other significant finding. IMPRESSION: Persistent right pleural reaction opacity. No identified pneumothorax. TECHNICAL DOCUMENTATION: JOB ID: [id number] [email or web address]- All Rights Reserved Reading location - IP/workstation name: [email or web address]
[2020-07-25] MEDS: LIDOCAINE 5% (700 MG) TRANSDERMAL ADH..PATCH TP SCH (12:37)
[2020-07-25] MEDS: CEFEPIME 1 GM/D5W RTU 1 GM/50 ML RTUPB IV SCH ×2 (12:38→22:20)
[2020-07-25] MEDS: LEVALBUTEROL HCL NEB 0.63 MG/3 ML AMPUL NEB PRN (20:25)
[2020-07-26] MEDS: IPRATROPIUM BROMIDE 0.02% NEB 0.5 MG/2.5 ML AMPUL NEB SCH ×3 (00:05→15:35)
[2020-07-26] MEDS: LEVALBUTEROL HCL NEB 1.25 MG/3 ML AMPUL NEB SCH ×3 (00:05→15:35)
[2020-07-26] MEDS: OXYCODONE HCL IR 5 MG TABLET PO PRN ×4 (02:17→14:35)
[2020-07-26 05:49] LABS: ABSOLUTE BASOPHILS # (AUTO) 0.1 10^3/uL (0.0-0.2); ABSOLUTE EOSINOPHILS # (AUTO) 0.2 10^3/uL (0.0-0.6); ABSOLUTE LYMPHOCYTES (AUTO) 1.5 10^3/uL (0.5-4.7); ABSOLUTE MONOCYTES (AUTO) 0.9 10^3/uL (0.1-1.4); ABSOLUTE NEUT (AUTO) 10.1 10^3/uL (1.7-8.2); BASOPHILS % (AUTO) 0.6 % (0-2); EOSINOPHILS % (AUTO) 1.8 % (0-6); HEMATOCRIT 28.4 % (37.9-51.0); HEMOGLOBIN 9.7 g/dL (13.5-17.0); LYMPHOCYTES % (AUTO) 11.7 % (13-45); MEAN CORPUSCULAR HEMOGLOBIN 31.3 pg (27.0-33.4); MEAN CORPUSCULAR VOLUME 92 fl (80-97); PLATELET COUNT 273 10^3/uL (150-450); RED BLOOD COUNT 3.09 10^6/uL (4.35-5.55); RED CELL DISTRIBUTION WIDTH 14.5 % (11.5-14.0); SEGMENTED NEUTROPHILS % (AUTO) 78.9 % (42-78); TOTAL CELLS COUNTED % (AUTO) 100 %; WHITE BLOOD COUNT 12.8 10^3/uL (4.0-10.5)
[2020-07-26 06:21] LABS: ANION GAP 5 (5-19); BLOOD UREA NITROGEN 25 mg/dL (7-20); CALCIUM 8.8 mg/dL (8.4-10.2); CARBON DIOXIDE 27 mmol/L (22-30); CHLORIDE 95 mmol/L (98-107); GLUCOSE 124 mg/dL (75-110); POTASSIUM 5.1 mmol/L (3.6-5.0)
[2020-07-26] MEDS: GABAPENTIN 300 MG CAPSULE PO SCH ×2 (06:21→14:35)
[2020-07-26] MEDS: HEPARIN SOD (PORCINE) 5,000 UNIT/ML 1 ML VIAL SUBCUT SCH ×2 (06:21→14:40)
[2020-07-26] MEDS: BUDESONIDE NEB 0.5 MG/2 ML AMPUL NEB SCH (08:02)
[2020-07-26] MEDS: ACETYLCYSTEINE 20% SOLN 800 MG/4 ML VIAL.NEB NEB SCH (08:04)
[2020-07-26] MEDS: ASPIRIN 81 MG TABLET, ENT COATED PO SCH (09:47)
[2020-07-26] MEDS: DOCUSATE SODIUM 100 MG CAPSULE PO SCH (09:47)
[2020-07-26] MEDS: LEVOFLOXACIN 500 MG TABLET PO SCH (09:47)
[2020-07-26] MEDS: AMLODIPINE BESYLATE 10 MG TABLET PO SCH (09:48)
[2020-07-26] MEDS: METFORMIN HCL 500 MG TABLET PO SCH (09:48)
[2020-07-26] MEDS: LIDOCAINE 5% (700 MG) TRANSDERMAL ADH..PATCH TP SCH (09:48)
[2020-07-26] MEDS: HYDROCHLOROTHIAZIDE 25 MG TABLET PO SCH (09:48)
[2020-07-26] MEDS: VALSARTAN 160 MG TABLET PO SCH (09:49)
[2020-07-26] MEDS: ACETAMINOPHEN 325 MG TABLET PO PRN ×2 (09:57→14:38)
[2020-07-26] MEDS: CEFEPIME 1 GM/D5W RTU 1 GM/50 ML RTUPB IV SCH (10:13)
[2020-07-26] MEDS: FAMOTIDINE 20 MG TABLET PO SCH (10:14)
[2020-07-26 17:32] VITALS: BP 117/52
--- NOTE | 2020-07-26 19:56 | PDOC DISCHARGE SUMMARY ---
Impression - Admit/DC Date/PCP Admission Date/Primary Care Provider: 07/19/20 19:55 Discharge Date: 07/26/20 - Discharge Diagnosis (1) Acute respiratory failure with hypoxia Is this a current diagnosis for this admission?: Yes (2) Pleural effusion, right Is this a current diagnosis for this admission?: Yes (3) Morbid obesity due to excess calories Is this a current diagnosis for this admission?: Yes (4) Community acquired pneumonia of right lower lobe of lung Is this a current diagnosis for this admission?: Yes (5) Rheumatoid arthritis Is this a current diagnosis for this admission?: Yes - Assessment Summary: Patient will be admitted to medical floor he will receive routine supportive and symptomatic cares. He will be treated with IV antibiotics utilizing Rocephin and azithromycin. An interventional radiology consultation will be obtained for evacuation of his loculated right pleural effusion. Serial CBCs will be obtained to monitor his leukocytosis. Serial lactic acid levels will be performed. He will receive IV fluids utilizing lactated Ringer solution at 167 mL/h initially. He will receive supplemental oxygen utilizing O2 via nasal cannula as needed to maintain an adequate oxygen saturation. He will receive an aggressive pulmonary toilet utilizing Xopenex, Atrovent, Pulmicort and Mucomyst delivered via nebulizer. He will receive morphine sulfate 2 to 4 mg IV every 2 hours as needed for pain. He will receive Ativan 1 mg IV every 4 hours as needed anxiety or restlessness. Before meals and at bedtime Accu-Cheks will be obtained with sliding scale insulin for hyperglycemia and with a hypoglycemic protocol in place. Patient will be on a cardiac and diabetic restricted diet. Patient's usual home medications will be restarted, as appropriate, as soon as his medication list can be verified and reconciled. CBCs, metabolic profiles and additional laboratory and/or radiographic evaluations will be obtained as needed. - Additional Information Resuscitation Status: Full Code Discharge Diet: As Tolerated Discharge Activity: Activity As Tolerated Referrals: JIE BAL MD [ACTIVE STAFF] - 08/03/20 10:30 am Prescriptions: Metformin HCl [Glucophage] 1,000 mg PO DAILY #90 Levofloxacin [Levaquin 500 mg Tablet] 500 mg PO DAILY #7 tablet Gabapentin [Neurontin 300 mg Capsule] 300 mg PO Q8 #90 Amlodipine Besylate [Norvasc 10 mg Tablet] 10 mg PO DAILY #90 Valsartan/Hydrochlorothiazide [Valsartan-Hctz 320-25 mg Tab] 1 each PO DAILY #90 Home Medications: Aspirin [Ecotrin] 81 mg PO DAILY 02/19/19 Oxycodone HCl 15 mg PO QIDP PRN 02/19/19 Furosemide [Lasix 20 mg Tablet] 20 mg PO QAM 07/20/20 Potassium Chloride 10 meq PO DAILY 07/20/20 Amlodipine Besylate [Norvasc 10 mg Tablet] 10 mg PO DAILY #90 07/26/20 Gabapentin [Neurontin 300 mg Capsule] 300 mg PO Q8 #90 07/26/20 Levofloxacin [Levaquin 500 mg Tablet] 500 mg PO DAILY #7 tablet 07/26/20 Metformin HCl [Glucophage] 1,000 mg PO DAILY #90 07/26/20 Valsartan/Hydrochlorothiazide [Valsartan-Hctz 320-25 mg Tab] 1 each PO DAILY #90 07/26/20 History of Present Illiness History of Present Illness: ZI DAVE is a 65 year old male who presents the emergency room with a 2- day history of right-sided chest pain. He admits suffering a fall 2 days ago, when he slipped while putting garbage in a dumpster, suffering a blow to his right chest. He immediately experienced severe sharp pain in his lateral right lower chest that has been constant since the injury. His pain has been accompanied by mild dyspnea and is associated with an intermittent nonproductive cough. He has chest pain is worsened with movements of his torso. He denies other injuries or loss of consciousness. He denies other associated or accompanying signs and symptoms. He denies prior similar episodes. He has not identified any additional aggravating or ameliorating factors for his right chest pain. In the emergency room he was found to have a white blood count of 38,900 with a right-sided pneumonia and loculated pleural effusion on CT of the chest. He was initially tachycardic and hypoxic but his tachycardia responded to IV fluid and his hypoxia was corrected with supplemental oxygen 2 L/min via nasal cannula. He was subsequently admitted to the hospital for further evaluation and treatment. Hospital Course Hospital Course: Patient was admitted for the management of right pleural effusion, pneumonia, he was investigated for SARS-CoV-2, he ruled out for the infection he was treated with IV antibiotic. He was initially admitted under the care of the hospitalist, the care was transferred to my service because of patient's request. He required a pigtail catheter for drainage of the pleural effusion, the effusion was consistent with exudate. He was successfully treated with IV antibiotic, patient has underlining chronic pain partly from both rheumatoid arthritis. Patient insisted on going home today, he was not totally stable yet for discharge but because he has appointment to see pain management tomorrow, he will not stay any day longer in the hospital. Physical Exam Vital Signs: Temp Pulse Resp BP Pulse Ox 97.5 F 83 22 H 117/52 L 96 07/26/20 17:30 07/26/20 17:30 07/26/20 17:30 07/26/20 17:30 07/26/20 17:30 Pulse Oximeter Continuous Start: 07/19/20 20:46 Freq: RTQ4 Status: Complete Protocol: Document 07/20/20 08:05 JDR (Rec: 07/20/20 10:02 JDR [id number]) Additional RT Notes Other pt on nurse monitor for O2 sats. Pulse Oximetry Assessment Equipment Usage Equipment Standby Continuous SpO2 Machine # 0 Intake & Output 07/25/20 07/26/20 07/27/20 06:59 06:59 06:59 Intake Total 1934 1162 594 Output Total 6572 4055 660 Balance 359 413 -66 Weight 134.6 kg 134.6 kg General appearance: PRESENT: no acute distress Eye exam: PRESENT: PERRLA Respiratory exam: PRESENT: clear to auscultation anabella Cardiovascular exam: PRESENT: +S1, +S2 GI/Abdominal exam: PRESENT: soft Neurological exam: PRESENT: alert, CN II-XII grossly intact Results Laboratory Results: WBC 12.8 10^3/uL (4.0-10.5) H 07/26/20 04:53 RBC 3.09 10^6/uL (4.35-5.55) L 07/26/20 04:53 Hgb 9.7 g/dL (13.5-17.0) L 07/26/20 04:53 Hct 28.4 % (37.9-51.0) L 07/26/20 04:53 MCV 92 fl (80-97) 07/26/20 04:53 MCH 31.3 pg (27.0-33.4) 07/26/20 04:53 MCHC 34.0 g/dL (32.0-36.0) 07/26/20 04:53 RDW 14.5 % (11.5-14.0) H 07/26/20 04:53 Plt Count 273 10^3/uL (150-450) 07/26/20 04:53 Lymph % (Auto) 11.7 % (13-45) L 07/26/20 04:53 Towner % (Auto) 7.0 % (3-13) 07/26/20 04:53 Eos % (Auto) 1.8 % (0-6) 07/26/20 04:53 Baso % (Auto) 0.6 % (0-2) 07/26/20 04:53 Absolute Neuts (auto) 10.1 10^3/uL (1.7-8.2) H 07/26/20 04:53 Absolute Lymphs (auto) 1.5 10^3/uL (0.5-4.7) 07/26/20 04:53 Absolute Monos (auto) 0.9 10^3/uL (0.1-1.4) 07/26/20 04:53 Absolute Eos (auto) 0.2 10^3/uL (0.0-0.6) 07/26/20 04:53 Absolute Basos (auto) 0.1 10^3/uL (0.0-0.2) 07/26/20 04:53 Total Counted 100 07/25/20 05:10 Seg Neutrophils % 78.9 % (42-78) H 07/26/20 04:53 Seg Neuts % (Manual) 80 % (42-78) H 07/25/20 05:10 Band Neutrophils % 2 % (3-5) L 07/23/20 09:05 Lymphocytes % (Manual) 14 % (13-45) 07/25/20 05:10 Monocytes % (Manual) 5 % (3-13) 07/25/20 05:10 Eosinophils % (Manual) 1 % (0-6) 07/25/20 05:10 Basophils % (Manual) 0 % (0-2) 07/25/20 05:10 Metamyelocytes % 2 % (0-1) H 07/19/20 16:28 Abs Neuts (Manual) 12.0 10^3/uL (1.7-8.2) H 07/25/20 05:10 Abs Lymphs (Manual) 2.1 10^3/uL (0.5-4.7) 07/25/20 05:10 Abs Monocytes (Manual) 0.8 10^3/uL (0.1-1.4) 07/25/20 05:10 Absolute Eos (Manual) 0.2 10^3/uL (0.0-0.6) 07/25/20 05:10 Abs Basophils (Manual) 0.0 10^3/uL (0.0-0.2) 07/25/20 05:10 Toxic Granulation SLIGHT 07/25/20 05:10 Large Platelets PRESENT 07/25/20 05:10 Platelet Comment ADEQUATE 07/25/20 05:10 Anisocytosis SLIGHT 07/25/20 05:10 PT 15.3 SEC (11.4-15.4) 07/19/20 16:28 INR 1.19 07/19/20 16:28 D-Dimer 0.89 ug/mL (0.00-0.50) H 07/21/20 03:40 VBG pH 7.46 (7.30-7.42) H 07/20/20 07:39 VBG pCO2 34.0 mmHg (35-63) L 07/20/20 07:39 VBG HCO3 23.6 mmol/L (20-32) 07/20/20 07:39 VBG Base Excess 0.3 mmol/L 07/20/20 07:39 Sodium 126.9 mmol/L (137-145) L 07/26/20 04:53 Potassium 5.1 mmol/L (3.6-5.0) H 07/26/20 04:53 Chloride 95 mmol/L (98-107) L 07/26/20 04:53 Carbon Dioxide 27 mmol/L (22-30) 07/26/20 04:53 Anion Gap 5 (5-19) 07/26/20 04:53 BUN 25 mg/dL (7-20) H 07/26/20 04:53 Creatinine 0.98 mg/dL (0.52-1.25) 07/26/20 04:53 Est GFR ( Amer) > 60 (>60) 07/26/20 04:53 Est GFR (MDRD) Non-Af > 60 (>60) 07/26/20 04:53 Glucose 124 mg/dL (75-110) H 07/26/20 04:53 POC Glucose 135 mg/dL (70-110) H 07/26/20 16:40 Hemoglobin A1c % 5.4 % (4.7-6.0) 07/20/20 07:39 Lactic Acid 1.0 mmol/L (0.7-2.1) 07/20/20 07:39 Calcium 8.8 mg/dL (8.4-10.2) 07/26/20 04:53 Magnesium 2.0 mg/dL (1.6-2.3) 07/22/20 04:33 Ferritin 314.00 ng/mL (17.9-464.0) 07/20/20 07:39 Total Bilirubin 0.4 mg/dL (0.2-1.3) 07/23/20 09:05 Direct Bilirubin 0.3 mg/dL (0.0-0.4) 07/23/20 09:05 Neonat Total Bilirubin Not Reportable 07/23/20 09:05 Neonat Direct Bilirubin Not Reportable 07/23/20 09:05 Neonat Indirect Bili Not Reportable 07/23/20 09:05 AST 19 U/L (17-59) 07/23/20 09:05 ALT 18 U/L (<50) 07/23/20 09:05 Alkaline Phosphatase 107 U/L (38-126) 07/23/20 09:05 Lactate Dehydrogenase 91 U/L (120-246) L 07/21/20 03:40 Troponin I < 0.012 ng/mL 07/19/20 20:05 C-Reactive Protein 526.4 mg/L (<10.0) H 07/20/20 07:39 NT-Pro-B Natriuret Pep 537 pg/mL (<125) H 07/19/20 16:28 Total Protein 5.8 g/dL (6.3-8.2) L 07/23/20 09:05 Albumin 3.1 g/dL (3.5-5.0) L 07/23/20 09:05 Triglycerides 111 mg/dL (<150) 07/20/20 07:39 Cholesterol 130.91 mg/dL (0-200) 07/20/20 07:39 LDL Cholesterol Direct 53 mg/dL (<100) 07/20/20 07:39 VLDL Cholesterol 22.0 mg/dL (10-31) 07/20/20 07:39 HDL Cholesterol 44 mg/dL (>40) 07/20/20 07:39 TSH 0.85 uIU/mL (0.47-4.68) 07/20/20 07:39 Fluid Type PLEURAL 07/20/20 11:55 Fluid Source LUNG 07/20/20 11:55 Fluid Color YELLOW 07/20/20 11:55 Fluid Appearance SLIGHTLY HAZY 07/20/20 11:55 Fluid Viscosity LIQUID 07/20/20 11:55 Fluid WBC 5550 /uL 07/20/20 11:55 Fluid RBC 1300 /uL 07/20/20 11:55 Fluid Seg Neutrophils 86 % 07/20/20 11:55 Fluid Lymphocytes 9 % 07/20/20 11:55 Fluid Monocytes 5 % 07/20/20 11:55 Fluid Eosinophils 0 % 07/20/20 11:55 Fluid Basophils 0 % 07/20/20 11:55 Fluid Total Protein 4.1 g/dL (.) 07/20/20 11:55 COVID-19 Source NASOPHARYNGEAL 07/19/20 20:32 COVID-19 (NUZHAT) NOT DETECTED 07/19/20 20:32 Slides for Path Review PATHOLOGIST REVIEWED 07/19/20 16:28 07/19/20 07/19/20 16:28 20:05 Troponin I < 0.012 < 0.012 NT-Pro-B Natriuret Pep 537 H Impressions: Chest X-Ray 07/19/20 00:00 IMPRESSION: Ill-defined bibasilar opacities possibly infectious/inflammatory or edema. Small bilateral effusions, right greater left. Thoracentesis 07/19/20 11:00 IMPRESSION: SUCCESSFUL PLACEMENT OF A RIGHT SIDED CHEST TUBE USING CT GUIDANCE. Abdomen/Pelvis CT 07/19/20 16:27 IMPRESSION: No acute finding in the abdomen or pelvis. Lumbar degenerative changes. Chest/Abdomen CTA 07/19/20 16:27 IMPRESSION: 1. No pulmonary embolus. No aortic aneurysm or dissection. 2. Somewhat loculated right pleural effusion with airspace disease in the right lower lobe, atelectasis versus pneumonia. Chest X-Ray 07/20/20 00:00 IMPRESSION: No pneumothorax status post thoracentesis. Guidance Needle Placement CT 07/20/20 00:00 IMPRESSION: SUCCESSFUL PLACEMENT OF A RIGHT SIDED CHEST TUBE USING CT GUIDANCE. Chest X-Ray 07/20/20 23:59 IMPRESSION: Right-sided chest tube remains in place. No pneumothorax. No significant interval change in the chest. Chest X-Ray 07/23/20 00:00 IMPRESSION: Borderline heart size without pulmonary edema. Cannot exclude a right medial basilar pneumothorax. Cannot exclude airspace disease in the right mid and lower lung versus fluid in the fissure. Chest X-Ray 07/25/20 00:00 IMPRESSION: Persistent right pleural reaction opacity. No identified pneumothorax. Stroke Is this a Stroke Patient?: No Acute Heart Failure Is this a Heart Failure Patient?: No
== END 2020-07-26 17:55 | disposition home or self-care (01) | DRG 193 ==
LOC: ER 16:10 → EH 19:55 → 3W 07-20 00:42 → 3N 07-20 13:00 → 3W 07-21 12:15
PROVIDERS: ADMIT Emergency Medicine; ATTEND Internal Medicine
PROC: 0W9930Z Drainage of Right Pleural Cavity with Drainage Device, Percutaneous Approach (ICD-10-PCS; principal; 2020-07-20)
PROC: 0WP930Z Removal of Drainage Device from Right Pleural Cavity, Percutaneous Approach (ICD-10-PCS; 2020-07-23)
DX: J18.9 Pneumonia, unspecified organism (principal); J96.01 Acute respiratory failure with hypoxia; J91.8 Pleural effusion in other conditions classified elsewhere; J44.0 Chronic obstructive pulmonary disease with (acute) lower respiratory infection; Z68.41 Body mass index [BMI] 40.0-44.9, adult; E78.5 Hyperlipidemia, unspecified; I11.0 Hypertensive heart disease with heart failure; I50.814 Right heart failure due to left heart failure; E11.42 Type 2 diabetes mellitus with diabetic polyneuropathy; E66.01 Morbid (severe) obesity due to excess calories; G89.29 Other chronic pain; M06.9 Rheumatoid arthritis, unspecified; W19.XXXA Unspecified fall, initial encounter; M54.9 Dorsalgia, unspecified; F10.20 Alcohol dependence, uncomplicated; S20.211A Contusion of right front wall of thorax, initial encounter; F32.9 Major depressive disorder, single episode, unspecified; F17.210 Nicotine dependence, cigarettes, uncomplicated; M06.862 Other specified rheumatoid arthritis, left knee; M06.861 Other specified rheumatoid arthritis, right knee; E78.00 Pure hypercholesterolemia, unspecified; Z03.818 Encounter for observation for suspected exposure to other biological agents ruled out; Z79.899 Other long term (current) drug therapy; Z98.1 Arthrodesis status; Z79.891 Long term (current) use of opiate analgesic; Z79.84 Long term (current) use of oral hypoglycemic drugs; Z83.3 Family history of diabetes mellitus; Z82.49 Family history of ischemic heart disease and other diseases of the circulatory system
CPT/HCPCS: 32551; 36415; 71045; 71275; 74177; 77012; 80048; 80053; 80061; 82728; 82803; 82962; 83036; 83605; 83615; 83735; 83880; 84157; 84443; 84484; 85025; 85027; 85379; 85610; 86140; 87040; 87070; 87075; 87077; 87150; 87205; 87635; 88305; 89050; 93005; 93010; 94640; 96361; 96365; 96368; 96375; 99285; C1729; C1769; C1894; C9803; J0456; J0692; J0696; J1100; J1644; J1815; J2250; J2270; J2405; J3010; J3490; J7030; J7060; J7120; J7614; J7644

== ENCOUNTER 2020-08-02 13:03 | Inpatient (IN) | payer MEDICARE, MEDICAID ==
[2020-08-02 13:54] LABS: ABSOLUTE BASOPHILS # (AUTO) 0.1 10^3/uL (0.0-0.2); ABSOLUTE EOSINOPHILS # (AUTO) 0.3 10^3/uL (0.0-0.6); ABSOLUTE LYMPHOCYTES (AUTO) 1.4 10^3/uL (0.5-4.7); ABSOLUTE MONOCYTES (AUTO) 0.8 10^3/uL (0.1-1.4); ABSOLUTE NEUT (AUTO) 6.6 10^3/uL (1.7-8.2); BASOPHILS % (AUTO) 0.8 % (0-2); HEMATOCRIT 30.7 % (37.9-51.0); HEMOGLOBIN 10.6 g/dL (13.5-17.0); LYMPHOCYTES % (AUTO) 15.3 % (13-45); MEAN CORPUSCULAR HEMOGLOBIN 30.6 pg (27.0-33.4); MEAN CORPUSCULAR HGB CONC 34.4 g/dL (32.0-36.0); MEAN CORPUSCULAR VOLUME 89 fl (80-97); PLATELET COUNT 328 10^3/uL (150-450); RED BLOOD COUNT 3.45 10^6/uL (4.35-5.55); SEGMENTED NEUTROPHILS % (AUTO) 71.9 % (42-78); TOTAL CELLS COUNTED % (AUTO) 100 %; WHITE BLOOD COUNT 9.1 10^3/uL (4.0-10.5)
[2020-08-02 14:08] LABS: ALBUMIN 3.5 g/dL (3.5-5.0); ALKALINE PHOSPHATASE 119 U/L (38-126); ANION GAP 8 (5-19); ASPARTATE AMINO TRANSFERASE 20 U/L (17-59); BILIRUBIN,DIRECT 0.4 mg/dL (0.0-0.4); BILIRUBIN,TOTAL 0.5 mg/dL (0.2-1.3); BLOOD UREA NITROGEN 13 mg/dL (7-20); CALCIUM 9.6 mg/dL (8.4-10.2); CARBON DIOXIDE 32 mmol/L (22-30); CHLORIDE 89 mmol/L (98-107); GLUCOSE 103 mg/dL (75-110); POTASSIUM 5.5 mmol/L (3.6-5.0); TOTAL PROTEIN 6.4 g/dL (6.3-8.2)
[2020-08-02 14:19] LABS: NT PRO BNP 166 pg/mL (<125)
[2020-08-02 14:22] LABS: TROPONIN I < 0.012 ng/mL
--- NOTE | 2020-08-02 15:10 | ER Document Report ---
ED General - General Chief Complaint: General Weakness Stated Complaint: WEAKNESS Time Seen by Provider: 08/02/20 13:11 Mode of Arrival: Medic Information source: Patient TRAVEL OUTSIDE OF THE [place] IN LAST 30 DAYS: No - HPI Notes: Patient presents by ambulance complaining of weakness. Patient states he was recently discharged from the hospital after being treated for pneumonia. He states he believes this is better. He states his shortness of breath and his cough are better. He is currently still on antibiotics. He states he called the ambulance today because he was so weak he was unable to get to a standing position. He states he also feels that his lower extremities are swollen bilaterally. He states this weakness is severe and constant. It is worse with movement and better with rest. It is mainly in his lower extremities and prevents him from being able to stand and walk well he states. He states he lives alone and is unable to do his activities of daily living due to the severe weakness. - Related Data Allergies/Adverse Reactions: No Known Allergies Allergy (Verified 03/11/17 08:57) Past Medical History - General Information source: Patient - Social History Smoking Status: Former Smoker Frequency of alcohol use: None Drug Abuse: None Lives with: Alone Family History: CAD, DM - Past Medical History Cardiac Medical History: Reports: Hx Congestive Heart Failure - Right-sided, Hx Hypercholesterolemia, Hx Hypertension Denies: Hx Atrial Fibrillation, Hx Coronary Artery Disease, Hx Heart Attack Pulmonary Medical History: Reports: Hx COPD Denies: Hx Asthma Neurological Medical History: Denies: Hx Seizures Endocrine Medical History: Reports: Hx Diabetes Mellitus Type 2. Denies: Hx Diabetes Mellitus Type 1, Hx Hyperthyroidism, Hx Hypothyroidism Renal/ Medical History: Denies: Hx Peritoneal Dialysis GI Medical History: Denies: Hx Cirrhosis, Hx Crohn's Disease, Hx Gastroesophageal Reflux Disease, Hx Hepatitis, Hx Ulcerative Colitis Musculoskeletal Medical History: Reports Hx Arthritis - Rheumatoid arthritis, Denies Hx Fibromyalgia, Denies Hx Gout Skin Medical History: Denies Hx Eczema, Denies Hx Psoriasis Psychiatric Medical History: Reports: Hx Depression Traumatic Medical History: Denies: Hx Traumatic Brain Injury Infectious Medical History: Denies: Hx Hepatitis Past Surgical History: Reports: Hx Orthopedic Surgery - Cervical fusion, lumbar back surgery, R rotator cuff, L knee arthroscopy - Immunizations Hx Diphtheria, Pertussis, Tetanus Vaccination: Yes Hx Pneumococcal Vaccination: 08/05/13 Review of Systems - Review of Systems Constitutional: Malaise, Weakness, Recent illness Cardiovascular: denies: Chest pain, Palpitations Musculoskeletal: Joint pain, Ankle swelling -: Yes All other systems reviewed and negative Physical Exam - Vital signs Interpretation: Normal - General General appearance: Appears well, Alert - HEENT Head: Normocephalic, Atraumatic Eyes: Normal Pupils: PERRL - Respiratory Respiratory status: No respiratory distress Chest status: Nontender Breath sounds: Normal Chest palpation: Normal - Cardiovascular Rhythm: Regular Heart sounds: Normal auscultation Murmur: No - Abdominal Inspection: Morbidly Obese Distension: No distension Bowel sounds: Normal Tenderness: Nontender Organomegaly: No organomegaly - Back Back: Normal, Nontender - Extremities General upper extremity: Normal inspection, Nontender, Normal color, Normal ROM, Normal temperature General lower extremity: Nontender, Normal color, Normal temperature, Other - Patient is lower extremities have 2+ pitting edema bilaterally.. No: Normal weight bearing - Patient states he is unable to bear weight. I tried to get the patient to stand up by the bed and ambulate however he states that he is too [place] to do this. - Neurological Neuro grossly intact: Yes Cognition: Normal Orientation: AAOx4 [place] Coma Scale Eye Opening: Spontaneous [place] Coma Scale Verbal: Oriented [place] Coma Scale Motor: Obeys Commands [place] Coma Scale Total: 15 Speech: Normal Sensory: Normal - Psychological Associated symptoms: Normal affect, Normal mood - Skin Skin Temperature: Warm Skin Moisture: Dry Skin Color: Normal Course - Re-evaluation Re-evalutation: 08/02/20 15:10 Patient presents with complaints of lower extremity weakness. He states is so severe that he is unable to stand up and do activities of daily living at all his house. He states he lives alone and that this weakness is significantly causing him hardship. He does have hyperkalemia and hyponatremia on laboratory evaluation. Have discussed the case with the primary care physician who is going to admit the patient for further evaluation and possible rehabilitation placement. - Laboratory Result Diagrams: 08/02/20 13:30 08/02/20 13:30 Laboratory results interpreted by me: 08/02/20 08/02/20 08/02/20 13:30 13:30 13:30 RBC 3.45 L Hgb 10.6 L Hct 30.7 L Sodium 128.6 L Potassium 5.5 H Chloride 89 L Carbon Dioxide 32 H NT-Pro-B Natriuret Pep 166 H - EKG Interpretation by Me EKG shows normal: Sinus rhythm Rate: Normal - 96 Rhythm: NSR [place]/QRS: No: Right axis deviation, Left axis deviation Discharge - Discharge Clinical Impression: Weakness, Hyponatremia, Hyperkalemia Condition: Stable Disposition: ADMITTED INPATIENT [facility]: Telemetry
[2020-08-02] MEDS ORDERED: SODIUM POLYSTYRENE SULFONATE 15 GM/60 ML PO ONE (15:12)
[2020-08-02] MEDS ORDERED: NORMAL SALINE 1000 ML 1,000 ML IV ONE (15:12)
[2020-08-02 17:15] LABS: APPEARANCE,URINE CLEAR; BILIRUBIN,URINE NEGATIVE (NEGATIVE); COLOR,URINE STRAW; GLUCOSE, URINE NEGATIVE (NEGATIVE); KETONES,URINE NEGATIVE (NEGATIVE); LEUKOCYTE ESTERASE,URINE NEGATIVE (NEGATIVE); NITRITE,URINE NEGATIVE (NEGATIVE); PROTEIN,URINE NEGATIVE (NEGATIVE); URINE SPECIFIC GRAVITY 1.004; UROBILINOGEN,URINE NEGATIVE mg/dL (<2.0)
--- NOTE | 2020-08-02 17:47 | EKG REPORT ---
SEVERITY:- BORDERLINE ECG - SINUS RHYTHM LOW VOLTAGE THROUGHOUT : Confirmed by: Cristóbal Burkett MD 02-Aug-2020 17:46:30
[2020-08-02] MEDS ORDERED: GABAPENTIN 300 MG CAPSULE PO ONE (18:02)
[2020-08-02] MEDS ORDERED: MORPHINE SULFATE 10 MG/ML INJ IV ONE (18:07)
--- NOTE | 2020-08-02 18:10 | ER Document Report ---
ED [employer]/Exc Criteria - Date/Time patient last known well: Date/Time: 0 - Date/Time patient arrived in ED: _: 1600 - Inclusion Criteria: 1: Patient presented to ED within 3 hours of acute ischemic stroke symptom onset? 2: Did baseline CT exclude intracranial hemorrhage and/or other risk factors? 3: Is the age of the patient 18 years of age or greater? : If any of the above questions are answered "NO" then stop, patient is not a candidate for Alteplase, : If all of the above questions are answered "YES" then continue with Exclusion Criteria. - Exclusion Criteria: 1: Is there evidence of intracranial hemorrhage on baseline CT? 2: Is there suspicion of subarachnoid hemorrhage (even if CT negative)? 3: Is there a history of serious head trauma, recent previous stroke or CO within 3 months? 4: Does the patient have a clinical presentation consistent with CO or post-CO pericarditis? 5: Is there history of intracranial hemorrhage? 6: On repeated measurement is Systolic BP greater than 185mmHg or Diastolic BP greater that 110 mmHg and is aggressive treatment needed to reduce blood pressure to these limits (e.g. constant infusion of an anti-hypertensive)? 7: Did the patient awake with stroke symptoms? 8: Has the patient had a lumbar puncture or an arterial puncture at a non- compressile site within 7 days? 9: With in the last 14 days did the patient have surgery or major trauma? 10: Is the patient or less than 2 weeks? 11: Was there any active bleeding or acute trauma? 12: Does the patient have intracranial neoplasm, arteriovenous malformation or aneurysm? 13: Does the patient have abnormal glucose (less than 50 or greater than 400mg/dl)? Record glucose in Comment. -: No 14: Patient has rapidly improving symptoms at the time Alteplase is to be Administered. 15: Does the patient have any risks for bleeding, including but not limited to: a.: Current use of Coumadin with PT greater than 15 seconds or INR greater than 1.7. b.: Current use of Pradaxa (Dabigatran). c.: Heparin administereed within the past 48 hours and PTT elevated. d.: Platelet count less than 100,000/mm. e.: Major surgery or serious trauma within 14 days. f.: Gastrointestinal or gynecological urinary bleeding within 14 days. g.: Myocardial Infarction (CO) within 3 months. : If the answer to any of the above questions is "YES" then stop, the patient is not a candidate for Alteplase. : If the answer to all of the above questions is "NO" then the patient may be eligible for the Administration of Alteplase. : If the patient is noted to have seizure activity at onset of Stroke symptoms; Consult Neurologist for further evaluation. - The patient is: -: Included and is eligible to receive Alteplase. *Initiate bed placement at higher level of care* Reviewed risks & benefits of thrombolytic therapy: I have reviewed the risks and benefits of thrombolytic therapy with the patient and/or his/her family. -: Excluded and not eligible to receive Alteplase for the above exclusions. -: Excluded and not eligible to receive Alteplase for other reasons (specify in comments): - Diagnosis of TIA: -: Patient presented with transient symptoms that are now resolved and no other neurologic findings are currently present. List symptoms in comments. -: Patient is NOT a candidate for tPA. -: ____(put name in comment) has been consulted for admission and continued evaluation of risk factor assessment. Comment: error/wrong pt
[2020-08-02] MEDS ORDERED: (PENDING PHARMACY ID) (Valsartan/Hydrochlorothiazide [Valsartan-Hctz 320-25 Mg Tab] 1 EACH PO SCH (20:45)
[2020-08-02] MEDS ORDERED: VITAMIN E 200 UNIT PO SCH ×2 (20:45→21:00)
[2020-08-02] MEDS: HYDROCHLOROTHIAZIDE 25 MG TABLET PO SCH (21:24)
[2020-08-02] MEDS: GABAPENTIN 300 MG CAPSULE PO SCH (21:24)
[2020-08-02] MEDS: OXYCODONE HCL IR 5 MG TABLET PO PRN (21:25)
[2020-08-02] MEDS: VALSARTAN 160 MG TABLET PO SCH (21:25)
[2020-08-02] MEDS: MULTIVITAMIN TABLET PO SCH (21:26)
[2020-08-02] MEDS: ASCORBIC ACID 500 MG TABLET PO SCH (21:26)
[2020-08-02] MEDS: ASPIRIN 81 MG TABLET, ENT COATED PO SCH (21:26)
[2020-08-02] MEDS: METFORMIN HCL 500 MG TABLET PO SCH (21:26)
[2020-08-02] MEDS: AMLODIPINE BESYLATE 10 MG TABLET PO SCH (21:26)
--- NOTE | 2020-08-02 22:30 | PDOC H&P ---
History of Present Illness Admission Date/PCP: 08/02/20 15:30 History of Present Illness: ZI DAVE is a 65 year old male.She was recently discharged from this hospital on July 26, 2020 when he presented with pneumonia, he came to the emergency room because of generalized body weakness, inability to ambulate. He has a history of rheumatoid arthritis, he was supposed to be on methotrexate, used to follow with me until he went to a different practice he decided to return back to our practice, he has not follow-up in the office since last hospital discharge. On examination of this patient's he has tremendous inflammatory swelling of multiple joints including both knees, ankles, the toes of the feet, the joints of the and, the proximal interphalangeal joint PIP, the MCP joints this is consistent with severe exacerbation of rheumatoid arthritis. Past Medical History Cardiac Medical History: Reports: Hyperlipidema, Hypertension Pulmonary Medical History: Reports: Chronic Obstructive Pulmonary Disease (COPD) Endocrine Medical History: Reports: Diabetes Mellitus Type 2 Musculoskeltal Medical History: Reports: Arthritis - Rheumatoid arthritis, Other - RA Psychiatric Medical History: Reports: Depression Traumatic Medical History: Denies: Traumatic Brain Injury Past Surgical History Past Surgical History: Reports: Orthopedic Surgery - Cervical fusion, lumbar back surgery, R rotator cuff, L knee arthroscopy Social History Lives with: Alone Smoking Status: Former Smoker Frequency of Alcohol Use: None - Discontinued use of alcohol in late 2018 Hx Recreational Drug Use: No Drugs: None Hx Prescription Drug Abuse: No Family History Family History: CAD, DM Parental Family History Reviewed: Yes Children Family History Reviewed: Yes Sibling(s) Family History Reviewed.: Yes Medication/Allergy Home Medications: Aspirin [Ecotrin] 81 mg PO DAILY 02/19/19 Oxycodone HCl 15 mg PO QIDP PRN 02/19/19 Amlodipine Besylate [Norvasc 10 mg Tablet] 10 mg PO DAILY #90 07/26/20 Gabapentin [Neurontin 300 mg Capsule] 300 mg PO Q8 #07/26/20 Levofloxacin [Levaquin 500 mg Tablet] 500 mg PO DAILY #7 tablet 07/26/20 Metformin HCl [Glucophage] 1,000 mg PO DAILY #90 07/26/20 Valsartan/Hydrochlorothiazide [Valsartan-Hctz 320-25 mg Tab] 1 each PO DAILY #07/26/20 Ascorbic Acid [Vitamin C 500 mg Tablet] 500 mg PO DAILY 08/02/20 Multivitamin [Tab-A-Leonor] 1 each PO DAILY 08/02/20 Vitamin E 200 unit PO DAILY 08/02/20 Allergies/Adverse Reactions: No Known Allergies Allergy (Verified 03/11/17 08:57) Review of Systems Constitutional: ABSENT: chills, fever(s), headache(s), weight gain, weight loss Eyes: ABSENT: visual disturbances Ears: ABSENT: hearing changes Cardiovascular: ABSENT: chest pain, dyspnea on exertion, edema, orthropnea, palpitations Respiratory: ABSENT: cough, hemoptysis Gastrointestinal: ABSENT: abdominal pain, constipation, diarrhea, hematemesis, hematochezia, nausea, vomiting Genitourinary: ABSENT: dysuria, hematuria Musculoskeletal: PRESENT: back pain, joint swelling Integumentary: ABSENT: rash, wounds Neurological: ABSENT: abnormal gait, abnormal speech, confusion, dizziness, focal weakness, syncope Psychiatric: ABSENT: anxiety, depression, homidical ideation, suicidal ideation Endocrine: ABSENT: cold intolerance, heat intolerance, menstrual abnormalities, polydipsia, polyuria Hematologic/Lymphatic: ABSENT: easy bleeding, easy bruising, lymphadenopathy Physical Exam Vital Signs: Temp Pulse Resp BP Pulse Ox 98.1 F 108 H 20 151/65 H 98 08/02/20 21:01 08/02/20 21:01 08/02/20 21:01 08/02/20 21:01 08/02/20 21:01 Intake & Output 08/01/20 08/02/20 08/03/20 06:59 06:59 06:59 Intake Total 1000 Balance 1000 Weight 149.7 kg General appearance: PRESENT: obese Head exam: PRESENT: atraumatic, normocephalic Eye exam: PRESENT: PERRLA Mouth exam: PRESENT: moist, tongue midline Neck exam: PRESENT: full ROM Respiratory exam: PRESENT: clear to auscultation anabella Cardiovascular exam: PRESENT: RRR, +S1, +S2 Vascular exam: PRESENT: normal capillary refill GI/Abdominal exam: PRESENT: normal bowel sounds, soft Rectal exam: PRESENT: deferred Extremities exam: PRESENT: calf tenderness, joint swelling, pedal edema, tenderness Musculoskeletal exam: PRESENT: deformity, tenderness Neurological exam: PRESENT: alert, CN II-XII grossly intact Psychiatric exam: PRESENT: appropriate affect, normal mood Skin exam: PRESENT: dry, intact, warm Results Laboratory Results: 08/02/20 13:30 08/02/20 13:30 08/02/20 08/02/20 08/02/20 13:30 13:30 13:30 WBC 9.1 RBC 3.45 L Hgb 10.6 L Hct 30.7 L MCV 89 MCH 30.6 MCHC 34.4 RDW 14.0 Plt Count 328 Seg Neutrophils % 71.9 Sodium 128.6 L Potassium 5.5 H Chloride 89 L Carbon Dioxide 32 H Anion Gap 8 BUN 13 Creatinine 0.82 Est GFR ( Amer) > 60 Glucose 103 Serum Osmolality Calcium 9.6 Total Bilirubin 0.5 AST 20 Alkaline Phosphatase 119 Total Protein 6.4 Albumin 3.5 TSH 2.60 Urine Color Urine Appearance Urine pH Ur Specific Solon Urine Protein Urine Glucose (UA) Urine Ketones Urine Blood Urine Nitrite Ur Leukocyte Esterase Urine Osmolality 08/02/20 08/02/20 08/02/20 13:30 16:45 16:45 WBC RBC Hgb Hct MCV MCH MCHC RDW Plt Count Seg Neutrophils % Sodium Potassium Chloride Carbon Dioxide Anion Gap BUN Creatinine Est GFR ( Amer) Glucose Serum Osmolality 263 L Calcium Total Bilirubin AST Alkaline Phosphatase Total Protein Albumin TSH Urine Color STRAW Urine Appearance CLEAR Urine pH 7.0 Ur Specific [place] 1.004 Urine Protein NEGATIVE Urine Glucose (UA) NEGATIVE Urine Ketones NEGATIVE Urine Blood NEGATIVE Urine Nitrite NEGATIVE Ur Leukocyte Esterase NEGATIVE Urine Osmolality 185 L 08/02/20 13:30 Troponin I < 0.012 NT-Pro-B Natriuret Pep 166 H Assessment & Plan - Diagnosis (1) Rheumatoid arthritis flare Is this a current diagnosis for this admission?: Yes Plan: He has severe rheumatoid arthritis flare, involving multiple joints with swelli ng pain and deformity, start IV hydrocortisone administer methotrexate and folic acid (2) Diabetes mellitus type 2 in obese Is this a current diagnosis for this admission?: Yes - Time Time Spent: Greater than 70 Minutes Medications reviewed and adjusted accordingly: Yes Anticipated Discharge Disposition: Home, Self Care Anticipated Discharge Timeframe: within 72 hours - Inpatient Certification Based on my medical assessment, after consideration of the patient's comorbidities, presenting symptoms, or acuity I expect that the services needed warrant INPATIENT care.: Yes I certify that my determination is in accordance with my understanding of Medicare's requirements for reasonable and necessary INPATIENT services [42 CFR 412.3e].: Yes
[2020-08-03] MEDS: OXYCODONE HCL IR 5 MG TABLET PO PRN ×4 (03:27→22:35)
[2020-08-03] MEDS: GABAPENTIN 300 MG CAPSULE PO SCH ×3 (05:13→22:35)
[2020-08-03] MEDS: AMLODIPINE BESYLATE 10 MG TABLET PO SCH (10:13)
[2020-08-03] MEDS: MULTIVITAMIN TABLET PO SCH (10:14)
[2020-08-03] MEDS: VALSARTAN 160 MG TABLET PO SCH (10:14)
[2020-08-03] MEDS: ASCORBIC ACID 500 MG TABLET PO SCH (10:14)
[2020-08-03] MEDS: HYDROCHLOROTHIAZIDE 25 MG TABLET PO SCH (10:15)
[2020-08-03] MEDS: METFORMIN HCL 500 MG TABLET PO SCH (10:15)
[2020-08-03] MEDS: ASPIRIN 81 MG TABLET, ENT COATED PO SCH (10:17)
[2020-08-03] MEDS: VITAMIN E (DL, ACETATE) 400 UNIT CAPSULE PO SCH (11:02)
[2020-08-03] MEDS: HYDROCORTISONE SOD SUCCINATE INJ/PF 100 MG/2 ML SDV IV SCH ×2 (14:46→22:35)
[2020-08-03] MEDS: FOLIC ACID 1 MG TABLET PO SCH (14:47)
[2020-08-03] MEDS: METHOTREXATE SODIUM 2.5 MG TABLET PO SCH (14:47)
[2020-08-04] MEDS: GABAPENTIN 300 MG CAPSULE PO SCH ×2 (06:09→14:12)
[2020-08-04] MEDS: OXYCODONE HCL IR 5 MG TABLET PO PRN ×3 (06:09→18:33)
[2020-08-04] MEDS: HYDROCORTISONE SOD SUCCINATE INJ/PF 100 MG/2 ML SDV IV SCH ×2 (06:09→14:12)
[2020-08-04] MEDS: VALSARTAN 160 MG TABLET PO SCH (10:08)
[2020-08-04] MEDS: AMLODIPINE BESYLATE 10 MG TABLET PO SCH (10:08)
[2020-08-04] MEDS: ASPIRIN 81 MG TABLET, ENT COATED PO SCH (10:08)
[2020-08-04] MEDS: FOLIC ACID 1 MG TABLET PO SCH (10:08)
[2020-08-04] MEDS: MULTIVITAMIN TABLET PO SCH (10:08)
[2020-08-04] MEDS: ASCORBIC ACID 500 MG TABLET PO SCH (10:08)
[2020-08-04] MEDS: HYDROCHLOROTHIAZIDE 25 MG TABLET PO SCH (10:09)
[2020-08-04] MEDS: METFORMIN HCL 500 MG TABLET PO SCH (10:09)
[2020-08-04] MEDS ORDERED: IPRATROPIUM/ALBUTEROL 0.5-2.5 MG/3 ML AMPUL NEB PRN (14:33)
--- NOTE | 2020-08-04 17:57 | PDOC PROGRESS REPORT ---
Subjective Progress Note for:: 08/04/20 Subjective:: Patient is alert, he responds to the IV hydrocortisone that was started yesterday for the management of the acute rheumatoid flare. He feels much better Compared to yesterday, he is able to flex and bend the fingers of his hands unlike yesterday.The markers of inflammation were tremendously elevated, ESR 111, CRP 136.6 suggesting severe inflammation. Reason For Visit: HYPONATREMIA, HYPERKALEMIA,WEAKNESS Physical Exam Vital Signs: Temp Pulse Resp BP Pulse Ox 97.8 F 80 18 111/57 L 96 08/04/20 15:35 08/04/20 15:35 08/04/20 15:35 08/04/20 15:35 08/04/20 15:35 Intake & Output 08/03/20 08/04/20 08/05/20 06:59 06:59 06:59 Intake Total 1000 1180 Output Total 1825 3325 Balance -825 -2145 Weight 141.3 kg 140.8 kg General appearance: PRESENT: no acute distress Eye exam: PRESENT: PERRLA Respiratory exam: PRESENT: clear to auscultation anabella Cardiovascular exam: PRESENT: +S1, +S2 GI/Abdominal exam: PRESENT: soft Neurological exam: PRESENT: alert, CN II-XII grossly intact Results Laboratory Results: 08/02/20 13:30 08/02/20 13:30 08/03/20 19:00 C-Reactive Protein 136.6 H 08/02/20 13:30 Troponin I < 0.012 NT-Pro-B Natriuret Pep 166 H Assessment & Plan - Diagnosis (1) Rheumatoid arthritis flare Is this a current diagnosis for this admission?: Yes Plan: Patient was started on intravenous hydrocortisone yesterday for active rheumatoid arthritis, he also received the initial dose of methotrexate yester day, there was improvement in his swelling, stiffness, pain of the joints of the hands and feet, the knees. He will continue present regimen for the next 48 hours after which he may transition to p.o. prednisone, he wants to go to rehabilitation and physical therapy (2) Diabetes mellitus type 2 in obese Is this a current diagnosis for this admission?: Yes (3) Hyponatremia Is this a current diagnosis for this admission?: Yes - Time Time Spent with patient: 35 or more minutes Level of Care: MEDICAL Medications reviewed and adjusted accordingly: Yes Anticipated discharge: Home with Homehealth Anticipated DC Timeframe: within 72 hours
[2020-08-05] MEDS: GABAPENTIN 300 MG CAPSULE PO SCH ×4 (00:32→22:37)
[2020-08-05] MEDS: HYDROCORTISONE SOD SUCCINATE INJ/PF 100 MG/2 ML SDV IV SCH ×4 (00:32→22:37)
[2020-08-05] MEDS: OXYCODONE HCL IR 5 MG TABLET PO PRN ×4 (00:33→20:42)
[2020-08-05] MEDS: METFORMIN HCL 500 MG TABLET PO SCH (09:38)
[2020-08-05] MEDS: VALSARTAN 160 MG TABLET PO SCH (09:38)
[2020-08-05] MEDS: HYDROCHLOROTHIAZIDE 25 MG TABLET PO SCH (09:43)
[2020-08-05] MEDS: FOLIC ACID 1 MG TABLET PO SCH (09:43)
[2020-08-05] MEDS: ASCORBIC ACID 500 MG TABLET PO SCH (09:43)
[2020-08-05] MEDS: ASPIRIN 81 MG TABLET, ENT COATED PO SCH (09:43)
[2020-08-05] MEDS: MULTIVITAMIN TABLET PO SCH (09:43)
[2020-08-05] MEDS: AMLODIPINE BESYLATE 10 MG TABLET PO SCH (09:43)
[2020-08-05] MEDS: VITAMIN E (DL, ACETATE) 400 UNIT CAPSULE PO SCH (09:44)
--- NOTE | 2020-08-05 22:04 | PDOC PROGRESS REPORT ---
Subjective Progress Note for:: 08/05/20 Subjective:: Patient seen by the bedside, he continues to require intravenous glucocorticoids improving joint pains,He is also requesting bronchodilators Reason For Visit: ACUTE RHUEMATOID ARTHRITIS FLARE,HYPONATREMIA, Physical Exam Vital Signs: Temp Pulse Resp BP Pulse Ox 97.8 F 98 18 136/72 H 97 08/05/20 19:35 08/05/20 19:35 08/05/20 19:35 08/05/20 19:35 08/05/20 19:35 Intake & Output 08/04/20 08/05/20 08/06/20 06:59 06:59 06:59 Intake Total 1180 718 Output Total 3325 1200 2130 Balance -2145 -1200 -1412 Weight 140.8 kg General appearance: PRESENT: no acute distress Eye exam: PRESENT: PERRLA Respiratory exam: PRESENT: clear to auscultation anabella Cardiovascular exam: PRESENT: +S1, +S2 GI/Abdominal exam: PRESENT: soft Neurological exam: PRESENT: alert, CN II-XII grossly intact Results Laboratory Results: 08/02/20 13:30 08/02/20 13:30 08/02/20 13:30 Troponin I < 0.012 NT-Pro-B Natriuret Pep 166 H Assessment & Plan - Diagnosis (1) Rheumatoid arthritis flare Is this a current diagnosis for this admission?: Yes Plan: Patient was started on intravenous hydrocortisone yesterday for active rheumatoid arthritis, he also received the initial dose of methotrexate yesterday, there was improvement in his swelling, stiffness, pain of the joints of the hands and feet, the knees. He will continue present regimen for the next 48 hours after which he may transition to p.o. prednisone, he wants to go to rehabilitation and physical therapy (2) Diabetes mellitus type 2 in obese Is this a current diagnosis for this admission?: Yes (3) Hyponatremia Is this a current diagnosis for this admission?: Yes - Time Time Spent with patient: 25-34 minutes Level of Care: MEDICAL Medications reviewed and adjusted accordingly: Yes Anticipated discharge: SNF Anticipated DC Timeframe: within 72 hours
[2020-08-05] MEDS: OXYCODONE HCL IR 5 MG TABLET PO SCH (22:31)
[2020-08-05 23:02] LABS: ABSOLUTE BASOPHILS # (AUTO) 0.1 10^3/uL (0.0-0.2); ABSOLUTE LYMPHOCYTES (AUTO) 2.1 10^3/uL (0.5-4.7); ABSOLUTE MONOCYTES (AUTO) 0.4 10^3/uL (0.1-1.4); BASOPHILS % (AUTO) 0.8 % (0-2); EOSINOPHILS % (AUTO) 0.3 % (0-6); HEMATOCRIT 30.7 % (37.9-51.0); HEMOGLOBIN 10.6 g/dL (13.5-17.0); LYMPHOCYTES % (AUTO) 20.1 % (13-45); MEAN CORPUSCULAR HEMOGLOBIN 30.4 pg (27.0-33.4); MEAN CORPUSCULAR HGB CONC 34.4 g/dL (32.0-36.0); MEAN CORPUSCULAR VOLUME 88 fl (80-97); MONOCYTES % (AUTO) 3.9 % (3-13); PLATELET COUNT 271 10^3/uL (150-450); RED BLOOD COUNT 3.48 10^6/uL (4.35-5.55); RED CELL DISTRIBUTION WIDTH 14.1 % (11.5-14.0); SEGMENTED NEUTROPHILS % (AUTO) 74.9 % (42-78); TOTAL CELLS COUNTED % (AUTO) 100 %; WHITE BLOOD COUNT 10.7 10^3/uL (4.0-10.5)
[2020-08-05 23:17] LABS: ALBUMIN 3.7 g/dL (3.5-5.0); ALKALINE PHOSPHATASE 93 U/L (38-126); ANION GAP 11 (5-19); ASPARTATE AMINO TRANSFERASE 18 U/L (17-59); BILIRUBIN,DIRECT 0.3 mg/dL (0.0-0.4); BILIRUBIN,TOTAL 0.3 mg/dL (0.2-1.3); BLOOD UREA NITROGEN 17 mg/dL (7-20); CARBON DIOXIDE 29 mmol/L (22-30); CHLORIDE 91 mmol/L (98-107); GLUCOSE 176 mg/dL (75-110); POTASSIUM 4.1 mmol/L (3.6-5.0); TOTAL PROTEIN 6.7 g/dL (6.3-8.2)
[2020-08-05] MEDS: IPRATROPIUM/ALBUTEROL 0.5-2.5 MG/3 ML AMPUL NEB SCH (23:52)
[2020-08-06] MEDS: OXYCODONE HCL IR 5 MG TABLET PO SCH ×7 (02:24→22:58)
[2020-08-06] MEDS: IPRATROPIUM/ALBUTEROL 0.5-2.5 MG/3 ML AMPUL NEB SCH ×5 (04:59→19:42)
[2020-08-06 05:15] LABS: ABSOLUTE BASOPHILS # (AUTO) 0.1 10^3/uL (0.0-0.2); ABSOLUTE LYMPHOCYTES (AUTO) 1.4 10^3/uL (0.5-4.7); ABSOLUTE MONOCYTES (AUTO) 0.3 10^3/uL (0.1-1.4); ABSOLUTE NEUT (AUTO) 6.5 10^3/uL (1.7-8.2); BASOPHILS % (AUTO) 1.1 % (0-2); EOSINOPHILS % (AUTO) 0.3 % (0-6); HEMATOCRIT 26.3 % (37.9-51.0); HEMOGLOBIN 9.2 g/dL (13.5-17.0); LYMPHOCYTES % (AUTO) 17.5 % (13-45); MEAN CORPUSCULAR HEMOGLOBIN 31.5 pg (27.0-33.4); MEAN CORPUSCULAR HGB CONC 35.1 g/dL (32.0-36.0); MEAN CORPUSCULAR VOLUME 90 fl (80-97); MONOCYTES % (AUTO) 3.1 % (3-13); PLATELET COUNT 254 10^3/uL (150-450); RED BLOOD COUNT 2.93 10^6/uL (4.35-5.55); RED CELL DISTRIBUTION WIDTH 13.9 % (11.5-14.0); TOTAL CELLS COUNTED % (AUTO) 100 %; WHITE BLOOD COUNT 8.3 10^3/uL (4.0-10.5)
[2020-08-06 05:31] LABS: ALBUMIN 3.5 g/dL (3.5-5.0); ALKALINE PHOSPHATASE 94 U/L (38-126); ANION GAP 11 (5-19); ASPARTATE AMINO TRANSFERASE 17 U/L (17-59); BILIRUBIN,DIRECT 0.3 mg/dL (0.0-0.4); BILIRUBIN,TOTAL 0.4 mg/dL (0.2-1.3); BLOOD UREA NITROGEN 19 mg/dL (7-20); CALCIUM 9.1 mg/dL (8.4-10.2); CARBON DIOXIDE 29 mmol/L (22-30); CHLORIDE 93 mmol/L (98-107); GLUCOSE 166 mg/dL (75-110); POTASSIUM 4.3 mmol/L (3.6-5.0); TOTAL PROTEIN 6.1 g/dL (6.3-8.2)
[2020-08-06] MEDS: HYDROCORTISONE SOD SUCCINATE INJ/PF 100 MG/2 ML SDV IV SCH ×3 (06:37→22:52)
[2020-08-06] MEDS: GABAPENTIN 300 MG CAPSULE PO SCH ×3 (06:37→22:50)
[2020-08-06] MEDS ORDERED: INFLUENZA QUAD (6MOS+) 2020-21 VAC 0.5 ML SYR IM ONE (08:00)
[2020-08-06] MEDS: METFORMIN HCL 500 MG TABLET PO SCH (10:31)
[2020-08-06] MEDS: MULTIVITAMIN TABLET PO SCH (10:32)
[2020-08-06] MEDS: ASPIRIN 81 MG TABLET, ENT COATED PO SCH (10:32)
[2020-08-06] MEDS: ASCORBIC ACID 500 MG TABLET PO SCH (10:32)
[2020-08-06] MEDS: FOLIC ACID 1 MG TABLET PO SCH (10:32)
[2020-08-06] MEDS: AMLODIPINE BESYLATE 10 MG TABLET PO SCH (10:32)
[2020-08-06] MEDS: HYDROCHLOROTHIAZIDE 25 MG TABLET PO SCH (10:32)
[2020-08-06] MEDS: VALSARTAN 160 MG TABLET PO SCH (10:38)
[2020-08-06] MEDS: DOCUSATE SODIUM 100 MG CAPSULE PO SCH (19:25)
--- NOTE | 2020-08-06 21:52 | PDOC PROGRESS REPORT ---
Subjective Progress Note for:: 08/06/20 Subjective:: Patient seen by the bedside he has severe inflammatory joint disease, rheumatoid arthritis with limitation of movements, he was started on hydrocortisone 50 mg IV every 8 hours this will be de-escalated to 25 mg IV every 8 hours, he was also restarted on methotrexate weekly he was supposed to be on methotrexate but my understanding is he has not been taking it since he left our practice he just decided to return back to our practice ,he is more concerned about opioid therapy for pain control that is not the treatment for rheumatoid arthritis. It was the oxycodone to be every 4 hours according to him that is what he was taking from the pain clinic Reason For Visit: ACUTE RHUEMATOID ARTHRITIS FLARE,HYPONATREMIA, Physical Exam Vital Signs: Temp Pulse Resp BP Pulse Ox 97.9 F 80 14 126/62 H 96 08/06/20 19:31 08/06/20 19:43 08/06/20 19:43 08/06/20 19:31 08/06/20 19:43 Intake & Output 08/05/20 08/06/20 08/07/20 06:59 06:59 06:59 Intake Total 1378 1760 Output Total 1200 2830 1300 Balance -1200 -1452 460 Weight 140 kg General appearance: PRESENT: no acute distress Eye exam: PRESENT: PERRLA Respiratory exam: PRESENT: clear to auscultation anabella Cardiovascular exam: PRESENT: +S1, +S2 GI/Abdominal exam: PRESENT: soft Musculoskeletal exam: PRESENT: ambulatory, dislocation Neurological exam: PRESENT: alert, CN II-XII grossly intact Results Laboratory Results: 08/06/20 04:41 08/06/20 04:41 08/05/20 08/05/20 08/06/20 22:48 22:48 04:41 WBC 10.7 H 8.3 RBC 3.48 L 2.93 L Hgb 10.6 L 9.2 L Hct 30.7 L 26.3 L MCV 88 90 MCH 30.4 31.5 MCHC 34.4 35.1 RDW 14.1 H 13.9 Plt Count 271 254 Seg Neutrophils % 74.9 78.0 Sodium 130.7 L Potassium 4.1 Chloride 91 L Carbon Dioxide 29 Anion Gap 11 BUN 17 Creatinine 0.88 Est GFR ( Amer) > 60 Glucose 176 H Calcium 9.0 Total Bilirubin 0.3 AST 18 Alkaline Phosphatase 93 Total Protein 6.7 Albumin 3.7 08/06/20 04:41 WBC RBC Hgb Hct MCV MCH MCHC RDW Plt Count Seg Neutrophils % Sodium 132.7 L Potassium 4.3 Chloride 93 L Carbon Dioxide 29 Anion Gap 11 BUN 19 Creatinine 0.79 Est GFR ( Amer) > 60 Glucose 166 H Calcium 9.1 Total Bilirubin 0.4 AST 17 Alkaline Phosphatase 94 Total Protein 6.1 L Albumin 3.5 08/02/20 13:30 Troponin I < 0.012 NT-Pro-B Natriuret Pep 166 H Assessment & Plan - Diagnosis (1) Rheumatoid arthritis flare Is this a current diagnosis for this admission?: Yes Plan: De-escalate hydrocortisone to 25 mg IV every 8 hours continue other treatment including methotrexate on a weekly basis, the plan is to transfer to rehab next week (2) Diabetes mellitus type 2 in obese Is this a current diagnosis for this admission?: Yes Plan: controlled (3) Hyponatremia Is this a current diagnosis for this admission?: Yes Plan: improved - Time Time Spent with patient: 25-34 minutes Level of Care: MEDICAL Medications reviewed and adjusted accordingly: Yes Anticipated discharge: Home Anticipated DC Timeframe: within 72 hours - Inpatient Certification Based on my medical assessment, after consideration of the patient's comorbidities, presenting symptoms, or acuity I expect that the services needed warrant INPATIENT care.: Yes I certify that my determination is in accordance with my understanding of Medicare's requirements for reasonable and necessary INPATIENT services [42 CFR 412.3e].: Yes
[2020-08-07] MEDS: IPRATROPIUM/ALBUTEROL 0.5-2.5 MG/3 ML AMPUL NEB SCH ×6 (00:09→19:56)
[2020-08-07] MEDS: OXYCODONE HCL IR 5 MG TABLET PO SCH ×5 (02:34→19:11)
[2020-08-07] MEDS: HYDROCORTISONE SOD SUCCINATE INJ/PF 100 MG/2 ML SDV IV SCH ×3 (05:07→21:12)
[2020-08-07] MEDS: GABAPENTIN 300 MG CAPSULE PO SCH ×3 (05:08→21:12)
[2020-08-07] MEDS: ASPIRIN 81 MG TABLET, ENT COATED PO SCH (10:11)
[2020-08-07] MEDS: FOLIC ACID 1 MG TABLET PO SCH (10:11)
[2020-08-07] MEDS: METFORMIN HCL 500 MG TABLET PO SCH (10:11)
[2020-08-07] MEDS: DOCUSATE SODIUM 100 MG CAPSULE PO SCH ×2 (10:11→18:52)
[2020-08-07] MEDS: AMLODIPINE BESYLATE 10 MG TABLET PO SCH (10:11)
[2020-08-07] MEDS: MULTIVITAMIN TABLET PO SCH (10:11)
[2020-08-07] MEDS: ASCORBIC ACID 500 MG TABLET PO SCH (10:12)
[2020-08-07] MEDS: HYDROCHLOROTHIAZIDE 25 MG TABLET PO SCH (10:12)
[2020-08-07] MEDS: VITAMIN E (DL, ACETATE) 400 UNIT CAPSULE PO SCH (10:15)
[2020-08-07] MEDS: VALSARTAN 160 MG TABLET PO SCH (10:15)
--- NOTE | 2020-08-07 13:36 | PDOC PROGRESS REPORT ---
Subjective Progress Note for:: 08/07/20 Subjective:: Patient participated in PT session earlier today but with subsequent increase pain and limitation due to shortness of breath. No chest pain. No fever or chills. No nausea, vomiting, or abdominal pain. Reason For Visit: ACUTE RHUEMATOID ARTHRITIS FLARE,HYPONATREMIA, Physical Exam Vital Signs: Temp Pulse Resp BP Pulse Ox 98.1 F 86 16 121/74 98 08/07/20 10:34 08/07/20 11:50 08/07/20 11:50 08/07/20 10:34 08/07/20 11:50 Intake & Output 08/06/20 08/07/20 08/08/20 06:59 06:59 06:59 Intake Total 1378 2980 790 Output Total 2830 5700 550 Balance -1452 -2720 240 Weight 140 kg 140 kg General appearance: PRESENT: no acute distress, morbidly obese Head exam: PRESENT: atraumatic, normocephalic Eye exam: PRESENT: conjunctiva pink Mouth exam: PRESENT: moist Respiratory exam: PRESENT: clear to auscultation anabella Cardiovascular exam: PRESENT: RRR, +S1, +S2. ABSENT: diastolic murmur, rubs, systolic murmur Vascular exam: ABSENT: pallor GI/Abdominal exam: PRESENT: normal bowel sounds, soft. ABSENT: tenderness Extremities exam: PRESENT: pedal edema - improving as per patient assessmsnet. Neurological exam: PRESENT: alert, awake Psychiatric exam: ABSENT: agitated, anxious Skin exam: PRESENT: dry, warm Results Laboratory Results: 08/06/20 04:41 08/06/20 04:41 08/02/20 13:30 Troponin I < 0.012 NT-Pro-B Natriuret Pep 166 H Assessment & Plan - Diagnosis (1) Rheumatoid arthritis flare Is this a current diagnosis for this admission?: Yes Plan: Continue current medication management. Encouraged continue participation in rehabilitation. He will benefit from short term rehabilitation placement in view of his presentation and home environment. (2) Diabetes mellitus type 2 in obese Is this a current diagnosis for this admission?: Yes Plan: Continue current medication and dietary management. (3) Hyponatremia Is this a current diagnosis for this admission?: Yes Plan: Continue current medication management. (4) Hypertension Qualifiers: Hypertension type: essential hypertension Qualified Code(s): I10 - Essential (primary) hypertension Is this a current diagnosis for this admission?: Yes Plan: Continue current medication and dietary management. - Time Time Spent with patient: 25-34 minutes Level of Care: MEDICAL Medications reviewed and adjusted accordingly: Yes Anticipated discharge: SNF Anticipated DC Timeframe: within 72 hours - Inpatient Certification Based on my medical assessment, after consideration of the patient's comorbidities, presenting symptoms, or acuity I expect that the services needed warrant INPATIENT care.: Yes I certify that my determination is in accordance with my understanding of Medicare's requirements for reasonable and necessary INPATIENT services [42 CFR 412.3e].: Yes Medical Necessity: Significant Comorbidiites Make Outpatient Treatment Too Risky, Need Close Monitoring Due to Risk of Patient Decompensation, Need For Continuous Telemetry Monitoring, Need for Pain Control, Risk of Complication if Not Cared For in Hospital, Risk of Diagnosis Which Will Require Inpatient Eval/Care/Monitoring Post Hospital Care: 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
[2020-08-08] MEDS: IPRATROPIUM/ALBUTEROL 0.5-2.5 MG/3 ML AMPUL NEB SCH ×3 (00:12→08:59)
[2020-08-08] MEDS: OXYCODONE HCL IR 5 MG TABLET PO SCH ×7 (00:30→22:27)
[2020-08-08] MEDS: HYDROCORTISONE SOD SUCCINATE INJ/PF 100 MG/2 ML SDV IV SCH ×3 (05:38→22:24)
[2020-08-08] MEDS: GABAPENTIN 300 MG CAPSULE PO SCH ×3 (05:39→22:24)
[2020-08-08] MEDS: ASPIRIN 81 MG TABLET, ENT COATED PO SCH (10:16)
[2020-08-08] MEDS: METFORMIN HCL 500 MG TABLET PO SCH (10:16)
[2020-08-08] MEDS: VALSARTAN 160 MG TABLET PO SCH (10:16)
[2020-08-08] MEDS: FOLIC ACID 1 MG TABLET PO SCH (10:17)
[2020-08-08] MEDS: MULTIVITAMIN TABLET PO SCH (10:17)
[2020-08-08] MEDS: HYDROCHLOROTHIAZIDE 25 MG TABLET PO SCH (10:17)
[2020-08-08] MEDS: ASCORBIC ACID 500 MG TABLET PO SCH (10:17)
[2020-08-08] MEDS: AMLODIPINE BESYLATE 10 MG TABLET PO SCH (10:17)
[2020-08-08] MEDS: DOCUSATE SODIUM 100 MG CAPSULE PO SCH ×2 (10:17→18:15)
[2020-08-08] MEDS ORDERED: IPRATROPIUM/ALBUTEROL 0.5-2.5 MG/3 ML AMPUL NEB PRN (10:58)
--- NOTE | 2020-08-08 13:16 | PDOC PROGRESS REPORT ---
Subjective Progress Note for:: 08/08/20 Subjective:: Patient continue to participate in PT session. Reported post exertional right sided chest pain around his chest tube site for pneumothorax management. No difficulty with breathing. No abdominal pain, nausea, vomiting, or constipation. No fever or chills. Reason For Visit: ACUTE RHUEMATOID ARTHRITIS FLARE,HYPONATREMIA, Physical Exam Vital Signs: Temp Pulse Resp BP Pulse Ox 97.8 F 90 16 129/68 H 97 08/08/20 11:32 08/08/20 11:32 08/08/20 11:32 08/08/20 11:32 08/08/20 11:32 Intake & Output 08/07/20 08/08/20 08/09/20 06:59 06:59 06:59 Intake Total 2980 2710 1740 Output Total 5700 4325 350 Balance -2720 -1615 1390 Weight 140 kg Physical Exam: General appearance: PRESENT: no acute distress, morbidly obese Head exam: PRESENT: atraumatic, normocephalic Eye exam: PRESENT: conjunctiva pink ABSENT: pallor, sclera icterus Mouth exam: PRESENT: moist Respiratory exam: PRESENT: clear to auscultation anabella Cardiovascular exam: PRESENT: RRR, +S1, +S2. ABSENT: diastolic murmur, rubs, systolic murmur GI/Abdominal exam: PRESENT: normal bowel sounds, soft. ABSENT: tenderness Extremities exam: PRESENT: No significant pedal edema. Neurological exam: PRESENT: alert, awake Psychiatric exam: ABSENT: agitated, anxious Skin exam: PRESENT: dry, warm Results Laboratory Results: 08/06/20 04:41 08/06/20 04:41 08/02/20 13:30 Troponin I < 0.012 NT-Pro-B Natriuret Pep 166 H Assessment & Plan - Diagnosis (1) Rheumatoid arthritis flare Is this a current diagnosis for this admission?: Yes (2) Diabetes mellitus type 2 in obese Is this a current diagnosis for this admission?: Yes (3) Hyponatremia Is this a current diagnosis for this admission?: Yes (4) Hypertension Qualifiers: Hypertension type: essential hypertension Qualified Code(s): I10 - Essential (primary) hypertension Is this a current diagnosis for this admission?: Yes - Time Time Spent with patient: 25-34 minutes Level of Care: MEDICAL Medications reviewed and adjusted accordingly: Yes Anticipated discharge: SNF Anticipated DC Timeframe: within 72 hours - Inpatient Certification Based on my medical assessment, after consideration of the patient's comorbidities, presenting symptoms, or acuity I expect that the services needed warrant INPATIENT care.: Yes I certify that my determination is in accordance with my understanding of Medicare's requirements for reasonable and necessary INPATIENT services [42 CFR 412.3e].: Yes Medical Necessity: Significant Comorbidiites Make Outpatient Treatment Too Risky, Need Close Monitoring Due to Risk of Patient Decompensation, Risk of Complication if Not Cared For in Hospital, Risk of Diagnosis Which Will Require Inpatient Eval/Care/Monitoring Post 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 Patient was further instructed on use of incentive spirometer at bedside during this visit. He will benefit from short term rehabilitation upon discharge.
[2020-08-09] MEDS: OXYCODONE HCL IR 5 MG TABLET PO SCH ×6 (02:15→21:27)
[2020-08-09] MEDS: GABAPENTIN 300 MG CAPSULE PO SCH ×3 (05:29→21:27)
[2020-08-09] MEDS: HYDROCORTISONE SOD SUCCINATE INJ/PF 100 MG/2 ML SDV IV SCH ×2 (05:29→14:31)
[2020-08-09] MEDS: ASCORBIC ACID 500 MG TABLET PO SCH (09:53)
[2020-08-09] MEDS: FOLIC ACID 1 MG TABLET PO SCH (09:53)
[2020-08-09] MEDS: ASPIRIN 81 MG TABLET, ENT COATED PO SCH (09:54)
[2020-08-09] MEDS: HYDROCHLOROTHIAZIDE 25 MG TABLET PO SCH (09:54)
[2020-08-09] MEDS: METFORMIN HCL 500 MG TABLET PO SCH (09:54)
[2020-08-09] MEDS: MULTIVITAMIN TABLET PO SCH (09:54)
[2020-08-09] MEDS: AMLODIPINE BESYLATE 10 MG TABLET PO SCH (09:55)
[2020-08-09] MEDS: DOCUSATE SODIUM 100 MG CAPSULE PO SCH ×2 (09:55→17:17)
[2020-08-09] MEDS: VITAMIN E (DL, ACETATE) 400 UNIT CAPSULE PO SCH (09:56)
[2020-08-09] MEDS: VALSARTAN 160 MG TABLET PO SCH (09:56)
[2020-08-09] MEDS ORDERED: DEXTROSE 50%-WATER SYRINGE 25 GM/50 ML DOSE IV PRN (18:00)
[2020-08-09] MEDS ORDERED: DEXTROSE 40% GEL 15 GM TUBE PO PRN (18:00)
[2020-08-09] MEDS ORDERED: GLUCAGON,HUMAN RECOMB 1 MG INJ IM PRN (18:00)
[2020-08-09] MEDS ORDERED: DEXTROSE 40% GEL 15 GM TUBE X 2 PO PRN (18:00)
[2020-08-09] MEDS ORDERED: DEXTROSE 50%-WATER SYRINGE 12.5 GM/25 ML DOSE IV PRN (18:00)
[2020-08-09 18:02] LABS: ABSOLUTE BASOPHILS # (AUTO) 0.1 10^3/uL (0.0-0.2); ABSOLUTE EOSINOPHILS # (AUTO) 0.1 10^3/uL (0.0-0.6); ABSOLUTE LYMPHOCYTES (AUTO) 1.8 10^3/uL (0.5-4.7); ABSOLUTE MONOCYTES (AUTO) 0.6 10^3/uL (0.1-1.4); ABSOLUTE NEUT (AUTO) 8.5 10^3/uL (1.7-8.2); BASOPHILS % (AUTO) 0.6 % (0-2); HEMATOCRIT 31.5 % (37.9-51.0); HEMOGLOBIN 10.8 g/dL (13.5-17.0); LYMPHOCYTES % (AUTO) 16.2 % (13-45); MEAN CORPUSCULAR HEMOGLOBIN 31.6 pg (27.0-33.4); MEAN CORPUSCULAR HGB CONC 34.4 g/dL (32.0-36.0); MEAN CORPUSCULAR VOLUME 92 fl (80-97); MONOCYTES % (AUTO) 5.3 % (3-13); PLATELET COUNT 261 10^3/uL (150-450); RED BLOOD COUNT 3.44 10^6/uL (4.35-5.55); RED CELL DISTRIBUTION WIDTH 14.2 % (11.5-14.0); SEGMENTED NEUTROPHILS % (AUTO) 76.9 % (42-78); TOTAL CELLS COUNTED % (AUTO) 100 %
[2020-08-09 18:29] LABS: ALBUMIN 4.1 g/dL (3.5-5.0); ALKALINE PHOSPHATASE 95 U/L (38-126); ANION GAP 12 (5-19); ASPARTATE AMINO TRANSFERASE 15 U/L (17-59); BILIRUBIN,DIRECT 0.4 mg/dL (0.0-0.4); BILIRUBIN,TOTAL 0.5 mg/dL (0.2-1.3); BLOOD UREA NITROGEN 18 mg/dL (7-20); CALCIUM 9.4 mg/dL (8.4-10.2); CARBON DIOXIDE 28 mmol/L (22-30); CHLORIDE 88 mmol/L (98-107); GLUCOSE 155 mg/dL (75-110); POTASSIUM 4.3 mmol/L (3.6-5.0); TOTAL PROTEIN 6.4 g/dL (6.3-8.2)
--- NOTE | 2020-08-09 19:02 | RADIOLOGY REPORT (SQ) ---
EXAM DESCRIPTION: U/S ABDOMEN COMPLETE W/O DOP IMAGES COMPLETED DATE/TIME: 08/09/2020 6:44 pm REASON FOR STUDY: RUQ abdominal pain COMPARISON: None. TECHNIQUE: Dynamic and static grayscale images acquired of the abdomen and recorded on PACS. Additio nal selected color Doppler and spectral images recorded. Note: Study does not meet criteria for complete doppler/duplex scan LIMITATIONS: Bowel gas. FINDINGS: PANCREAS: Head of pancreas is normal. Body and tail were obscured by gas. LIVER: Increased echogenicity. No masses. LIVER VASCULATURE: Normal directional flow of the main portal vein and hepatic veins. GALLBLADDER: There is a small amount of sludge in the gallbladder. No gallstones are seen. There is no wall thickening. ULTRASOUND-DETECTED CANDELARIO'S SIGN: Negative. INTRAHEPATIC DUCTS AND COMMON DUCT: CBD and intrahepatic ducts normal caliber. No filling defects. AORTA: No aneurysm. The distal aorta was obscured by gas. RIGHT KIDNEY: Normal size, 12.7 cm. Cortical thinning. Normal echogenicity. No solid or suspici ous masses. No hydronephrosis. No calcifications. LEFT KIDNEY: Normal size, 9.8 cm. Cortical thinning. Normal echogenicity. No solid or suspiciou s masses. No hydronephrosis. No calcifications. SPLEEN: Prominent, 12.3 cm. No masses. PERITONEAL AND PLEURAL SPACES: No ascites or effusions. OTHER: No other significant finding. IMPRESSION: Slightly limited study. There are atrophic changes in the kidneys. There is a small am ount of gallbladder sludge. The spleen is prominent but not grossly enlarged. TECHNICAL DOCUMENTATION: JOB ID: [id number] 2010 [employer]- All Rights Reserved Reading location - IP/workstation name: [email or web address]
--- NOTE | 2020-08-09 19:08 | RADIOLOGY REPORT (SQ) ---
EXAM DESCRIPTION: CTA CHEST IMAGES COMPLETED DATE/TIME: 08/09/2020 6:52 pm REASON FOR STUDY: shortness of breath ? PE COMPARISON: 07/19/2020 TECHNIQUE: CT scan of the chest performed using helical scanning technique with dynamic intravenous contrast injection. Images reviewed with lung, soft tissue and bone windows. Reconstructed coronal and sagittal MPR images reviewed. Additional 3 dimensional post-processing performed to develop Maximal Intensity Projection images (TN P). All images stored on PACS. All CT scanners at this facility use dose modulation, iterative reconstruction, and/or weight based d osing when appropriate to reduce radiation dose to as low as reasonably achievable (ALARA). [facility]: Dose Right [facility]: CareDose [facility]: Dose Right [facility]: Teradose 4D [facility]: [employer] CONTRAST TYPE AND DOSE: contrast/concentration: Isovue 350.00 mmol/ml; Total Contrast Delivered: 75. 0 ml; Total Saline Delivered: 40.0 ml Contrast bolus adequate for pulmonary arteries and aorta. RENAL FUNCTION: BUN 19 creatinine 0.79 RADIATION DOSE: CT Rad equipment meets quality standard of care and radiation dose reduction [employer] ues were employed. CTDIvol: 13.2 - 39.8 mGy. DLP: 1423 mGy-cm. . LIMITATIONS: None. FINDINGS: LUNGS AND PLEURA: Small loculated right pleural effusion. Mild atelectatic changes in the right lower lobe. AORTA AND GREAT VESSELS: No aneurysm. Contrast bolus not optimized for the aorta. HEART: No pericardial effusion. Moderate to marked coronary artery calcifications. PULMONARY ARTERIES: No emboli visualized in the main pulmonary arteries or the segmental branches. HILAR AND MEDIASTINAL STRUCTURES: There multiple small nonspecific mediastinal lymph nodes. HARDWARE: None in the chest. UPPER ABDOMEN: No significant findings. Limited exam. THYROID AND OTHER SOFT TISSUES: No masses. No adenopathy. BONES: No acute or significant finding. 3D MIPS: Confirm above findings. OTHER: No other significant finding. IMPRESSION: Small loculated right pleural effusion with mild associated atelectasis in the right low er lobe. Nonspecific mediastinal lymph nodes. There is no pulmonary embolus. There is no aortic an eurysm or dissection. COMMENT: Quality ID # [id number]: Final reports with documentation of one or more dose reduction techniques (e.g., Automated exposure control, adjustment of the mA and/or kV according to patient size, use of iterative reconstruction technique) TECHNICAL DOCUMENTATION: JOB ID: [id number] 2010 [employer]- All Rights Reserved Reading location - IP/workstation name: [email or web address]
--- NOTE | 2020-08-09 20:48 | PDOC PROGRESS REPORT ---
Subjective Progress Note for:: 08/09/20 Subjective:: Patient was seen by the bedside he complained of right pleuritic chest pain, he was not able to localize source of pain with his fingers in a very specific way, CT angiogram of the chest was obtained, it demonstrated small loculated right pleural effusion with mild atelectatic changes in the right lower lobe also found was moderate marked coronary artery calcifications no emboli was visualized the ultrasound of the gallbladder was negative for any gallstones or gall bladder wall thickening. He also complained of shortness of breath, He refused inpatient rehabilitation Reason For Visit: ACUTE RHUEMATOID ARTHRITIS FLARE,HYPONATREMIA, Physical Exam Vital Signs: Temp Pulse Resp BP Pulse Ox 97.6 F 78 17 130/61 H 95 08/09/20 19:25 08/09/20 19:25 08/09/20 19:25 08/09/20 19:25 08/09/20 19:25 Intake & Output 08/08/20 08/09/20 08/10/20 06:59 06:59 06:59 Intake Total 2710 2520 1700 Output Total 4325 3400 3200 Balance -1615 -880 -1500 Weight 140 kg 140 kg General appearance: PRESENT: no acute distress Eye exam: PRESENT: PERRLA Respiratory exam: PRESENT: clear to auscultation anabella Cardiovascular exam: PRESENT: +S1, +S2 GI/Abdominal exam: PRESENT: soft Neurological exam: PRESENT: alert Results Laboratory Results: 08/09/20 17:35 08/09/20 17:35 08/09/20 08/09/20 17:35 17:35 WBC 11.0 H RBC 3.44 L Hgb 10.8 L Hct 31.5 L MCV 92 MCH 31.6 MCHC 34.4 RDW 14.2 H Plt Count 261 Seg Neutrophils % 76.9 Sodium 128.3 L Potassium 4.3 Chloride 88 L Carbon Dioxide 28 Anion Gap 12 BUN 18 Creatinine 0.76 Est GFR ( Amer) > 60 Glucose 155 H Calcium 9.4 Total Bilirubin 0.5 AST 15 L Alkaline Phosphatase 95 Total Protein 6.4 Albumin 4.1 08/02/20 13:30 Troponin I < 0.012 NT-Pro-B Natriuret Pep 166 H Impressions: Abdomen Ultrasound 08/09/20 00:00 IMPRESSION: Slightly limited study. There are atrophic changes in the kidneys. There is a small amount of gallbladder sludge. The spleen is prominent but not grossly enlarged. Chest/Abdomen CTA 08/09/20 00:00 IMPRESSION: Small loculated right pleural effusion with mild associated atel ectasis in the right lower lobe. Nonspecific mediastinal lymph nodes. There is no pulmonary embolus. There is no aortic aneurysm or dissection. Assessment & Plan - Diagnosis (1) Rheumatoid arthritis flare Is this a current diagnosis for this admission?: Yes Plan: Discontinue IV hydrocortisone start low-dose prednisone 5 mg p.o. daily continue methotrexate (2) Diabetes mellitus type 2 in obese Is this a current diagnosis for this admission?: Yes (3) Hyponatremia Is this a current diagnosis for this admission?: Yes Plan: Hyponatremia of SIADH type (4) Coronary artery calcification Is this a current diagnosis for this admission?: Yes Plan: The CT angiogram that was done today demonstrated severe coronary artery calcifications suggesting severe atherosclerotic heart disease, he has severe exertional dyspnea not explained on the basis of pulmonary disease, it is prudent at this point to order a myocardial stress test (5) Pleural effusion, right Is this a current diagnosis for this admission?: Yes Plan: He has a small loculated right pleural effusion, this would explain the pleurisy that is experiencing - Time Time Spent with patient: 35 or more minutes Level of Care: ICU Medications reviewed and adjusted accordingly: Yes Anticipated discharge: Home Anticipated DC Timeframe: within 72 hours
[2020-08-09] MEDS: INSULIN LISPRO 100 UNIT/ML 3 ML VIAL SUBCUT SCH (21:28)
[2020-08-10] MEDS: OXYCODONE HCL IR 5 MG TABLET PO SCH ×6 (03:00→21:23)
[2020-08-10] MEDS: GABAPENTIN 300 MG CAPSULE PO SCH ×3 (05:45→21:23)
[2020-08-10] MEDS: INSULIN LISPRO 100 UNIT/ML 3 ML VIAL SUBCUT SCH ×4 (11:04→22:38)
[2020-08-10] MEDS: DOCUSATE SODIUM 100 MG CAPSULE PO SCH ×2 (11:14→17:05)
[2020-08-10] MEDS: PREDNISONE 5 MG TABLET PO SCH (11:14)
[2020-08-10] MEDS: VALSARTAN 160 MG TABLET PO SCH (11:14)
[2020-08-10] MEDS: ASPIRIN 81 MG TABLET, ENT COATED PO SCH (11:15)
[2020-08-10] MEDS: FOLIC ACID 1 MG TABLET PO SCH (11:15)
[2020-08-10] MEDS: HYDROCHLOROTHIAZIDE 25 MG TABLET PO SCH (11:16)
[2020-08-10] MEDS: METFORMIN HCL 500 MG TABLET PO SCH (11:16)
[2020-08-10] MEDS: AMLODIPINE BESYLATE 10 MG TABLET PO SCH (11:16)
[2020-08-10] MEDS: ASCORBIC ACID 500 MG TABLET PO SCH (11:17)
[2020-08-10] MEDS: METHOTREXATE SODIUM 2.5 MG TABLET PO SCH (11:17)
[2020-08-10] MEDS: MULTIVITAMIN TABLET PO SCH (11:17)
[2020-08-10] MEDS ORDERED: REGADENOSON INJ 0.4 MG/5 ML DISP.SYRIN IV ONE (11:47)
--- NOTE | 2020-08-10 15:21 | DRAGON STRESS TEST REPORT ---
Name: Jarvis Mahoney : Feb Date: AUG 24 The patient underwent a stress/rest, single isotope SPECT Imaging with pharmacological stress and gated SPECT imaging on for evaluation of chest pain. The patient underwent infusion of regadnoson 0.4mg IV using the standard protocol. The heart rate was 85 beats per minute at baseline and increased to 107 beats during the infusion of regadenoson. The resting blood pressure was 128/55 mm/Hg and increased to 136/67 mm/Hg, which is a normal response. The patient complained of dyspnea during the procedure. The resting electrocardiogram demonstrated normal sinus rhythm. Stress electrocardiogram is non-diagnostic in the setting of pharmacological stress. Myocardial perfusion imaging was performed at rest following the injection of 15.11 mCi of sestamibi. At peak pharmacolgic effect, the patient was injected with 46.5 mCi of sestamibi. Gating post-stress tomographic imaging was performed 60 minutes after stress. Findings The overall quality of the study is good. Raw images demonstrate no significant artifacts. Left ventricular cavity is noted to be normal on the rest and stress studies. Resting SPECT images demonstrate a small, of mild intensity perfusion defect in the anterior and inferior monroe. Gated SPECT imaging reveals normal myocardial thickening and wall motion. The left ventricular ejection fraction was calculated to be 57% Impression -Myocardial perfusion imaging is normal. -There is no scintigraphic evidence of ischemia or infarct. -Overall left ventricular systolic function was normal without wall motion abnormalities. -There are no prior studies for comparison. [facility]
--- NOTE | 2020-08-10 21:36 | PDOC PROGRESS REPORT ---
Subjective Progress Note for:: 08/10/20 Subjective:: Patient was seen by the bedside he complained of right pleuritic chest pain, he was not able to localize source of pain with his fingers in a very specific way, CT angiogram of the chest was obtained, it demonstrated small loculated right pleural effusion with mild atelectatic changes in the right lower lobe also found was moderate marked coronary artery calcifications no emboli was visualized the ultrasound of the gallbladder was negative for any gallstones or gall bladder wall thickening. He also complained of shortness of breath, He refused inpatient rehabilitation, The stress test was negative Reason For Visit: ACUTE RHUEMATOID ARTHRITIS FLARE,HYPONATREMIA, Physical Exam Vital Signs: Temp Pulse Resp BP Pulse Ox 97.9 F 74 18 113/63 99 08/10/20 20:26 08/10/20 20:26 08/10/20 20:26 08/10/20 20:26 08/10/20 20:26 Intake & Output 08/09/20 08/10/20 08/11/20 06:59 06:59 06:59 Intake Total 2520 2480 1215 Output Total 3400 5600 1800 Balance -880 -3120 -585 Weight 140 kg 140 kg 140 kg General appearance: PRESENT: no acute distress Eye exam: PRESENT: PERRLA Respiratory exam: PRESENT: clear to auscultation anabella Cardiovascular exam: PRESENT: +S1, +S2 GI/Abdominal exam: PRESENT: soft Neurological exam: PRESENT: alert Results Laboratory Results: 08/09/20 17:35 08/09/20 17:35 08/02/20 13:30 Troponin I < 0.012 NT-Pro-B Natriuret Pep 166 H Impressions: Abdomen Ultrasound 08/09/20 00:00 IMPRESSION: Slightly limited study. There are atrophic changes in the kidneys. There is a small amount of gallbladder sludge. The spleen is prominent but not grossly enlarged. Chest/Abdomen CTA 08/09/20 00:00 IMPRESSION: Small loculated right pleural effusion with mild associated atelectasis in the right lower lobe. Nonspecific mediastinal lymph nodes. There is no pulmonary embolus. There is no aortic aneurysm or dissection. Assessment & Plan - Diagnosis (1) Rheumatoid arthritis flare Is this a current diagnosis for this admission?: Yes Plan: Discontinue IV hydrocortisone start low-dose prednisone 5 mg p.o. daily continue methotrexate (2) Diabetes mellitus type 2 in obese Is this a current diagnosis for this admission?: Yes (3) Hyponatremia Is this a current diagnosis for this admission?: Yes Plan: Hyponatremia of SIADH type (4) Coronary artery calcification Is this a current diagnosis for this admission?: Yes Plan: The CT angiogram that was done today demonstrated severe coronary artery calcifications suggesting severe atherosclerotic heart disease, he has severe exertional dyspnea not explained on the basis of pulmonary disease,negative stress tests (5) Pleural effusion, right Is this a current diagnosis for this admission?: Yes - Time Time Spent with patient: 25-34 minutes Level of Care: MEDICAL Medications reviewed and adjusted accordingly: Yes Anticipated discharge: Home
[2020-08-11] MEDS: OXYCODONE HCL IR 5 MG TABLET PO SCH ×4 (02:00→14:42)
[2020-08-11] MEDS: GABAPENTIN 300 MG CAPSULE PO SCH ×2 (06:22→14:42)
[2020-08-11] MEDS: INSULIN LISPRO 100 UNIT/ML 3 ML VIAL SUBCUT SCH ×3 (10:38→15:40)
[2020-08-11] MEDS: METFORMIN HCL 500 MG TABLET PO SCH (10:42)
[2020-08-11] MEDS: HYDROCHLOROTHIAZIDE 25 MG TABLET PO SCH (10:45)
[2020-08-11] MEDS: DOCUSATE SODIUM 100 MG CAPSULE PO SCH (10:45)
[2020-08-11] MEDS: VITAMIN E (DL, ACETATE) 400 UNIT CAPSULE PO SCH (10:45)
[2020-08-11] MEDS: VALSARTAN 160 MG TABLET PO SCH (10:46)
[2020-08-11] MEDS: ASPIRIN 81 MG TABLET, ENT COATED PO SCH (10:46)
[2020-08-11] MEDS: MULTIVITAMIN TABLET PO SCH (10:46)
[2020-08-11] MEDS: AMLODIPINE BESYLATE 10 MG TABLET PO SCH (10:46)
[2020-08-11] MEDS: ASCORBIC ACID 500 MG TABLET PO SCH (10:47)
[2020-08-11] MEDS: PREDNISONE 5 MG TABLET PO SCH (10:48)
[2020-08-11] MEDS: FOLIC ACID 1 MG TABLET PO SCH (10:48)
[2020-08-11 16:28] VITALS: BP 125/66
--- NOTE | 2020-08-11 17:52 | PDOC DISCHARGE SUMMARY ---
Impression - Admit/DC Date/PCP Admission Date/Primary Care Provider: 08/05/20 11:29 Discharge Date: 08/11/20 - Discharge Diagnosis (1) Rheumatoid arthritis flare Is this a current diagnosis for this admission?: Yes (2) Diabetes mellitus type 2 in obese Is this a current diagnosis for this admission?: Yes (3) Hyponatremia Is this a current diagnosis for this admission?: Yes (4) Coronary artery calcification Is this a current diagnosis for this admission?: Yes (5) Pleural effusion, right Is this a current diagnosis for this admission?: Yes - Additional Information Discharge Diet: Diabetic Discharge Activity: Activity As Tolerated, Balance Activity w/Rest Referrals: JIE BAL MD [ACTIVE STAFF] - 08/12/20 2:00 pm Prescriptions: Folic Acid [Folvite 1 mg Tablet] 1 mg PO DAILY #90 tablet Home Medications: Aspirin [Ecotrin] 81 mg PO DAILY 02/19/19 Oxycodone HCl 15 mg PO QIDP PRN 02/19/19 Amlodipine Besylate [Norvasc 10 mg Tablet] 10 mg PO DAILY #90 07/26/20 Gabapentin [Neurontin 300 mg Capsule] 300 mg PO Q8 #90 07/26/20 Metformin HCl [Glucophage] 1,000 mg PO DAILY #90 07/26/20 Valsartan/Hydrochlorothiazide [Valsartan-Hctz 320-25 mg Tab] 1 each PO DAILY #90 07/26/20 Ascorbic Acid [Vitamin C 500 mg Tablet] 500 mg PO DAILY 08/02/20 Multivitamin [Tab-A-Leonor] 1 each PO DAILY 08/02/20 Vitamin E 200 unit PO DAILY 08/02/20 Folic Acid [Folvite 1 mg Tablet] 1 mg PO DAILY #90 tablet 08/11/20 History of Present Illiness History of Present Illness: ZI DAVE is a 65 year old male.She was recently discharged from this hospital on July 26, 2020 when he presented with pneumonia, he came to the emergency room because of generalized body weakness, inability to ambulate. He has a history of rheumatoid arthritis, he was supposed to be on methotrexate, used to follow with me until he went to a different practice he decided to return back to our practice, he has not follow-up in the office since last hospital discharge. On examination of this patient's he has tremendous inflammatory swelling of multiple joints including both knees, ankles, the toes of the feet, the joints of the and, the proximal interphalangeal joint PIP, the MCP joints this is consistent with severe exacerbation of rheumatoid arthritis. Hospital Course Hospital Course: Patient was admitted for the management of acute rheumatoid arthritis flare with tremendous inflammation affecting multiple joints, he was treated with intravenous hydrocortisone with improvement of the inflammation. He also complained of pleurisy and shortness of breath CT angiogram of the chest was obtained, it was negative for any thrombus, it demonstrated a small right loculated pleural effusion, he also underwent a Lexiscan Cardiolite stress test, there was no acute reversibility that suggest ischemia.Patient felt much better, before admission he felt he needed to go to acute rehabilitation because on admission he could hardly walk after control of the inflammation patient was able to ambulate he felt much better, he was again advised of the need of medication adherence, he was supposed to be on weekly methotrexate he has not been taking the medication religiously, he has not been following with any concierge manager for the management of his RA, he has not been seen in the office for more than 2 years now, he has been following with a different provider, is more preoccupied with the use of opioids again opioid is not the treatment for RA he needs disease modifying anti-rheumatoid agents.He also have hyponatremia of SIADH type Physical Exam Vital Signs: Temp Pulse Resp BP Pulse Ox 98.4 F 97 19 125/66 97 08/11/20 15:36 08/11/20 15:36 08/11/20 15:36 08/11/20 15:36 08/11/20 15:36 Intake & Output 08/10/20 08/11/20 08/12/20 06:59 06:59 06:59 Intake Total 2480 1215 850 Output Total 4000 3900 1700 Balance -5756 -4677 -256 Weight 140 kg 140 kg 140 kg General appearance: PRESENT: no acute distress Eye exam: PRESENT: PERRLA Respiratory exam: PRESENT: clear to auscultation anabella Cardiovascular exam: PRESENT: +S1, +S2 GI/Abdominal exam: PRESENT: soft Neurological exam: PRESENT: alert, CN II-XII grossly intact Results Laboratory Results: WBC 11.0 10^3/uL (4.0-10.5) H 08/09/20 17:35 RBC 3.44 10^6/uL (4.35-5.55) L 08/09/20 17:35 Hgb 10.8 g/dL (13.5-17.0) L 08/09/20 17:35 Hct 31.5 % (37.9-51.0) L 08/09/20 17:35 MCV 92 fl (80-97) 08/09/20 17:35 MCH 31.6 pg (27.0-33.4) 08/09/20 17:35 MCHC 34.4 g/dL (32.0-36.0) 08/09/20 17:35 RDW 14.2 % (11.5-14.0) H 08/09/20 17:35 Plt Count 261 10^3/uL (150-450) 08/09/20 17:35 Lymph % (Auto) 16.2 % (13-45) 08/09/20 17:35 Bledsoe % (Auto) 5.3 % (3-13) 08/09/20 17:35 Eos % (Auto) 1.0 % (0-6) 08/09/20 17:35 Baso % (Auto) 0.6 % (0-2) 08/09/20 17:35 Absolute Neuts (auto) 8.5 10^3/uL (1.7-8.2) H 08/09/20 17:35 Absolute Lymphs (auto) 1.8 10^3/uL (0.5-4.7) 08/09/20 17:35 Absolute Monos (auto) 0.6 10^3/uL (0.1-1.4) 08/09/20 17:35 Absolute Eos (auto) 0.1 10^3/uL (0.0-0.6) 08/09/20 17:35 Absolute Basos (auto) 0.1 10^3/uL (0.0-0.2) 08/09/20 17:35 Seg Neutrophils % 76.9 % (42-78) 08/09/20 17:35 ESR 111 mm/hr (0-20) H 08/03/20 19:00 Sodium 128.3 mmol/L (137-145) L 08/09/20 17:35 Potassium 4.3 mmol/L (3.6-5.0) 08/09/20 17:35 Chloride 88 mmol/L (98-107) L 08/09/20 17:35 Carbon Dioxide 28 mmol/L (22-30) 08/09/20 17:35 Anion Gap 12 (5-19) 08/09/20 17:35 BUN 18 mg/dL (7-20) 08/09/20 17:35 Creatinine 0.76 mg/dL (0.52-1.25) 08/09/20 17:35 Est GFR ( Amer) > 60 (>60) 08/09/20 17:35 Est GFR (MDRD) Non-Af > 60 (>60) 08/09/20 17:35 Glucose 155 mg/dL (75-110) H 08/09/20 17:35 POC Glucose 124 mg/dL (70-110) H 08/11/20 15:38 Serum Osmolality 263 mOsm/kg (275-301) L 08/02/20 13:30 Calcium 9.4 mg/dL (8.4-10.2) 08/09/20 17:35 Total Bilirubin 0.5 mg/dL (0.2-1.3) 08/09/20 17:35 Direct Bilirubin 0.4 mg/dL (0.0-0.4) 08/09/20 17:35 Neonat Total Bilirubin Not Reportable 08/09/20 17:35 Neonat Direct Bilirubin Not Reportable 08/09/20 17:35 Neonat Indirect Bili Not Reportable 08/09/20 17:35 AST 15 U/L (17-59) L 08/09/20 17:35 ALT 15 U/L (<50) 08/09/20 17:35 Alkaline Phosphatase 95 U/L (38-126) 08/09/20 17:35 Troponin I < 0.012 ng/mL 08/02/20 13:30 C-Reactive Protein 136.6 mg/L (<10.0) H 08/03/20 19:00 NT-Pro-B Natriuret Pep 166 pg/mL (<125) H 08/02/20 13:30 Total Protein 6.4 g/dL (6.3-8.2) 08/09/20 17:35 Albumin 4.1 g/dL (3.5-5.0) 08/09/20 17:35 TSH 2.60 uIU/mL (0.47-4.68) 08/02/20 13:30 Urine Color STRAW 08/02/20 16:45 Urine Appearance CLEAR 08/02/20 16:45 Urine pH 7.0 (5.0-9.0) 08/02/20 16:45 Ur Specific [place] 1.004 08/02/20 16:45 Urine Protein NEGATIVE mg/dL (NEGATIVE) 08/02/20 16:45 Urine Glucose (UA) NEGATIVE mg/dL (NEGATIVE) 08/02/20 16:45 Urine Ketones NEGATIVE mg/dL (NEGATIVE) 08/02/20 16:45 Urine Blood NEGATIVE (NEGATIVE) 08/02/20 16:45 Urine Nitrite NEGATIVE (NEGATIVE) 08/02/20 16:45 Urine Bilirubin NEGATIVE (NEGATIVE) 08/02/20 16:45 Urine Urobilinogen NEGATIVE mg/dL (<2.0) 08/02/20 16:45 Ur Leukocyte Esterase NEGATIVE (NEGATIVE) 08/02/20 16:45 Urine Bacteria (Auto) TRACE /HPF 08/02/20 16:45 Urine Osmolality 185 mOsm/kg (300-900) L 08/02/20 16:45 Urine Sodium 46 mmol/L (30-90) 08/02/20 16:45 Urine Ascorbic Acid NEGATIVE (NEGATIVE) 08/02/20 16:45 08/02/20 13:30 Troponin I < 0.012 NT-Pro-B Natriuret Pep 166 H Impressions: Abdomen Ultrasound 08/09/20 00:00 IMPRESSION: Slightly limited study. There are atrophic changes in the kidneys. There is a small amount of gallbladder sludge. The spleen is prominent but not grossly enlarged. Chest/Abdomen CTA 08/09/20 00:00 IMPRESSION: Small loculated right pleural effusion with mild associated atelectasis in the right lower lobe. Nonspecific mediastinal lymph nodes. There is no pulmonary embolus. There is no aortic aneurysm or dissection. Stroke Is this a Stroke Patient?: No Acute Heart Failure Is this a Heart Failure Patient?: No
== END 2020-08-11 16:40 | disposition home or self-care (01) | DRG 643 ==
LOC: ER 13:03 → EH 15:30 → INTOOBSV 15:30 → 4W 20:03 → OBSVTOIN 08-05 11:29 → 4S 08-05 18:55
PROVIDERS: ADMIT Internal Medicine; ATTEND Internal Medicine
DX: E22.2 Syndrome of inappropriate secretion of antidiuretic hormone (principal); J18.9 Pneumonia, unspecified organism; J44.0 Chronic obstructive pulmonary disease with (acute) lower respiratory infection; Z68.41 Body mass index [BMI] 40.0-44.9, adult; E87.5 Hyperkalemia; M06.9 Rheumatoid arthritis, unspecified; E11.9 Type 2 diabetes mellitus without complications; I25.10 Atherosclerotic heart disease of native coronary artery without angina pectoris; E78.5 Hyperlipidemia, unspecified; F32.9 Major depressive disorder, single episode, unspecified; E66.01 Morbid (severe) obesity due to excess calories; E78.00 Pure hypercholesterolemia, unspecified; I11.0 Hypertensive heart disease with heart failure; I50.814 Right heart failure due to left heart failure; Z98.1 Arthrodesis status; Z60.2 Problems related to living alone; Z79.84 Long term (current) use of oral hypoglycemic drugs; Z79.82 Long term (current) use of aspirin; Z79.891 Long term (current) use of opiate analgesic; Z79.899 Other long term (current) drug therapy; Z87.891 Personal history of nicotine dependence; Z83.3 Family history of diabetes mellitus; Z82.49 Family history of ischemic heart disease and other diseases of the circulatory system
CPT/HCPCS: 36415; 71275; 76700; 78452; 80053; 81001; 82962; 83880; 83930; 83935; 84300; 84443; 84484; 85025; 85652; 86140; 93005; 93010; 93017; 94640; 94799; 99285; A9500; J1720; J1815; J2270; J2785; J7030; J7512; J8610; Q9969

== ENCOUNTER 2020-08-22 22:27 | Inpatient (IN) | payer MEDICARE, MEDICAID ==
--- NOTE | 2020-08-22 23:05 | ER Document Report ---
ED General - General Chief Complaint: Abdominal Pain Stated Complaint: ABDOMINAL PAIN Time Seen by Provider: 08/22/20 23:05 TRAVEL OUTSIDE OF THE [place] IN LAST 30 DAYS: No - HPI Notes: 65-year-old male presents with abdominal pain. Patient states that around midday he was eating and something went down the wrong pipe, this caused him to cough and then he developed dry heaves. He has had upper abdominal pain ever since. He states pain has progressively worsened. His abdomen is larger than usual. He has not passed any gas. He said that he had a quick spurt of diarrhea. He states that his in the ambulance ride every little bump hurt his abdomen. He denies any history of abdominal surgeries. He had a recent admission to the hospital for a fractured rib and pneumonia. He received LR via EMS. - Related Data Allergies/Adverse Reactions: No Known Allergies Allergy (Verified 03/11/17 08:57) Past Medical History - General Information source: Patient - Social History Smoking Status: Unknown if Ever Smoked Family History: CAD, DM - Past Medical History Cardiac Medical History: Reports: Hx Congestive Heart Failure - Right-sided, Hx Hypercholesterolemia, Hx Hypertension Denies: Hx Atrial Fibrillation, Hx Coronary Artery Disease, Hx Heart Attack Pulmonary Medical History: Reports: Hx COPD Denies: Hx Asthma Neurological Medical History: Denies: Hx Seizures Endocrine Medical History: Reports: Hx Diabetes Mellitus Type 2. Denies: Hx Diabetes Mellitus Type 1, Hx Hyperthyroidism, Hx Hypothyroidism Renal/ Medical History: Denies: Hx Peritoneal Dialysis GI Medical History: Denies: Hx Cirrhosis, Hx Crohn's Disease, Hx Gastroesophageal Reflux Disease, Hx Hepatitis, Hx Ulcerative Colitis Musculoskeletal Medical History: Reports Hx Arthritis - Rheumatoid arthritis, Denies Hx Fibromyalgia, Denies Hx Gout Skin Medical History: Denies Hx Eczema, Denies Hx Psoriasis Psychiatric Medical History: Reports: Hx Depression Traumatic Medical History: Denies: Hx Traumatic Brain Injury Infectious Medical History: Denies: Hx Hepatitis Past Surgical History: Reports: Hx Orthopedic Surgery - Cervical fusion, lumbar back surgery, R rotator cuff, L knee arthroscopy - Immunizations Hx Diphtheria, Pertussis, Tetanus Vaccination: Yes Hx Pneumococcal Vaccination: 08/05/13 Review of Systems - Review of Systems Constitutional: denies: Fever EENT: No symptoms reported Cardiovascular: denies: Chest pain Respiratory: denies: Short of breath Gastrointestinal: Abdomen distended, Abdominal pain, Nausea Genitourinary: No symptoms reported Male Genitourinary: No symptoms reported Musculoskeletal: No symptoms reported Skin: No symptoms reported Hematologic/Lymphatic: No symptoms reported Neurological/Psychological: No symptoms reported Physical Exam - Vital signs Vitals: Temp 98.2 F 08/22/20 22:28 - General General appearance: Alert In distress: Moderate - HEENT Head: Normocephalic, Atraumatic Eyes: No: Scleral icterus Extraocular movements intact: Yes Pupils: PERRL - Respiratory Breath sounds: Normal - Cardiovascular Rhythm: Regular, Tachycardia Heart sounds: Normal auscultation Normal capillary refill: Yes - Abdominal Inspection: Obese Distension: Distended, Tympanitic Bowel sounds: Hypoactive Tenderness: Tender - Generalized, Rebound - Extremities General upper extremity: Normal ROM General lower extremity: Normal ROM - Neurological Neuro grossly intact: Yes Cognition: Normal Orientation: AAOx4 - Psychological Associated symptoms: Normal affect - Skin Skin Moisture: Diaphoretic Course - Re-evaluation Re-evalutation: 65-year-old male here with abdominal pain, onset this afternoon and has had progressively worsening of symptoms. On exam he is ill-appearing, diaphoretic, BP soft, mildly tachycardic. His abdomen is markedly distended, tympanic, has generalized rebound tenderness. I am highly concerned for a perforation. He has had recent hospitalizations which would put him at risk for stress ulcer. Lionel munson additionally has a history of rheumatoid arthritis and is on methotrexate. No abdominal surgeries, abdomen does not have any obvious surgical scars, however obstruction is still possible as well. Will start with CXR/KUB to eval for free air or obstructive process. Start with 2 L LR and [address] abdomen ordered as well. Reviewed CT scan from 07/19, no abdominal aneurysm noted at t hat time. Patient had a recent negative cardiac stress test. 08/22/20 23:[address] before x-rays. Will cancel KUB at this time. I did good radiology with patient and reviewed, there appears to be free fluid and air within the abdomen. 08/22/20 23:50 Surgery to evaluate 08/22/20 23:51 Have ordered Zosyn for empiric coverage, rapid Covid 08/22/20 23:54 Updated patient on current plan and concern for perforation. He reports no pain relief, will order additional dose at this time. 08/23/20 00:10 Received a call from radiology, perforation appears to be gastric in origin as there is some air in the gastric wall and surrounding inflammation 08/23/20 00:18 Dr. Valentine has booked patient for emergent OR, has requested I touch base with ICU for admission after 08/23/20 00:20 Discussed with ICU team for admission after OR 08/23/20 00:26 Protonix bolus ordered. Patient was updated on plan. - Vital Signs Vital signs: Temp Pulse Resp BP Pulse Ox 98.2 F 08/22/20 22:28 - Laboratory Result Diagrams: 08/22/20 22:38 08/22/20 22:38 Laboratory results interpreted by me: 08/22/20 08/22/20 22:38 22:38 WBC 13.5 H RBC 4.32 L Hgb 13.0 L RDW 14.9 H Seg Neuts % (Manual) 85 H Band Neutrophils % 7 H Lymphocytes % (Manual) 6 L Monocytes % (Manual) 2 L Abs Neuts (Manual) 12.4 H Sodium 123.6 L Chloride 89 L Carbon Dioxide 20 L Glucose 173 H Total Protein 6.1 L Albumin 3.4 L - Diagnostic Test Radiology reviewed: Image reviewed, Reports reviewed - EKG Interpretation by Me Additional EKG results interpreted by me: EKG is interpreted by me. Sinus tachycardia, rate 12/04/2017. Narrow QRS, QTC within normal limits. No ST segment elevation. Critical Care Note - Critical Care Note Total time excluding time spent on procedures (mins): 35 - Acute and management of bowel perforation, interpretation of imaging studies, coordination of care, tachycardia and fluid resuscitation Discharge - Discharge Clinical Impression: Perforated abdominal viscus, Morbid obesity with BMI of 40.0-44.9, adult, Hyponatremia Disposition: ADMITTED INPATIENT Admitting Provider: Surgicalist Unit Admitted: OR
[2020-08-22] MEDS ORDERED: MORPHINE SULFATE 10 MG/ML INJ IV ONE ×3 (23:10→23:54)
[2020-08-22] MEDS ORDERED: RINGERS SOLUTION,LACTATED 1,000 ML IV PRN (23:10)
[2020-08-22 23:11] LABS: MEAN CORPUSCULAR HEMOGLOBIN 30.1 pg (27.0-33.4); MEAN CORPUSCULAR HGB CONC 33.3 g/dL (32.0-36.0); MEAN CORPUSCULAR VOLUME 90 fl (80-97); PLATELET COUNT 340 10^3/uL (150-450); RED BLOOD COUNT 4.32 10^6/uL (4.35-5.55); RED CELL DISTRIBUTION WIDTH 14.9 % (11.5-14.0); WHITE BLOOD COUNT 13.5 10^3/uL (4.0-10.5)
[2020-08-22] MEDS ORDERED: ONDANSETRON HCL INJ/PF 4 MG/2 ML SDV IV ONE (23:19)
[2020-08-22 23:25] LABS: ALBUMIN 3.4 g/dL (3.5-5.0); ALKALINE PHOSPHATASE 68 U/L (38-126); ANION GAP 15 (5-19); ASPARTATE AMINO TRANSFERASE 24 U/L (17-59); BILIRUBIN,DIRECT 0.3 mg/dL (0.0-0.4); BILIRUBIN,TOTAL 1.1 mg/dL (0.2-1.3); BLOOD UREA NITROGEN 12 mg/dL (7-20); CARBON DIOXIDE 20 mmol/L (22-30); CHLORIDE 89 mmol/L (98-107); GLUCOSE 173 mg/dL (75-110); POTASSIUM 4.3 mmol/L (3.6-5.0); TOTAL PROTEIN 6.1 g/dL (6.3-8.2)
[2020-08-22 23:39] LABS: ABSOLUTE LYMPHOCYTES# (MANUAL) 0.8 10^3/uL (0.5-4.7); ABSOLUTE MONOCYTES # (MANUAL) 0.3 10^3/uL (0.1-1.4); BAND NEUTROPHILS % (MANUAL) 7 % (3-5); BASOPHILS % (MANUAL) 0 % (0-2); EOSINOPHILS % (MANUAL) 0 % (0-6); LYMPHOCYTES % (MANUAL) 6 % (13-45); MONOCYTES % (MANUAL) 2 % (3-13); SEGMENTED NEUTROPHILS % (MAN) 85 % (42-78); TOTAL CELLS COUNTED 100
[2020-08-22 23:40] LABS: ANISOCYTOSIS SLIGHT; OVALOCYTES 1+; POIKILOCYTOSIS 1+; TEAR DROP CELLS SLIGHT; TOXIC GRANULATION 1+
[2020-08-22 23:41] LABS: PLATELET COMMENT ADEQUATE
[2020-08-22] MEDS ORDERED: PIPERACILLIN/TAZOBACTAM 4.5 GM VIAL IV ONE (23:51)
--- NOTE | 2020-08-23 00:12 | RADIOLOGY REPORT (SQ) ---
EXAM DESCRIPTION: [facility]: CT ABDOMEN PELVIS WITH IV CONTRAST CLINICAL HISTORY: 65 years Male; abd pain, distension, eval perf; TECHNIQUE: CT of the abdomen and pelvis using intravenous contrast. All CT scans at this facility use dose modulation, iterative reconstruction, and/or weight based dosing when appropriate to reduce radiation dose to as low as reasonably achievable. COMPARISON: 07/19/2020 FINDINGS: Small right pleural effusion. Abdomen: Scattered free intraperitoneal fluid has increased. Pneumoperitoneum is also noted. Scattered foci of air are mostly seen in the upper abdomen near the stomach (in addition to the air in the anterior peritoneal cavity). Stomach: Mildly distended and fluid-filled. There is pneumatosis along the greater curvature. Duodenum is nondistended. No significant retroperitoneal fluid collection. Liver:No focal lesions. No intrahepatic ductal distention. Gallbladder:Nondistended Pancreas:Within normal limits Spleen:Within normal limits Right kidney:No hydronephrosis. No focal lesion. Left kidney:No hydronephrosis. No focal lesion. Adrenal glands:Within normal limits Vascular structures:Within normal limits Pelvis: Small bowel: Nondistended. No focal wall edema/thickening. Appendix:Within normal limits Colon: Nondistended. There is fluid along the proximal colon and transverse colon. Scattered free fluid in the pelvis. Bones: No acute bone findings. Bladder: Unremarkable. No pelvic mass or adenopathy. THIS REPORT CONTAINS FINDINGS THAT MAY BE CRITICAL TO PATIENT CARE: The findings were verbally discussed via telephone conference with TASIA CUELLAR at 11:10 PM CDT on 08/22/2020 . IMPRESSION: 1. Pneumoperitoneum, likely due to gastric perforation 2. Scattered free fluid throughout the abdomen.
--- NOTE | 2020-08-23 00:19 | EKG REPORT ---
SEVERITY:- OTHERWISE NORMAL ECG - SINUS TACHYCARDIA : Confirmed by: Shahid Agarwal 23-Aug-2020 00:19:04
--- NOTE | 2020-08-23 00:20 | RADIOLOGY REPORT (SQ) ---
CLINICAL HISTORY: abd pain, eval free air COMPARISON: 07/25/2020. TECHNIQUE: XR CHEST 1 VIEW 08/22/2020 11:05 PM CDT FINDINGS: The heart is mildly enlarged. There is improved right basilar consolidation. There is no gross free air. There is a small right pleural effusion. There is no pneumothorax. There are no acute osseous findings. IMPRESSION: Improving right basilar pneumonia.
[2020-08-23] MEDS ORDERED: PANTOPRAZOLE SODIUM 40 MG VIAL IV ONE ×3 (00:26→14:00)
--- NOTE | 2020-08-23 00:31 | PDOC CONSULTATION ---
Consultation Consult Date: 08/23/20 Provider Consulted: DANIE ALVAREZ Consult reason:: Perforated bowel History of Present Illness History of Present Illness: ZI DAVE is a 65 year old male diabetic with rheumatoid arthritis on methotrexate, had a coughing spell after the food he ate went to the wrong pipe around 11 AM 08/22/2020. He then developed upper abdominal pains which gradually became worse. He had a CT scan of the abdomen in the ED which showed free air and most likely from gastric perforation. Denies any fever no chills. He did have diarrhea today. Past Medical History Cardiac Medical History: Reports: Congestive Heart Failure - Right-sided, Hyperlipidema, Hypertension Denies: Atrial Fibrillation, Coronary Artery Disease, Myocardial Infarction Pulmonary Medical History: Reports: Chronic Obstructive Pulmonary Disease (COPD) Denies: Asthma Neurological Medical History: Denies: Seizures Endocrine Medical History: Reports: Diabetes Mellitus Type 2 Denies: Diabetes Mellitus Type 1, Hyperthyroidism, Hypothyroidism GI Medical History: Denies: Cirrhosis, Crohn's Disease, Gastroesophageal Reflux Disease, Hepatitis, Ulcerative Colitis Musculoskeltal Medical History: Reports: Arthritis - Rheumatoid arthritis Denies: Fibromyalgia, Gout Skin Medical History: Denies: Eczema, Psoriasis Psychiatric Medical History: Reports: Depression Traumatic Medical History: Denies: Traumatic Brain Injury Hematology: Denies: Anemia, Sickle Cell Disease, Bleeding Tendencies Past Surgical History Past Surgical History: Reports: Orthopedic Surgery - Cervical fusion, lumbar back surgery, R rotator cuff, L knee arthroscopy Social History Smoking Status: Unknown if Ever Smoked Electronic Cigarette use?: No Frequency of Alcohol Use: None - Discontinued use of alcohol in late 2018 Hx Recreational Drug Use: No Drugs: None Hx Prescription Drug Abuse: No Family History Family History: CAD, DM Parental Family History Reviewed: Yes Children Family History Reviewed: No Sibling(s) Family History Reviewed.: No Medication/Allergy Home Medications: Aspirin [Ecotrin] 81 mg PO DAILY 02/19/19 Oxycodone HCl 15 mg PO QIDP PRN 02/19/19 Amlodipine Besylate [Norvasc 10 mg Tablet] 10 mg PO DAILY #90 07/26/20 Gabapentin [Neurontin 300 mg Capsule] 300 mg PO Q8 #90 07/26/20 Metformin HCl [Glucophage] 1,000 mg PO DAILY #07/26/20 Valsartan/Hydrochlorothiazide [Valsartan-Hctz 320-25 mg Tab] 1 each PO DAILY #90 07/26/20 Ascorbic Acid [Vitamin C 500 mg Tablet] 500 mg PO DAILY 08/02/20 Multivitamin [Tab-A-Leonor] 1 each PO DAILY 08/02/20 Vitamin E 200 unit PO DAILY 08/02/20 Folic Acid [Folvite 1 mg Tablet] 1 mg PO DAILY #90 tablet 08/11/20 Allergies/Adverse Reactions: No Known Allergies Allergy (Verified 03/11/17 08:57) Review of Systems Constitutional: PRESENT: as per HPI Gastrointestinal: PRESENT: abdominal pain, nausea Physical Exam Vital Signs: Temp Pulse Resp BP Pulse Ox 98.2 F 08/22/20 22:28 General appearance: PRESENT: severe distress Head exam: PRESENT: atraumatic Eye exam: PRESENT: conjunctiva pink Mouth exam: PRESENT: dry mucosa Neck exam: PRESENT: full ROM Respiratory exam: PRESENT: clear to auscultation anabella Cardiovascular exam: PRESENT: tachycardia Pulses: PRESENT: normal radial pulses Vascular exam: PRESENT: normal capillary refill GI/Abdominal exam: PRESENT: soft, tenderness - Primarily along the right upper quadrant and epigastric areas. There is rebound tenderness Rectal exam: PRESENT: deferred Neurological exam: PRESENT: alert, oriented to person, oriented to place, oriented to time, oriented to situation Psychiatric exam: PRESENT: appropriate affect Skin exam: PRESENT: normal color, warm Results Laboratory Results: 08/22/20 22:38 08/22/20 22:38 08/22/20 08/22/20 22:38 22:38 WBC 13.5 H RBC 4.32 L Hgb 13.0 L Hct 39.0 MCV 90 MCH 30.1 MCHC 33.3 RDW 14.9 H Plt Count 340 Seg Neutrophils % Not Reportable Sodium 123.6 L Potassium 4.3 Chloride 89 L Carbon Dioxide 20 L Anion Gap 15 BUN 12 Creatinine 0.89 Est GFR ( Amer) > 60 Glucose 173 H Calcium 10.0 Total Bilirubin 1.1 AST 24 Alkaline Phosphatase 68 Total Protein 6.1 L Albumin 3.4 L Lipase 29.3 Impressions: Chest X-Ray 08/22/20 23:05 IMPRESSION: Improving right basilar pneumonia. Abdomen/Pelvis CT 08/22/20 23:14 IMPRESSION: 1. Pneumoperitoneum, likely due to gastric perforation 2. Scattered free fluid throughout the abdomen. Assessment & Plan - Diagnosis (1) Perforated bowel Is this a current diagnosis for this admission?: Yes (2) Diabetes mellitus type 2 in obese Is this a current diagnosis for this admission?: Yes (3) Hypertension Qualifiers: Hypertension type: essential hypertension Qualified Code(s): I10 - Essential (primary) hypertension Is this a current diagnosis for this admission?: Yes (4) Leukocytosis Qualifiers: Leukocytosis type: unspecified Qualified Code(s): D72.829 - Elevated white blood cell count, unspecified Is this a current diagnosis for this admission?: Yes (5) Morbid obesity with BMI of 40.0-44.9, adult Is this a current diagnosis for this admission?: Yes (6) Rheumatoid arthritis Qualifiers: Rheumatoid arthritis location: knee Laterality: bilateral Is this a current diagnosis for this admission?: Yes - Time Time Spent: 30 to 50 Minutes - Inpatient Certification Medical Necessity: Need For IV Fluids, Need For Continuous Telemetry Monitoring, Need for IV Antibiotics, Need for Surgery - Plan Summary Plan Summary: 65-year-old male known diabetic and rheumatoid arthritis on methotrexate suddenly complained of severe coughing after the food he ate went to the wrong pipe at around 11 AM. This was followed by right upper quadrant pains which was getting worse and brought him to the ED. CT scan in the ED showed free perforation likely from gastric ulcer. He has tenderness in the right upper qu adrant but mild tenderness in the left upper quadrant and right lower quadrant areas. He has rebound tenderness along this area is also. Patient will be taken to the OR soon as possible. Meantime start IV antibiotics and continue with hydration. Patient will likely be transferred to the intensiv e care unit postoperatively.
[2020-08-23] MEDS ORDERED: ONDANSETRON HCL INJ/PF 4 MG/2 ML SDV IV ONE (00:36)
[2020-08-23] MEDS ORDERED: MIDAZOLAM 2 MG/2 ML INJ ONE (00:57)
[2020-08-23] MEDS ORDERED: HYDROMORPHONE HCL INJ/PF 2 MG/ML AMPULE ONE (00:57)
[2020-08-23] MEDS ORDERED: FENTANYL CITRATE INJ/PF 250 MCG/5 ML AMPULE ONE (00:57)
[2020-08-23] MEDS ORDERED: PROPOFOL INJ 200 MG/20 ML VIAL IV ONE (00:57)
[2020-08-23] MEDS ORDERED: MORPHINE SULFATE 10 MG/ML INJ IV PRN (02:29)
[2020-08-23] MEDS ORDERED: MEPERIDINE HCL/PF INJ 25 MG/1 ML DISP.SYRIN IV PRN (02:29)
[2020-08-23] MEDS ORDERED: DIPHENHYDRAMINE HCL 50 MG/ML VIAL IV PRN (02:29)
[2020-08-23] MEDS ORDERED: PROMETHAZINE HCL INJ 25 MG/1 ML VIAL IV PRN (02:29)
[2020-08-23] MEDS ORDERED: FENTANYL CITRATE INJ/PF 100 MCG/2 ML AMPUL IV PRN ×3 (02:29)
--- NOTE | 2020-08-23 04:13 | Operative Report ---
Operative Report DATE OF SURGERY: 08/23/20 PREOPERATIVE DIAGNOSIS: Perforated gastric ulcer with peritonitis POSTOPERATIVE DIAGNOSIS: Same OPERATION: Exploratory laparotomy, repair of perforated gastric ulcer with omental patch SURGEON: DANIE ALVAREZ ANESTHESIA: GA TISSUE REMOVED OR ALTERED: None COMPLICATIONS: None ESTIMATED BLOOD LOSS: 50 cc QUANTITATIVE BLOOD LOSS: 50 INTRAOPERATIVE FINDINGS: 2 cm perforation at the posterior prepyloric gastric area PROCEDURE: After adequate general anesthesia patient was placed in supine position and the abdomen prepped and draped in the usual sterile fashion. Appropriate timeout was then called. Next a midline incision was made from the xiphoid down to just above the umbilicus. The fascia was opened with cautery and abdominal cavity entered. This gush of air when the abdomen was entered. There is a lot of [place] fluid all over the abdomen. This was suctioned out. The ulcer was then identified posterior to the prepyloric area. It was about 1.5 cm in diameter. It was then exposed and multiple simple sutures using 2-0 silk were used to close the perforation. Exposure was quite difficult and this was aided with the use of Bookwalter retractors. A piece of omentum was then patch over the perforation with 2-0 Vicryl sutures. The NG tube which the nurses this is difficult time passing was eventually placed proximal to the ulcer repair site. After the closure of the perforation ear was injected through the NG tube and repair appears to be airtight. The abdominal cavity was then irrigated with at least 7 L of saline. The fascia was then closed with running suture using #1 PDS starting at both ends and tying the sutures in the middle. Subcu was then irrigated and the skin closed with ta. Patient tolerated procedure fairly well and brought to the intensive care unit still intubated in guarded condition. Sterile dressings placed over the operative site. Needle instrument sponge counts were all correct.
[2020-08-23] MEDS ORDERED: PROPOFOL 1,000 MG/100 ML INFUS..BTL IV ONE (04:14)
[2020-08-23] MEDS: PROPOFOL 1,000 MG/100 ML INFUS..BTL IV PRN ×2 (04:40→10:30)
--- NOTE | 2020-08-23 05:20 | CRITICAL CARE ADMISSION REPORT ---
HPI Date:: 08/23/20 Time:: 04:37 Reason for ICU Reason:: Perforated gastric ulcer Admission Date/Time & PCP: Admission Date/Time: 08/23/20 00:36 Primary Care Provider: HPI: Mr. Jarvis Mahoney is a 65-year-old male with a past medical history of COPD, CHF, rheumatoid arthritis on methotrexate, non insulin dependent diabetes, hypertension, hyperlipidemia, EtOH abuse, and morbid obesity. Was recently hospitalized with a rib fracture after a fall, and pneumonia. Presented to the ED with severe right upper quadrant abdominal pain, nausea and vomiting. Per the ER report patient had a coughing spell while eating, and developed abdominal pain shortly thereafter. CT abdomen pelvis revealed free air around the gastric curvature. He was taken emergently to the OR and he is status post perforated gastric ulcer repair. Intra-Op he received 3300 mL crystalloid, EBL 50 mL, urine output 150 mL. He is admitted to the ICU intubated and sedated. History obtained from:: Chart - Diagnosis/Plan (1) Perforated gastric ulcer Qualifiers: Gastric ulcer chronicity: acute Qualified Code(s): K25.1 - Acute gastric ulcer with perforation Is this a current diagnosis for this admission?: Yes Plan: Status post repair Monitor NYDIA output Volume resuscitate Continue Zosyn (2) Diabetes mellitus type 2 in obese Is this a current diagnosis for this admission?: Yes Plan: Accu-Chek every 6 hours with sliding scale insulin (3) Hypertension Qualifiers: Hypertension type: essential hypertension Qualified Code(s): I10 - Esse ntial (primary) hypertension Is this a current diagnosis for this admission?: Yes Plan: will hold home antihypertensives until able to take p.o. will give IV antihypertensives as needed (4) Rheumatoid arthritis Qualifiers: Rheumatoid arthritis location: knee Laterality: bilateral Is this a current diagnosis for this admission?: Yes Plan: Methotrexate at home hold for now. Past Medical History Cardiac Medical History: Reports: Congestive Heart Failure - Right-sided, Hyperl ipidema, Hypertension Denies: Atrial Fibrillation, Coronary Artery Disease, Myocardial Infarction Pulmonary Medical History: Reports: Chronic Obstructive Pulmonary Disease (COPD) Denies: Asthma Neurological Medical History: Denies: Seizures Endocrine Medical History: Reports: Diabetes Mellitus Type 2 Denies: Diabetes Mellitus Type 1, Hyperthyroidism, Hypothyroidism GI Medical History: Denies: Cirrhosis, Crohn's Disease, Gastroesophageal Reflux Disease, Hepatitis, Ulcerative Colitis Musculoskeltal Medical History: Reports: Arthritis - Rheumatoid arthritis Denies: Fibromyalgia, Gout Skin Medical History: Denies: Eczema, Psoriasis Psychiatric Medical History: Reports: Depression Traumatic Medical History: Denies: Traumatic Brain Injury Hematology: Denies: Anemia, Sickle Cell Disease, Bleeding Tendencies Past Surgical History Past Surgical History: Reports: Orthopedic Surgery - Cervical fusion, lumbar back surgery, R rotator cuff, L knee arthroscopy Social/Family History - Social History Smoking Status: Unknown if Ever Smoked Frequency of Alcohol Use: None - Discontinued use of alcohol in late 2019 Hx Recreational Drug Use: No Drugs: None Hx Prescription Drug Abuse: No - Medication/Allergies Home Medications: Aspirin [Ecotrin] 81 mg PO DAILY 02/19/19 Oxycodone HCl 15 mg PO QIDP PRN 02/19/19 Amlodipine Besylate [Norvasc 10 mg Tablet] 10 mg PO DAILY #90 07/26/20 Gabapentin [Neurontin 300 mg Capsule] 300 mg PO Q8 #90 07/26/20 Metformin HCl [Glucophage] 1,000 mg PO DAILY #90 07/26/20 Valsartan/Hydrochlorothiazide [Valsartan-Hctz 320-25 mg Tab] 1 each PO DAILY #90 07/26/20 Ascorbic Acid [Vitamin C 500 mg Tablet] 500 mg PO DAILY 08/02/20 Multivitamin [Tab-A-Leonor] 1 each PO DAILY 08/02/20 Vitamin E 200 unit PO DAILY 08/02/20 Folic Acid [Folvite 1 mg Tablet] 1 mg PO DAILY #90 tablet 08/11/20 Allergies/Adverse Reactions: No Known Allergies Allergy (Verified 03/11/17 08:57) Review of Systems ROS unobtainable: Due to endotracheal tube Physical Exam Vital Signs: Temp Pulse Resp BP Pulse Ox 98.2 F 115 H 26 H 106/72 98 08/23/20 01:00 08/23/20 01:00 08/23/20 01:00 08/23/20 01:00 08/23/20 01:00 Intake & Output 08/21/20 08/22/20 08/23/20 06:59 06:59 06:59 Intake Total 4300 Output Total 200 Balance 4100 Weight 142.9 kg Weight/Height Weight 142.9 kg Height 6 ft 1 in General appearance: PRESENT: no acute distress Head exam: PRESENT: atraumatic, normocephalic Eye exam: PRESENT: PERRLA Mouth exam: PRESENT: moist, neck supple Neck exam: PRESENT: full ROM Respiratory exam: PRESENT: decreased breath sounds Cardiovascular exam: PRESENT: RRR, +S1, +S2 Pulses: PRESENT: normal radial pulses GI/Abdominal exam: PRESENT: diminished bowel sounds, distended, soft Extremities exam: PRESENT: full ROM Musculoskeletal exam: PRESENT: full ROM Neurological exam: PRESENT: other - Sedated Tubes/Lines: PRESENT: Endotracheal Tube, Nasogastic Tube, Other - NYDIA drain Laboratory/Radiographs Laboratory Results: 08/22/20 22:38 08/22/20 22:38 08/22/20 08/22/20 22:38 22:38 WBC 13.5 H RBC 4.32 L Hgb 13.0 L Hct 39.0 MCV 90 MCH 30.1 MCHC 33.3 RDW 14.9 H Plt Count 340 Seg Neutrophils % Not Reportable Sodium 123.6 L Potassium 4.3 Chloride 89 L Carbon Dioxide 20 L Anion Gap 15 BUN 12 Creatinine 0.89 Est GFR ( Amer) > 60 Glucose 173 H Calcium 10.0 Total Bilirubin 1.1 AST 24 Alkaline Phosphatase 68 Total Protein 6.1 L Albumin 3.4 L Lipase 29.3 Impressions: Chest X-Ray 08/22/20 23:05 IMPRESSION: Improving right basilar pneumonia. Abdomen/Pelvis CT 08/22/20 23:14 IMPRESSION: 1. Pneumoperitoneum, likely due to gastric perforation 2. Scattered free fluid throughout the abdomen. Critical Time Critical Time (minutes): 65 -: The care of a critically ill patient is dynamic. This note represents a static moment in the admission process. Orders and treatments may be given simultaneously and urgently, and time is not personnel representative of the treatment process. This patient requires Critical Care secondary to life threatening organ or limb dysfunction. Without Critical Care services, the patient is at risk for increased mortality and morbidity.
[2020-08-23] MEDS ORDERED: FENTANYL CITRATE INJ/PF 100 MCG/2 ML AMPUL ONE ×2 (08:43→12:19)
[2020-08-23 11:06] LABS: ARTERIAL BLOOD BASE EXCESS -0.4 mmol/L; ARTERIAL BLOOD H2CO3 1.01 mmol/L (1.05-1.35); ARTERIAL BLOOD HCO3 22.9 mmol/L (20-24); ARTERIAL BLOOD O2 SATURATION 97.3 % (94-98); ARTERIAL BLOOD PCO2 33.4 mmHg (35-45); ARTERIAL BLOOD PH 7.45 (7.35-7.45); ARTERIAL BLOOD PO2 89.7 mmHg (80-100); ARTERIAL BLOOD TOTAL CO2 23.9 mmol/L (23-27)
[2020-08-23 11:07] LABS: ARTERIAL BLOOD FIO2 50%
[2020-08-23 11:09] LABS: ABSOLUTE LYMPHOCYTES (AUTO) 0.8 10^3/uL (0.5-4.7); ABSOLUTE MONOCYTES (AUTO) 0.2 10^3/uL (0.1-1.4); ABSOLUTE NEUT (AUTO) 6.1 10^3/uL (1.7-8.2); BASOPHILS % (AUTO) 0.3 % (0-2); EOSINOPHILS % (AUTO) 0.1 % (0-6); HEMATOCRIT 35.6 % (37.9-51.0); HEMOGLOBIN 12.2 g/dL (13.5-17.0); LYMPHOCYTES % (AUTO) 10.8 % (13-45); MEAN CORPUSCULAR HEMOGLOBIN 29.7 pg (27.0-33.4); MEAN CORPUSCULAR HGB CONC 34.2 g/dL (32.0-36.0); MEAN CORPUSCULAR VOLUME 87 fl (80-97); MONOCYTES % (AUTO) 2.2 % (3-13); PLATELET COUNT 227 10^3/uL (150-450); RED BLOOD COUNT 4.09 10^6/uL (4.35-5.55); RED CELL DISTRIBUTION WIDTH 15.5 % (11.5-14.0); SEGMENTED NEUTROPHILS % (AUTO) 86.6 % (42-78); TOTAL CELLS COUNTED % (AUTO) 100 %; WHITE BLOOD COUNT 7.1 10^3/uL (4.0-10.5)
[2020-08-23 11:29] LABS: ALBUMIN 2.9 g/dL (3.5-5.0); ALKALINE PHOSPHATASE 54 U/L (38-126); ANION GAP 8 (5-19); ASPARTATE AMINO TRANSFERASE 33 U/L (17-59); BILIRUBIN,DIRECT 0.3 mg/dL (0.0-0.4); BILIRUBIN,TOTAL 0.8 mg/dL (0.2-1.3); BLOOD UREA NITROGEN 18 mg/dL (7-20); CALCIUM 8.9 mg/dL (8.4-10.2); CARBON DIOXIDE 24 mmol/L (22-30); CHLORIDE 94 mmol/L (98-107); GLUCOSE 122 mg/dL (75-110); POTASSIUM 4.7 mmol/L (3.6-5.0); TOTAL PROTEIN 5.5 g/dL (6.3-8.2)
[2020-08-23] MEDS: FENTANYL CITRATE INJ/PF 100 MCG/2 ML AMPUL IV PRN ×6 (12:00→19:49)
[2020-08-23] MEDS ORDERED: NEOSTIGMINE METHYLSULFATE 10 MG/10 ML VIAL ONE (12:15)
[2020-08-23] MEDS ORDERED: GLYCOPYRROLATE 1 MG/5 ML VIAL ONE (12:15)
[2020-08-23] MEDS ORDERED: SUCCINYLCHOLINE CHLORIDE INJ 200 MG/10 ML VIAL ONE (12:15)
[2020-08-23] MEDS ORDERED: ONDANSETRON HCL INJ/PF 4 MG/2 ML SDV ONE ×2 (12:15→13:27)
[2020-08-23] MEDS ORDERED: ROCURONIUM BROMIDE INJ 50 MG/5 ML VIAL IV ONE (12:15)
[2020-08-23] MEDS ORDERED: DEXAMETHASONE SOD PHOSPHATE INJ 4 MG/1 ML VIAL ONE (12:15)
[2020-08-23] MEDS ORDERED: PHENYLEPHRINE HCL INJ/PF 10 MG/1 ML SDV ONE (12:15)
[2020-08-23] MEDS: PIPERACILLIN SODIUM/TAZOBACTAM 4.5 GM in NORMAL SALINE 100 ML IV SCH ×2 (13:40→17:46)
[2020-08-23] MEDS ORDERED: PIPERACILLIN/TAZOBACTAM 4.5 GM VIAL IV SCH (14:00)
[2020-08-23] MEDS ORDERED: PIPERACILLIN SODIUM/TAZOBACTAM 4.5 GM in NORMAL SALINE 100 ML IV SCH (14:00)
[2020-08-23] MEDS ORDERED: FENTANYL CITRATE INJ/PF 100 MCG/2 ML AMPUL IV ONE (14:30)
[2020-08-23] MEDS ORDERED: DEXTROSE 5%-LACTATED RINGERS 1,000 ML IV PRN (15:53)
[2020-08-23] MEDS: MAGNESIUM SULFATE/D5W 1 GM/100 ML RTUPB IV SCH ×3 (16:30→18:47)
[2020-08-23] MEDS: DEXTROSE 5%-1/2 NORMAL SALINE 1,000 ML IV PRN (17:30)
[2020-08-23] MEDS: ONDANSETRON HCL INJ/PF 4 MG/2 ML SDV IV PRN (20:57)
[2020-08-23] MEDS: PANTOPRAZOLE SODIUM 40 MG VIAL IV SCH (21:22)
[2020-08-23] MEDS: KETOROLAC TROMETHAMINE INJ/PF 30 MG/1 ML SDV IV SCH (21:22)
[2020-08-23] MEDS: HYDROMORPHONE HCL INJ/PF 2 MG/ML AMPULE IV PRN (23:22)
[2020-08-24] MEDS: KETOROLAC TROMETHAMINE INJ/PF 30 MG/1 ML SDV IV SCH (02:05)
[2020-08-24] MEDS: PIPERACILLIN SODIUM/TAZOBACTAM 4.5 GM in NORMAL SALINE 100 ML IV SCH ×3 (02:06→20:18)
[2020-08-24] MEDS: DEXTROSE 5%-1/2 NORMAL SALINE 1,000 ML IV PRN (02:32)
[2020-08-24] MEDS: HYDROMORPHONE HCL INJ/PF 2 MG/ML AMPULE IV PRN ×8 (03:40→23:49)
[2020-08-24 04:40] LABS: ANION GAP 5 (5-19); BLOOD UREA NITROGEN 20 mg/dL (7-20); CALCIUM 8.3 mg/dL (8.4-10.2); CARBON DIOXIDE 27 mmol/L (22-30); CHLORIDE 94 mmol/L (98-107); GLUCOSE 120 mg/dL (75-110); PHOSPHORUS 3.5 mg/dL (2.5-4.5); POTASSIUM 4.5 mmol/L (3.6-5.0)
[2020-08-24 06:09] LABS: HEMATOCRIT 30.1 % (37.9-51.0); HEMOGLOBIN 10.5 g/dL (13.5-17.0); MEAN CORPUSCULAR HGB CONC 34.9 g/dL (32.0-36.0); MEAN CORPUSCULAR VOLUME 89 fl (80-97); PLATELET COUNT 186 10^3/uL (150-450); RED BLOOD COUNT 3.39 10^6/uL (4.35-5.55); RED CELL DISTRIBUTION WIDTH 15.3 % (11.5-14.0); WHITE BLOOD COUNT 6.9 10^3/uL (4.0-10.5)
[2020-08-24] MEDS ORDERED: HYDROMORPHONE HCL INJ/PF 2 MG/ML AMPULE IV PRN (07:43)
[2020-08-24] MEDS: ONDANSETRON HCL INJ/PF 4 MG/2 ML SDV IV PRN (08:47)
[2020-08-24] MEDS: PANTOPRAZOLE SODIUM 40 MG VIAL IV SCH ×2 (09:33→22:29)
--- NOTE | 2020-08-24 10:57 | PDOC PROGRESS REPORT ---
Subjective Progress Note for:: 08/24/20 Subjective:: Abdominal pain but much improved from preoperative state. Reason For Visit: PERFORATED VISCUS Physical Exam Vital Signs: Temp Pulse Resp BP Pulse Ox 98.4 F 88 17 95/62 L 97 08/24/20 08:22 08/24/20 10:00 08/24/20 10:26 08/24/20 10:26 08/24/20 10:26 Intake & Output 08/23/20 08/24/20 08/25/20 06:59 06:59 06:59 Intake Total 4303 1287 Output Total 400 2605 195 Balance 3903 -1318 -195 Weight 144.7 kg 145.7 kg General appearance: PRESENT: no acute distress, cooperative Respiratory exam: PRESENT: clear to auscultation anabella Cardiovascular exam: PRESENT: RRR GI/Abdominal exam: PRESENT: other - Soft, diffuse abdominal tenderness without peritoneal signs. Drain output is turbid. Results Laboratory Results: 08/24/20 04:00 08/24/20 04:00 08/23/20 08/23/20 08/23/20 10:48 10:48 10:48 WBC 7.1 RBC 4.09 L Hgb 12.2 L Hct 35.6 L MCV 87 MCH 29.7 MCHC 34.2 RDW 15.5 H Plt Count 227 Seg Neutrophils % 86.6 H Carbonic Acid 1.01 L HCO3/H2CO3 Ratio 22:1 ABG pH 7.45 ABG pCO2 33.4 L ABG pO2 89.7 ABG HCO3 22.9 ABG O2 Saturation 97.3 ABG Base Excess -0.4 FiO2 50% Sodium 126.2 L Potassium 4.7 Chloride 94 L Carbon Dioxide 24 Anion Gap 8 BUN 18 Creatinine 0.85 Est GFR ( Amer) > 60 Glucose 122 H Calcium 8.9 Phosphorus Magnesium 1.3 L Total Bilirubin 0.8 AST 33 Alkaline Phosphatase 54 Total Protein 5.5 L Albumin 2.9 L 08/24/20 08/24/20 04:00 04:00 WBC 6.9 RBC 3.39 L Hgb 10.5 L Hct 30.1 L MCV 89 MCH 31.0 MCHC 34.9 RDW 15.3 H Plt Count 186 Seg Neutrophils % Carbonic Acid HCO3/H2CO3 Ratio ABG pH ABG pCO2 ABG pO2 ABG HCO3 ABG O2 Saturation ABG Base Excess FiO2 Sodium 126.3 L Potassium 4.5 Chloride 94 L Carbon Dioxide 27 Anion Gap 5 BUN 20 Creatinine 0.95 Est GFR ( Amer) > 60 Glucose 120 H Calcium 8.3 L Phosphorus 3.5 Magnesium 2.0 Total Bilirubin AST Alkaline Phosphatase Total Protein Albumin Impressions: Chest X-Ray 08/22/20 23:05 IMPRESSION: Improving right basilar pneumonia. Abdomen/Pelvis CT 08/22/20 23:14 IMPRESSION: 1. Pneumoperitoneum, likely due to gastric perforation 2. Scattered free fluid throughout the abdomen. Assessment & Plan - Diagnosis (1) Perforated prepyloric ulcer Is this a current diagnosis for this admission?: Yes Plan: status post exploratory laparotomy with Enrique patch. Patient looks good postoperatively. NG tube is critical at this stage. Likely will be able to transfer patient to the floor tomorrow. Will keep eye on the drain character and output. - Time Anticipated Discharge Disposition: Home, Self Care Anticipated Discharge Timeframe: Week
[2020-08-24] MEDS: NORMAL SALINE 1000 ML 1,000 ML IV PRN (11:30)
[2020-08-24] MEDS ORDERED: COSYNTROPIN INJ 0.25 MG VIAL IV ONE (12:00)
[2020-08-24] MEDS ORDERED: NORMAL SALINE 1000 ML 1,000 ML IV PRN (16:49)
--- NOTE | 2020-08-24 19:23 | PDOC CRITICAL CARE PROG REPORT ---
General Date:: 08/24/20 ICU Day:: 2 Hospital Day:: 2 Resuscitation Status: Full Code Events in the past 12 to 24 Hours:: This 65-year-old obese male was admitted to the ICU postoperatively on 08/23/2020 after undergoing exploratory laparotomy and repair of a perforated gastric ulcer with an omental patch. 08/24: The patient was successfully extubated yesterday in the ICU without complications. He has been borderline hypotensive throughout his hospitalization. Also, he is noted to be hyponatremic today. The patient reports chronic opiate use. Seems to be watching the clock hourly for his as needed pain medicines. Of concern, the patient refuses to use CPAP or BiPAP at night during sleep. He claims he is claustrophobic. Reason for ICU Addmission:: Perforated gastric ulcer - Medications: Medications reviewed and adjusted accordingly: Yes Physical Exam Vital Signs: Temp Pulse Resp BP Pulse Ox 98.8 F 86 15 107/56 L 97 08/24/20 12:00 08/24/20 14:00 08/24/20 14:00 08/24/20 14:00 08/24/20 14:00 Intake & Output 08/23/20 08/24/20 08/25/20 06:59 06:59 06:59 Intake Total 4303 1287 Output Total 400 2605 430 Balance 3903 -1318 -430 Weight 144.7 kg 145.7 kg 145.7 kg Weight/Height Weight 145.7 kg Height 1.85 m General appearance: PRESENT: no acute distress, well-developed, well-nourished Head exam: PRESENT: atraumatic, normocephalic Eye exam: PRESENT: conjunctiva pink, EOMI, PERRLA. ABSENT: scleral icterus Mouth exam: PRESENT: moist, tongue midline Neck exam: ABSENT: carotid bruit, JVD, lymphadenopathy, thyromegaly Respiratory exam: PRESENT: clear to auscultation anabella. ABSENT: rales, rhonchi, wheezes Cardiovascular exam: PRESENT: RRR. ABSENT: diastolic murmur, rubs, systolic murmur Pulses: PRESENT: normal dorsalis pedis pul GI/Abdominal exam: PRESENT: normal bowel sounds, soft, other - Midline laparotomy incision clean, dry and intact. NYDIA drain with bilious drainage.. ABSENT: distended, guarding, mass, organolmegaly, rebound, tenderness Extremities exam: PRESENT: full ROM. ABSENT: calf tenderness, clubbing, pedal edema Neurological exam: PRESENT: alert, awake, oriented to person, oriented to place, oriented to time, oriented to situation, CN II-XII grossly intact. ABSENT: motor sensory deficit Psychiatric exam: PRESENT: appropriate affect, normal mood. ABSENT: homicidal ideation, suicidal ideation Tubes/Lines: PRESENT: Other - NYDIA drain Laboratory/Radiographs Laboratory Results: 08/24/20 04:00 08/24/20 04:00 08/24/20 08/24/20 04:00 04:00 WBC 6.9 RBC 3.39 L Hgb 10.5 L Hct 30.1 L MCV 89 MCH 31.0 MCHC 34.9 RDW 15.3 H Plt Count 186 Sodium 126.3 L Potassium 4.5 Chloride 94 L Carbon Dioxide 27 Anion Gap 5 BUN 20 Creatinine 0.95 Est GFR ( Amer) > 60 Glucose 120 H Calcium 8.3 L Phosphorus 3.5 Magnesium 2.0 Impressions: Chest X-Ray 08/22/20 23:05 IMPRESSION: Improving right basilar pneumonia. Abdomen/Pelvis CT 08/22/20 23:14 IMPRESSION: 1. Pneumoperitoneum, likely due to gastric perforation 2. Scattered free fluid throughout the abdomen. All labs, radiographs, diagnostic studies and EKGs were personally reviewed: Yes In addition, reports of radiographic and diagnostic studies were read: Yes Assessment and Plan - Diagnosis (1) COPD (chronic obstructive pulmonary disease) Is this a current diagnosis for this admission?: Yes Plan: Continue aerosols. Incentive spirometry. (2) Perforated gastric ulcer Qualifiers: Gastric ulcer chronicity: acute Qualified Code(s): K25.1 - Acute gastric ulcer with perforation Is this a current diagnosis for this admission?: Yes (3) Diabetes mellitus type 2 in obese Is this a current diagnosis for this admission?: Yes (4) Hyponatremia Is this a current diagnosis for this admission?: Yes Plan: Monitor serial sodium. ACTH stimulation test. Random cortisol was 11.9. Critical Time Critical Time (minutes): 30 Level of Care: ICU -: 1. The care of a critical patient is a dynamic process. This note is a pharmacy services representative synopsis but static in nature. The timeframe for treatments given in order is not necessarily the actual time these treatments may have been done. 2. This patient requires critical care secondary to ongoing requirements for therapy not offered or safe outside the critical care environment. Transfer to a lower level of care will result in altered life or limb morbidity and mortality. 3. Multidisciplinary rounds completed. 4. ABCDE bundle addressed.
[2020-08-25] MEDS: NORMAL SALINE 1000 ML 1,000 ML IV PRN ×2 (00:29→15:27)
[2020-08-25] MEDS: PIPERACILLIN SODIUM/TAZOBACTAM 4.5 GM in NORMAL SALINE 100 ML IV SCH ×3 (02:13→17:33)
[2020-08-25] MEDS: HYDROMORPHONE HCL INJ/PF 2 MG/ML AMPULE IV PRN ×6 (03:45→20:54)
[2020-08-25 03:57] LABS: ABSOLUTE EOSINOPHILS # (AUTO) 0.1 10^3/uL (0.0-0.6); ABSOLUTE LYMPHOCYTES (AUTO) 0.6 10^3/uL (0.5-4.7); ABSOLUTE MONOCYTES (AUTO) 0.2 10^3/uL (0.1-1.4); ABSOLUTE NEUT (AUTO) 8.6 10^3/uL (1.7-8.2); BASOPHILS % (AUTO) 0.3 % (0-2); EOSINOPHILS % (AUTO) 0.5 % (0-6); HEMATOCRIT 28.8 % (37.9-51.0); HEMOGLOBIN 9.9 g/dL (13.5-17.0); LYMPHOCYTES % (AUTO) 6.5 % (13-45); MEAN CORPUSCULAR HEMOGLOBIN 29.7 pg (27.0-33.4); MEAN CORPUSCULAR HGB CONC 34.4 g/dL (32.0-36.0); MEAN CORPUSCULAR VOLUME 86 fl (80-97); MONOCYTES % (AUTO) 2.3 % (3-13); PLATELET COUNT 176 10^3/uL (150-450); RED BLOOD COUNT 3.33 10^6/uL (4.35-5.55); RED CELL DISTRIBUTION WIDTH 15.3 % (11.5-14.0); SEGMENTED NEUTROPHILS % (AUTO) 90.4 % (42-78); TOTAL CELLS COUNTED % (AUTO) 100 %; WHITE BLOOD COUNT 9.5 10^3/uL (4.0-10.5)
[2020-08-25 04:21] LABS: ALBUMIN 2.9 g/dL (3.5-5.0); ALKALINE PHOSPHATASE 92 U/L (38-126); ANION GAP 7 (5-19); ASPARTATE AMINO TRANSFERASE 18 U/L (17-59); BILIRUBIN,DIRECT 0.4 mg/dL (0.0-0.4); BILIRUBIN,TOTAL 0.8 mg/dL (0.2-1.3); BLOOD UREA NITROGEN 17 mg/dL (7-20); CALCIUM 8.5 mg/dL (8.4-10.2); CARBON DIOXIDE 27 mmol/L (22-30); CHLORIDE 97 mmol/L (98-107); GLUCOSE 93 mg/dL (75-110); PHOSPHORUS 3.1 mg/dL (2.5-4.5); POTASSIUM 4.1 mmol/L (3.6-5.0); TOTAL PROTEIN 5.7 g/dL (6.3-8.2)
--- NOTE | 2020-08-25 08:46 | RADIOLOGY REPORT (SQ) ---
EXAM DESCRIPTION: CHEST SINGLE VIEW IMAGES COMPLETED DATE/TIME: 08/25/2020 6:22 am REASON FOR STUDY: ETT tube COMPARISON: AP view of the chest from 08/22/2020. EXAM PARAMETERS: NUMBER OF VIEWS: One view. TECHNIQUE: An AP view of the chest was obtained. RADIATION DOSE: NA LIMITATIONS: None. FINDINGS: LUNGS AND PLEURA: The costophrenic sulci are blunted. The patchy curvilinear opacities in the bases could represent atelectasis. There is no pneumothorax. MEDIASTINUM AND HILAR STRUCTURES: Stable mediastinal and hilar contours. HEART AND VASCULAR STRUCTURES: Stable cardiac silhouette. BONES: No acute findings. HARDWARE: The tip of the enteric tube projects past the gastroesophageal junction and outside the fie ld of view of the radiograph. OTHER: No other finding. IMPRESSION: Persistent blunting of the costophrenic sulci and patchy curvilinear opacities in the ba ses that could represent atelectasis. The tip of the enteric tube projects past the gastroesophageal junction and outside the field of view of the radiograph. TECHNICAL DOCUMENTATION: JOB ID: [id number] 2010 [employer]- All Rights Reserved Reading location - IP/workstation name: [email or web address]
[2020-08-25] MEDS: PANTOPRAZOLE SODIUM 40 MG VIAL IV SCH ×2 (10:09→21:23)
[2020-08-25] MEDS: FLUCONAZOLE 100 MG in CONTAINER,EMPTY 1 EACH IV SCH (10:09)
[2020-08-25] MEDS: ONDANSETRON HCL INJ/PF 4 MG/2 ML SDV IV PRN (11:35)
--- NOTE | 2020-08-25 13:50 | RADIOLOGY REPORT (SQ) ---
EXAM DESCRIPTION: UGI W/ SINGLE CONTRAST IMAGES COMPLETED DATE/TIME: 08/25/2020 12:24 pm REASON FOR STUDY: eval for gastric leak COMPARISON: Chest 08/25/2020 CT abdomen pelvis 08/22/2020 FLUOROSCOPY TIME: 21 seconds 11 digital fluoroscopic images saved to PACS. TECHNIQUE: Intra-operative images acquired during surgical procedure to evaluate progress. NUMBER OF IMAGES: 11 digital fluoroscopic images. 2 overhead images. LIMITATIONS: None. FINDINGS: 200 mL of Omnipaque 300 was instilled into the patient's nasogastric tube. There is no extravasation of contrast from stomach or duodenum Thickened duodenum folds are present likely from mucosal edema. There is reflux of contrast into the distal esophagus Grossly nonobstructive bowel gas pattern IMPRESSION: No extravasation of oral contrast stomach or duodenum COMMENT: Quality ID [id number]: Final reports for procedures using fluoroscopy that document radiation exp osure indices, or exposure time and number of fluorographic images (if radiation exposure indices are not available) Please consult full operative report of the attending physician for description of the procedure. TECHNICAL DOCUMENTATION: JOB ID: [id number] 2010 [employer]- All Rights Reserved Reading location - IP/workstation name: [email or web address]
--- NOTE | 2020-08-25 15:30 | PDOC PROGRESS REPORT ---
Subjective Progress Note for:: 08/25/20 Reason For Visit: PERFORATED VISCUS Physical Exam Vital Signs: Temp Pulse Resp BP Pulse Ox 98.9 F 100 18 152/69 H 96 08/25/20 11:54 08/25/20 13:55 08/25/20 14:40 08/25/20 14:40 08/25/20 14:40 Intake & Output 08/24/20 08/25/20 08/26/20 06:59 06:59 06:59 Intake Total 1287 1897 Output Total 2605 1315 560 Balance -1318 582 -560 Weight 145.7 kg 147.2 kg Results Laboratory Results: 08/25/20 03:43 08/25/20 03:43 08/25/20 08/25/20 03:43 03:43 WBC 9.5 RBC 3.33 L Hgb 9.9 L Hct 28.8 L MCV 86 MCH 29.7 MCHC 34.4 RDW 15.3 H Plt Count 176 Seg Neutrophils % 90.4 H Sodium 130.5 L Potassium 4.1 Chloride 97 L Carbon Dioxide 27 Anion Gap 7 BUN 17 Creatinine 0.90 Est GFR ( Amer) > 60 Glucose 93 Calcium 8.5 Phosphorus 3.1 Magnesium 2.1 Total Bilirubin 0.8 AST 18 Alkaline Phosphatase 92 Total Protein 5.7 L Albumin 2.9 L Impressions: Abdomen/Pelvis CT 08/22/20 23:14 IMPRESSION: 1. Pneumoperitoneum, likely due to gastric perforation 2. Scattered free fluid throughout the abdomen. Upper GI Series-Limited 08/25/20 00:00 IMPRESSION: No extravasation of oral contrast stomach or duodenum Chest X-Ray 08/25/20 05:00 IMPRESSION: Persistent blunting of the costophrenic sulci and patchy curvilinear opacities in the bases that could represent atelectasis. The tip of the enteric tube projects past the gastroesophageal junction and outside the field of view of the radiograph. Assessment & Plan - Diagnosis (1) Perforated gastric ulcer Qualifiers: Gastric ulcer chronicity: acute Qualified Code(s): K25.1 - Acute gastric ulcer with perforation Is this a current diagnosis for this admission?: Yes - Time Anticipated Discharge Disposition: unknown Anticipated Discharge Timeframe: unknown - Plan Summary Plan Summary: 65-year-old male with a perforated gastric ulcer. He is status post exploratory laparotomy with a Enrique patch. He has a NYDIA drain on his right abdomen, but has dark-colored fluid emanating from it. This concern me somewhat for the poss ibility of a leak. A contrast upper GI series was performed, with no demonstration of a leak. Leave NG tube in place for now. Monitor NYDIA drain closely. Add Diflucan. Transfer to floor. Aggressive pulmonary toilet. Continue antibiotics and antifungals.
--- NOTE | 2020-08-25 15:58 | PDOC CRITICAL CARE PROG REPORT ---
General Date:: 08/25/20 ICU Day:: 3 Hospital Day:: 3 Resuscitation Status: Full Code Events in the past 12 to 24 Hours:: This 65-year-old obese male was admitted to the ICU postoperatively on 08/23/2020 after undergoing exploratory laparotomy and repair of a perforated gastric ulcer with an omental patch. 08/24: The patient was successfully extubated yesterday in the ICU without complications. He has been borderline hypotensive throughout his hospitalization. Also, he is noted to be hyponatremic today. The patient reports chronic opiate use. Seems to be watching the clock hourly for his as needed pain medicines. Of concern, the patient refuses to use CPAP or BiPAP at night during sleep. He claims he is claustrophobic. 08/25: Patient reports reasonable pain control but requesting reduction in dosing interval to every 3 hours. Patient reports flatus. He is remained extubated. Decent cough. Again unable to tolerate CPAP/BiPAP support during sleep due to claustrophobia. On Zosyn/fluconazole for empiric coverage of abdominal sepsis. Afebrile. WBC 9.5. Sodium 131 today, steadily improving. Review of systems relevant to events:: Gastrointestinal: Abdominal pain Reason for ICU Addmission:: Perforated gastric ulcer - Medications: Medications reviewed and adjusted accordingly: Yes Physical Exam Vital Signs: Temp Pulse Resp BP Pulse Ox 98.9 F 100 17 143/71 H 98 08/25/20 11:54 08/25/20 13:55 08/25/20 13:55 08/25/20 13:55 08/25/20 13:55 Intake & Output 08/24/20 08/25/20 08/26/20 06:59 06:59 06:59 Intake Total 1287 1897 Output Total 2605 1315 560 Balance -1318 582 -560 Weight 145.7 kg 147.2 kg Weight/Height Weight 147.2 kg Height 1.85 m General appearance: PRESENT: no acute distress, obese, well-developed, well- nourished Head exam: PRESENT: atraumatic, normocephalic Eye exam: PRESENT: conjunctiva pink, EOMI, PERRLA. ABSENT: scleral icterus Mouth exam: PRESENT: moist, tongue midline Neck exam: ABSENT: carotid bruit, JVD, lymphadenopathy, thyromegaly Respiratory exam: PRESENT: decreased breath sounds - In the bases. ABSENT: ra les, rhonchi, wheezes Pulses: PRESENT: normal dorsalis pedis pul GI/Abdominal exam: PRESENT: other - Laparotomy scar clean, dry and intact. NYDIA drain with bilious drainage. Extremities exam: PRESENT: full ROM. ABSENT: calf tenderness, clubbing, pedal edema Musculoskeletal exam: PRESENT: normal inspection. ABSENT: deformity Neurological exam: PRESENT: alert, awake, oriented to person, oriented to place, oriented to time, oriented to situation, CN II-XII grossly intact. ABSENT: motor sensory deficit Psychiatric exam: ABSENT: agitated, anxious Skin exam: PRESENT: dry, intact, warm. ABSENT: cyanosis, rash Tubes/Lines: PRESENT: Nasogastic Tube, Other - NYDIA drain Laboratory/Radiographs Laboratory Results: 08/25/20 03:43 08/25/20 03:43 08/25/20 08/25/20 03:43 03:43 WBC 9.5 RBC 3.33 L Hgb 9.9 L Hct 28.8 L MCV 86 MCH 29.7 MCHC 34.4 RDW 15.3 H Plt Count 176 Seg Neutrophils % 90.4 H Sodium 130.5 L Potassium 4.1 Chloride 97 L Carbon Dioxide 27 Anion Gap 7 BUN 17 Creatinine 0.90 Est GFR ( Amer) > 60 Glucose 93 Calcium 8.5 Phosphorus 3.1 Magnesium 2.1 Total Bilirubin 0.8 AST 18 Alkaline Phosphatase 92 Total Protein 5.7 L Albumin 2.9 L Impressions: Abdomen/Pelvis CT 08/22/20 23:14 IMPRESSION: 1. Pneumoperitoneum, likely due to gastric perforation 2. Scattered free fluid throughout the abdomen. Upper GI Series-Limited 08/25/20 00:00 IMPRESSION: No extravasation of oral contrast stomach or duodenum Chest X-Ray 08/25/20 05:00 IMPRESSION: Persistent blunting of the costophrenic sulci and patchy curvilinear opacities in the bases that could represent atelectasis. The tip of the enteric tube projects past the gastroesophageal junction and outside the field of view of the radiograph. All labs, radiographs, diagnostic studies and EKGs were personally reviewed: Yes In addition, reports of radiographic and diagnostic studies were read: Yes Assessment and Plan - Diagnosis (1) COPD (chronic obstructive pulmonary disease) Is this a current diagnosis for this admission?: Yes Plan: Continue aerosols. Incentive spirometry. (2) Perforated gastric ulcer Qualifiers: Gastric ulcer chronicity: acute Qualified Code(s): K25.1 - Acute gastric ulcer with perforation Is this a current diagnosis for this admission?: Yes Plan: I will defer decisions regarding p.o. intake to the general surgery service. (3) Diabetes mellitus type 2 in obese Is this a current diagnosis for this admission?: Yes (4) Hyponatremia Is this a current diagnosis for this admission?: Yes Plan: Steadily improving. Monitor serial sodium. ACTH stimulation test was not compatible with adrenal insufficiency. Critical Time Critical Time (minutes): 30 Level of Care: ICU -: 1. The care of a critical patient is a dynamic process. This note is a repres entative synopsis but static in nature. The timeframe for treatments given in order is not necessarily the actual time these treatments may have been done. 2. This patient requires critical care secondary to ongoing requirements for therapy not offered or safe outside the critical care environment. Transfer to a lower level of care will result in altered life or limb morbidity and mortality. 3. Multidisciplinary rounds completed. 4. ABCDE bundle addressed.
[2020-08-26] MEDS: HYDROMORPHONE HCL INJ/PF 2 MG/ML AMPULE IV PRN ×8 (00:06→22:12)
[2020-08-26] MEDS: PIPERACILLIN SODIUM/TAZOBACTAM 4.5 GM in NORMAL SALINE 100 ML IV SCH ×3 (01:21→17:32)
--- NOTE | 2020-08-26 03:23 | RADIOLOGY REPORT (SQ) ---
EXAM DESCRIPTION: XR CHEST 1 VIEW COMPLETED DATE/TME: 08/26/2020 00:00 CLINICAL HISTORY: 65 years, Male, NG Tube placement COMPARISON: 08/25/2020 NUMBER OF VIEWS: One TECHNIQUE: AP view the chest LIMITATIONS: None. FINDINGS: The side-port for the nasogastric tube is near the gastroesophageal junction. There is a persistent right basilar airspace opacity. The heart is enlarged. No pneumothorax or pleural effusion. Bones are unchanged. IMPRESSION: Side-port for the nasogastric tube is near the gastroesophageal junction. Recommend advancement by at least 8 cm for optimal placement. copyright 2010 [employer]- All Rights Reserved
[2020-08-26] MEDS: NORMAL SALINE 1000 ML 1,000 ML IV PRN ×2 (05:30→15:45)
[2020-08-26 06:23] LABS: ABSOLUTE BASOPHILS # (AUTO) 0.1 10^3/uL (0.0-0.2); ABSOLUTE EOSINOPHILS # (AUTO) 0.1 10^3/uL (0.0-0.6); ABSOLUTE LYMPHOCYTES (AUTO) 0.8 10^3/uL (0.5-4.7); ABSOLUTE MONOCYTES (AUTO) 0.5 10^3/uL (0.1-1.4); ABSOLUTE NEUT (AUTO) 12.2 10^3/uL (1.7-8.2); BASOPHILS % (AUTO) 0.5 % (0-2); EOSINOPHILS % (AUTO) 0.6 % (0-6); HEMATOCRIT 28.5 % (37.9-51.0); HEMOGLOBIN 9.8 g/dL (13.5-17.0); LYMPHOCYTES % (AUTO) 5.7 % (13-45); MEAN CORPUSCULAR HEMOGLOBIN 30.1 pg (27.0-33.4); MEAN CORPUSCULAR HGB CONC 34.3 g/dL (32.0-36.0); MEAN CORPUSCULAR VOLUME 88 fl (80-97); MONOCYTES % (AUTO) 3.5 % (3-13); PLATELET COUNT 230 10^3/uL (150-450); RED BLOOD COUNT 3.25 10^6/uL (4.35-5.55); RED CELL DISTRIBUTION WIDTH 15.6 % (11.5-14.0); SEGMENTED NEUTROPHILS % (AUTO) 89.7 % (42-78); TOTAL CELLS COUNTED % (AUTO) 100 %; WHITE BLOOD COUNT 13.6 10^3/uL (4.0-10.5)
[2020-08-26 06:47] LABS: ANION GAP 12 (5-19); BLOOD UREA NITROGEN 14 mg/dL (7-20); CALCIUM 8.6 mg/dL (8.4-10.2); CARBON DIOXIDE 22 mmol/L (22-30); CHLORIDE 100 mmol/L (98-107); GLUCOSE 96 mg/dL (75-110); POTASSIUM 4.1 mmol/L (3.6-5.0)
--- NOTE | 2020-08-26 10:21 | PDOC PROGRESS REPORT ---
Subjective Progress Note for:: 08/26/20 Subjective:: Feels okay. Some abdominal pain. NG tube came out last night and was replaced. Was not reposition after x-ray last night. Reason For Visit: PERFORATED VISCUS Physical Exam Vital Signs: Temp Pulse Resp BP Pulse Ox 98.1 F 105 H 19 128/51 H 98 08/26/20 07:58 08/26/20 07:58 08/26/20 07:58 08/26/20 07:58 08/26/20 07:58 Intake & Output 08/25/20 08/26/20 08/27/20 06:59 06:59 06:59 Intake Total 1897 2400 Output Total 1315 1630 Balance 582 770 Weight 147.2 kg 145.5 kg General appearance: PRESENT: no acute distress, cooperative Respiratory exam: PRESENT: clear to auscultation anabella Cardiovascular exam: PRESENT: RRR GI/Abdominal exam: PRESENT: other - Protuberant with diffuse mild abdominal tenderness. Drain output is cloudy. Results Laboratory Results: 08/26/20 06:06 08/26/20 06:06 08/26/20 08/26/20 06:06 06:06 WBC 13.6 H RBC 3.25 L Hgb 9.8 L Hct 28.5 L MCV 88 MCH 30.1 MCHC 34.3 RDW 15.6 H Plt Count 230 Seg Neutrophils % 89.7 H Sodium 133.9 L Potassium 4.1 Chloride 100 Carbon Dioxide 22 Anion Gap 12 BUN 14 Creatinine 0.84 Est GFR ( Amer) > 60 Glucose 96 Calcium 8.6 Impressions: Abdomen/Pelvis CT 08/22/20 23:14 IMPRESSION: 1. Pneumoperitoneum, likely due to gastric perforation 2. Scattered free fluid throughout the abdomen. Upper GI Series-Limited 08/25/20 00:00 IMPRESSION: No extravasation of oral contrast stomach or duodenum Chest X-Ray 08/26/20 00:00 IMPRESSION: Side-port for the nasogastric tube is near the gastroesophageal junction. Recommend advancement by at least 8 cm for optimal placement. copyright 2010 [employer]- All Rights Reserved Assessment & Plan - Diagnosis (1) Perforated prepyloric ulcer Is this a current diagnosis for this admission?: Yes Plan: Post Enrique patch. Will reposition NG tube repeat x-ray. Attempt to get patient out of bed ambulating. - Time Anticipated Discharge Disposition: Home, Self Care Anticipated Discharge Timeframe: 1 week
--- NOTE | 2020-08-26 11:24 | RADIOLOGY REPORT (SQ) ---
EXAM DESCRIPTION: KUB/ABDOMEN (SINGLE VIEW) IMAGES COMPLETED DATE/TIME: 08/26/2020 11:10 am REASON FOR STUDY: Check NG position status post repositioning. COMPARISON: 08/26/2020. NUMBER OF VIEWS: One view. TECHNIQUE: Supine radiographic image of the upper abdomen acquired. LIMITATIONS: None. FINDINGS: BOWEL GAS PATTERN: Normal bowel gas pattern. No dilated loops. CALCIFICATIONS: No suspicious calcifications. SOFT TISSUES: No gross mass or suggestion of organomegaly. HARDWARE: Nasogastric tube, side port and tip both located within the stomach. Surgical clips and dr catarino catheter in the right upper quadrant. BONES: No acute fracture. No worrisome bone lesions. OTHER: No other significant finding. IMPRESSION: SATISFACTORY POSITION OF THE NASOGASTRIC TUBE. TECHNICAL DOCUMENTATION: JOB ID: [id number] 2010 [employer]- All Rights Reserved Reading location - IP/workstation name: [email or web address]
[2020-08-26] MEDS: FLUCONAZOLE 100 MG in CONTAINER,EMPTY 1 EACH IV SCH (11:34)
[2020-08-26] MEDS: PANTOPRAZOLE SODIUM 40 MG VIAL IV SCH (12:24)
[2020-08-26] MEDS ORDERED: GLUCAGON,HUMAN RECOMB 1 MG INJ IM PRN (17:53)
[2020-08-26] MEDS ORDERED: DEXTROSE 50%-WATER 25 GM/50 ML DISP.SYRIN IV PRN ×2 (17:53)
[2020-08-26] MEDS ORDERED: DEXTROSE 40% GEL 15 GM TUBE PO PRN ×2 (17:53)
--- NOTE | 2020-08-26 18:02 | PDOC CONSULTATION ---
Consultation Consult Date: 08/26/20 Attending physician:: AMY RICCI Provider Consulted: JIE BAL Consult reason:: Medical management of a surgical patient History of Present Illness Admission Date/PCP: 08/23/20 00:36 History of Present Illness: ZI DAVE is a 65 year old male, Patient is well-known to me, he has a history of rheumatoid arthritis, type 2 diabetes mellitus, morbid obesity, hypertension, hyperlipidemia, he presented to the emergency room on 08/23/2020 for evaluation of severe abdominal pain of acute onset, CAT scan of the abdomen demonstrated free air around the gastric curvature.It was taken to the operative room emergently for exploratory laparotomy for the repair of perforated gastric ulcer, postoperatively he was in ICU for couple of days and now transferred to medical floor. I saw him on the medical floor, he is alert he has NG tube in place, he complain of pain, is requesting to have the nasogastric tube removed.. The abdomen is soft is nontender Past Medical History Cardiac Medical History: Reports: Hypertension Pulmonary Medical History: Reports: Chronic Obstructive Pulmonary Disease (COPD) Endocrine Medical History: Reports: Diabetes Mellitus Type 2, Obesity Musculoskeltal Medical History: Reports: Arthritis - Rheumatoid arthritis, Other - Rheumatoid arthritis Psychiatric Medical History: Reports: Depression Past Surgical History Past Surgical History: Reports: Orthopedic Surgery - Cervical fusion, lumbar back surgery, R rotator cuff, L knee arthroscopy Social History Smoking Status: Former Smoker Electronic Cigarette use?: No Frequency of Alcohol Use: None - Discontinued use of alcohol in late 2018 Hx Recreational Drug Use: No Drugs: None Hx Prescription Drug Abuse: No - Advance Directive Resuscitation Status: Full Code Family History Family History: CAD, DM Parental Family History Reviewed: Yes Children Family History Reviewed: Yes Sibling(s) Family History Reviewed.: Yes Medication/Allergy Home Medications: Oxycodone HCl 15 mg PO 5XDP PRN 02/19/19 Amlodipine Besylate [Norvasc 10 mg Tablet] 10 mg PO DAILY #07/26/20 Gabapentin [Neurontin 300 mg Capsule] 300 mg PO Q8 #07/26/20 Metformin HCl [Glucophage] 1,000 mg PO DAILY #07/26/20 Valsartan/Hydrochlorothiazide [Valsartan-Hctz 320-25 mg Tab] 1 each PO DAILY #07/26/20 Folic Acid [Folvite 1 mg Tablet] 1 mg PO DAILY #90 tablet 08/11/20 Methotrexate Sodium [Rheumatrex 2.5 mg Tablet] 10 mg PO SA@1000 08/23/20 Allergies/Adverse Reactions: No Known Allergies Allergy (Verified 03/11/17 08:57) Review of Systems ROS unobtainable: Other Physical Exam Vital Signs: Temp Pulse Resp BP Pulse Ox 97.6 F 93 19 124/52 L 98 08/26/20 15:14 08/26/20 15:14 08/26/20 15:14 08/26/20 15:14 08/26/20 15:14 Intake & Output 08/25/20 08/26/20 08/27/20 06:59 06:59 06:59 Intake Total 1897 2400 1000 Output Total 1315 1630 Balance 319 166 2837 Weight 147.2 kg 145.5 kg General appearance: PRESENT: no acute distress Head exam: PRESENT: atraumatic, normocephalic Eye exam: PRESENT: PERRLA Neck exam: PRESENT: full ROM, other Respiratory exam: PRESENT: clear to auscultation anabella Cardiovascular exam: PRESENT: RRR, +S1, +S2 Pulses: PRESENT: normal dorsalis pedis pul, +2 pedal pulses bilateral Vascular exam: PRESENT: normal capillary refill GI/Abdominal exam: PRESENT: normal bowel sounds, soft, other - Nasogastric tube in place Rectal exam: PRESENT: deferred Neurological exam: PRESENT: alert, CN II-XII grossly intact Psychiatric exam: PRESENT: appropriate affect, normal mood Skin exam: PRESENT: dry, intact, warm. ABSENT: cyanosis, rash Results Laboratory Results: 08/26/20 06:06 08/26/20 06:06 08/26/20 08/26/20 06:06 06:06 WBC 13.6 H RBC 3.25 L Hgb 9.8 L Hct 28.5 L MCV 88 MCH 30.1 MCHC 34.3 RDW 15.6 H Plt Count 230 Seg Neutrophils % 89.7 H Sodium 133.9 L Potassium 4.1 Chloride 100 Carbon Dioxide 22 Anion Gap 12 BUN 14 Creatinine 0.84 Est GFR ( Amer) > 60 Glucose 96 Calcium 8.6 Impressions: Abdomen/Pelvis CT 08/22/20 23:14 IMPRESSION: 1. Pneumoperitoneum, likely due to gastric perforation 2. Scattered free fluid throughout the abdomen. Upper GI Series-Limited 08/25/20 00:00 IMPRESSION: No extravasation of oral contrast stomach or duodenum Chest X-Ray 08/26/20 00:00 IMPRESSION: Side-port for the nasogastric tube is near the gastroesophageal junction. Recommend advancement by at least 8 cm for optimal placement. copyright 2010 [employer]- All Rights Reserved KUB X-Ray 08/26/20 00:00 IMPRESSION: SATISFACTORY POSITION OF THE NASOGASTRIC TUBE. 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 he has nasogastric tube in place, presently on normal saline, he is hemodynamically stable, will recommend to change fluid to 5% dextrose normal saline at 100 cc/h with sliding scale and Accu-Chek every 6 hours (2) Perforated gastric ulcer Qualifiers: Gastric ulcer chronicity: acute Qualified Code(s): K25.1 - Acute gastric ulcer with perforation Is this a current diagnosis for this admission?: Yes Plan: Patient is status post exploratory laparotomy with repair of the ulcer, management per surgeon (3) Rheumatoid arthritis Qualifiers: Rheumatoid arthritis location: knee Rheumatoid factor presence: with rheumatoid factor Laterality: bilateral Qualified Code(s): M05.761 - Rheumatoid arthritis with rheumatoid factor of right knee without organ or systems involvement; M05.762 - Rheumatoid arthritis with rheumatoid factor of left knee without organ or systems involvement Is this a current diagnosis for this admission?: Yes Plan: He has rheumatoid arthritis presently on disease modifying antirheumatic drug methotrexate, there is no evidence of active inflammation at this time, will hold off methotrexate until is more stable to take by mouth - Time Time Spent: Greater than 70 Minutes - Inpatient Certification Based on my medical assessment, after consideration of the patient's comorbidities, presenting symptoms, or acuity I expect that the services needed warrant INPATIENT care.: Yes I certify that my determination is in accordance with my understanding of Medicare's requirements for reasonable and necessary INPATIENT services [42 CFR 412.3e].: Yes
[2020-08-26] MEDS: INSULIN LISPRO 100 UNIT/ML 3 ML VIAL SUBCUT SCH (18:30)
[2020-08-27] MEDS: INSULIN LISPRO 100 UNIT/ML 3 ML VIAL SUBCUT SCH ×4 (00:41→17:45)
[2020-08-27] MEDS: HYDROMORPHONE HCL INJ/PF 2 MG/ML AMPULE IV PRN ×6 (01:57→20:10)
[2020-08-27] MEDS: PIPERACILLIN SODIUM/TAZOBACTAM 4.5 GM in NORMAL SALINE 100 ML IV SCH ×3 (02:07→17:12)
[2020-08-27] MEDS: DEXTROSE 5%-NORMAL SALINE 1,000 ML IV PRN ×2 (02:42→16:06)
[2020-08-27] MEDS: FLUCONAZOLE 100 MG in CONTAINER,EMPTY 1 EACH IV SCH (11:08)
[2020-08-27] MEDS ORDERED: KETOROLAC TROMETHAMINE INJ/PF 30 MG/1 ML SDV IV PRN (11:17)
--- NOTE | 2020-08-27 11:18 | PDOC PROGRESS REPORT ---
Subjective Progress Note for:: 08/27/20 Reason For Visit: PERFORATED VISCUS Patient sitting up at bedside, working physical therapy; Wang catheter still in; nasogastric tube with minimal drainage Physical Exam Vital Signs: Temp Pulse Resp BP Pulse Ox 98.0 F 93 20 113/54 L 97 08/27/20 08:56 08/27/20 08:16 08/27/20 08:16 08/27/20 08:16 08/27/20 08:16 Intake & Output 08/26/20 08/27/20 08/28/20 06:59 06:59 06:59 Intake Total 2400 2000 0 Output Total 1630 1170 555 Balance 770 830 -555 Weight 145.5 kg 145.4 kg General appearance: PRESENT: no acute distress GI/Abdominal exam: PRESENT: other - Midline dressing intact; removed; all ta intact; serous drainage from Earnest bulb. The abdomen is appropriately tender. Results Laboratory Results: 08/26/20 06:06 08/26/20 06:06 Impressions: Abdomen/Pelvis CT 08/22/20 23:14 IMPRESSION: 1. Pneumoperitoneum, likely due to gastric perforation 2. Scattered free fluid throughout the abdomen. Upper GI Series-Limited 08/25/20 00:00 IMPRESSION: No extravasation of oral contrast stomach or duodenum Chest X-Ray 08/26/20 00:00 IMPRESSION: Side-port for the nasogastric tube is near the gastroesophageal junction. Recommend advancement by at least 8 cm for optimal placement. copyright 2011 [employer]- All Rights Reserved KUB X-Ray 08/26/20 00:00 IMPRESSION: SATISFACTORY POSITION OF THE NASOGASTRIC TUBE. Assessment & Plan - Diagnosis (1) Perforated gastric ulcer Qualifiers: Gastric ulcer chronicity: acute Qualified Code(s): K25.1 - Acute gastric ulcer with perforation Plan: Impression: Patient is postop day 5 status post exploratory laparotomy Enrique patch repair of perforated prepyloric ulcer, doing well, with improved appearance of abdominal drainage. Plan: 1. Will discontinue Wnag catheter 2. We will move patient off of narcotics and onto Toradol IV; ordered 3. We will clamp nasogastric tube; if tolerated, may start sips around tube; patient's Ana M Rhea study 48 hours ago demonstrated no leak. - Time Time Spent: 30 to 50 Minutes Critical Time spent with patient: Less than 15 minutes Medications reviewed and adjusted accordingly: No Anticipated Discharge Disposition: Home, Self Care Anticipated Discharge Timeframe: within 72 hours
--- NOTE | 2020-08-27 20:14 | PDOC PROGRESS REPORT ---
Subjective Progress Note for:: 08/27/20 Subjective:: Patient is alert, feels better, NG tube still in place Reason For Visit: PERFORATED VISCUS Physical Exam Vital Signs: Temp Pulse Resp BP Pulse Ox 98.5 F 96 21 H 131/60 H 96 08/27/20 11:41 08/27/20 11:41 08/27/20 11:41 08/27/20 11:41 08/27/20 11:41 Intake & Output 08/26/20 08/27/20 08/28/20 06:59 06:59 06:59 Intake Total 2400 2000 700 Output Total 1630 1170 555 Balance 770 830 145 Weight 145.5 kg 145.4 kg 145.4 kg General appearance: PRESENT: no acute distress Eye exam: PRESENT: PERRLA Respiratory exam: PRESENT: clear to auscultation anabella Cardiovascular exam: PRESENT: +S1, +S2 GI/Abdominal exam: PRESENT: soft Neurological exam: PRESENT: alert, CN II-XII grossly intact Results Laboratory Results: 08/26/20 06:06 08/26/20 06:06 Impressions: Abdomen/Pelvis CT 08/22/20 23:14 IMPRESSION: 1. Pneumoperitoneum, likely due to gastric perforation 2. Scattered free fluid throughout the abdomen. Upper GI Series-Limited 08/25/20 00:00 IMPRESSION: No extravasation of oral contrast stomach or duodenum Chest X-Ray 08/26/20 00:00 IMPRESSION: Side-port for the nasogastric tube is near the gastroesophageal junction. Recommend advancement by at least 8 cm for optimal placement. copyright 2011 [employer]- All Rights Reserved KUB X-Ray 08/26/20 00:00 IMPRESSION: SATISFACTORY POSITION OF THE NASOGASTRIC TUBE. 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 he has nasogastric tube in place, presently on 5% dextrose normal saline at 100 cc/h with sliding scale and Accu-Chek every 6 hours (2) Perforated gastric ulcer Qualifiers: Gastric ulcer chronicity: acute Qualified Code(s): K25.1 - Acute gastric ulcer with perforation Is this a current diagnosis for this admission?: Yes Plan: Patient is status post exploratory laparotomy with repair of the ulcer, kely casillas per surgeon (3) Rheumatoid arthritis Qualifiers: Rheumatoid arthritis location: knee Rheumatoid factor presence: with rheu matoid factor Laterality: bilateral Qualified Code(s): M05.761 - Rheumatoid arthritis with rheumatoid factor of right knee without organ or systems involvement; M05.762 - Rheumatoid arthritis with rheumatoid factor of left knee without organ or systems involvement Is this a current diagnosis for this admission?: Yes - Time Time Spent with patient: 25-34 minutes Level of Care: MEDICAL Medications reviewed and adjusted accordingly: Yes Anticipated discharge: Home Anticipated DC Timeframe: within 72 hours
[2020-08-28] MEDS: HYDROMORPHONE HCL INJ/PF 2 MG/ML AMPULE IV PRN ×6 (00:11→19:17)
[2020-08-28] MEDS: INSULIN LISPRO 100 UNIT/ML 3 ML VIAL SUBCUT SCH ×4 (00:13→19:30)
[2020-08-28] MEDS: DEXTROSE 5%-NORMAL SALINE 1,000 ML IV PRN ×2 (01:45→15:47)
[2020-08-28] MEDS: PIPERACILLIN SODIUM/TAZOBACTAM 4.5 GM in NORMAL SALINE 100 ML IV SCH ×3 (01:45→17:22)
[2020-08-28] MEDS: FLUCONAZOLE 100 MG in CONTAINER,EMPTY 1 EACH IV SCH (09:15)
[2020-08-28] MEDS: ONDANSETRON HCL INJ/PF 4 MG/2 ML SDV IV PRN (18:08)
--- NOTE | 2020-08-28 18:53 | PDOC PROGRESS REPORT ---
Subjective Progress Note for:: 08/28/20 Reason For Visit: PERFORATED VISCUS Physical Exam Vital Signs: Temp Pulse Resp BP Pulse Ox 97.7 F 104 H 20 116/56 L 99 08/28/20 16:00 08/28/20 16:00 08/28/20 16:00 08/28/20 16:00 08/28/20 16:00 Intake & Output 08/27/20 08/28/20 08/29/20 06:59 06:59 06:59 Intake Total 1999 1665 875 Output Total 1170 2555 550 Balance 830 -890 325 Weight 145.4 kg 147.5 kg Results Laboratory Results: 08/26/20 06:06 08/26/20 06:06 08/23/20 00:19 Blood Blood Culture - Final NO GROWTH IN 5 DAYS 08/23/20 00:14 Blood Blood Culture - Final NO GROWTH IN 5 DAYS Impressions: Abdomen/Pelvis CT 08/22/20 23:14 IMPRESSION: 1. Pneumoperitoneum, likely due to gastric perforation 2. Scattered free fluid throughout the abdomen. Upper GI Series-Limited 08/25/20 00:00 IMPRESSION: No extravasation of oral contrast stomach or duodenum Chest X-Ray 08/26/20 00:00 IMPRESSION: Side-port for the nasogastric tube is near the gastroesophageal junction. Recommend advancement by at least 8 cm for optimal placement. copyright 2011 [employer]- All Rights Reserved KUB X-Ray 08/26/20 00:00 IMPRESSION: SATISFACTORY POSITION OF THE NASOGASTRIC TUBE. Assessment & Plan - Diagnosis (1) Perforated gastric ulcer Qualifiers: Gastric ulcer chronicity: acute Qualified Code(s): K25.1 - Acute gastric ulcer with perforation Is this a current diagnosis for this admission?: Yes - Time Anticipated Discharge Disposition: unknown Anticipated Discharge Timeframe: unknown - Plan Summary Plan Summary: 65-year-old male status post laparotomy with repair of a perforated gastric ulcer. Patient complains of continued abdominal pain. His NG tube is currently not to suction. His NYDIA drain is full of bilious fluid. His NG tube was placed back to suction, and approximately 600 cc of bilious output was noted. His NYDIA drain was emptied, and continued to fill with bilious appearing fluid. The fluid emanating from his NG and NYDIA drain have the same appearance. I am incredibly concerned for recurrent gastric leak. I have discussed this with the patient. I have recommended reexploration. The patient has called his family to come to the hospital to further discuss this. Plan to discuss repeat operative intervention. The patient will require transfer to the intensive care unit. He will require central line placement, and TPN. Risks and benefits were discussed with the patient, and also will be discussed with his family. Plan for surgical intervention michelle.
[2020-08-28] MEDS ORDERED: BUPIVACAINE HCL 0.25 % INJ/PF (2.5 MG/1 ML) 30 ML VIAL ONE (20:08)
[2020-08-28] MEDS ORDERED: FENTANYL CITRATE INJ/PF 100 MCG/2 ML AMPUL ONE (20:14)
[2020-08-28] MEDS ORDERED: ONDANSETRON HCL INJ/PF 4 MG/2 ML SDV ONE (20:15)
[2020-08-28] MEDS ORDERED: HYDROMORPHONE HCL INJ/PF 2 MG/ML AMPULE ONE (20:15)
[2020-08-28] MEDS ORDERED: MIDAZOLAM 2 MG/2 ML INJ ONE (20:15)
[2020-08-28] MEDS ORDERED: EPHEDRINE SULFATE INJ 50 MG/1 ML AMPULE ONE (20:52)
[2020-08-28] MEDS ORDERED: MEPERIDINE HCL/PF INJ 25 MG/1 ML DISP.SYRIN IV PRN (21:36)
[2020-08-28] MEDS ORDERED: OXYCODONE-ACETAMINOPHEN 5-325 MG TABLET PO PRN ×2 (21:36)
[2020-08-28] MEDS ORDERED: PROMETHAZINE HCL INJ 25 MG/1 ML VIAL IV PRN ×2 (21:36)
[2020-08-28] MEDS ORDERED: DIPHENHYDRAMINE HCL 50 MG/ML VIAL IV PRN (21:36)
[2020-08-28] MEDS ORDERED: MORPHINE SULFATE 10 MG/ML INJ IV PRN (21:36)
[2020-08-28] MEDS ORDERED: FENTANYL CITRATE INJ/PF 100 MCG/2 ML AMPUL IV PRN ×3 (21:36)
[2020-08-28] MEDS ORDERED: PROPOFOL INJ 200 MG/20 ML VIAL IV ONE (23:24)
--- NOTE | 2020-08-29 00:10 | Operative Report ---
Nonrecallable Operative Report DATE OF SURGERY: 08/28/20 PREOPERATIVE DIAGNOSIS: Perforated gastric ulcer POSTOPERATIVE DIAGNOSIS: 1. Same as above. 2. Complete breakdown of previous gastric repair OPERATION: 1. Reopening of recent laparotomy. 2. Washout of intra-abdominal abscess in the right upper quadrant, and subphrenic space. 3. Primary suture repair of large posterior antral ulcer. 4. Modified Enrique patch/omental flap. 5. Placement of gastrostomy, Kavitha. 6. Placement of distal feeding jejunostomy. 7. Closure of abdomen with retention sutures. 8. Ultrasound- guided central venous puncture. 9. Left internal jugular vein central line placement SURGEON: JESU THAO ANESTHESIA: GA TISSUE REMOVED OR ALTERED: 1. Large amount of right upper quadrant abscess removed. 2. Gastric biopsy COMPLICATIONS: None apparent ESTIMATED BLOOD LOSS: 100 cc PROCEDURE: Drains/implants: #1 right upper quadrant [address] [place] round Earnest drain placed anterior to the stomach, and inferior to the liver. 2. Right lower quadrant 15 [address] [place] round Earnest drain placed into the lesser sac, adjacent to the ulcer repair. 3. Gastrostomy, 24 [address] [place]. 4. Feeding jejunostomy. 5. Left internal jugular vein central line. Procedure in detail: After informed consent was obtained patient was brought into the operating room and laid in the supine position. The area of the abdomen was prepped and draped in a normal sterile fashion. The previous ta on the vertical midline incision were removed. The sutures were removed from the abdominal wall, and the abdomen was entered. There was noted to be a large amount of bilious/purulent material throughout the abdominal cavity. The most concentrated amount was in the subphrenic space on the right, superior to the liver. The abdomen was copiously irrigated and suctioned, until the bulk of the purulence was cleared away. Next, attention was turned to inspection of the previous repair. The Omni retractor was placed on the patient. The previous [address] [place] round Earnest drain was removed. There was a large amount of omentum sutured to the antrum of the stomach. Multiple sutures were removed, revealing a 2 to 2.5 cm defect in the posterior antrum. Visualization was poor. Secondary to this, the lesser sac was opened, and exposure was obtained. The omentum was freed from the transverse colon. The transverse colon was retracted inferiorly, and the lesser sac was opened. The posterior stomach was then easily examined. The cardia and body of the stomach appeared normal. The antrum had a large defect on the posterior wall. A biopsy was performed of the gastric mucosa, to ensure that there was no malignant component. There did not appear to be an obvious mass in the area. Next, the defect was closed using 0 silk suture in simple interrupted fashion. Once the defect was closed, it was tested, and found to be free of any leakage. The NG tube was advanced, into the duodenum, past the repair. This confirmed that the distal stomach was open, and would ensure suction of any material in the area, avoiding tension on the repair. Next, an omental pedicle flap was created. The omentum was divided in the midline, up to the wall of the stomach. The right omental pedicle was then placed over the repair. The omental pedicle flap was sutured to the posterior wall of the stomach using 3-0 Vicryl suture in interrupted fashion. This was done circumferentially. Once this was completed, a 15 [facility] [place] round Earnest drain was placed through the right lower quadrant and passed posterior and inferior to the omental pedicle flap, in the area of the perforation. The [address] round Earnest drain was then sutured to the anterior abdominal wall using 2-0 nylon suture. The abdomen was then again copiously irrigated and suctioned. Attention was then turned to performing of a gastrostomy for drainage purposes, and a feeding jejunostomy for later feedings. A loop of jejunum, distal to the ligament of Treitz was chosen. A [address] jejunostomy was passed through the anterior abdominal wall and into the abdominal cavity. Next, pursestring sutures were placed on the jejunum. A defect was created in the wall of the jejunum on the antimesenteric side using electrocautery. The feeding J-tube was passed into the defect, and sutured into place using pursestring sutures. The jejunum was then sutured to the anterior abdominal wall using 0 silk suture circumferentially. After this was completed, attention was turned to performing of the gastrostomy. In similar fashion, the [address] gastrostomy was placed through the anterior abdominal wall. 2 pursestrings of 0 silk were created in the wall of the stomach. Electrocautery was used to create a defect in the stomach, inside the pursestrings. The G-tube was inserted into the lumen of the stomach, and the pursestrings were tightened. The stomach was then sutured to the anterior abdominal wall circumferentially using 0 silk suture. After this was completed, another [address] round Earnest drain was placed into the abdomen. It was placed through the right upper quadrant abdominal wall, inferior to the liver, and anterior to the stomach. It was sutured to the abdominal wall using 2-0 nylon suture. The abdomen was again irrigated and suctioned. Attention was turned to closure. Four retention sutures were placed through the anterior abdominal wall, to reinforce the midline closure. The midline fascia was closed using #1 double- stranded looped PDS suture in simple running fashion. Next, the retention sutures were tightened. The abdominal skin was loosely approximated using skin ta. The intervening areas were packed with Xeroform gauze. A dressing was then placed, and this portion of the procedure was concluded. Due to the patient's critical illness, a central line was felt to be prudent. The area of the neck and chest were prepped and draped in a normal sterile fashion. The ultrasound was used to identify the left internal jugular vein. The vein was compressible with normal flow. Under direct ultrasonic guidance, the left internal jugular vein was cannulated using the supplied access needle. Dark venous, nonpulsatile blood was returned in the syringe. The wire was inserted into the lumen of the vein easily. It was confirmed to be within the vein using ultrasonography. Picture documentation was obtained, and placed on the chart. The catheter was then slid over the wire using a modified Seldinger technique. The catheter was aspirated and flushed x3. The catheter returned dark venous, nonpulsatile blood. A pressure test was performed, confirming venous pressure. A dressing was then placed, and the procedure was concluded. All sponge, instrument, and needle counts were correct x2. Condition: Fair.
[2020-08-29] MEDS: RINGERS SOLUTION,LACTATED 1,000 ML IV PRN ×4 (00:38→23:02)
[2020-08-29] MEDS: FENTANYL CITRATE/PF 600 MCG/60 ML BAG IV PRN ×6 (00:38→21:17)
[2020-08-29] MEDS: INSULIN LISPRO 100 UNIT/ML 3 ML VIAL SUBCUT SCH ×4 (00:51→17:34)
--- NOTE | 2020-08-29 01:06 | RADIOLOGY REPORT (SQ) ---
EXAM DESCRIPTION: X-RAY CHEST- One View CLINICAL HISTORY: History of central line and intubation. COMPARISON: None available TECHNIQUE: Single view of the chest. FINDINGS: Patient is status post intubation with endotracheal tube approximately 3.5 cm above the leilani. Status post placement of left internal jugular central line with distal tip in the expected location of the junction between the left brachiocephalic vein and superior vena cava. There are low lung volumes with compressive changes. There is trace blunting of the bilateral costophrenic angles with mild bibasilar patchy opacities. The pulmonary vascularity is normal. The cardiomediastinal silhouette is mildly enlarged. No suspicious lytic or blastic osseous lesions are identified. IMPRESSION: 1. Positioning of support lines and tubes as above. 2. Low lung volumes with compressive changes, evidence of trace bilateral pleural effusions and minimal nonspecific patchy basilar opacities. Please note at the time of image interpretation no prior exams are available for comparison.
[2020-08-29] MEDS: PIPERACILLIN SODIUM/TAZOBACTAM 4.5 GM in NORMAL SALINE 100 ML IV SCH ×3 (02:39→17:29)
[2020-08-29] MEDS ORDERED: PROPOFOL 1,000 MG/100 ML INFUS..BTL IV ONE (02:50)
[2020-08-29] MEDS: PROPOFOL 1,000 MG/100 ML INFUS..BTL IV PRN ×2 (02:50→07:08)
[2020-08-29] MEDS: ONDANSETRON HCL INJ/PF 4 MG/2 ML SDV IV PRN ×3 (04:01→21:28)
--- NOTE | 2020-08-29 05:01 | CRITICAL CARE ADMISSION REPORT ---
HPI Date:: 08/28/20 Time:: 23:45 Reason for ICU Reason:: sepsis Admission Date/Time & PCP: Admission Date/Time: 08/23/20 00:36 Primary Care Provider: HPI: ZI DAVE is a 65 year old male, Patient is well-known to me, he has a history of rheumatoid arthritis, type 2 diabetes mellitus, morbid obesity, hypertension, hyperlipidemia, he presented to the emergency room on 08/23/2020 for evaluation of severe abdominal pain of acute onset, CAT scan of the abdomen demonstrated free air around the gastric curvature.It was taken to the operative room emergently for exploratory laparotomy for the repair of perforated gastric ulcer, postoperatively he was in ICU for couple of days and then transferred to medical floor. This afternoon he was c/o increased abdominal pain. NYDIA and NGT were draining copious amounts of bilious drainage. He was taken to the OR for ex lap. Jejunal tube and duedonal tube placed and NYDIA x 2. Transferred to the ICU post op intubated for further management - Diagnosis/Plan (1) Perforated gastric ulcer Qualifiers: Gastric ulcer chronicity: acute Qualified Code(s): K25.1 - Acute gastric ulcer with perforation Is this a current diagnosis for this admission?: Yes Plan: s/p repair monitor drain output (2) Diabetes mellitus type 2 in obese Is this a current diagnosis for this admission?: Yes Plan: Accuchecks Q6hrs SSI (3) Hypertension Qualifiers: Hypertension type: essential hypertension Qualified Code(s): I10 - Essential (primary) hypertension Is this a current diagnosis for this admission?: Yes Plan: Hold all antihypertensives in setting of sepsis (4) Rheumatoid arthritis Qualifiers: Rheumatoid arthritis location: knee Rheumatoid factor presence: with rheumatoid factor Laterality: bilateral Qualified Code(s): M05.761 - Rheumatoid arthritis with rheumatoid factor of right knee without organ or systems involvement; M05.762 - Rheumatoid arthritis with rheumatoid factor of left knee without organ or systems involvement Is this a current diagnosis for this admission?: Yes Plan: On methotrexate at home no plans to restart at this time Past Medical History Cardiac Medical History: Reports: Congestive Heart Failure - Right-sided, Hyperlipidema, Hypertension Denies: Atrial Fibrillation, Coronary Artery Disease, Myocardial Infarction Pulmonary Medical History: Reports: Chronic Obstructive Pulmonary Disease (COPD) Denies: Asthma Neurological Medical History: Denies: Seizures Endocrine Medical History: Reports: Diabetes Mellitus Type 2, Obesity Denies: Diabetes Mellitus Type 1, Hyperthyroidism, Hypothyroidism GI Medical History: Denies: Cirrhosis, Crohn's Disease, Gastroesophageal Reflux Disease, He patitis, Ulcerative Colitis Musculoskeltal Medical History: Reports: Arthritis - Rheumatoid arthritis, Other - Rheumatoid arthritis Denies: Fibromyalgia, Gout Skin Medical History: Denies: Eczema, Psoriasis Psychiatric Medical History: Reports: Depression Traumatic Medical History: Denies: Traumatic Brain Injury Hematology: Denies: Anemia, Sickle Cell Disease, Bleeding Tendencies Past Surgical History Past Surgical History: Reports: Orthopedic Surgery - Cervical fusion, lumbar back surgery, R rotator cuff, L knee arthroscopy, Other - Repair of perforated gastric ulcer Social/Family History - Social History Smoking Status: Former Smoker Frequency of Alcohol Use: None - Discontinued use of alcohol in late 2018 Hx Recreational Drug Use: No Drugs: None Hx Prescription Drug Abuse: No - Medication/Allergies Home Medications: Oxycodone HCl 15 mg PO 5XDP PRN 02/19/19 Amlodipine Besylate [Norvasc 10 mg Tablet] 10 mg PO DAILY #90 07/26/20 Gabapentin [Neurontin 300 mg Capsule] 300 mg PO Q8 #90 07/26/20 Metformin HCl [Glucophage] 1,000 mg PO DAILY #90 07/26/20 Valsartan/Hydrochlorothiazide [Valsartan-Hctz 320-25 mg Tab] 1 each PO DAILY #90 07/26/20 Folic Acid [Folvite 1 mg Tablet] 1 mg PO DAILY #90 tablet 08/11/20 Methotrexate Sodium [Rheumatrex 2.5 mg Tablet] 10 mg PO SA@1000 08/23/20 Allergies/Adverse Reactions: No Known Allergies Allergy (Verified 03/11/17 08:57) Review of Systems ROS unobtainable: Due to endotracheal tube Physical Exam Vital Signs: Temp Pulse Resp BP Pulse Ox 98.3 F 107 H 17 116/71 100 08/29/20 00:00 08/28/20 19:52 08/28/20 19:52 08/28/20 19:52 08/29/20 01:22 Intake & Output 08/27/20 08/28/20 08/29/20 06:59 06:59 06:59 Intake Total 1999 3839 4592 Output Total 7516 4295 2700 Balance 830 -890 992 Weight 145.4 kg 147.5 kg 148.3 kg Weight/Height Weight 148.3 kg Height 6 ft 1 in General appearance: PRESENT: other - intubated and sedated Head exam: PRESENT: atraumatic Eye exam: PRESENT: PERRLA Mouth exam: PRESENT: moist Neck exam: PRESENT: full ROM Respiratory exam: PRESENT: decreased breath sounds Cardiovascular exam: PRESENT: +S1, +S2, tachycardia Pulses: PRESENT: normal radial pulses GI/Abdominal exam: PRESENT: other - absent BS Gentrourinary exam: PRESENT: indwelling catheter Extremities exam: PRESENT: pedal edema, +1 edema Musculoskeletal exam: PRESENT: full ROM Focused psych exam: PRESENT: other - sedated Tubes/Lines: PRESENT: Endotracheal Tube, Central Line, Nasogastic Tube, Other - J tube, duodenal tube NYDIA x 2 Laboratory/Radiographs Laboratory Results: 08/26/20 06:06 08/26/20 06:06 Impressions: Abdomen/Pelvis CT 08/22/20 23:14 IMPRESSION: 1. Pneumoperitoneum, likely due to gastric perforation 2. Scattered free fluid throughout the abdomen. Upper GI Series-Limited 08/25/20 00:00 IMPRESSION: No extravasation of oral contrast stomach or duodenum KUB X-Ray 08/26/20 00:00 IMPRESSION: SATISFACTORY POSITION OF THE NASOGASTRIC TUBE. Chest X-Ray 08/28/20 00:00 IMPRESSION: 1. Positioning of support lines and tubes as above. 2. Low lung volumes with compressive changes, evidence of trace bilateral pleural effusions and minimal nonspecific patchy basilar opacities. Please note at the time of image interpretation no prior exams are available for comparison. All labs, radiographs, diagnostic studies and EKGs were personally reviewed: Yes In addition, reports of radiographic and diagnostic studies were read: Yes Critical Time Critical Time (minutes): 60 -: The care of a critically ill patient is dynamic. This note represents a static moment in the admission process. Orders and treatments may be given simultaneously and urgently, and time is not technical sales representatives of the treatment process. This patient requires Critical Care secondary to life threatening organ or limb dysfunction. Without Critical Care services, the patient is at risk for increased mortality and morbidity.
[2020-08-29] MEDS ORDERED: RINGERS SOLUTION,LACTATED 1,000 ML IV ONE ×2 (06:21→12:00)
[2020-08-29 07:01] LABS: HEMATOCRIT 31.2 % (37.9-51.0); HEMOGLOBIN 10.4 g/dL (13.5-17.0); MEAN CORPUSCULAR HEMOGLOBIN 29.6 pg (27.0-33.4); MEAN CORPUSCULAR HGB CONC 33.3 g/dL (32.0-36.0); MEAN CORPUSCULAR VOLUME 89 fl (80-97); PLATELET COUNT 400 10^3/uL (150-450); RED BLOOD COUNT 3.51 10^6/uL (4.35-5.55); RED CELL DISTRIBUTION WIDTH 15.5 % (11.5-14.0); WHITE BLOOD COUNT 20.3 10^3/uL (4.0-10.5)
[2020-08-29 07:10] LABS: ALBUMIN 1.9 g/dL (3.5-5.0); ALKALINE PHOSPHATASE 68 U/L (38-126); ANION GAP 9 (5-19); ASPARTATE AMINO TRANSFERASE 18 U/L (17-59); BILIRUBIN,DIRECT 1.4 mg/dL (0.0-0.4); BILIRUBIN,TOTAL 1.7 mg/dL (0.2-1.3); BLOOD UREA NITROGEN 15 mg/dL (7-20); CARBON DIOXIDE 20 mmol/L (22-30); CHLORIDE 109 mmol/L (98-107); GLUCOSE 127 mg/dL (75-110); PHOSPHORUS 4.1 mg/dL (2.5-4.5); POTASSIUM 3.6 mmol/L (3.6-5.0); TOTAL PROTEIN 3.9 g/dL (6.3-8.2)
[2020-08-29] MEDS ORDERED: DEXTROSE 40% GEL 15 GM TUBE PO PRN ×2 (07:11)
[2020-08-29] MEDS ORDERED: AMINO ACIDS 5 %/DEXTROSE 20 % 1,000 ML IV PRN (07:11)
[2020-08-29] MEDS ORDERED: DEXTROSE 10%-WATER 1,000 ML IV PRN (07:11)
[2020-08-29] MEDS ORDERED: DEXTROSE 50%-WATER 25 GM/50 ML DISP.SYRIN IV PRN ×2 (07:11)
[2020-08-29] MEDS ORDERED: GLUCAGON,HUMAN RECOMB 1 MG INJ IM PRN (07:11)
--- NOTE | 2020-08-29 07:11 | PDOC PROGRESS REPORT ---
Subjective Progress Note for:: 08/29/20 Reason For Visit: PERFORATED VISCUS Physical Exam Vital Signs: Temp Pulse Resp BP Pulse Ox 97.8 F 107 H 17 116/71 100 08/29/20 04:00 08/28/20 19:52 08/28/20 19:52 08/28/20 19:52 08/29/20 04:00 Intake & Output 08/28/20 08/29/20 08/30/20 06:59 06:59 06:59 Intake Total 1665 3692 Output Total 2555 2700 Balance -890 992 Weight 147.5 kg 148.3 kg Results Impressions: Abdomen/Pelvis CT 08/22/20 23:14 IMPRESSION: 1. Pneumoperitoneum, likely due to gastric perforation 2. Scattered free fluid throughout the abdomen. Upper GI Series-Limited 08/25/20 00:00 IMPRESSION: No extravasation of oral contrast stomach or duodenum KUB X-Ray 08/26/20 00:00 IMPRESSION: SATISFACTORY POSITION OF THE NASOGASTRIC TUBE. Chest X-Ray 08/28/20 00:00 IMPRESSION: 1. Positioning of support lines and tubes as above. 2. Low lung volumes with compressive changes, evidence of trace bilateral pleural effusions and minimal nonspecific patchy basilar opacities. Please note at the time of image interpretation no prior exams are available for comparison. Assessment & Plan - Diagnosis (1) Perforated gastric ulcer Qualifiers: Gastric ulcer chronicity: acute Qualified Code(s): K25.1 - Acute gastric ulcer with perforation Is this a current diagnosis for this admission?: Yes - Time Anticipated Discharge Disposition: unknown Anticipated Discharge Timeframe: unknown - Plan Summary Plan Summary: 65-year-old male status post takeback for gastric ulcer repair. The patient is intubated, and appears comfortable. His JPs are productive of serosanguineous fluid. His midline dressing is clean and dry. His G-tube and J-tube are to gravity. He is hemodynamically stable. Lab work is pending. Currently he is receiving a fluid bolus for marginal urine output. Intubation/ventilation per model maker team. Start TPN. Supportive care.
[2020-08-29] MEDS: HYDROMORPHONE HCL INJ/PF 2 MG/ML AMPULE IV PRN ×5 (08:00→21:17)
[2020-08-29 08:01] LABS: ABSOLUTE LYMPHOCYTES# (MANUAL) 0.2 10^3/uL (0.5-4.7); ABSOLUTE MONOCYTES # (MANUAL) 0.8 10^3/uL (0.1-1.4); BAND NEUTROPHILS % (MANUAL) 1 % (3-5); BASOPHILS % (MANUAL) 0 % (0-2); EOSINOPHILS % (MANUAL) 1 % (0-6); LYMPHOCYTES % (MANUAL) 1 % (13-45); MONOCYTES % (MANUAL) 4 % (3-13); SEGMENTED NEUTROPHILS % (MAN) 93 % (42-78); TOTAL CELLS COUNTED 100
[2020-08-29 08:02] LABS: ANISOCYTOSIS SLIGHT; PLATELET COMMENT ADEQUATE; PLATELET LARGE PRESENT
[2020-08-29 08:35] LABS: INTERNATIONAL RATION (INR) 1.51; PROTHROMBIN TIME 18.3 SEC (11.4-15.4)
[2020-08-29] MEDS: FLUCONAZOLE 100 MG in CONTAINER,EMPTY 1 EACH IV SCH (09:42)
[2020-08-29] MEDS ORDERED: DEXTROSE 5%-NORMAL SALINE 1,000 ML IV PRN (11:23)
[2020-08-29] MEDS ORDERED: INSULIN REG, HUMAN 100 UNIT/ML 3 ML VIAL (PYX) SUBCUT SCH (12:00)
[2020-08-29] MEDS: PANTOPRAZOLE SODIUM 40 MG VIAL IV SCH (14:26)
[2020-08-29] MEDS: AMINO ACIDS 5 %/DEXTROSE 20 % 1,000 ML IV PRN (17:44)
--- NOTE | 2020-08-29 18:12 | Progress Note ---
Provider Note Provider Note: 1130 update: Successfully extubated. On 40% face tent. Per surgeon's request (communicated by nursing staff), ET tube was removed while maintaining NG tube. Of note, this patient has witnessed apneic events during sleep (obstructive plus or minus central sleep apnea). However, he is unable to tolerate CPAP/BiPAP (claustrophobia). Cautious use of narcotic analgesic medications as advised.
[2020-08-30] MEDS: INSULIN LISPRO 100 UNIT/ML 3 ML VIAL SUBCUT SCH ×4 (00:19→17:24)
[2020-08-30] MEDS: HYDROMORPHONE HCL INJ/PF 2 MG/ML AMPULE IV PRN ×7 (00:19→19:00)
[2020-08-30] MEDS: FENTANYL CITRATE/PF 600 MCG/60 ML BAG IV PRN ×2 (00:59→04:29)
[2020-08-30] MEDS: PIPERACILLIN SODIUM/TAZOBACTAM 4.5 GM in NORMAL SALINE 100 ML IV SCH (01:09)
[2020-08-30 05:24] LABS: ABSOLUTE BASOPHILS # (AUTO) 0.1 10^3/uL (0.0-0.2); ABSOLUTE EOSINOPHILS # (AUTO) 0.7 10^3/uL (0.0-0.6); ABSOLUTE LYMPHOCYTES (AUTO) 1.2 10^3/uL (0.5-4.7); ABSOLUTE MONOCYTES (AUTO) 1.2 10^3/uL (0.1-1.4); ABSOLUTE NEUT (AUTO) 15.5 10^3/uL (1.7-8.2); BASOPHILS % (AUTO) 0.5 % (0-2); EOSINOPHILS % (AUTO) 3.5 % (0-6); HEMATOCRIT 25.9 % (37.9-51.0); HEMOGLOBIN 8.7 g/dL (13.5-17.0); LYMPHOCYTES % (AUTO) 6.4 % (13-45); MEAN CORPUSCULAR HEMOGLOBIN 29.5 pg (27.0-33.4); MEAN CORPUSCULAR HGB CONC 33.5 g/dL (32.0-36.0); MEAN CORPUSCULAR VOLUME 88 fl (80-97); MONOCYTES % (AUTO) 6.6 % (3-13); PLATELET COUNT 345 10^3/uL (150-450); RED BLOOD COUNT 2.93 10^6/uL (4.35-5.55); RED CELL DISTRIBUTION WIDTH 15.9 % (11.5-14.0); TOTAL CELLS COUNTED % (AUTO) 100 %; WHITE BLOOD COUNT 18.6 10^3/uL (4.0-10.5)
[2020-08-30 05:46] LABS: ALBUMIN 1.9 g/dL (3.5-5.0); ALKALINE PHOSPHATASE 73 U/L (38-126); ANION GAP 5 (5-19); ASPARTATE AMINO TRANSFERASE 19 U/L (17-59); BILIRUBIN,DIRECT 1.4 mg/dL (0.0-0.4); BILIRUBIN,TOTAL 1.7 mg/dL (0.2-1.3); BLOOD UREA NITROGEN 21 mg/dL (7-20); CARBON DIOXIDE 25 mmol/L (22-30); CHLORIDE 108 mmol/L (98-107); GLUCOSE 156 mg/dL (75-110); PHOSPHORUS 4.3 mg/dL (2.5-4.5); TOTAL PROTEIN 3.9 g/dL (6.3-8.2); TRIGLYCERIDES 94 mg/dL (<150)
[2020-08-30 09:09] LABS: ABSOLUTE BASOPHILS # (AUTO) 0.1 10^3/uL (0.0-0.2); ABSOLUTE EOSINOPHILS # (AUTO) 0.8 10^3/uL (0.0-0.6); ABSOLUTE MONOCYTES (AUTO) 1.1 10^3/uL (0.1-1.4); BASOPHILS % (AUTO) 0.7 % (0-2); EOSINOPHILS % (AUTO) 4.4 % (0-6); HEMATOCRIT 27.2 % (37.9-51.0); HEMOGLOBIN 9.2 g/dL (13.5-17.0); LYMPHOCYTES % (AUTO) 5.3 % (13-45); MEAN CORPUSCULAR HEMOGLOBIN 30.1 pg (27.0-33.4); MEAN CORPUSCULAR VOLUME 89 fl (80-97); MONOCYTES % (AUTO) 6.4 % (3-13); PLATELET COUNT 386 10^3/uL (150-450); RED BLOOD COUNT 3.07 10^6/uL (4.35-5.55); RED CELL DISTRIBUTION WIDTH 15.7 % (11.5-14.0); SEGMENTED NEUTROPHILS % (AUTO) 83.2 % (42-78); TOTAL CELLS COUNTED % (AUTO) 100 %
--- NOTE | 2020-08-30 09:39 | PDOC CRITICAL CARE PROG REPORT ---
General Date:: 08/30/20 ICU Day:: 2 Hospital Day:: 9 Resuscitation Status: Full Code Events in the past 12 to 24 Hours:: Extubated and doing well. Still having pain. Review of systems relevant to events:: GI, pulmonary. Reason for ICU Addmission:: sepsis, Post-op. - Medications: Medications reviewed and adjusted accordingly: Yes Vasopressors:: None Sedation:: None Physical Exam Vital Signs: Temp Pulse Resp BP Pulse Ox 98.0 F 92 20 109/57 L 97 08/30/20 08:00 08/30/20 08:00 08/30/20 08:00 08/30/20 08:00 08/30/20 08:00 Intake & Output 08/29/20 08/30/20 08/31/20 06:59 06:59 06:59 Intake Total 3772 3307 Output Total 2700 1220 70 Balance 1072 2087 -70 Weight 148.3 kg 149.3 kg Weight/Height Weight 149.3 kg Height 6 ft 1 in General appearance: PRESENT: morbidly obese Head exam: PRESENT: atraumatic, normocephalic Eye exam: PRESENT: conjunctiva pink, EOMI, PERRLA. ABSENT: scleral icterus Ear exam: PRESENT: normal external ear exam Mouth exam: PRESENT: moist, tongue midline Respiratory exam: PRESENT: clear to auscultation anabella, decreased breath sounds. ABSENT: rales, rhonchi, wheezes Cardiovascular exam: PRESENT: RRR. 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 ABSENT: distended, guarding, mass, organolmegaly, rebound, tenderness Rectal exam: PRESENT: deferred Gentrourinary exam: PRESENT: indwelling catheter Extremities exam: PRESENT: full ROM. ABSENT: calf tenderness, clubbing, pedal edema Musculoskeletal exam: PRESENT: normal inspection Neurological exam: PRESENT: alert, awake, oriented to person, oriented to place, oriented to time, oriented to situation, CN II-XII grossly intact. ABSENT: motor sensory deficit Psychiatric exam: PRESENT: appropriate affect, normal mood. ABSENT: homicidal ideation, suicidal ideation Skin exam: PRESENT: dry, intact, warm. ABSENT: cyanosis, rash Tubes/Lines: PRESENT: Central Line, Nasogastic Tube, Other - Several abdominal drains. Laboratory/Radiographs Laboratory Results: 08/30/20 08:50 08/30/20 05:10 08/30/20 08/30/20 08/30/20 05:10 05:10 08:50 WBC 18.6 H 18.0 H RBC 2.93 L 3.07 L Hgb 8.7 L 9.2 L Hct 25.9 L 27.2 L MCV 88 89 MCH 29.5 30.1 MCHC 33.5 34.0 RDW 15.9 H 15.7 H Plt Count 345 386 Seg Neutrophils % 83.0 H 83.2 H Sodium 138.4 Potassium 4.0 Chloride 108 H Carbon Dioxide 25 Anion Gap 5 BUN 21 H Creatinine 1.44 H Est GFR ( Amer) > 60 Glucose 156 H Calcium 8.0 L Phosphorus 4.3 Magnesium 1.9 Total Bilirubin 1.7 H AST 19 Alkaline Phosphatase 73 Total Protein 3.9 L Albumin 1.9 L Prealbumin 4.0 L Triglycerides 94 Impressions: Abdomen/Pelvis CT 08/22/20 23:14 IMPRESSION: 1. Pneumoperitoneum, likely due to gastric perforation 2. Scattered free fluid throughout the abdomen. Upper GI Series-Limited 08/25/20 00:00 IMPRESSION: No extravasation of oral contrast stomach or duodenum KUB X-Ray 08/26/20 00:00 IMPRESSION: SATISFACTORY POSITION OF THE NASOGASTRIC TUBE. Chest X-Ray 08/28/20 00:00 IMPRESSION: 1. Positioning of support lines and tubes as above. 2. Low lung volumes with compressive changes, evidence of trace bilateral pleural effusions and minimal nonspecific patchy basilar opacities. Please note at the time of image interpretation no prior exams are available for comparison. All labs, radiographs, diagnostic studies and EKGs were personally reviewed: Yes In addition, reports of radiographic and diagnostic studies were read: Yes Assessment and Plan - Diagnosis (1) Perforated gastric ulcer Qualifiers: Gastric ulcer chronicity: acute Qualified Code(s): K25.1 - Acute gastric ulcer with perforation Is this a current diagnosis for this admission?: Yes Plan: Taken to the OR a second time due to disruption of first ulcer repair. No seems to be more stable with several drains. Needs to move and ambulate. (2) T2DM (type 2 diabetes mellitus) Qualifiers: Diabetes mellitus correction insulin use: without correction use Diabetes mellitus complication status: with neurologic complications Diabetes mellitus complication detail: with polyneuropathy Qualified Code(s): E11.42 - Type 2 diabetes mellitus with diabetic polyneuropathy Is this a current diagnosis for this admission?: Yes Plan: Controlled on TPN. (3) Morbid obesity with BMI of 40.0-44.9, adult Is this a current diagnosis for this admission?: Yes Plan: An added risk factor for infection and respiratory issues. (4) SAMUEL (obstructive sleep apnea) Is this a current diagnosis for this admission?: Yes Plan: Very claustrophobic. CPAP not possible. Keep on O2. Critical Time Critical Time (minutes): 35 Level of Care: MEDICAL Anticipated discharge: Home Anticipated DC Timeframe: Other -: 1. The care of a critical patient is a dynamic process. This note is a retail representative synopsis but static in nature. The timeframe for treatments given in order is not necessarily the actual time these treatments may have been done. 2. This patient requires critical care secondary to ongoing requirements for therapy not offered or safe outside the critical care environment. Transfer to a lower level of care will result in altered life or limb morbidity and mortality. 3. Multidisciplinary rounds completed. 4. ABCDE bundle addressed.
[2020-08-30] MEDS: FLUCONAZOLE 100 MG in CONTAINER,EMPTY 1 EACH IV SCH (09:42)
[2020-08-30] MEDS: PANTOPRAZOLE SODIUM 40 MG VIAL IV SCH (09:42)
[2020-08-30] MEDS ORDERED: FAT EMULSIONS 250 ML IV SCH (10:00)
--- NOTE | 2020-08-30 10:55 | PDOC PROGRESS REPORT ---
Subjective Progress Note for:: 08/30/20 Reason For Visit: PERFORATED VISCUS Patient in ICU, now extubated, 1-1/2 days status post reexploration, washout for intra-abdominal sepsis, multiple tubes and drain insertion; at bedrest, mild tachycardia, otherwise awake and alert. No problems overnight Physical Exam Vital Signs: Temp Pulse Resp BP Pulse Ox 98.0 F 92 20 109/57 L 97 08/30/20 08:00 08/30/20 08:00 08/30/20 08:00 08/30/20 08:00 08/30/20 08:00 Intake & Output 08/29/20 08/30/20 08/31/20 06:59 06:59 06:59 Intake Total 3772 3307 Output Total 2700 1220 170 Balance 1072 2087 -170 Weight 148.3 kg 149.3 kg General appearance: PRESENT: mild distress GI/Abdominal exam: PRESENT: other - Abdomen examined. All dressings removed. J-tube, G-tube and drain sites right side of abdomen all intact; midline wound approximated with ta, and formally closed with retention sutures. Small area of epidermal lysis, otherwise flaps viable no foul smell or drainage. Results Laboratory Results: 08/30/20 08:50 08/30/20 05:10 08/30/20 08/30/20 08/30/20 05:10 05:10 08:50 WBC 18.6 H 18.0 H RBC 2.93 L 3.07 L Hgb 8.7 L 9.2 L Hct 25.9 L 27.2 L MCV 88 89 MCH 29.5 30.1 MCHC 33.5 34.0 RDW 15.9 H 15.7 H Plt Count 345 386 Seg Neutrophils % 83.0 H 83.2 H Sodium 138.4 Potassium 4.0 Chloride 108 H Carbon Dioxide 25 Anion Gap 5 BUN 21 H Creatinine 1.44 H Est GFR ( Amer) > 60 Glucose 156 H Calcium 8.0 L Phosphorus 4.3 Magnesium 1.9 Total Bilirubin 1.7 H AST 19 Alkaline Phosphatase 73 Total Protein 3.9 L Albumin 1.9 L Prealbumin 4.0 L Triglycerides 94 Impressions: Abdomen/Pelvis CT 08/22/20 23:14 IMPRESSION: 1. Pneumoperitoneum, likely due to gastric perforation 2. Scattered free fluid throughout the abdomen. Upper GI Series-Limited 08/25/20 00:00 IMPRESSION: No extravasation of oral contrast stomach or duodenum KUB X-Ray 08/26/20 00:00 IMPRESSION: SATISFACTORY POSITION OF THE NASOGASTRIC TUBE. Chest X-Ray 08/28/20 00:00 IMPRESSION: 1. Positioning of support lines and tubes as above. 2. Low lung volumes with compressive changes, evidence of trace bilateral pleural effusions and minimal nonspecific patchy basilar opacities. Please note at the time of image interpretation no prior exams are available for comparison. Assessment & Plan - Diagnosis (1) Perforated gastric ulcer Qualifiers: Gastric ulcer chronicity: acute Qualified Code(s): K25.1 - Acute gastric ulcer with perforation Is this a current diagnosis for this admission?: Yes Plan: Impression: Patient now nearly 2 days status post reexploration, peritoneal washout, formal closure of anterior prepyloric ulcer with tissue biopsy, drain placement, gastrostomy and jejunostomy placement, doing reasonably well so far given challenges with patient size, and pain management with history of chronic narcotic use Recommendations: 1. Get patient up, ideally into chair 2. Get patient abdominal binder 3. Will start trickling in tube feeds. 4. Continue intravenous antibiotics - Time Time Spent: 30 to 50 Minutes Critical Time spent with patient: Less than 15 minutes Smoking Cessation Education: 3 to 10 minutes Medications reviewed and adjusted accordingly: Yes Anticipated Discharge Disposition: Residential Facility Anticipated Discharge Timeframe: within 72 hours
[2020-08-30 11:34] LABS: INTERNATIONAL RATION (INR) 1.28; PROTHROMBIN TIME 16.2 SEC (11.4-15.4)
[2020-08-30] MEDS: ONDANSETRON HCL INJ/PF 4 MG/2 ML SDV IV PRN (19:04)
[2020-08-30] MEDS: AMINO ACIDS 5 %/DEXTROSE 20 % 1,000 ML IV PRN (19:10)
[2020-08-30] MEDS: RINGERS SOLUTION,LACTATED 1,000 ML IV PRN (21:25)
[2020-08-30] MEDS ORDERED: HYDROMORPHONE HCL INJ/PF 2 MG/ML AMPULE IV ONE (21:30)
[2020-08-31] MEDS: HYDROMORPHONE HCL INJ/PF 2 MG/ML AMPULE IV PRN ×8 (00:24→22:24)
[2020-08-31] MEDS: ONDANSETRON HCL INJ/PF 4 MG/2 ML SDV IV PRN ×3 (00:25→22:43)
[2020-08-31] MEDS: INSULIN LISPRO 100 UNIT/ML 3 ML VIAL SUBCUT SCH ×4 (00:25→22:19)
[2020-08-31 06:59] LABS: ALKALINE PHOSPHATASE 91 U/L (38-126); ANION GAP 10 (5-19); ASPARTATE AMINO TRANSFERASE 22 U/L (17-59); BILIRUBIN,DIRECT 1.3 mg/dL (0.0-0.4); BILIRUBIN,TOTAL 1.7 mg/dL (0.2-1.3); BLOOD UREA NITROGEN 24 mg/dL (7-20); CALCIUM 8.4 mg/dL (8.4-10.2); CARBON DIOXIDE 20 mmol/L (22-30); CHLORIDE 110 mmol/L (98-107); GLUCOSE 147 mg/dL (75-110); PHOSPHORUS 3.4 mg/dL (2.5-4.5); POTASSIUM 3.8 mmol/L (3.6-5.0); TOTAL PROTEIN 4.4 g/dL (6.3-8.2)
[2020-08-31 07:06] LABS: PREALBUMIN 4.9 mg/dL (17.6-36.0)
[2020-08-31] MEDS: PIPERACILLIN SODIUM/TAZOBACTAM 4.5 GM in NORMAL SALINE 100 ML IV SCH (10:00)
[2020-08-31] MEDS: FLUCONAZOLE 100 MG in CONTAINER,EMPTY 1 EACH IV SCH (10:09)
--- NOTE | 2020-08-31 10:36 | PDOC PROGRESS REPORT ---
Subjective Progress Note for:: 08/31/20 Reason For Visit: PERFORATED VISCUS Patient transferred to floor, hemodynamically stable. Transferring from bed to chair Physical Exam Vital Signs: Temp Pulse Resp BP Pulse Ox 97.8 F 98 18 133/63 H 99 08/31/20 08:27 08/31/20 08:27 08/31/20 08:27 08/31/20 08:27 08/31/20 08:27 Intake & Output 08/30/20 08/31/20 09/01/20 06:59 06:59 06:59 Intake Total 3307 1210 1000 Output Total 1220 1090 Balance 2087 120 1000 Weight 149.3 kg 149.3 kg General appearance: PRESENT: no acute distress GI/Abdominal exam: PRESENT: other - Exam all tubes and drains intact; midline dressing changed, with no foul-smelling drainage. Results Laboratory Results: 08/30/20 08:50 08/31/20 05:43 08/31/20 05:43 Sodium 140.0 Potassium 3.8 Chloride 110 H Carbon Dioxide 20 L Anion Gap 10 BUN 24 H Creatinine 1.56 H Est GFR ( Amer) 54 L Glucose 147 H Calcium 8.4 Phosphorus 3.4 Total Bilirubin 1.7 H AST 22 Alkaline Phosphatase 91 Total Protein 4.4 L Albumin 2.0 L Prealbumin 4.9 L Impressions: Abdomen/Pelvis CT 08/22/20 23:14 IMPRESSION: 1. Pneumoperitoneum, likely due to gastric perforation 2. Scattered free fluid throughout the abdomen. Upper GI Series-Limited 08/25/20 00:00 IMPRESSION: No extravasation of oral contrast stomach or duodenum KUB X-Ray 08/26/20 00:00 IMPRESSION: SATISFACTORY POSITION OF THE NASOGASTRIC TUBE. Chest X-Ray 08/28/20 00:00 IMPRESSION: 1. Positioning of support lines and tubes as above. 2. Low lung volumes with compressive changes, evidence of trace bilateral pleural effusions and minimal nonspecific patchy basilar opacities. Please note at the time of image interpretation no prior exams are available for comparison. Assessment & Plan - Diagnosis (1) Perforated gastric ulcer Qualifiers: Gastric ulcer chronicity: acute Qualified Code(s): K25.1 - Acute gastric ulcer with perforation Is this a current diagnosis for this admission?: Yes (2) Perforated prepyloric ulcer Plan: Impression: Patient is 3 days status post second exploratory laparotomy, closure of perforated prepyloric channel ulcer, placement of G-tube and J-tube, transferred to the floor, doing well, no early postoperative complications. Plan: 1. We will DC Diflucan 2. We will increase jejunostomy tube feedings 3. Anticipate Wang catheter removal tomorrow (3) T2DM (type 2 diabetes mellitus) Qualifiers: Diabetes mellitus retirement insulin use: without rat exterminator use Diabetes mellitus complication status: with neurologic complications Diabetes mellitus complication detail: with polyneuropathy Qualified Code(s): E11.42 - Type 2 diabetes mellitus with diabetic polyneuropathy - Time Time Spent: 30 to 50 Minutes Critical Time spent with patient: Less than 15 minutes Smoking Cessation Education: 3 to 10 minutes Medications reviewed and adjusted accordingly: Yes Anticipated Discharge Disposition: Home, Self Care Anticipated Discharge Timeframe: when bed available
[2020-08-31] MEDS: AMINO ACIDS 5 %/DEXTROSE 20 % 1,000 ML IV PRN (19:26)
--- NOTE | 2020-08-31 19:57 | PDOC PROGRESS REPORT ---
Subjective Progress Note for:: 08/31/20 Subjective:: Patient seen by the bedside, he underwent second laparotomy due to perforated gastric ulcer, he had a washout of intra-abdominal abscess in the right upper quadrant and subphrenic space., Status post gastrostomy tube, feeding jejunostomy. Complain of pain presently on Dilaudid for pain control Reason For Visit: PERFORATED VISCUS Physical Exam Vital Signs: Temp Pulse Resp BP Pulse Ox 98.1 F 85 19 136/57 H 98 08/31/20 15:14 08/31/20 18:57 08/31/20 15:14 08/31/20 15:14 08/31/20 15:14 Intake & Output 08/30/20 08/31/20 09/01/20 06:59 06:59 06:59 Intake Total 3307 1210 1444 Output Total 1220 1090 330 Balance 2087 120 1114 Weight 149.3 kg 149.3 kg General appearance: PRESENT: no acute distress, morbidly obese Eye exam: PRESENT: PERRLA Respiratory exam: PRESENT: clear to auscultation anabella Cardiovascular exam: PRESENT: +S1, +S2 GI/Abdominal exam: PRESENT: soft Neurological exam: PRESENT: alert Results Laboratory Results: 08/30/20 08:50 08/31/20 05:43 08/31/20 05:43 Sodium 140.0 Potassium 3.8 Chloride 110 H Carbon Dioxide 20 L Anion Gap 10 BUN 24 H Creatinine 1.56 H Est GFR ( Amer) 54 L Glucose 147 H Calcium 8.4 Phosphorus 3.4 Total Bilirubin 1.7 H AST 22 Alkaline Phosphatase 91 Total Protein 4.4 L Albumin 2.0 L Prealbumin 4.9 L Impressions: Abdomen/Pelvis CT 08/22/20 23:14 IMPRESSION: 1. Pneumoperitoneum, likely due to gastric perforation 2. Scattered free fluid throughout the abdomen. Upper GI Series-Limited 08/25/20 00:00 IMPRESSION: No extravasation of oral contrast stomach or duodenum KUB X-Ray 08/26/20 00:00 IMPRESSION: SATISFACTORY POSITION OF THE NASOGASTRIC TUBE. Chest X-Ray 08/28/20 00:00 IMPRESSION: 1. Positioning of support lines and tubes as above. 2. Low lung volumes with compressive changes, evidence of trace bilateral pleural effusions and minimal nonspecific patchy basilar opacities. Please note at the time of image interpretation no prior exams are available for comparison. Assessment & Plan - Diagnosis (1) T2DM (type 2 diabetes mellitus) Qualifiers: Diabetes mellitus assisted insulin use: without long term care administrator use Diabetes mellitus complication status: with neurologic complications Diabetes mellitus complication detail: with polyneuropathy Qualified Code(s): E11.42 - Type 2 diabetes mellitus with diabetic polyneuropathy Is this a current diagnosis for this admission?: Yes Plan: Patient on tube feed, will continue Accu-Chek before every meal and at bedtime sliding scale (2) Perforated gastric ulcer Qualifiers: Gastric ulcer chronicity: acute Qualified Code(s): K25.1 - Acute gastric ulcer with perforation Is this a current diagnosis for this admission?: Yes (3) Rheumatoid arthritis Qualifiers: Rheumatoid arthritis location: knee Rheumatoid factor presence: with rheumatoid factor Laterality: bilateral Qualified Code(s): M05.761 - Rheumatoid arthritis with rheumatoid factor of right knee without organ or systems involvement; M05.762 - Rheumatoid arthritis with rheumatoid factor of left knee without organ or systems involvement Is this a current diagnosis for this admission?: Yes (4) Intra-abdominal abscess Is this a current diagnosis for this admission?: Yes Plan: Patient on IV antibiotic - Time Time Spent with patient: 25-34 minutes Level of Care: IMCU Medications reviewed and adjusted accordingly: Yes Anticipated discharge: Home Anticipated DC Timeframe: Other - Inpatient Certification Based on my medical assessment, after consideration of the patient's comorbidities, presenting symptoms, or acuity I expect that the services needed warrant INPATIENT care.: Yes I certify that my determination is in accordance with my understanding of Medicare's requirements for reasonable and necessary INPATIENT services [42 CFR 412.3e].: Yes
[2020-08-31] MEDS: NORMAL SALINE 1000 ML 1,000 ML IV PRN (23:47)
[2020-09-01] MEDS: INSULIN LISPRO 100 UNIT/ML 3 ML VIAL SUBCUT SCH ×4 (01:03→18:37)
[2020-09-01] MEDS: HYDROMORPHONE HCL INJ/PF 2 MG/ML AMPULE IV PRN ×8 (01:26→23:23)
[2020-09-01] MEDS: PIPERACILLIN SODIUM/TAZOBACTAM 4.5 GM in NORMAL SALINE 100 ML IV SCH ×4 (04:19→17:23)
[2020-09-01] MEDS: NORMAL SALINE 1000 ML 1,000 ML IV PRN ×2 (05:40→21:38)
[2020-09-01 07:44] LABS: ALBUMIN 2.4 g/dL (3.5-5.0); ALKALINE PHOSPHATASE 147 U/L (38-126); ANION GAP 7 (5-19); ASPARTATE AMINO TRANSFERASE 36 U/L (17-59); BILIRUBIN,DIRECT 0.8 mg/dL (0.0-0.4); BLOOD UREA NITROGEN 27 mg/dL (7-20); CALCIUM 8.4 mg/dL (8.4-10.2); CARBON DIOXIDE 21 mmol/L (22-30); CHLORIDE 110 mmol/L (98-107); GLUCOSE 158 mg/dL (75-110); PHOSPHORUS 3.3 mg/dL (2.5-4.5); POTASSIUM 3.8 mmol/L (3.6-5.0)
[2020-09-01 07:51] LABS: PREALBUMIN 5.8 mg/dL (17.6-36.0)
--- NOTE | 2020-09-01 18:58 | PDOC PROGRESS REPORT ---
Subjective Progress Note for:: 09/01/20 Reason For Visit: PERFORATED VISCUS Physical Exam Vital Signs: Temp Pulse Resp BP Pulse Ox 97.8 F 96 17 135/57 H 98 09/01/20 16:27 09/01/20 16:27 09/01/20 11:26 09/01/20 16:27 09/01/20 16:27 Intake & Output 08/31/20 09/01/20 09/02/20 06:59 06:59 06:59 Intake Total 1210 2186 1412 Output Total 1090 1285 150 Balance 837 513 3459 Weight 149.3 kg 156 kg Results Laboratory Results: 08/30/20 08:50 09/01/20 06:07 09/01/20 06:07 Sodium 138.3 Potassium 3.8 Chloride 110 H Carbon Dioxide 21 L Anion Gap 7 BUN 27 H Creatinine 1.79 H Est GFR ( Amer) 46 L Glucose 158 H Calcium 8.4 Phosphorus 3.3 Total Bilirubin 1.0 AST 36 Alkaline Phosphatase 147 H Total Protein 5.0 L Albumin 2.4 L Prealbumin 5.8 L Impressions: Abdomen/Pelvis CT 08/22/20 23:14 IMPRESSION: 1. Pneumoperitoneum, likely due to gastric perforation 2. Scattered free fluid throughout the abdomen. Upper GI Series-Limited 08/25/20 00:00 IMPRESSION: No extravasation of oral contrast stomach or duodenum KUB X-Ray 08/26/20 00:00 IMPRESSION: SATISFACTORY POSITION OF THE NASOGASTRIC TUBE. Chest X-Ray 08/28/20 00:00 IMPRESSION: 1. Positioning of support lines and tubes as above. 2. Low lung volumes with compressive changes, evidence of trace bilateral pleural effusions and minimal nonspecific patchy basilar opacities. Please note at the time of image interpretation no prior exams are available for comparison. Assessment & Plan - Diagnosis (1) Perforated gastric ulcer Qualifiers: Gastric ulcer chronicity: acute Qualified Code(s): K25.1 - Acute gastric ulcer with perforation Is this a current diagnosis for this admission?: Yes - Time Anticipated Discharge Disposition: unknown Anticipated Discharge Timeframe: unknown - Plan Summary Plan Summary: 65-year-old male status post takeback for gastric ulcer repair. The patient appears comfortabletoday. His JPs are productive of tiny amounts of serous flu id. His midlinewound is without sign of infection. His G-tube is to gravity. His NG remains to suction. He is tolerating J-tube feeds. Discontinue Wang. Out of bed when able. Aggressive pulmonary toilet.
[2020-09-01] MEDS ORDERED: NORMAL SALINE 1000 ML 1,000 ML IV ONE (19:30)
--- NOTE | 2020-09-01 20:09 | PDOC PROGRESS REPORT ---
Subjective Progress Note for:: 09/01/20 Subjective:: Patient seen by the bedside, presently on TPN, he has a J-tube for tube feed, we will discontinue TPN Reason For Visit: PERFORATED VISCUS Physical Exam Vital Signs: Temp Pulse Resp BP Pulse Ox 98.1 F 95 16 125/58 L 100 09/01/20 19:56 09/01/20 19:56 09/01/20 19:56 09/01/20 19:56 09/01/20 19:56 Intake & Output 08/31/20 09/01/20 09/02/20 06:59 06:59 06:59 Intake Total 1210 2186 1412 Output Total 1090 1285 750 Balance 120 901 662 Weight 149.3 kg 156 kg 156 kg General appearance: PRESENT: no acute distress Eye exam: PRESENT: PERRLA Respiratory exam: PRESENT: clear to auscultation anabella Cardiovascular exam: PRESENT: +S1, +S2 GI/Abdominal exam: PRESENT: soft Neurological exam: PRESENT: alert, CN II-XII grossly intact Results Laboratory Results: 08/30/20 08:50 09/01/20 06:07 09/01/20 06:07 Sodium 138.3 Potassium 3.8 Chloride 110 H Carbon Dioxide 21 L Anion Gap 7 BUN 27 H Creatinine 1.79 H Est GFR ( Amer) 46 L Glucose 158 H Calcium 8.4 Phosphorus 3.3 Total Bilirubin 1.0 AST 36 Alkaline Phosphatase 147 H Total Protein 5.0 L Albumin 2.4 L Prealbumin 5.8 L Impressions: Abdomen/Pelvis CT 08/22/20 23:14 IMPRESSION: 1. Pneumoperitoneum, likely due to gastric perforation 2. Scattered free fluid throughout the abdomen. Upper GI Series-Limited 08/25/20 00:00 IMPRESSION: No extravasation of oral contrast stomach or duodenum KUB X-Ray 08/26/20 00:00 IMPRESSION: SATISFACTORY POSITION OF THE NASOGASTRIC TUBE. Chest X-Ray 08/28/20 00:00 IMPRESSION: 1. Positioning of support lines and tubes as above. 2. Low lung volumes with compressive changes, evidence of trace bilateral pleural effusions and minimal nonspecific patchy basilar opacities. Please note at the time of image interpretation no prior exams are available for comparison. Assessment & Plan - Diagnosis (1) T2DM (type 2 diabetes mellitus) Qualifiers: Diabetes mellitus bed bug exterminator insulin use: without correction use Diabetes mellitus complication status: with neurologic complications Diabetes mellitus complication detail: with polyneuropathy Qualified Code(s): E11.42 - Type 2 diabetes mellitus with diabetic polyneuropathy Is this a current diagnosis for this admission?: Yes Plan: Patient on tube feed, will continue Accu-Chek before every meal and at bedtime sliding scale (2) Perforated gastric ulcer Qualifiers: Gastric ulcer chronicity: acute Qualified Code(s): K25.1 - Acute gastric ulcer with perforation Is this a current diagnosis for this admission?: Yes (3) Rheumatoid arthritis Qualifiers: Rheumatoid arthritis location: knee Rheumatoid factor presence: with rheumatoid factor Laterality: bilateral Qualified Code(s): M05.761 - Rheumatoid arthritis with rheumatoid factor of right knee without organ or systems involvement; M05.762 - Rheumatoid arthritis with rheumatoid factor of left knee without organ or systems involvement Is this a current diagnosis for this admission?: Yes (4) Intra-abdominal abscess Is this a current diagnosis for this admission?: Yes Plan: Patient IV antibiotic (5) Acute renal injury Is this a current diagnosis for this admission?: Yes Plan: This most likely prerenal, increased normal saline infusion rate to 100 cc/h - Time Time Spent with patient: 25-34 minutes Level of Care: IMCU Medications reviewed and adjusted accordingly: Yes Anticipated discharge: Home Anticipated DC Timeframe: within 72 hours
[2020-09-02] MEDS: HYDROMORPHONE HCL INJ/PF 2 MG/ML AMPULE IV PRN ×8 (02:28→23:34)
[2020-09-02] MEDS: INSULIN LISPRO 100 UNIT/ML 3 ML VIAL SUBCUT SCH ×3 (08:37→13:06)
[2020-09-02 09:27] LABS: ANION GAP 6 (5-19); BLOOD UREA NITROGEN 27 mg/dL (7-20); CALCIUM 8.4 mg/dL (8.4-10.2); CARBON DIOXIDE 22 mmol/L (22-30); CHLORIDE 112 mmol/L (98-107); GLUCOSE 118 mg/dL (75-110); PHOSPHORUS 3.4 mg/dL (2.5-4.5); POTASSIUM 3.9 mmol/L (3.6-5.0)
[2020-09-02 09:34] LABS: PREALBUMIN 8.1 mg/dL (17.6-36.0)
[2020-09-02] MEDS ORDERED: FAT EMULSIONS 250 ML IV SCH (10:00)
--- NOTE | 2020-09-02 12:13 | PDOC PROGRESS REPORT ---
Subjective Progress Note for:: 09/02/20 Subjective:: no complaints except irration from ngtube Reason For Visit: PERFORATED VISCUS Physical Exam Vital Signs: Temp Pulse Resp BP Pulse Ox 97.7 F 90 18 155/58 H 100 09/02/20 08:49 09/02/20 07:53 09/02/20 07:53 09/02/20 07:53 09/02/20 07:53 Intake & Output 09/01/20 09/02/20 09/03/20 06:59 06:59 06:59 Intake Total 2186 1412 Output Total 1285 1045 5 Balance 901 367 -5 Weight 156 kg 156 kg General appearance: PRESENT: morbidly obese Head exam: PRESENT: normocephalic Eye exam: PRESENT: EOMI Mouth exam: PRESENT: moist Neck exam: PRESENT: full ROM Respiratory exam: PRESENT: clear to auscultation anabella Cardiovascular exam: PRESENT: RRR Pulses: PRESENT: normal radial pulses, normal femoral pulses Breast: PRESENT: Normal GI/Abdominal exam: PRESENT: soft Rectal exam: PRESENT: deferred Extremities exam: PRESENT: full ROM Musculoskeletal exam: PRESENT: full ROM Neurological exam: PRESENT: alert, awake, oriented to person, oriented to place Skin exam: PRESENT: dry Results Laboratory Results: 08/30/20 08:50 09/02/20 08:52 09/02/20 08:52 Sodium 140.1 Potassium 3.9 Chloride 112 H Carbon Dioxide 22 Anion Gap 6 BUN 27 H Creatinine 1.86 H Est GFR ( Amer) 44 L Glucose 118 H Calcium 8.4 Phosphorus 3.4 Prealbumin 8.1 L Impressions: Abdomen/Pelvis CT 08/22/20 23:14 IMPRESSION: 1. Pneumoperitoneum, likely due to gastric perforation 2. Scattered free fluid throughout the abdomen. Upper GI Series-Limited 08/25/20 00:00 IMPRESSION: No extravasation of oral contrast stomach or duodenum KUB X-Ray 08/26/20 00:00 IMPRESSION: SATISFACTORY POSITION OF THE NASOGASTRIC TUBE. Chest X-Ray 08/28/20 00:00 IMPRESSION: 1. Positioning of support lines and tubes as above. 2. Low lung volumes with compressive changes, evidence of trace bilateral pleural effusions and minimal nonspecific patchy basilar opacities. Please note at the time of image interpretation no prior exams are available for comparison. Assessment & Plan - Time Anticipated Discharge Disposition: Home, Self Care Anticipated Discharge Timeframe: unk - Plan Summary Plan Summary: 65-year-old male status post takeback for gastric ulcer repair. The patient appears comfortabletoday. His JPs are productive of tiny amounts of serous fluid. His midlinewound is without sign of infection. His G-tube is to gravity. His NG remains to suction. He is tolerating J-tube feeds c/o some dirrhea.
[2020-09-02 15:51] LABS: ABSOLUTE BASOPHILS # (AUTO) 0.1 10^3/uL (0.0-0.2); ABSOLUTE EOSINOPHILS # (AUTO) 0.3 10^3/uL (0.0-0.6); ABSOLUTE MONOCYTES (AUTO) 1.1 10^3/uL (0.1-1.4); ABSOLUTE NEUT (AUTO) 6.1 10^3/uL (1.7-8.2); EOSINOPHILS % (AUTO) 3.7 % (0-6); HEMATOCRIT 22.4 % (37.9-51.0); MEAN CORPUSCULAR HEMOGLOBIN 29.4 pg (27.0-33.4); MEAN CORPUSCULAR HGB CONC 33.4 g/dL (32.0-36.0); MEAN CORPUSCULAR VOLUME 88 fl (80-97); MONOCYTES % (AUTO) 13.2 % (3-13); PLATELET COUNT 407 10^3/uL (150-450); RED BLOOD COUNT 2.55 10^6/uL (4.35-5.55); RED CELL DISTRIBUTION WIDTH 15.8 % (11.5-14.0); SEGMENTED NEUTROPHILS % (AUTO) 70.1 % (42-78); TOTAL CELLS COUNTED % (AUTO) 100 %; WHITE BLOOD COUNT 8.7 10^3/uL (4.0-10.5)
[2020-09-02 15:52] LABS: HEMOGLOBIN 7.5 g/dL (13.5-17.0)
[2020-09-02 17:20] LABS: ALBUMIN 2.1 g/dL (3.5-5.0); ALKALINE PHOSPHATASE 231 U/L (38-126); ANION GAP 6 (5-19); ASPARTATE AMINO TRANSFERASE 23 U/L (17-59); BILIRUBIN,DIRECT 0.5 mg/dL (0.0-0.4); BILIRUBIN,TOTAL 0.7 mg/dL (0.2-1.3); BLOOD UREA NITROGEN 25 mg/dL (7-20); CALCIUM 8.7 mg/dL (8.4-10.2); CARBON DIOXIDE 24 mmol/L (22-30); CHLORIDE 110 mmol/L (98-107); GLUCOSE 114 mg/dL (75-110); POTASSIUM 3.8 mmol/L (3.6-5.0); TOTAL PROTEIN 5.1 g/dL (6.3-8.2)
[2020-09-02 17:34] LABS: ABSOLUTE BASOPHILS # (AUTO) 0.1 10^3/uL (0.0-0.2); ABSOLUTE EOSINOPHILS # (AUTO) 0.4 10^3/uL (0.0-0.6); ABSOLUTE NEUT (AUTO) 5.7 10^3/uL (1.7-8.2); EOSINOPHILS % (AUTO) 4.5 % (0-6); HEMATOCRIT 22.9 % (37.9-51.0); LYMPHOCYTES % (AUTO) 12.7 % (13-45); MEAN CORPUSCULAR HEMOGLOBIN 30.5 pg (27.0-33.4); MEAN CORPUSCULAR HGB CONC 34.3 g/dL (32.0-36.0); MEAN CORPUSCULAR VOLUME 89 fl (80-97); MONOCYTES % (AUTO) 12.2 % (3-13); PLATELET COUNT 405 10^3/uL (150-450); RED BLOOD COUNT 2.58 10^6/uL (4.35-5.55); RED CELL DISTRIBUTION WIDTH 15.8 % (11.5-14.0); SEGMENTED NEUTROPHILS % (AUTO) 69.6 % (42-78); TOTAL CELLS COUNTED % (AUTO) 100 %; WHITE BLOOD COUNT 8.2 10^3/uL (4.0-10.5)
[2020-09-02 17:48] LABS: HEMOGLOBIN 7.8 g/dL (13.5-17.0)
--- NOTE | 2020-09-02 22:39 | PDOC PROGRESS REPORT ---
Subjective Progress Note for:: 09/02/20 Subjective:: Patient seen by the bedside, he has anemia most likely it is dilutional, patient not actively bleeding Reason For Visit: PERFORATED VISCUS Physical Exam Vital Signs: Temp Pulse Resp BP Pulse Ox 97.8 F 93 18 145/79 H 100 09/02/20 15:43 09/02/20 15:43 09/02/20 15:43 09/02/20 15:43 09/02/20 15:43 Intake & Output 09/01/20 09/02/20 09/03/20 06:59 06:59 06:59 Intake Total 2186 1412 260 Output Total 1285 1045 805 Balance 901 367 -545 Weight 156 kg 156 kg 156 kg General appearance: PRESENT: no acute distress Eye exam: PRESENT: PERRLA Respiratory exam: PRESENT: clear to auscultation anabella Cardiovascular exam: PRESENT: +S1, +S2 GI/Abdominal exam: PRESENT: soft Neurological exam: PRESENT: alert Results Laboratory Results: 09/02/20 16:26 09/02/20 16:26 09/02/20 09/02/20 09/02/20 08:52 15:33 16:26 WBC 8.7 8.2 RBC 2.55 L 2.58 L Hgb 7.5 L 7.8 L Hct 22.4 L 22.9 L MCV 88 89 MCH 29.4 30.5 MCHC 33.4 34.3 RDW 15.8 H 15.8 H Plt Count 407 405 Seg Neutrophils % 70.1 69.6 Sodium 140.1 Potassium 3.9 Chloride 112 H Carbon Dioxide 22 Anion Gap 6 BUN 27 H Creatinine 1.86 H Est GFR ( Amer) 44 L Glucose 118 H Lactic Acid Calcium 8.4 Phosphorus 3.4 Total Bilirubin AST Alkaline Phosphatase Ammonia Total Protein Albumin Prealbumin 8.1 L 09/02/20 09/02/20 09/02/20 16:26 16:26 16:26 WBC RBC Hgb Hct MCV MCH MCHC RDW Plt Count Seg Neutrophils % Sodium 140.2 Potassium 3.8 Chloride 110 H Carbon Dioxide 24 Anion Gap 6 BUN 25 H Creatinine 2.02 H Est GFR ( Amer) 40 L Glucose 114 H Lactic Acid 0.7 Calcium 8.7 Phosphorus Total Bilirubin 0.7 AST 23 Alkaline Phosphatase 231 H Ammonia < 8.7 L Total Protein 5.1 L Albumin 2.1 L Prealbumin Impressions: Abdomen/Pelvis CT 08/22/20 23:14 IMPRESSION: 1. Pneumoperitoneum, likely due to gastric perforation 2. Scattered free fluid throughout the abdomen. Upper GI Series-Limited 08/25/20 00:00 IMPRESSION: No extravasation of oral contrast stomach or duodenum KUB X-Ray 08/26/20 00:00 IMPRESSION: SATISFACTORY POSITION OF THE NASOGASTRIC TUBE. Chest X-Ray 08/28/20 00:00 IMPRESSION: 1. Positioning of support lines and tubes as above. 2. Low lung volumes with compressive changes, evidence of trace bilateral pleural effusions and minimal nonspecific patchy basilar opacities. Please note at the time of image interpretation no prior exams are available for comparison. Assessment & Plan - Diagnosis (1) T2DM (type 2 diabetes mellitus) Qualifiers: Diabetes mellitus senior care insulin use: without electric sealing machine operator use Diabetes mellitus complication status: with neurologic complications Diabetes mellitus complication detail: with polyneuropathy Qualified Code(s): E11.42 - Type 2 diabetes mellitus with diabetic polyneuropathy Is this a current diagnosis for this admission?: Yes Plan: Patient on tube feed, will continue Accu-Chek before every meal and at bedtime sliding scale (2) Perforated gastric ulcer Qualifiers: Gastric ulcer chronicity: acute Qualified Code(s): K25.1 - Acute gastric ulcer with perforation Is this a current diagnosis for this admission?: Yes (3) Rheumatoid arthritis Qualifiers: Rheumatoid arthritis location: knee Rheumatoid factor presence: with rheumatoid factor Laterality: bilateral Qualified Code(s): M05.761 - Rheumatoid arthritis with rheumatoid factor of right knee without organ or systems involvement; M05.762 - Rheumatoid arthritis with rheumatoid factor of left knee without organ or systems involvement Is this a current diagnosis for this admission?: Yes (4) Intra-abdominal abscess Is this a current diagnosis for this admission?: Yes Plan: Patient on IV antibiotic (5) Acute renal injury Is this a current diagnosis for this admission?: Yes Plan: This most likely prerenal, continue normal saline infusion rate - Time Time Spent with patient: 25-34 minutes Level of Care: IMCU Anticipated discharge: Home Anticipated DC Timeframe: within 36 hours, within 72 hours - Inpatient Certification Based on my medical assessment, after consideration of the patient's comorbidities, presenting symptoms, or acuity I expect that the services needed warrant INPATIENT care.: Yes I certify that my determination is in accordance with my understanding of Medicare's requirements for reasonable and necessary INPATIENT services [42 CFR 412.3e].: Yes
[2020-09-03] MEDS: HYDROMORPHONE HCL INJ/PF 2 MG/ML AMPULE IV PRN ×7 (02:36→21:43)
[2020-09-03] MEDS: LOPERAMIDE HCL 2 MG CAPSULE PO PRN ×2 (05:28→12:16)
[2020-09-03 06:50] LABS: ABSOLUTE BASOPHILS # (AUTO) 0.1 10^3/uL (0.0-0.2); ABSOLUTE EOSINOPHILS # (AUTO) 0.2 10^3/uL (0.0-0.6); ABSOLUTE LYMPHOCYTES (AUTO) 0.9 10^3/uL (0.5-4.7); ABSOLUTE MONOCYTES (AUTO) 1.1 10^3/uL (0.1-1.4); ABSOLUTE NEUT (AUTO) 5.6 10^3/uL (1.7-8.2); BASOPHILS % (AUTO) 1.1 % (0-2); EOSINOPHILS % (AUTO) 2.8 % (0-6); HEMATOCRIT 22.9 % (37.9-51.0); LYMPHOCYTES % (AUTO) 11.8 % (13-45); MEAN CORPUSCULAR HEMOGLOBIN 29.7 pg (27.0-33.4); MEAN CORPUSCULAR HGB CONC 33.9 g/dL (32.0-36.0); MEAN CORPUSCULAR VOLUME 88 fl (80-97); MONOCYTES % (AUTO) 13.6 % (3-13); PLATELET COUNT 402 10^3/uL (150-450); RED BLOOD COUNT 2.61 10^6/uL (4.35-5.55); RED CELL DISTRIBUTION WIDTH 15.6 % (11.5-14.0); SEGMENTED NEUTROPHILS % (AUTO) 70.7 % (42-78); TOTAL CELLS COUNTED % (AUTO) 100 %; WHITE BLOOD COUNT 7.9 10^3/uL (4.0-10.5)
[2020-09-03 07:01] LABS: HEMOGLOBIN 7.8 g/dL (13.5-17.0)
[2020-09-03 07:21] LABS: ALBUMIN 2.2 g/dL (3.5-5.0); ALKALINE PHOSPHATASE 212 U/L (38-126); ANION GAP 7 (5-19); ASPARTATE AMINO TRANSFERASE 23 U/L (17-59); BILIRUBIN,DIRECT 0.4 mg/dL (0.0-0.4); BILIRUBIN,TOTAL 0.6 mg/dL (0.2-1.3); BLOOD UREA NITROGEN 26 mg/dL (7-20); CALCIUM 8.7 mg/dL (8.4-10.2); CARBON DIOXIDE 23 mmol/L (22-30); CHLORIDE 111 mmol/L (98-107); GLUCOSE 100 mg/dL (75-110); TOTAL PROTEIN 5.1 g/dL (6.3-8.2)
[2020-09-03] MEDS: INSULIN LISPRO 100 UNIT/ML 3 ML VIAL SUBCUT SCH ×5 (08:38→18:47)
--- NOTE | 2020-09-03 09:01 | PDOC PROGRESS REPORT ---
Subjective Progress Note for:: 09/03/20 Reason For Visit: PERFORATED VISCUS Physical Exam Vital Signs: Temp Pulse Resp BP Pulse Ox 97.4 F 94 18 150/71 H 98 09/03/20 08:35 09/03/20 08:35 09/03/20 08:35 09/03/20 08:35 09/03/20 08:35 Intake & Output 09/02/20 09/03/20 09/04/20 06:59 06:59 06:59 Intake Total 1412 260 Output Total 1045 1770 Balance 367 -1510 Weight 156 kg 155 kg Results Laboratory Results: 09/03/20 05:44 09/03/20 05:44 09/02/20 09/02/20 09/02/20 08:52 15:33 16:26 WBC 8.7 8.2 RBC 2.55 L 2.58 L Hgb 7.5 L 7.8 L Hct 22.4 L 22.9 L MCV 88 89 MCH 29.4 30.5 MCHC 33.4 34.3 RDW 15.8 H 15.8 H Plt Count 407 405 Seg Neutrophils % 70.1 69.6 Sodium 140.1 Potassium 3.9 Chloride 112 H Carbon Dioxide 22 Anion Gap 6 BUN 27 H Creatinine 1.86 H Est GFR ( Amer) 44 L Glucose 118 H Lactic Acid Calcium 8.4 Phosphorus 3.4 Total Bilirubin AST Alkaline Phosphatase Ammonia Total Protein Albumin Prealbumin 8.1 L 09/02/20 09/02/20 09/02/20 16:26 16:26 16:26 WBC RBC Hgb Hct MCV MCH MCHC RDW Plt Count Seg Neutrophils % Sodium 140.2 Potassium 3.8 Chloride 110 H Carbon Dioxide 24 Anion Gap 6 BUN 25 H Creatinine 2.02 H Est GFR ( Amer) 40 L Glucose 114 H Lactic Acid 0.7 Calcium 8.7 Phosphorus Total Bilirubin 0.7 AST 23 Alkaline Phosphatase 231 H Ammonia < 8.7 L Total Protein 5.1 L Albumin 2.1 L Prealbumin 09/03/20 09/03/20 05:44 05:44 WBC 7.9 RBC 2.61 L Hgb 7.8 L Hct 22.9 L MCV 88 MCH 29.7 MCHC 33.9 RDW 15.6 H Plt Count 402 Seg Neutrophils % 70.7 Sodium 141.4 Potassium 4.0 Chloride 111 H Carbon Dioxide 23 Anion Gap 7 BUN 26 H Creatinine 1.89 H Est GFR ( Amer) 44 L Glucose 100 Lactic Acid Calcium 8.7 Phosphorus Total Bilirubin 0.6 AST 23 Alkaline Phosphatase 212 H Ammonia Total Protein 5.1 L Albumin 2.2 L Prealbumin Impressions: Abdomen/Pelvis CT 08/22/20 23:14 IMPRESSION: 1. Pneumoperitoneum, likely due to gastric perforation 2. Scattered free fluid throughout the abdomen. Upper GI Series-Limited 08/25/20 00:00 IMPRESSION: No extravasation of oral contrast stomach or duodenum KUB X-Ray 08/26/20 00:00 IMPRESSION: SATISFACTORY POSITION OF THE NASOGASTRIC TUBE. Chest X-Ray 08/28/20 00:00 IMPRESSION: 1. Positioning of support lines and tubes as above. 2. Low lung volumes with compressive changes, evidence of trace bilateral pleural effusions and minimal nonspecific patchy basilar opacities. Please note at the time of image interpretation no prior exams are available for comparison. Assessment & Plan - Diagnosis (1) Perforated gastric ulcer Qualifiers: Gastric ulcer chronicity: acute Qualified Code(s): K25.1 - Acute gastric ulcer with perforation Is this a current diagnosis for this admission?: Yes - Time Anticipated Discharge Disposition: unknown Anticipated Discharge Timeframe: unknown - Plan Summary Plan Summary: 65-year-old male status post takeback for gastric ulcer repair. The patient ap pears comfortable today. His JPs are productive of tiny amounts of serous fluid. His midlinewound is without sign of infection. His G-tube is to gravity. His NG remains to suction. He is tolerating J-tube feeds, but report diarrhea yesterday. Tube feedings were placed on hold temporarily. Discontinue Wang. Out of bed. PT/OT consult. Aggressive pulmonary toilet. Restart TF at 1/2 rate. Upper GI series today to assess for leak. If no leak is identified, will d/c NG tube. Maintain NPO status for now.
--- NOTE | 2020-09-03 12:46 | RADIOLOGY REPORT (SQ) ---
EXAM DESCRIPTION: UGI W/ SINGLE CONTRAST IMAGES COMPLETED DATE/TIME: 09/03/2020 9:29 am REASON FOR STUDY: Through NG Tube COMPARISON: Upper GI 08/25/[address] abdomen pelvis 08/26/2020 TECHNIQUE: Under fluoroscopic guidance, 200 mL of Omnipaque 300 and 150 mL water was instilled throu gh the patient's NG tube. Fluoroscopic spot images were stored on PACS. LIMITATIONS: None. FLUOROSCOPY TIME: FLUORO TIME: 3.6 minutes of fluoroscopy was used. 14 images saved to PACS. FINDINGS: GASTRO-ESOPHAGEAL JUNCTION: Mild gastroesophageal reflux noted. STOMACH: NG tube is in the lumen of the stomach. Mild mucosal thickening in the antrum of the stomac h. No evidence of extravasation or leak. GASTRIC OUTLET: Slight delay in gastric emptying due to narrowing through the pylorus and proximal du odenum due to postoperative edema. DUODENAL BULB: Incomplete distention the duodenal bulb due to postoperative edema DUODENUM: Mild narrowing through the 2nd portion the duodenum with mild mucosal thickening due to magdaleno ma. PROXIMAL JEJUNUM: Normal mucosal pattern. No dilatation, segmentation, strictures or masses. NON-GI TRACT STRUCTURES: No significant finding. OTHER: No other significant finding. IMPRESSION: POSTSURGICAL MUCOSAL THICKENING AND EDEMA AROUND THE ANTRUM, DUODENAL BULB, AND PROXIMAL DUODENUM WITHOUT EVIDENCE OF EXTRAVASATION OR LEAK. COMMENT: Quality ID 145: Final reports for procedures using fluoroscopy that document radiation exp osure indices, or exposure time and number of fluorographic images (if radiation exposure indices are not available) TECHNICAL DOCUMENTATION: JOB ID: [id number] 2010 [employer]- All Rights Reserved Reading location - IP/workstation name: [email or web address] [id number]
[2020-09-04] MEDS: INSULIN LISPRO 100 UNIT/ML 3 ML VIAL SUBCUT SCH ×4 (01:38→17:58)
[2020-09-04] MEDS: HYDROMORPHONE HCL INJ/PF 2 MG/ML AMPULE IV PRN ×7 (01:51→21:06)
[2020-09-04] MEDS: LOPERAMIDE HCL 2 MG CAPSULE PO PRN ×4 (01:51→18:34)
--- NOTE | 2020-09-04 16:26 | PDOC PROGRESS REPORT ---
Subjective Progress Note for:: 09/04/20 Subjective:: feels better, wants to eat Reason For Visit: PERFORATED VISCUS Physical Exam Vital Signs: Temp Pulse Resp BP Pulse Ox 98.6 F 93 18 128/91 H 98 09/04/20 12:23 09/04/20 14:00 09/04/20 12:23 09/04/20 12:23 09/04/20 12:23 Intake & Output 09/03/20 09/04/20 09/05/20 06:59 06:59 05:59 Intake Total 260 206 865 Output Total 1770 3040 1105 Balance -1510 -2834 -240 Weight 155 kg 150.3 kg General appearance: PRESENT: no acute distress Head exam: PRESENT: normocephalic Eye exam: PRESENT: EOMI Ear exam: PRESENT: normal external ear exam Mouth exam: PRESENT: moist Neck exam: PRESENT: full ROM Respiratory exam: PRESENT: clear to auscultation anabella Cardiovascular exam: PRESENT: RRR Pulses: PRESENT: +2 pedal pulses bilateral Breast: PRESENT: Normal GI/Abdominal exam: PRESENT: soft Rectal exam: PRESENT: deferred Extremities exam: PRESENT: full ROM Musculoskeletal exam: PRESENT: full ROM Neurological exam: PRESENT: alert, awake, oriented to person, oriented to place Psychiatric exam: PRESENT: agitated Skin exam: PRESENT: dry Results Laboratory Results: 09/03/20 05:44 09/03/20 05:44 Impressions: Abdomen/Pelvis CT 08/22/20 23:14 IMPRESSION: 1. Pneumoperitoneum, likely due to gastric perforation 2. Scattered free fluid throughout the abdomen. KUB X-Ray 08/26/20 00:00 IMPRESSION: SATISFACTORY POSITION OF THE NASOGASTRIC TUBE. Chest X-Ray 08/28/20 00:00 IMPRESSION: 1. Positioning of support lines and tubes as above. 2. Low lung volumes with compressive changes, evidence of trace bilateral pleural effusions and minimal nonspecific patchy basilar opacities. Please note at the time of image interpretation no prior exams are available for comparison. Upper GI Series-Limited 09/03/20 00:00 IMPRESSION: POSTSURGICAL MUCOSAL THICKENING AND EDEMA AROUND THE ANTRUM, DUODENAL BULB, AND PROXIMAL DUODENUM WITHOUT EVIDENCE OF EXTRAVASATION OR LEAK. Assessment & Plan - Time Anticipated Discharge Disposition: Home, Self Care Anticipated Discharge Timeframe: unk - Plan Summary Plan Summary: s/p perforated gastric ulcer now doing better passing flatus/stool walker's serous g-tube draining gastric fluid plan will start clear fluids po today.
--- NOTE | 2020-09-04 22:49 | PDOC PROGRESS REPORT ---
Subjective Progress Note for:: 09/04/20 Subjective:: Patient seen, NG tube out Reason For Visit: PERFORATED VISCUS Physical Exam Vital Signs: Temp Pulse Resp BP Pulse Ox 98.0 F 88 16 119/50 L 96 09/04/20 20:12 09/04/20 20:12 09/04/20 20:12 09/04/20 20:12 09/04/20 20:12 Intake & Output 09/03/20 09/04/20 09/05/20 06:59 06:59 05:59 Intake Total 316 986 3401 Output Total 1770 3040 2004 [facility] -1510 -[id number] -246 Weight 155 kg 150.3 kg 150.3 kg General appearance: PRESENT: no acute distress Eye exam: PRESENT: PERRLA Respiratory exam: PRESENT: clear to auscultation anabella Cardiovascular exam: PRESENT: +S1, +S2 GI/Abdominal exam: PRESENT: soft Neurological exam: PRESENT: alert, CN II-XII grossly intact Results Laboratory Results: 09/03/20 05:44 09/03/20 05:44 Impressions: Abdomen/Pelvis CT 08/22/20 23:14 IMPRESSION: 1. Pneumoperitoneum, likely due to gastric perforation 2. Scattered free fluid throughout the abdomen. KUB X-Ray 08/26/20 00:00 IMPRESSION: SATISFACTORY POSITION OF THE NASOGASTRIC TUBE. Chest X-Ray 08/28/20 00:00 IMPRESSION: 1. Positioning of support lines and tubes as above. 2. Low lung volumes with compressive changes, evidence of trace bilateral pleural effusions and minimal nonspecific patchy basilar opacities. Please note at the time of image interpretation no prior exams are available for comparison. Upper GI Series-Limited 09/03/20 00:00 IMPRESSION: POSTSURGICAL MUCOSAL THICKENING AND EDEMA AROUND THE ANTRUM, DUODENAL BULB, AND PROXIMAL DUODENUM WITHOUT EVIDENCE OF EXTRAVASATION OR LEAK. Assessment & Plan - Diagnosis (1) T2DM (type 2 diabetes mellitus) Qualifiers: Diabetes mellitus [facility] insulin use: without continuous churn buttermaker use Diabetes mellitus complication status: with neurologic complications Diabetes mellitus complication detail: with polyneuropathy Qualified Code(s): E11.42 - Type 2 diabetes mellitus with diabetic polyneuropathy Is this a current diagnosis for this admission?: Yes Plan: Patient on tube feed, will continue Accu-Chek before every meal and at bedtime sliding scale (2) Perforated gastric ulcer Qualifiers: Gastric ulcer chronicity: acute Qualified Code(s): K25.1 - Acute gastric ulcer with perforation Is this a current diagnosis for this admission?: Yes (3) Rheumatoid arthritis Qualifiers: Rheumatoid arthritis location: knee Rheumatoid factor presence: with rheumatoid factor Laterality: bilateral Qualified Code(s): M05.761 - Rheumatoid arthritis with rheumatoid factor of right knee without organ or systems involvement; M05.762 - Rheumatoid arthritis with rheumatoid factor of left knee without organ or systems involvement Is this a current diagnosis for this admission?: Yes (4) Intra-abdominal abscess Is this a current diagnosis for this admission?: Yes Plan: Patient on IV antibiotic (5) Acute renal injury Is this a current diagnosis for this admission?: Yes Plan: This most likely prerenal, continue normal saline infusion rate - Time Time Spent with patient: 25-34 minutes Level of Care: IMCU Medications reviewed and adjusted accordingly: Yes Anticipated discharge: Home Anticipated DC Timeframe: within 72 hours
--- NOTE | 2020-09-04 22:52 | PDOC PROGRESS REPORT ---
Subjective Progress Note for:: 09/03/20 Subjective:: Patient seen, NG tube out Reason For Visit: PERFORATED VISCUS Physical Exam Vital Signs: Temp Pulse Resp BP Pulse Ox 98.0 F 88 16 119/50 L 96 09/04/20 20:12 09/04/20 20:12 09/04/20 20:12 09/04/20 20:12 09/04/20 20:12 Intake & Output 09/03/20 09/04/20 09/05/20 06:59 06:59 05:59 Intake Total 741 772 5077 Output Total 1770 3040 2004 [facility] -1510 -2834 -246 Weight 155 kg 150.3 kg 150.3 kg General appearance: PRESENT: no acute distress Eye exam: PRESENT: PERRLA Respiratory exam: PRESENT: clear to auscultation anabella Cardiovascular exam: PRESENT: +S1, +S2 Results Laboratory Results: 09/03/20 05:44 09/03/20 05:44 Impressions: Abdomen/Pelvis CT 08/22/20 23:14 IMPRESSION: 1. Pneumoperitoneum, likely due to gastric perforation 2. Scattered free fluid throughout the abdomen. KUB X-Ray 08/26/20 00:00 IMPRESSION: SATISFACTORY POSITION OF THE NASOGASTRIC TUBE. Chest X-Ray 08/28/20 00:00 IMPRESSION: 1. Positioning of support lines and tubes as above. 2. Low lung volumes with compressive changes, evidence of trace bilateral pleural effusions and minimal nonspecific patchy basilar opacities. Please note at the time of image interpretation no prior exams are available for comparison. Upper GI Series-Limited 09/03/20 00:00 IMPRESSION: POSTSURGICAL MUCOSAL THICKENING AND EDEMA AROUND THE ANTRUM, DUODENAL BULB, AND PROXIMAL DUODENUM WITHOUT EVIDENCE OF EXTRAVASATION OR LEAK. Assessment & Plan - Diagnosis (1) T2DM (type 2 diabetes mellitus) Qualifiers: Diabetes mellitus [facility] insulin use: without [facility] use Diabetes mellitus complication status: with neurologic complications Diabetes mellitus complication detail: with polyneuropathy Qualified Code(s): E11.42 - Type 2 diabetes mellitus with diabetic polyneuropathy Is this a current diagnosis for this admission?: Yes Plan: Patient on tube feed, will continue Accu-Chek before every meal and at bedtime sliding scale (2) Perforated gastric ulcer Qualifiers: Gastric ulcer chronicity: acute Qualified Code(s): K25.1 - Acute gastric ulcer with perforation Is this a current diagnosis for this admission?: Yes (3) Rheumatoid arthritis Qualifiers: Rheumatoid arthritis location: knee Rheumatoid factor presence: with rheumatoid factor Laterality: bilateral Qualified Code(s): M05.761 - Rheumatoid arthritis with rheumatoid factor of right knee without organ or s ystems involvement; M05.762 - Rheumatoid arthritis with rheumatoid factor of left knee without organ or systems involvement Is this a current diagnosis for this admission?: Yes (4) Intra-abdominal abscess Is this a current diagnosis for this admission?: Yes Plan: Patient on IV antibiotic (5) Acute renal injury Is this a current diagnosis for this admission?: Yes Plan: This most likely prerenal, continue normal saline infusion rate - Time Time Spent with patient: 25-34 minutes Level of Care: IMCU Medications reviewed and adjusted accordingly: Yes Anticipated discharge: Home Anticipated DC Timeframe: within 72 hours
[2020-09-05] MEDS: INSULIN LISPRO 100 UNIT/ML 3 ML VIAL SUBCUT SCH ×5 (00:22→23:35)
[2020-09-05] MEDS: HYDROMORPHONE HCL INJ/PF 2 MG/ML AMPULE IV PRN ×4 (00:22→10:35)
[2020-09-05] MEDS: ONDANSETRON HCL INJ/PF 4 MG/2 ML SDV IV PRN (02:55)
--- NOTE | 2020-09-05 11:20 | PDOC PROGRESS REPORT ---
Subjective Progress Note for:: 09/05/20 Subjective:: SLEEPING Reason For Visit: PERFORATED VISCUS Physical Exam Vital Signs: Temp Pulse Resp BP Pulse Ox 97.9 F 87 16 145/62 H 97 09/05/20 08:15 09/05/20 08:12 09/05/20 08:12 09/05/20 08:12 09/05/20 08:12 Intake & Output 09/04/20 09/05/20 09/06/20 07:59 06:59 06:59 Intake Total Output Total 1605 Balance -1605 Weight General appearance: PRESENT: no acute distress Head exam: PRESENT: normocephalic Eye exam: PRESENT: EOMI Ear exam: PRESENT: normal external ear exam Mouth exam: PRESENT: moist Teeth exam: PRESENT: poor dentation Neck exam: PRESENT: full ROM Respiratory exam: PRESENT: clear to auscultation anabella Cardiovascular exam: PRESENT: RRR Pulses: PRESENT: normal radial pulses, normal femoral pulses Breast: PRESENT: Normal GI/Abdominal exam: PRESENT: soft, other - G-TUBE DRAINING. Rectal exam: PRESENT: deferred Extremities exam: PRESENT: full ROM Musculoskeletal exam: PRESENT: full ROM, normal inspection Neurological exam: PRESENT: alert, oriented to person, oriented to place Skin exam: PRESENT: dry Results Laboratory Results: 09/03/20 05:44 09/03/20 05:44 Impressions: Abdomen/Pelvis CT 08/22/20 23:14 IMPRESSION: 1. Pneumoperitoneum, likely due to gastric perforation 2. Scattered free fluid throughout the abdomen. KUB X-Ray 08/26/20 00:00 IMPRESSION: SATISFACTORY POSITION OF THE NASOGASTRIC TUBE. Chest X-Ray 08/28/20 00:00 IMPRESSION: 1. Positioning of support lines and tubes as above. 2. Low lung volumes with compressive changes, evidence of trace bilateral pleural effusions and minimal nonspecific patchy basilar opacities. Please note at the time of image interpretation no prior exams are available for comparison. Upper GI Series-Limited 09/03/20 00:00 IMPRESSION: POSTSURGICAL MUCOSAL THICKENING AND EDEMA AROUND THE ANTRUM, DUODENAL BULB, AND PROXIMAL DUODENUM WITHOUT EVIDENCE OF EXTRAVASATION OR LEAK. Assessment & Plan - Time Anticipated Discharge Disposition: Home, Self Care Anticipated Discharge Timeframe: UNK - Plan Summary Plan Summary: DOING OK NO EVIDENCE OF LEAK VIA THE NYDIA G-TUBE STILL GRAVITY DRAINAGE WILL CHECK LABS IN AM CONSIDER CLAMPING G-TUBE TOMORROW.
[2020-09-05] MEDS: OXYCODONE HCL IR 5 MG TABLET PO PRN ×2 (13:20→20:11)
[2020-09-06] MEDS: OXYCODONE HCL IR 5 MG TABLET PO PRN (03:19)
[2020-09-06 07:56] LABS: ABSOLUTE BASOPHILS # (AUTO) 0.1 10^3/uL (0.0-0.2); ABSOLUTE EOSINOPHILS # (AUTO) 0.2 10^3/uL (0.0-0.6); ABSOLUTE LYMPHOCYTES (AUTO) 1.2 10^3/uL (0.5-4.7); ABSOLUTE MONOCYTES (AUTO) 0.9 10^3/uL (0.1-1.4); ABSOLUTE NEUT (AUTO) 4.7 10^3/uL (1.7-8.2); BASOPHILS % (AUTO) 1.1 % (0-2); EOSINOPHILS % (AUTO) 3.4 % (0-6); HEMATOCRIT 21.3 % (37.9-51.0); LYMPHOCYTES % (AUTO) 17.4 % (13-45); MEAN CORPUSCULAR HGB CONC 33.7 g/dL (32.0-36.0); MEAN CORPUSCULAR VOLUME 86 fl (80-97); MONOCYTES % (AUTO) 12.6 % (3-13); PLATELET COUNT 429 10^3/uL (150-450); RED BLOOD COUNT 2.48 10^6/uL (4.35-5.55); RED CELL DISTRIBUTION WIDTH 15.7 % (11.5-14.0); SEGMENTED NEUTROPHILS % (AUTO) 65.5 % (42-78); TOTAL CELLS COUNTED % (AUTO) 100 %; WHITE BLOOD COUNT 7.1 10^3/uL (4.0-10.5)
[2020-09-06 08:05] LABS: HEMOGLOBIN 7.2 g/dL (13.5-17.0)
[2020-09-06 08:12] LABS: ANION GAP 6 (5-19); BLOOD UREA NITROGEN 16 mg/dL (7-20); CALCIUM 8.3 mg/dL (8.4-10.2); CARBON DIOXIDE 27 mmol/L (22-30); CHLORIDE 99 mmol/L (98-107); GLUCOSE 106 mg/dL (75-110); POTASSIUM 3.4 mmol/L (3.6-5.0)
[2020-09-06] MEDS ORDERED: ACETAMINOPHEN 1,000 MG/100 ML RTUPB IV SCH (08:30)
[2020-09-06] MEDS: HYDROMORPHONE HCL INJ/PF 2 MG/ML AMPULE IV PRN ×4 (09:16→21:53)
[2020-09-06] MEDS: INSULIN LISPRO 100 UNIT/ML 3 ML VIAL SUBCUT SCH ×4 (09:28→23:53)
[2020-09-06 11:36] LABS: ALBUMIN 2.2 g/dL (3.5-5.0); ALKALINE PHOSPHATASE 136 U/L (38-126); ASPARTATE AMINO TRANSFERASE 22 U/L (17-59); BILIRUBIN,DIRECT 0.3 mg/dL (0.0-0.4); BILIRUBIN,TOTAL 0.5 mg/dL (0.2-1.3); TOTAL PROTEIN 4.7 g/dL (6.3-8.2)
[2020-09-06] MEDS: ACETAMINOPHEN 1,000 MG/100 ML RTUPB IV SCH ×2 (11:42→17:55)
--- NOTE | 2020-09-06 12:36 | PDOC PROGRESS REPORT ---
Subjective Progress Note for:: 09/06/20 Reason For Visit: PERFORATED VISCUS Physical Exam Vital Signs: Temp Pulse Resp BP Pulse Ox 98.1 F 77 18 144/52 H 97 09/06/20 08:27 09/06/20 08:27 09/06/20 08:27 09/06/20 08:27 09/06/20 08:27 Intake & Output 09/05/20 09/06/20 09/07/20 06:59 06:59 06:59 Intake Total 2088 Output Total 3525 Balance -1437 Weight 158.1 kg Results Laboratory Results: 09/06/20 07:13 09/06/20 07:13 09/06/20 09/06/20 07:13 07:13 WBC 7.1 RBC 2.48 L Hgb 7.2 L Hct 21.3 L MCV 86 MCH 29.0 MCHC 33.7 RDW 15.7 H Plt Count 429 Seg Neutrophils % 65.5 Sodium 132.0 L Potassium 3.4 L Chloride 99 Carbon Dioxide 27 Anion Gap 6 BUN 16 Creatinine 1.43 H Est GFR ( Amer) > 60 Glucose 106 Calcium 8.3 L Total Bilirubin 0.5 AST 22 Alkaline Phosphatase 136 H Total Protein 4.7 L Albumin 2.2 L Impressions: Abdomen/Pelvis CT 08/22/20 23:14 IMPRESSION: 1. Pneumoperitoneum, likely due to gastric perforation 2. Scattered free fluid throughout the abdomen. KUB X-Ray 08/26/20 00:00 IMPRESSION: SATISFACTORY POSITION OF THE NASOGASTRIC TUBE. Chest X-Ray 08/28/20 00:00 IMPRESSION: 1. Positioning of support lines and tubes as above. 2. Low lung volumes with compressive changes, evidence of trace bilateral pleural effusions and minimal nonspecific patchy basilar opacities. Please note at the time of image interpretation no prior exams are available for comparison. Upper GI Series-Limited 09/03/20 00:00 IMPRESSION: POSTSURGICAL MUCOSAL THICKENING AND EDEMA AROUND THE ANTRUM, DUODENAL BULB, AND PROXIMAL DUODENUM WITHOUT EVIDENCE OF EXTRAVASATION OR LEAK. Assessment & Plan - Diagnosis (1) Perforated gastric ulcer Qualifiers: Gastric ulcer chronicity: acute Qualified Code(s): K25.1 - Acute gastric ulcer with perforation Is this a current diagnosis for this admission?: Yes - Time Anticipated Discharge Disposition: Nursing Home Facility Anticipated Discharge Timeframe: within 72 hours - Plan Summary Plan Summary: 65-year-old male status post takeback for gastric ulcer repair. The patient appears comfortable today. His JPs are productive of tiny amounts of serous fluid. His midline wound is slightly red today, but the nurses have not been packing the wound. Wound was repacked at bedside today. His G-tube is to gravity. HHe is tolerating J-tube feeds. Out of bed. PT/OT consult. Aggressive pulmonary toilet. Cont tube feedings. Advance to goal. OK for ice chips and popsicles. Cont G-tube to gravity. Will need placement. SNF vs Rehab.
[2020-09-06] MEDS: LOPERAMIDE HCL 2 MG CAPSULE PO PRN (19:54)
[2020-09-07] MEDS ORDERED: ACETAMINOPHEN 1,000 MG/100 ML RTUPB IV ONE (02:04)
[2020-09-07] MEDS: HYDROMORPHONE HCL INJ/PF 2 MG/ML AMPULE IV PRN ×6 (02:18→22:31)
[2020-09-07] MEDS: ACETAMINOPHEN 1,000 MG/100 ML RTUPB IV SCH ×3 (02:18→17:57)
[2020-09-07] MEDS: LOPERAMIDE HCL 2 MG CAPSULE PO PRN ×2 (05:28→10:25)
[2020-09-07] MEDS: INSULIN LISPRO 100 UNIT/ML 3 ML VIAL SUBCUT SCH ×3 (06:12→17:38)
--- NOTE | 2020-09-07 08:25 | PDOC PROGRESS REPORT ---
Subjective Progress Note for:: 09/07/20 Subjective:: C/o mild "burning" epigastric pains. Had BM today. Reason For Visit: PERFORATED VISCUS Physical Exam Vital Signs: Temp Pulse Resp BP Pulse Ox 98.3 F 79 18 120/55 L 96 09/07/20 07:24 09/07/20 07:24 09/07/20 07:24 09/07/20 07:24 09/07/20 07:24 Intake & Output 09/06/20 09/07/20 09/08/20 06:59 06:59 06:59 Intake Total 2088 2204 Output Total 3525 1420 Balance -1437 784 Weight 158.1 kg 158.1 kg Exam: Abdomen is soft. Drains in place. Gtube to gravity. Jtube functioning well. Results Laboratory Results: 09/06/20 07:13 09/06/20 07:13 09/06/20 07:13 Sodium 132.0 L Potassium 3.4 L Chloride 99 Carbon Dioxide 27 Anion Gap 6 BUN 16 Creatinine 1.43 H Est GFR ( Amer) > 60 Glucose 106 Calcium 8.3 L Total Bilirubin 0.5 AST 22 Alkaline Phosphatase 136 H Total Protein 4.7 L Albumin 2.2 L Impressions: Abdomen/Pelvis CT 08/22/20 23:14 IMPRESSION: 1. Pneumoperitoneum, likely due to gastric perforation 2. Scattered free fluid throughout the abdomen. KUB X-Ray 08/26/20 00:00 IMPRESSION: SATISFACTORY POSITION OF THE NASOGASTRIC TUBE. Chest X-Ray 08/28/20 00:00 IMPRESSION: 1. Positioning of support lines and tubes as above. 2. Low lung volumes with compressive changes, evidence of trace bilateral pleural effusions and minimal nonspecific patchy basilar opacities. Please note at the time of image interpretation no prior exams are available for comparison. Upper GI Series-Limited 09/03/20 00:00 IMPRESSION: POSTSURGICAL MUCOSAL THICKENING AND EDEMA AROUND THE ANTRUM, DUODENAL BULB, AND PROXIMAL DUODENUM WITHOUT EVIDENCE OF EXTRAVASATION OR LEAK. Assessment & Plan - Diagnosis (1) Perforated bowel Is this a current diagnosis for this admission?: Yes (2) Diabetes mellitus type 2 in obese Is this a current diagnosis for this admission?: Yes (3) Hypertension Qualifiers: Hypertension type: essential hypertension Qualified Code(s): I10 - Essential (primary) hypertension Is this a current diagnosis for this admission?: Yes (4) Leukocytosis Qualifiers: Leukocytosis type: unspecified Qualified Code(s): D72.829 - Elevated white blood cell count, unspecified Is this a current diagnosis for this admission?: Yes (5) Morbid obesity with BMI of 40.0-44.9, adult Is this a current diagnosis for this admission?: Yes (6) Rheumatoid arthritis Qualifiers: Rheumatoid arthritis location: knee Rheumatoid factor presence: with rheumatoid factor Laterality: bilateral Qualified Code(s): M05.761 - Rheumatoid arthritis with rheumatoid factor of right knee without organ or systems involvement; M05.762 - Rheumatoid arthritis with rheumatoid factor of left knee without organ or systems involvement Is this a current diagnosis for this admission?: Yes - Time Critical Time spent with patient: 15-24 minutes Anticipated Discharge Disposition: Home, Self Care Anticipated Discharge Timeframe: 1 week - Inpatient Certification Medical Necessity: Need For IV Fluids, Risk of Complication if Not Cared For in Hospital - Plan Summary Plan Summary: POD 10 post re-repair of perforated gastric ulcer. Doing fairly well. Continue Jtube feeding Add protonix Repeat UGIS in 48 hrs prior to start po intake.
[2020-09-07] MEDS ORDERED: POTASSI CL 20 MEQ/50 ML RIDER 20 MEQ/50 ML RTUPB IV ONE (08:45)
[2020-09-07] MEDS: PANTOPRAZOLE SODIUM 40 MG VIAL IV SCH ×2 (10:26→22:31)
--- NOTE | 2020-09-07 22:33 | PDOC PROGRESS REPORT ---
Subjective Progress Note for:: 09/07/20 Subjective:: Patient seen by the bedside ,he will need to have physical therapy Reason For Visit: PERFORATED VISCUS Physical Exam Vital Signs: Temp Pulse Resp BP Pulse Ox 98.4 F 72 19 137/56 H 100 09/07/20 15:25 09/07/20 15:25 09/07/20 15:25 09/07/20 15:25 09/07/20 15:25 Intake & Output 09/06/20 09/07/20 09/08/20 06:59 06:59 06:59 Intake Total 2088 2204 510 Output Total 3525 1420 200 Balance -1437 784 310 Weight 158.1 kg 158.1 kg General appearance: PRESENT: no acute distress Eye exam: PRESENT: PERRLA Respiratory exam: PRESENT: clear to auscultation anabella Cardiovascular exam: PRESENT: +S1, +S2 GI/Abdominal exam: PRESENT: soft Neurological exam: PRESENT: alert Results Laboratory Results: 09/06/20 07:13 09/06/20 07:13 Impressions: Abdomen/Pelvis CT 08/22/20 23:14 IMPRESSION: 1. Pneumoperitoneum, likely due to gastric perforation 2. Scattered free fluid throughout the abdomen. KUB X-Ray 08/26/20 00:00 IMPRESSION: SATISFACTORY POSITION OF THE NASOGASTRIC TUBE. Chest X-Ray 08/28/20 00:00 IMPRESSION: 1. Positioning of support lines and tubes as above. 2. Low lung volumes with compressive changes, evidence of trace bilateral pleural effusions and minimal nonspecific patchy basilar opacities. Please note at the time of image interpretation no prior exams are available for comparison. Upper GI Series-Limited 09/03/20 00:00 IMPRESSION: POSTSURGICAL MUCOSAL THICKENING AND EDEMA AROUND THE ANTRUM, DUODENAL BULB, AND PROXIMAL DUODENUM WITHOUT EVIDENCE OF EXTRAVASATION OR LEAK. Assessment & Plan - Diagnosis (1) T2DM (type 2 diabetes mellitus) Qualifiers: Diabetes mellitus exterminator insulin use: without prison use Diabetes mellitus complication status: with neurologic complications Diabetes mellitus complication detail: with polyneuropathy Qualified Code(s): E11.42 - Type 2 diabetes mellitus with diabetic polyneuropathy Is this a current diagnosis for this admission?: Yes Plan: Patient on tube feed, will continue Accu-Chek before every meal and at bedtime sliding scale (2) Perforated gastric ulcer Qualifiers: Gastric ulcer chronicity: acute Qualified Code(s): K25.1 - Acute gastric ulcer with perforation Is this a current diagnosis for this admission?: Yes (3) Rheumatoid arthritis Qualifiers: Rheumatoid arthritis location: knee Rheumatoid factor presence: with rheumatoid factor Laterality: bilateral Qualified Code(s): M05.761 - Rheumatoid arthritis with rheumatoid factor of right knee without organ or systems involvement; M05.762 - Rheumatoid arthritis with rheumatoid factor of left knee without organ or systems involvement Is this a current diagnosis for this admission?: Yes (4) Intra-abdominal abscess Is this a current diagnosis for this admission?: Yes Plan: Patient on IV antibiotic (5) Acute renal injury Is this a current diagnosis for this admission?: Yes Plan: This most likely prerenal, continue normal saline infusion rate - Time Time Spent with patient: 15-24 minutes Level of Care: IMCU Medications reviewed and adjusted accordingly: Yes Anticipated discharge: SNF Anticipated DC Timeframe: when bed available
[2020-09-08] MEDS: INSULIN LISPRO 100 UNIT/ML 3 ML VIAL SUBCUT SCH ×4 (00:19→19:03)
[2020-09-08] MEDS: HYDROMORPHONE HCL INJ/PF 2 MG/ML AMPULE IV PRN ×9 (02:13→23:31)
[2020-09-08] MEDS: ACETAMINOPHEN 1,000 MG/100 ML RTUPB IV SCH ×3 (02:27→17:42)
[2020-09-08] MEDS: LOPERAMIDE HCL 2 MG CAPSULE PO PRN (10:37)
[2020-09-08] MEDS: PANTOPRAZOLE SODIUM 40 MG VIAL IV SCH ×2 (10:37→21:30)
[2020-09-08] MEDS: ONDANSETRON HCL INJ/PF 4 MG/2 ML SDV IV PRN (12:57)
--- NOTE | 2020-09-08 16:08 | PDOC PROGRESS REPORT ---
Subjective Progress Note for:: 09/08/20 Subjective:: Patient seen by the bedside ,he will need to have physical therapy ,he is transferred to the medical floor Reason For Visit: PERFORATED VISCUS Physical Exam Vital Signs: Temp Pulse Resp BP Pulse Ox 98.9 F 87 16 138/51 H 95 09/08/20 11:45 09/08/20 11:45 09/08/20 11:45 09/08/20 11:45 09/08/20 11:45 Intake & Output 09/07/20 09/08/20 09/09/20 06:59 06:59 06:59 Intake Total 2204 1202 204 Output Total 1420 582 Balance 784 620 204 Weight 158.1 kg General appearance: PRESENT: no acute distress Eye exam: PRESENT: PERRLA Respiratory exam: PRESENT: clear to auscultation anabella Cardiovascular exam: PRESENT: +S1, +S2 GI/Abdominal exam: PRESENT: soft Neurological exam: PRESENT: alert Results Laboratory Results: 09/06/20 07:13 09/06/20 07:13 Impressions: Abdomen/Pelvis CT 08/22/20 23:14 IMPRESSION: 1. Pneumoperitoneum, likely due to gastric perforation 2. Scattered free fluid throughout the abdomen. KUB X-Ray 08/26/20 00:00 IMPRESSION: SATISFACTORY POSITION OF THE NASOGASTRIC TUBE. Chest X-Ray 08/28/20 00:00 IMPRESSION: 1. Positioning of support lines and tubes as above. 2. Low lung volumes with compressive changes, evidence of trace bilateral pleural effusions and minimal nonspecific patchy basilar opacities. Please note at the time of image interpretation no prior exams are available for comparison. Upper GI Series-Limited 09/03/20 00:00 IMPRESSION: POSTSURGICAL MUCOSAL THICKENING AND EDEMA AROUND THE ANTRUM, DUODENAL BULB, AND PROXIMAL DUODENUM WITHOUT EVIDENCE OF EXTRAVASATION OR LEAK. Assessment & Plan - Diagnosis (1) T2DM (type 2 diabetes mellitus) Qualifiers: Diabetes mellitus rat exterminator insulin use: without penitentiary use Diabetes mellitus complication status: with neurologic complications Diabetes mellitus complication detail: with polyneuropathy Qualified Code(s): E11.42 - Type 2 diabetes mellitus with diabetic polyneuropathy Is this a current diagnosis for this admission?: Yes Plan: Patient on tube feed, will continue Accu-Chek before every meal and at bedtime sliding scale (2) Perforated gastric ulcer Qualifiers: Gastric ulcer chronicity: acute Qualified Code(s): K25.1 - Acute gastric ulcer with perforation Is this a current diagnosis for this admission?: Yes (3) Rheumatoid arthritis Qualifiers: Rheumatoid arthritis location: knee Rheumatoid factor presence: with rheumatoid factor Laterality: bilateral Qualified Code(s): M05.761 - Rheumatoid arthritis with rheumatoid factor of right knee without organ or systems involvement; M05.762 - Rheumatoid arthritis with rheumatoid factor of left knee without organ or systems involvement Is this a current diagnosis for this admission?: Yes (4) Intra-abdominal abscess Is this a current diagnosis for this admission?: Yes Plan: Patient on IV antibiotic (5) Acute renal injury Is this a current diagnosis for this admission?: Yes Plan: This most likely prerenal, continue normal saline infusion rate - Time Time Spent with patient: 15-24 minutes Level of Care: MEDICAL Medications reviewed and adjusted accordingly: Yes Anticipated discharge: SNF
[2020-09-08] MEDS: NORMAL SALINE 1000 ML 1,000 ML IV PRN (16:09)
[2020-09-08] MEDS ORDERED: FUROSEMIDE INJ/PF 40 MG/4 ML SDV ONE (18:54)
[2020-09-08] MEDS: FUROSEMIDE INJ/PF 100 MG/10 ML SDV IV ONE ×2 (19:35→20:59)
--- NOTE | 2020-09-08 20:45 | PDOC PROGRESS REPORT ---
Subjective Progress Note for:: 09/08/20 Subjective:: Complaining of this incisional pains and wants his pain medication more frequent. 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 Reason For Visit: PERFORATED VISCUS Physical Exam Vital Signs: Temp Pulse Resp BP Pulse Ox 98.3 F 83 18 144/60 H 96 09/08/20 19:23 09/08/20 20:15 09/08/20 19:23 09/08/20 19:23 09/08/20 19:23 Intake & Output 09/07/20 09/08/20 09/09/20 06:59 06:59 06:59 Intake Total 2204 1202 304 Output Total 1420 582 325 Balance 784 620 -21 Weight 158.1 kg Exam: Abdominal incision is slightly erythematous and some areas. No payton abscess noted for obvious infection at this time. Gastrostomy tube still draining but 80 cc in the past 24hours. His jejunostomy tube is also quite erythematous. Results Laboratory Results: 09/06/20 07:13 09/06/20 07:13 Impressions: Abdomen/Pelvis CT 08/22/20 23:14 IMPRESSION: 1. Pneumoperitoneum, likely due to gastric perforation 2. Scattered free fluid throughout the abdomen. KUB X-Ray 08/26/20 00:00 IMPRESSION: SATISFACTORY POSITION OF THE NASOGASTRIC TUBE. Chest X-Ray 08/28/20 00:00 IMPRESSION: 1. Positioning of support lines and tubes as above. 2. Low lung volumes with compressive changes, evidence of trace bilateral pleural effusions and minimal nonspecific patchy basilar opacities. Please note at the time of image interpretation no prior exams are available for comparison. Upper GI Series-Limited 09/03/20 00:00 IMPRESSION: POSTSURGICAL MUCOSAL THICKENING AND EDEMA AROUND THE ANTRUM, DUODENAL BULB, AND PROXIMAL DUODENUM WITHOUT EVIDENCE OF EXTRAVASATION OR LEAK. Assessment & Plan - Diagnosis (1) Perforated bowel Is this a current diagnosis for this admission?: Yes (2) Diabetes mellitus type 2 in obese Is this a current diagnosis for this admission?: Yes (3) Hypertension Qualifiers: Hypertension type: essential hypertension Qualified Code(s): I10 - Essential (primary) hypertension Is this a current diagnosis for this admission?: Yes (4) Leukocytosis Qualifiers: Leukocytosis type: unspecified Qualified Code(s): D72.829 - Elevated white blood cell count, unspecified Is this a current diagnosis for this admission?: Yes (5) Morbid obesity with BMI of 40.0-44.9, adult Is this a current diagnosis for this admission?: Yes (6) Rheumatoid arthritis Qualifiers: Rheumatoid arthritis location: knee Rheumatoid factor presence: with rheumatoid factor Laterality: bilateral Qualified Code(s): M05.761 - Rheumatoid arthritis with rheumatoid factor of right knee without organ or systems involvement; M05.762 - Rheumatoid arthritis with rheumatoid factor of left knee without organ or systems involvement Is this a current diagnosis for this admission?: Yes - Time Critical Time spent with patient: 15-24 minutes Anticipated Discharge Disposition: Home, Self Care Anticipated Discharge Timeframe: 1 week - Inpatient Certification Medical Necessity: Need For IV Fluids, Need for Pain Control - Plan Summary Plan Summary: POD 10 post re-repair of perforated gastric ulcer. Doing fairly well. Continue Jtube feeding Add protonix Repeat UGIS in 48 hrs prior to start po intake.
[2020-09-09] MEDS: INSULIN LISPRO 100 UNIT/ML 3 ML VIAL SUBCUT SCH ×4 (00:36→19:26)
[2020-09-09] MEDS: HYDROMORPHONE HCL INJ/PF 2 MG/ML AMPULE IV PRN ×12 (01:33→23:42)
[2020-09-09] MEDS: ACETAMINOPHEN 1,000 MG/100 ML RTUPB IV SCH (01:39)
[2020-09-09 06:11] LABS: PHOSPHORUS 4.4 mg/dL (2.5-4.5)
[2020-09-09 06:18] LABS: PREALBUMIN 7.6 mg/dL (17.6-36.0)
[2020-09-09 06:33] LABS: ALBUMIN 2.3 g/dL (3.5-5.0); ALKALINE PHOSPHATASE 127 U/L (38-126); ANION GAP 9 (5-19); ASPARTATE AMINO TRANSFERASE 23 U/L (17-59); BILIRUBIN,DIRECT 0.2 mg/dL (0.0-0.4); BILIRUBIN,TOTAL 0.3 mg/dL (0.2-1.3); BLOOD UREA NITROGEN 12 mg/dL (7-20); CALCIUM 8.5 mg/dL (8.4-10.2); CARBON DIOXIDE 29 mmol/L (22-30); CHLORIDE 96 mmol/L (98-107); GLUCOSE 98 mg/dL (75-110); POTASSIUM 3.3 mmol/L (3.6-5.0); TOTAL PROTEIN 5.2 g/dL (6.3-8.2)
[2020-09-09] MEDS: PANTOPRAZOLE SODIUM 40 MG VIAL IV SCH ×2 (09:34→21:29)
[2020-09-09] MEDS: ONDANSETRON HCL INJ/PF 4 MG/2 ML SDV IV PRN (11:42)
--- NOTE | 2020-09-09 19:18 | PDOC PROGRESS REPORT ---
Subjective Progress Note for:: 09/09/20 Reason For Visit: PERFORATED VISCUS Patient at bed rest tonight, tolerating 10 cc of G-tube feeds. On clear liquids however gastrostomy tube. Complaining of abdominal pain. Physical Exam Vital Signs: Temp Pulse Resp BP Pulse Ox 98.5 F 88 15 134/57 H 94 09/09/20 17:10 09/09/20 17:10 09/09/20 17:10 09/09/20 17:10 09/09/20 17:10 Intake & Output 09/08/20 09/09/20 09/10/20 06:59 06:59 06:59 Intake Total 5294 972 5577 Output Total 582 3555 1050 Balance 620 -6701 148 Weight 158.1 kg 158.1 kg General appearance: PRESENT: mild distress GI/Abdominal exam: PRESENT: other - Both drains still in; G-tube open to straight drainage. Remaining inferior ta removed, and purulent discharge evacuated from the third interspace between retention sutures. Peroxide Q-tips used. Wound repacked. Results Laboratory Results: 09/06/20 07:13 09/09/20 05:13 09/09/20 09/09/20 05:13 05:13 Sodium 133.8 L Potassium 3.3 L Chloride 96 L Carbon Dioxide 29 Anion Gap 9 BUN 12 Creatinine 1.33 H Est GFR ( Amer) > 60 Glucose 98 Calcium 8.5 Phosphorus 4.4 Total Bilirubin 0.3 AST 23 Alkaline Phosphatase 127 H Total Protein 5.2 L Albumin 2.3 L Prealbumin 7.6 L Impressions: Abdomen/Pelvis CT 08/22/20 23:14 IMPRESSION: 1. Pneumoperitoneum, likely due to gastric perforation 2. Scattered free fluid throughout the abdomen. KUB X-Ray 08/26/20 00:00 IMPRESSION: SATISFACTORY POSITION OF THE NASOGASTRIC TUBE. Chest X-Ray 08/28/20 00:00 IMPRESSION: 1. Positioning of support lines and tubes as above. 2. Low lung volumes with compressive changes, evidence of trace bilateral pleural effusions and minimal nonspecific patchy basilar opacities. Please note at the time of image interpretation no prior exams are available for comparison. Upper GI Series-Limited 09/03/20 00:00 IMPRESSION: POSTSURGICAL MUCOSAL THICKENING AND EDEMA AROUND THE ANTRUM, DUODENAL BULB, AND PROXIMAL DUODENUM WITHOUT EVIDENCE OF EXTRAVASATION OR LEAK. Assessment & Plan - Diagnosis (1) Perforated gastric ulcer Qualifiers: Gastric ulcer chronicity: acute Qualified Code(s): K25.1 - Acute gastric ulcer with perforation Is this a current diagnosis for this admission?: Yes Plan: Impression: Patient is postoperative day 12 following initial exploration, with repair of distal antral ulcer, with drain placement, support tubes including gastrostomy jejunostomy; wound of the superficial infection, now being packed open after bedside debridement Recommendations: 1. Will increase aggressiveness of local wound care 2. Will DC 1 drain tomorrow 3. We will increase tube feeds (2) Perforated prepyloric ulcer Is this a current diagnosis for this admission?: Yes (3) T2DM (type 2 diabetes mellitus) Qualifiers: Diabetes mellitus hospital aide insulin use: without hospital aide use Diabetes mellitus complication status: with neurologic complications Diabetes mellitus complication detail: with polyneuropathy Qualified Code(s): E11.42 - Type 2 diabetes mellitus with diabetic polyneuropathy Is this a current diagnosis for this admission?: Yes - Time Time Spent: 30 to 50 Minutes Critical Time spent with patient: Less than 15 minutes Smoking Cessation Education: 3 to 10 minutes Medications reviewed and adjusted accordingly: Yes Anticipated Discharge Disposition: Home, Self Care Anticipated Discharge Timeframe: To be determined - Inpatient Certification Based on my medical assessment, after consideration of the patient's comorbidities, presenting symptoms, or acuity I expect that the services needed warrant INPATIENT care.: Yes I certify that my determination is in accordance with my understanding of [facility]'s requirements for reasonable and necessary INPATIENT services [42 CFR 412.3e].: Yes Medical Necessity: Need For IV Fluids, Need for Pain Control, Need for IV Antibiotics
--- NOTE | 2020-09-09 20:50 | PDOC PROGRESS REPORT ---
Subjective Progress Note for:: 09/09/20 Subjective:: Patient seen by the bedside, he has tremendous edema due to hypoalbuminemia, will be treated with Lasix infusion for 24 hours Reason For Visit: PERFORATED VISCUS Physical Exam Vital Signs: Temp Pulse Resp BP Pulse Ox 98.7 F 79 18 150/70 H 97 09/09/20 19:53 09/09/20 19:53 09/09/20 19:53 09/09/20 19:53 09/09/20 19:53 Intake & Output 09/08/20 09/09/20 09/10/20 06:59 06:59 06:59 Intake Total 2619 442 8434 Output Total 582 3555 1050 Balance 620 -3973 148 Weight 158.1 kg 158.1 kg General appearance: PRESENT: no acute distress Eye exam: PRESENT: PERRLA Respiratory exam: PRESENT: clear to auscultation anabella Cardiovascular exam: PRESENT: +S1, +S2 GI/Abdominal exam: PRESENT: soft Extremities exam: PRESENT: pedal edema Neurological exam: PRESENT: alert Results Laboratory Results: 09/06/20 07:13 09/09/20 05:13 09/09/20 09/09/20 05:13 05:13 Sodium 133.8 L Potassium 3.3 L Chloride 96 L Carbon Dioxide 29 Anion Gap 9 BUN 12 Creatinine 1.33 H Est GFR ( Amer) > 60 Glucose 98 Calcium 8.5 Phosphorus 4.4 Total Bilirubin 0.3 AST 23 Alkaline Phosphatase 127 H Total Protein 5.2 L Albumin 2.3 L Prealbumin 7.6 L Impressions: Abdomen/Pelvis CT 08/22/20 23:14 IMPRESSION: 1. Pneumoperitoneum, likely due to gastric perforation 2. Scattered free fluid throughout the abdomen. KUB X-Ray 08/26/20 00:00 IMPRESSION: SATISFACTORY POSITION OF THE NASOGASTRIC TUBE. Chest X-Ray 08/28/20 00:00 IMPRESSION: 1. Positioning of support lines and tubes as above. 2. Low lung volumes with compressive changes, evidence of trace bilateral pleural effusions and minimal nonspecific patchy basilar opacities. Please note at the time of image interpretation no prior exams are available for comparison. Upper GI Series-Limited 09/03/20 00:00 IMPRESSION: POSTSURGICAL MUCOSAL THICKENING AND EDEMA AROUND THE ANTRUM, DUODENAL BULB, AND PROXIMAL DUODENUM WITHOUT EVIDENCE OF EXTRAVASATION OR LEAK. Assessment & Plan - Diagnosis (1) T2DM (type 2 diabetes mellitus) Qualifiers: Diabetes mellitus penitentiary insulin use: without terminal manager use Diabetes mellitus complication status: with neurologic complications Diabetes mellitus complication detail: with polyneuropathy Qualified Code(s): E11.42 - Type 2 diabetes mellitus with diabetic polyneuropathy Is this a current diagnosis for this admission?: Yes (2) Perforated gastric ulcer Qualifiers: Gastric ulcer chronicity: acute Qualified Code(s): K25.1 - Acute gastric ulcer with perforation Is this a current diagnosis for this admission?: Yes (3) Rheumatoid arthritis Qualifiers: Rheumatoid arthritis location: knee Rheumatoid factor presence: with rheumatoid factor Laterality: bilateral Qualified Code(s): M05.761 - Rheumatoid arthritis with rheumatoid factor of right knee without organ or systems involvement; M05.762 - Rheumatoid arthritis with rheumatoid factor of left knee without organ or systems involvement Is this a current diagnosis for this admission?: Yes (4) Intra-abdominal abscess Is this a current diagnosis for this admission?: Yes (5) Acute renal injury Is this a current diagnosis for this admission?: Yes (6) Edema Qualifiers: Edema type: unspecified Qualified Code(s): R60.9 - Edema, unspecified Is this a current diagnosis for this admission?: Yes Plan: Treat with lasix infusion for 24 hours - Time Time Spent with patient: 15-24 minutes Level of Care: ICU
[2020-09-09] MEDS ORDERED: NORMAL SALINE 250 ML with FUROSEMIDE 250 MG IV PRN ×2 (22:00)
[2020-09-10] MEDS: INSULIN LISPRO 100 UNIT/ML 3 ML VIAL SUBCUT SCH ×4 (00:07→18:43)
[2020-09-10] MEDS: HYDROMORPHONE HCL INJ/PF 2 MG/ML AMPULE IV PRN ×14 (01:28→23:36)
--- NOTE | 2020-09-10 12:40 | PDOC PROGRESS REPORT ---
Subjective Progress Note for:: 09/10/20 Subjective:: Still complaining of abdominal pains and neck pains and requesting increase of pain medications. He is being used to pain medications being under pain management for his cervical neck pains in the past. He has been passing flatus. Reason For Visit: PERFORATED VISCUS Physical Exam Vital Signs: Temp Pulse Resp BP Pulse Ox 98.0 F 88 18 120/47 L 95 09/10/20 12:15 09/10/20 12:15 09/10/20 12:15 09/10/20 12:15 09/10/20 12:15 Intake & Output 09/09/20 09/10/20 09/11/20 06:59 06:59 06:59 Intake Total 924 2056 118 Output Total 3558 4265 1425 Balance -2309 -5346 -0779 Weight 158.1 kg 158.1 kg Exam: The abdomen is soft incision looks a little better. There is erythema on the lower part of the incision in between the last retention sutures. Not much drainage from the gastrostomy tube. The jejunostomy tube site also appears less inflamed. He is tolerating tube feedings. Drainage catheters is decreased. The right upper catheter has serous drainage. This was then pulled out second catheter was left in place no on its going on the area of the repair site. Results Laboratory Results: 09/06/20 07:13 09/09/20 05:13 Impressions: Abdomen/Pelvis CT 08/22/20 23:14 IMPRESSION: 1. Pneumoperitoneum, likely due to gastric perforation 2. Scattered free fluid throughout the abdomen. KUB X-Ray 08/26/20 00:00 IMPRESSION: SATISFACTORY POSITION OF THE NASOGASTRIC TUBE. Chest X-Ray 08/28/20 00:00 IMPRESSION: 1. Positioning of support lines and tubes as above. 2. Low lung volumes with compressive changes, evidence of trace bilateral pleural effusions and minimal nonspecific patchy basilar opacities. Please note at the time of image interpretation no prior exams are available for comparison. Upper GI Series-Limited 09/03/20 00:00 IMPRESSION: POSTSURGICAL MUCOSAL THICKENING AND EDEMA AROUND THE ANTRUM, DUODENAL BULB, AND PROXIMAL DUODENUM WITHOUT EVIDENCE OF EXTRAVASATION OR LEAK. Assessment & Plan - Diagnosis (1) Perforated bowel Is this a current diagnosis for this admission?: Yes (2) Diabetes mellitus type 2 in obese Is this a current diagnosis for this admission?: Yes (3) Hypertension Qualifiers: Hypertension type: essential hypertension Qualified Code(s): I10 - Essential (primary) hypertension Is this a current diagnosis for this admission?: Yes (4) Leukocytosis Qualifiers: Leukocytosis type: unspecified Qualified Code(s): D72.829 - Elevated white blood cell count, unspecified Is this a current diagnosis for this admission?: Yes (5) Morbid obesity with BMI of 40.0-44.9, adult Is this a current diagnosis for this admission?: Yes (6) Rheumatoid arthritis Qualifiers: Rheumatoid arthritis location: knee Rheumatoid factor presence: with rheumatoid factor Laterality: bilateral Qualified Code(s): M05.761 - Rheumatoid arthritis with rheumatoid factor of right knee without organ or systems involvement; M05.762 - Rheumatoid arthritis with rheumatoid factor of left knee without organ or systems involvement Is this a current diagnosis for this admission?: Yes - Time Critical Time spent with patient: 15-24 minutes Anticipated Discharge Disposition: Home, Self Care Anticipated Discharge Timeframe: within 72 hours - Inpatient Certification Medical Necessity: Need Close Monitoring Due to Risk of Patient Decompensation, Need For IV Fluids, Risk of Complication if Not Cared For in Hospital - Plan Summary Plan Summary: 13 days post repair of gastric ulcer reperforation. patient is doing quite well. Plans: We will clamp gastrostomy tube and start him on full liquid diet. Continue jejunostomy tube feedings for now. Continue wet-to-dry dressings on the incision site.
[2020-09-10 17:14] LABS: ALBUMIN 2.6 g/dL (3.5-5.0); ALKALINE PHOSPHATASE 137 U/L (38-126); ANION GAP 7 (5-19); ASPARTATE AMINO TRANSFERASE 24 U/L (17-59); BILIRUBIN,DIRECT 0.2 mg/dL (0.0-0.4); BILIRUBIN,TOTAL 0.4 mg/dL (0.2-1.3); BLOOD UREA NITROGEN 11 mg/dL (7-20); CALCIUM 8.7 mg/dL (8.4-10.2); CARBON DIOXIDE 35 mmol/L (22-30); CHLORIDE 91 mmol/L (98-107); GLUCOSE 129 mg/dL (75-110); TOTAL PROTEIN 5.7 g/dL (6.3-8.2)
--- NOTE | 2020-09-10 17:47 | PDOC PROGRESS REPORT ---
Subjective Progress Note for:: 09/10/20 Subjective:: Patient examined at bedside, he diuresed effectively well with furosemide infusion, he was third spacing due to Hypoalbuminemia Reason For Visit: PERFORATED VISCUS Physical Exam Vital Signs: Temp Pulse Resp BP Pulse Ox 98.3 F 93 18 118/54 L 99 09/10/20 15:55 09/10/20 15:55 09/10/20 15:55 09/10/20 15:55 09/10/20 15:55 Intake & Output 09/09/20 09/10/20 09/11/20 06:59 06:59 06:59 Intake Total 924 2056 118 Output Total 3558 4265 8815 Balance -6382 -2972 -7326 Weight 158.1 kg 158.1 kg General appearance: PRESENT: no acute distress Eye exam: PRESENT: PERRLA Respiratory exam: PRESENT: clear to auscultation anabella Cardiovascular exam: PRESENT: +S1, +S2 GI/Abdominal exam: PRESENT: soft Neurological exam: PRESENT: alert Results Laboratory Results: 09/06/20 07:13 Impressions: Abdomen/Pelvis CT 08/22/20 23:14 IMPRESSION: 1. Pneumoperitoneum, likely due to gastric perforation 2. Scattered free fluid throughout the abdomen. KUB X-Ray 08/26/20 00:00 IMPRESSION: SATISFACTORY POSITION OF THE NASOGASTRIC TUBE. Chest X-Ray 08/28/20 00:00 IMPRESSION: 1. Positioning of support lines and tubes as above. 2. Low lung volumes with compressive changes, evidence of trace bilateral pleural effusions and minimal nonspecific patchy basilar opacities. Please note at the time of image interpretation no prior exams are available for comparison. Upper GI Series-Limited 09/03/20 00:00 IMPRESSION: POSTSURGICAL MUCOSAL THICKENING AND EDEMA AROUND THE ANTRUM, DUODENAL BULB, AND PROXIMAL DUODENUM WITHOUT EVIDENCE OF EXTRAVASATION OR LEAK. Assessment & Plan - Diagnosis (1) T2DM (type 2 diabetes mellitus) Qualifiers: Diabetes mellitus longterm insulin use: without pasteuriser operator use Diabetes mellitus complication status: with neurologic complications Diabetes mellitus complication detail: with polyneuropathy Qualified Code(s): E11.42 - Type 2 diabetes mellitus with diabetic polyneuropathy Is this a current diagnosis for this admission?: Yes (2) Perforated gastric ulcer Qualifiers: Gastric ulcer chronicity: acute Qualified Code(s): K25.1 - Acute gastric ulcer with perforation Is this a current diagnosis for this admission?: Yes (3) Rheumatoid arthritis Qualifiers: Rheumatoid arthritis location: knee Rheumatoid factor presence: with rheumatoid factor Laterality: bilateral Qualified Code(s): M05.761 - Rheumatoid arthritis with rheumatoid factor of right knee without organ or systems involvement; M05.762 - Rheumatoid arthritis with rheumatoid factor of left knee without organ or systems involvement Is this a current diagnosis for this admission?: Yes (4) Intra-abdominal abscess Is this a current diagnosis for this admission?: Yes (5) Acute renal injury Is this a current diagnosis for this admission?: Yes (6) Edema Qualifiers: Edema type: unspecified Qualified Code(s): R60.9 - Edema, unspecified Is this a current diagnosis for this admission?: Yes Plan: discontinue lasix infusion - Time Time Spent with patient: Less than 15 minutes Level of Care: MEDICAL Medications reviewed and adjusted accordingly: Yes Anticipated discharge: Home - Inpatient Certification Based on my medical assessment, after consideration of the patient's comorbidi ties, presenting symptoms, or acuity I expect that the services needed warrant INPATIENT care.: No I certify that my determination is in accordance with my understanding of [facility] requirements for reasonable and necessary INPATIENT services [42 CFR 412.3e].: No
[2020-09-10] MEDS ORDERED: POTASSIUM CHLORIDE 20 MEQ PACKET PO ONE (19:00)
[2020-09-11] MEDS: INSULIN LISPRO 100 UNIT/ML 3 ML VIAL SUBCUT SCH ×4 (00:27→17:12)
[2020-09-11] MEDS: HYDROMORPHONE HCL INJ/PF 2 MG/ML AMPULE IV PRN ×10 (00:43→21:47)
[2020-09-11 08:11] LABS: ABSOLUTE BASOPHILS # (AUTO) 0.1 10^3/uL (0.0-0.2); ABSOLUTE EOSINOPHILS # (AUTO) 0.3 10^3/uL (0.0-0.6); ABSOLUTE LYMPHOCYTES (AUTO) 1.8 10^3/uL (0.5-4.7); ABSOLUTE MONOCYTES (AUTO) 1.1 10^3/uL (0.1-1.4); ABSOLUTE NEUT (AUTO) 8.3 10^3/uL (1.7-8.2); BASOPHILS % (AUTO) 0.9 % (0-2); EOSINOPHILS % (AUTO) 2.2 % (0-6); HEMATOCRIT 21.5 % (37.9-51.0); LYMPHOCYTES % (AUTO) 15.6 % (13-45); MEAN CORPUSCULAR HEMOGLOBIN 28.5 pg (27.0-33.4); MEAN CORPUSCULAR HGB CONC 33.4 g/dL (32.0-36.0); MEAN CORPUSCULAR VOLUME 85 fl (80-97); MONOCYTES % (AUTO) 9.5 % (3-13); PLATELET COUNT 331 10^3/uL (150-450); RED BLOOD COUNT 2.51 10^6/uL (4.35-5.55); RED CELL DISTRIBUTION WIDTH 15.8 % (11.5-14.0); SEGMENTED NEUTROPHILS % (AUTO) 71.8 % (42-78); TOTAL CELLS COUNTED % (AUTO) 100 %; WHITE BLOOD COUNT 11.5 10^3/uL (4.0-10.5)
[2020-09-11 08:17] LABS: HEMOGLOBIN 7.2 g/dL (13.5-17.0)
[2020-09-11] MEDS ORDERED: DEXTROSE 40% GEL 15 GM TUBE PO PRN (12:07)
[2020-09-11] MEDS ORDERED: NORMAL SALINE 250 ML IV PRN ×2 (12:43)
[2020-09-11] MEDS ORDERED: CEFOXITIN INJ 2 GM VIAL IV SCH (12:45)
--- NOTE | 2020-09-11 12:55 | PDOC PROGRESS REPORT ---
Subjective Progress Note for:: 09/11/20 Subjective:: Postop day #14 following takeback for perforated gastric ulcer, patient complaining of slight right lateral abdominal discomfort, liquid stools reported, no nausea vomiting Reason For Visit: PERFORATED VISCUS Physical Exam Vital Signs: Temp Pulse Resp BP Pulse Ox 98.5 F 89 17 130/57 H 94 09/11/20 10:00 09/11/20 07:00 09/11/20 03:38 09/11/20 03:38 09/11/20 03:38 Intake & Output 09/10/20 09/11/20 09/12/20 06:59 06:59 06:59 Intake Total 4819 1394 Output Total 4201 5953 Balance -0883 -9655 Weight 158.1 kg 158.1 kg General appearance: PRESENT: no acute distress, obese Respiratory exam: PRESENT: clear to auscultation anabella Cardiovascular exam: PRESENT: RRR GI/Abdominal exam: PRESENT: distended, firm, tenderness - Right lateral side, other - Midline incision = surrounding edema with erythema in the midportion, fat necrosis and granulation with serous drainage and odor, fascia intact Results Laboratory Results: 09/11/20 07:45 09/10/20 16:18 09/10/20 09/11/20 16:18 07:45 WBC 11.5 H RBC 2.51 L Hgb 7.2 L Hct 21.5 L MCV 85 MCH 28.5 MCHC 33.4 RDW 15.8 H Plt Count 331 Seg Neutrophils % 71.8 Sodium 132.9 L Potassium 3.0 L* Chloride 91 L Carbon Dioxide 35 H Anion Gap 7 BUN 11 Creatinine 1.25 Est GFR ( Amer) > 60 Glucose 129 H Calcium 8.7 Total Bilirubin 0.4 AST 24 Alkaline Phosphatase 137 H Total Protein 5.7 L Albumin 2.6 L Impressions: Abdomen/Pelvis CT 08/22/20 23:14 IMPRESSION: 1. Pneumoperitoneum, likely due to gastric perforation 2. Scattered free fluid throughout the abdomen. KUB X-Ray 08/26/20 00:00 IMPRESSION: SATISFACTORY POSITION OF THE NASOGASTRIC TUBE. Chest X-Ray 08/28/20 00:00 IMPRESSION: 1. Positioning of support lines and tubes as above. 2. Low lung volumes with compressive changes, evidence of trace bilateral pleural effusions and minimal nonspecific patchy basilar opacities. Please note at the time of image interpretation no prior exams are available for comparison. Upper GI Series-Limited 09/03/20 00:00 IMPRESSION: POSTSURGICAL MUCOSAL THICKENING AND EDEMA AROUND THE ANTRUM, DUODENAL BULB, AND PROXIMAL DUODENUM WITHOUT EVIDENCE OF EXTRAVASATION OR LEAK. Assessment & Plan - Time Anticipated Discharge Disposition: Intermediate Care Facility Anticipated Discharge Timeframe: When patient improves - Plan Summary Plan Summary: Assessment: Postoperative day #14 following takeback for perforated gastric ulcer Vital signs stable, afebrile Patient complaining of right-sided abdominal pain Earnest drain output on the right upper quadrant filled with serous fluid, minimal output Midline abdominal wound erythematous, with serous drainage, and underlying fat necrosis, fascia intact Hemoglobin 7.2 Bowel function returned On tube feeding via jejunostomy tolerated Plan: Open abdominal wound at bedside and cultures taken; packed twice daily wet-to-dry normal saline technique Start Mefoxin 2 g IV every 6 Diflucan 400 mg IV piggyback x1 today, then 20 mg IV piggyback every 24 nelli infection prophylaxis Give 1 unit of packed red blood cells Check potassium, replace if needed Change tube feeding from Nepro to more appropriate solution as the patient kidney function is improved and Start IV fluids normal saline 75 mL's per hour Continue n.p.o. Keep G-tube unclamped Keep Wang catheter Decrease IV narcotics
[2020-09-11] MEDS: NORMAL SALINE 1000 ML 1,000 ML IV PRN (13:01)
[2020-09-11 13:56] LABS: ANION GAP 7 (5-19); BLOOD UREA NITROGEN 10 mg/dL (7-20); CALCIUM 8.3 mg/dL (8.4-10.2); CARBON DIOXIDE 35 mmol/L (22-30); CHLORIDE 91 mmol/L (98-107); GLUCOSE 119 mg/dL (75-110); POTASSIUM 3.2 mmol/L (3.6-5.0)
[2020-09-11] MEDS: ACETAMINOPHEN 1,000 MG/100 ML RTUPB IV SCH ×2 (14:29→21:48)
[2020-09-11] MEDS: CEFOXITIN SODIUM 2 GM in DEXTROSE 5%-WATER 100 ML IV SCH ×2 (15:43→22:38)
[2020-09-11] MEDS ORDERED: ACETAMINOPHEN 1,000 MG/100 ML RTUPB IV SCH (18:00)
[2020-09-11 21:01] LABS: ABSOLUTE BASOPHILS # (AUTO) 0.1 10^3/uL (0.0-0.2); ABSOLUTE EOSINOPHILS # (AUTO) 0.3 10^3/uL (0.0-0.6); ABSOLUTE LYMPHOCYTES (AUTO) 1.6 10^3/uL (0.5-4.7); ABSOLUTE MONOCYTES (AUTO) 0.9 10^3/uL (0.1-1.4); ABSOLUTE NEUT (AUTO) 7.4 10^3/uL (1.7-8.2); BASOPHILS % (AUTO) 0.8 % (0-2); EOSINOPHILS % (AUTO) 3.1 % (0-6); HEMATOCRIT 22.8 % (37.9-51.0); LYMPHOCYTES % (AUTO) 15.8 % (13-45); MEAN CORPUSCULAR HEMOGLOBIN 28.5 pg (27.0-33.4); MEAN CORPUSCULAR HGB CONC 34.2 g/dL (32.0-36.0); MEAN CORPUSCULAR VOLUME 83 fl (80-97); MONOCYTES % (AUTO) 8.7 % (3-13); PLATELET COUNT 298 10^3/uL (150-450); RED BLOOD COUNT 2.74 10^6/uL (4.35-5.55); RED CELL DISTRIBUTION WIDTH 15.5 % (11.5-14.0); SEGMENTED NEUTROPHILS % (AUTO) 71.6 % (42-78); TOTAL CELLS COUNTED % (AUTO) 100 %; WHITE BLOOD COUNT 10.3 10^3/uL (4.0-10.5)
[2020-09-11 21:11] LABS: HEMOGLOBIN 7.8 g/dL (13.5-17.0)
[2020-09-12] MEDS: INSULIN LISPRO 100 UNIT/ML 3 ML VIAL SUBCUT SCH ×4 (02:51→18:07)
[2020-09-12] MEDS: NORMAL SALINE 1000 ML 1,000 ML IV PRN ×2 (03:06→17:52)
[2020-09-12] MEDS: CEFOXITIN SODIUM 2 GM in DEXTROSE 5%-WATER 100 ML IV SCH ×4 (03:06→22:22)
[2020-09-12] MEDS: HYDROMORPHONE HCL INJ/PF 2 MG/ML AMPULE IV PRN ×9 (03:15→22:22)
[2020-09-12] MEDS: ACETAMINOPHEN 1,000 MG/100 ML RTUPB IV SCH ×4 (04:14→21:36)
[2020-09-12 06:21] LABS: MEAN CORPUSCULAR HEMOGLOBIN 28.6 pg (27.0-33.4); MEAN CORPUSCULAR HGB CONC 34.3 g/dL (32.0-36.0); MEAN CORPUSCULAR VOLUME 83 fl (80-97); PLATELET COUNT 291 10^3/uL (150-450); RED BLOOD COUNT 2.77 10^6/uL (4.35-5.55); RED CELL DISTRIBUTION WIDTH 15.4 % (11.5-14.0); WHITE BLOOD COUNT 9.6 10^3/uL (4.0-10.5)
[2020-09-12 06:38] LABS: ANION GAP 5 (5-19); BLOOD UREA NITROGEN 12 mg/dL (7-20); CARBON DIOXIDE 35 mmol/L (22-30); CHLORIDE 92 mmol/L (98-107); GLUCOSE 124 mg/dL (75-110); POTASSIUM 3.2 mmol/L (3.6-5.0)
[2020-09-12 07:41] LABS: HEMOGLOBIN 7.9 g/dL (13.5-17.0)
[2020-09-12 07:43] LABS: ABSOLUTE LYMPHOCYTES# (MANUAL) 1.3 10^3/uL (0.5-4.7); ABSOLUTE MONOCYTES # (MANUAL) 0.6 10^3/uL (0.1-1.4); BASOPHILS % (MANUAL) 1 % (0-2); EOSINOPHILS % (MANUAL) 3 % (0-6); LYMPHOCYTES % (MANUAL) 14 % (13-45); METAMYELOCYTES % (MANUAL) 1 % (0-1); MONOCYTES % (MANUAL) 6 % (3-13); SEGMENTED NEUTROPHILS % (MAN) 75 % (42-78); TOTAL CELLS COUNTED 100
[2020-09-12 07:44] LABS: ANISOCYTOSIS SLIGHT; PLATELET COMMENT ADEQUATE; POIKILOCYTOSIS SLIGHT; ROULEAUX SLIGHT
--- NOTE | 2020-09-12 11:03 | PDOC PROGRESS REPORT ---
Subjective Progress Note for:: 09/12/20 Subjective:: Patient comfortable Reason For Visit: PERFORATED VISCUS Physical Exam Vital Signs: Temp Pulse Resp BP Pulse Ox 97.8 F 71 20 133/68 H 96 09/12/20 08:00 09/12/20 08:00 09/12/20 08:00 09/12/20 08:00 09/12/20 08:00 Intake & Output 09/11/20 09/12/20 09/13/20 06:59 06:59 06:59 Intake Total 1394 3814 100 Output Total 5954 1350 10 Balance -4560 2464 90 Weight 158.1 kg 160.3 kg General appearance: PRESENT: no acute distress, obese Respiratory exam: PRESENT: clear to auscultation anabella Cardiovascular exam: PRESENT: RRR GI/Abdominal exam: PRESENT: soft - Large, not distended, not tender, midline incision with granulation tissue, surrounding erythema of the midportion and fibrinous material covering the subcutaneous fat Neurological exam: PRESENT: alert, awake Results Laboratory Results: 09/12/20 05:49 09/12/20 05:49 09/11/20 09/11/20 09/11/20 13:00 14:15 20:55 WBC 10.3 RBC 2.74 L Hgb 7.8 L Hct 22.8 L MCV 83 MCH 28.5 MCHC 34.2 RDW 15.5 H Plt Count 298 Seg Neutrophils % 71.6 Sodium 132.5 L Potassium 3.2 L Chloride 91 L Carbon Dioxide 35 H Anion Gap 7 BUN 10 Creatinine 1.17 Est GFR ( Amer) > 60 Glucose 119 H Calcium 8.3 L Blood Type O POSITIVE Antibody Screen NEGATIVE 09/12/20 09/12/20 05:49 05:49 WBC 9.6 RBC 2.77 L Hgb 7.9 L Hct 23.0 L MCV 83 MCH 28.6 MCHC 34.3 RDW 15.4 H Plt Count 291 Seg Neutrophils % Not Reportable Sodium 132.1 L Potassium 3.2 L Chloride 92 L Carbon Dioxide 35 H Anion Gap 5 BUN 12 Creatinine 1.02 Est GFR ( Amer) > 60 Glucose 124 H Calcium 8.0 L Blood Type Antibody Screen Impressions: Abdomen/Pelvis CT 08/22/20 23:14 IMPRESSION: 1. Pneumoperitoneum, likely due to gastric perforation 2. Scattered free fluid throughout the abdomen. KUB X-Ray 08/26/20 00:00 IMPRESSION: SATISFACTORY POSITION OF THE NASOGASTRIC TUBE. Chest X-Ray 08/28/20 00:00 IMPRESSION: 1. Positioning of support lines and tubes as above. 2. Low lung volumes with compressive changes, evidence of trace bilateral pleural effusions and minimal nonspecific patchy basilar opacities. Please note at the time of image interpretation no prior exams are available for comparison. Upper GI Series-Limited 09/03/20 00:00 IMPRESSION: POSTSURGICAL MUCOSAL THICKENING AND EDEMA AROUND THE ANTRUM, DUO DENAL BULB, AND PROXIMAL DUODENUM WITHOUT EVIDENCE OF EXTRAVASATION OR LEAK. Assessment & Plan - Diagnosis (1) Perforated prepyloric ulcer Is this a current diagnosis for this admission?: Yes - Time Anticipated Discharge Disposition: Intermediate Care Facility Anticipated Discharge Timeframe: When patient clinically ready - Plan Summary Plan Summary: Assessment: Postoperative day #15 following takeback for perforated gastric ulcer Vital signs stable, afebrile Patient abdominal pain proved Earnest drain output on the right upper quadrant filled with serous fluid, scant output Improved midline abdominal wound erythema after opening of wound at bedside and administration of IV antibiotics (Mefoxin) Abdominal wound culture pending Bowel function returned On tube feeding via jejunostomy, Glucerna 1.5 at 20 mL's per hour tolerated Globin 7.9 following 1 unit of blood yesterday Potassium 3.2 Plan: Replace potassium with IV KCl rider Increase feeding jejunostomy rate of 10 mL's q8, until goal rate of 60 mL-hour ag service manager on consult for transfer to SNF Waiting for abdominal wound cultures
[2020-09-12] MEDS: POTASSI CL 20 MEQ/50 ML RIDER 20 MEQ/50 ML RTUPB IV SCH ×3 (12:09→16:36)
[2020-09-12] MEDS ORDERED: FLUCONAZOLE 400 MG/NS RTU 400 MG/200 ML RTUPB IV ONE (14:00)
[2020-09-12 22:18] LABS: BLOOD UREA NITROGEN 12 mg/dL (7-20); CALCIUM 7.8 mg/dL (8.4-10.2); GLUCOSE 101 mg/dL (75-110); POTASSIUM 3.6 mmol/L (3.6-5.0)
[2020-09-12 22:23] LABS: CARBON DIOXIDE 33 mmol/L (22-30); CHLORIDE 93 mmol/L (98-107)
[2020-09-12 22:27] LABS: ANION GAP 4 (5-19)
[2020-09-13] MEDS: HYDROMORPHONE HCL INJ/PF 2 MG/ML AMPULE IV PRN ×9 (00:22→19:50)
[2020-09-13] MEDS: CEFOXITIN SODIUM 2 GM in DEXTROSE 5%-WATER 100 ML IV SCH ×4 (02:05→22:29)
[2020-09-13] MEDS: INSULIN LISPRO 100 UNIT/ML 3 ML VIAL SUBCUT SCH ×4 (02:12→17:45)
[2020-09-13] MEDS: ACETAMINOPHEN 1,000 MG/100 ML RTUPB IV SCH ×4 (04:37→21:50)
[2020-09-13 07:03] LABS: ABSOLUTE EOSINOPHILS # (AUTO) 0.4 10^3/uL (0.0-0.6); ABSOLUTE LYMPHOCYTES (AUTO) 1.7 10^3/uL (0.5-4.7); ABSOLUTE NEUT (AUTO) 7.5 10^3/uL (1.7-8.2); BASOPHILS % (AUTO) 0.3 % (0-2); EOSINOPHILS % (AUTO) 3.7 % (0-6); HEMATOCRIT 22.8 % (37.9-51.0); MEAN CORPUSCULAR HGB CONC 34.2 g/dL (32.0-36.0); MEAN CORPUSCULAR VOLUME 85 fl (80-97); PLATELET COUNT 301 10^3/uL (150-450); RED BLOOD COUNT 2.68 10^6/uL (4.35-5.55); RED CELL DISTRIBUTION WIDTH 15.5 % (11.5-14.0); TOTAL CELLS COUNTED % (AUTO) 100 %; WHITE BLOOD COUNT 10.6 10^3/uL (4.0-10.5)
[2020-09-13 07:07] LABS: HEMOGLOBIN 7.8 g/dL (13.5-17.0)
[2020-09-13 07:25] LABS: PHOSPHORUS 3.6 mg/dL (2.5-4.5)
[2020-09-13 07:29] LABS: BLOOD UREA NITROGEN 12 mg/dL (7-20); CALCIUM 7.6 mg/dL (8.4-10.2); CARBON DIOXIDE 34 mmol/L (22-30); CHLORIDE 95 mmol/L (98-107); GLUCOSE 102 mg/dL (75-110)
[2020-09-13 07:32] LABS: PREALBUMIN 9.9 mg/dL (17.6-36.0)
[2020-09-13 07:39] LABS: ANION GAP 4 (5-19)
[2020-09-13 13:24] LABS: ALBUMIN 2.3 g/dL (3.5-5.0); ALKALINE PHOSPHATASE 125 U/L (38-126); ASPARTATE AMINO TRANSFERASE 32 U/L (17-59); BILIRUBIN,DIRECT 0.1 mg/dL (0.0-0.4); BILIRUBIN,TOTAL 0.2 mg/dL (0.2-1.3); TOTAL PROTEIN 5.1 g/dL (6.3-8.2)
--- NOTE | 2020-09-13 15:53 | PDOC PROGRESS REPORT ---
Subjective Date:: 09/13/20 Reason For Visit: PERFORATED VISCUS Patient in the chair; breathing reasonably Physical Exam Vital Signs: Temp Pulse Resp BP Pulse Ox 98.2 F 78 19 156/70 H 95 09/13/20 12:00 09/13/20 12:00 09/13/20 12:00 09/13/20 12:00 09/13/20 12:00 Intake & Output 09/12/20 09/13/20 09/14/20 06:59 06:59 06:59 Intake Total 3814 3064 100 Output Total 1350 2050 400 Balance 2464 1014 -300 Weight 160.3 kg 154.6 kg 154.6 kg General appearance: PRESENT: mild distress GI/Abdominal exam: PRESENT: other - Abdomen examined. All packing from midline wound removed; retention sutures in place; less periwound erythema and edema compared to last week; open cavities to midline cleaned out with peroxide and Q- tip; no foul smell or pus, only serosanguineous drainage Results Laboratory Results: 09/13/20 06:20 09/13/20 06:20 09/12/20 09/13/20 09/13/20 21:40 06:20 06:20 WBC 10.6 H RBC 2.68 L Hgb 7.8 L Hct 22.8 L MCV 85 MCH 29.0 MCHC 34.2 RDW 15.5 H Plt Count 301 Seg Neutrophils % 71.0 Sodium 130.2 L 133.1 L Potassium 3.6 4.0 Chloride 93 L 95 L Carbon Dioxide 33 H 34 H Anion Gap 4 L 4 L BUN 12 12 Creatinine 0.96 0.90 Est GFR ( Amer) > 60 > 60 Glucose 101 102 Calcium 7.8 L 7.6 L Phosphorus Magnesium Total Bilirubin 0.2 AST 32 Alkaline Phosphatase 125 Total Protein 5.1 L Albumin 2.3 L Prealbumin Triglycerides 09/13/20 09/13/20 06:20 06:20 WBC RBC Hgb Hct MCV MCH MCHC RDW Plt Count Seg Neutrophils % Sodium Potassium Chloride Carbon Dioxide Anion Gap BUN Creatinine Est GFR ( Amer) Glucose Calcium Phosphorus 3.6 Magnesium 1.3 L Total Bilirubin AST Alkaline Phosphatase Total Protein Albumin Prealbumin 9.9 L Triglycerides 176 H Impressions: Abdomen/Pelvis CT 08/22/20 23:14 IMPRESSION: 1. Pneumoperitoneum, likely due to gastric perforation 2. Scattered free fluid throughout the abdomen. KUB X-Ray 08/26/20 00:00 IMPRESSION: SATISFACTORY POSITION OF THE NASOGASTRIC TUBE. Chest X-Ray 08/28/20 00:00 IMPRESSION: 1. Positioning of support lines and tubes as above. 2. Low lung volumes with compressive changes, evidence of trace bilateral pleural effusions and minimal nonspecific patchy basilar opacities. Please note at the time of image interpretation no prior exams are available for comparison. Assessment & Plan - Diagnosis (1) Perforated gastric ulcer Qualifiers: Gastric ulcer chronicity: acute Qualified Code(s): K25.1 - Acute gastric ulcer with perforation Is this a current diagnosis for this admission?: Yes Plan: Impression: Patient nearly 3 weeks status post takeback for repair of a perforated gastric ulcer, support tubes, doing better, with clinically improved intra-abdominal wall; persisting anemia but not hemodynamically significant. Tolerating tube feeds. Plan: 1. Obtained contrast study today; no leak, with successful passage of contrast through duodenum: Therefore we will start clear liquids 2. Continue local wound care 3. Patient may need central line removed and/or changed 4. Continue IV Mefoxin (2) Perforated prepyloric ulcer Is this a current diagnosis for this admission?: Yes (3) T2DM (type 2 diabetes mellitus) Qualifiers: Diabetes mellitus correction insulin use: without correction use Diabetes mellitus complication status: with neurologic complications Diabetes mellitus complication detail: with polyneuropathy Qualified Code(s): E11.42 - Type 2 diabetes mellitus with diabetic polyneuropathy Is this a current diagnosis for this admission?: Yes - Time Anticipated Discharge Disposition: Home with Home Health Anticipated Discharge Timeframe: To be determined Time Spent: 30 to 50 Minutes Critical Time spent with patient: Less than 15 minutes Smoking Cessation Education: 3 to 10 minutes Medications reviewed and adjusted accordingly: Yes
--- NOTE | 2020-09-13 15:56 | RADIOLOGY REPORT (SQ) ---
EXAM DESCRIPTION: UGI W/ SINGLE CONTRAST IMAGES COMPLETED DATE/TIME: 09/13/2020 3:20 pm REASON FOR STUDY: r/o leakStatus post gastric ulcer repair with persistent right upper quadrant pain COMPARISON: Upper GI 09/03/2020 and 08/25/2004 TECHNIQUE: Under fluoroscopic guidance, patient ingested Omnipaque 300 and additional Omnipaque 300 was instilled through the patient's PEG tube. Fluoroscopic spot images and routine radiographic image s acquired and stored on PACS. LIMITATIONS: Patient is very large and immobile FLUOROSCOPY TIME: FLUORO TIME: 1.8 minutes of fluoroscopy was used. 19 images saved to PACS. FINDINGS: NEUROMUSCULAR COORDINATION OF SWALLOW: Normal. No aspiration. ESOPHAGEAL MOTILITY: Normal peristalsis. No esophageal spasm. ESOPHAGEAL MUCOSA: Normal mucosa without masses or ulceration. GASTRO-ESOPHAGEAL JUNCTION: Moderate free-flowing gastroesophageal reflux noted. STOMACH: Fundus and body of the stomach are unremarkable. Postoperative changes seen of the antrum o f the stomach and pre pyloric area of with mass-effect from previous mental wrap. The pylorus is a n arrow although contrast does flow into the duodenum. No evidence of extravasation or leak of contras t can be seen. GASTRIC OUTLET: Slight narrowing of the pyloric channel does delay gastric emptying although no obstr uction is seen. DUODENAL BULB: Normal distention. No spasm or ulceration. DUODENUM: Mucosa normal. No extrinsic masses or malrotation. PROXIMAL JEJUNUM: Limited visualization NON-GI TRACT STRUCTURES: Right upper quadrant drain tube and PEG tubes are in place OTHER: No other significant finding. IMPRESSION: NO EVIDENCE OF EXTRAVASATION OR LEAK FROM THE POSTSURGICAL AREA INVOLVING THE ANTRUM OF THE STOMACH. MODERATE NARROWING OF THE PYLORIC CHANNEL DUE TO POSTSURGICAL CHANGES SEEMS TO DELAY GA STRIC EMPTYING BUT IS NONOBSTRUCTIVE. NEW COMMENT: Quality ID [id number]: Final reports for procedures using fluoroscopy that document radiation exp osure indices, or exposure time and number of fluorographic images (if radiation exposure indices are not available) TECHNICAL DOCUMENTATION: JOB ID: [id number] 2010 [employer]- All Rights Reserved Reading location - IP/workstation name: [email or web address] [id number]
[2020-09-13] MEDS: LOPERAMIDE HCL 2 MG CAPSULE PO PRN (19:50)
--- NOTE | 2020-09-13 20:00 | PDOC PROGRESS REPORT ---
Subjective Date:: 09/13/20 Subjective:: Patient seen by the bedside he has severe hyperammonemia with third spacing of f luid, will discontinue IV fluid Reason For Visit: PERFORATED VISCUS Physical Exam Vital Signs: Temp Pulse Resp BP Pulse Ox 97.9 F 90 20 144/75 H 100 09/13/20 16:00 09/13/20 16:00 09/13/20 16:00 09/13/20 16:00 09/13/20 16:00 Intake & Output 09/12/20 09/13/20 09/14/20 06:59 06:59 06:59 Intake Total 3814 3064 100 Output Total 1350 2050 800 Balance 2464 1014 -700 Weight 160.3 kg 154.6 kg 154.6 kg General appearance: PRESENT: no acute distress Eye exam: PRESENT: PERRLA Respiratory exam: PRESENT: clear to auscultation anabella Cardiovascular exam: PRESENT: +S1, +S2 GI/Abdominal exam: PRESENT: soft Neurological exam: PRESENT: alert, CN II-XII grossly intact Results Laboratory Results: 09/13/20 06:20 09/13/20 06:20 09/12/20 09/13/20 09/13/20 21:40 06:20 06:20 WBC 10.6 H RBC 2.68 L Hgb 7.8 L Hct 22.8 L MCV 85 MCH 29.0 MCHC 34.2 RDW 15.5 H Plt Count 301 Seg Neutrophils % 71.0 Sodium 130.2 L 133.1 L Potassium 3.6 4.0 Chloride 93 L 95 L Carbon Dioxide 33 H 34 H Anion Gap 4 L 4 L BUN 12 12 Creatinine 0.96 0.90 Est GFR ( Amer) > 60 > 60 Glucose 101 102 Calcium 7.8 L 7.6 L Phosphorus Magnesium Total Bilirubin 0.2 AST 32 Alkaline Phosphatase 125 Total Protein 5.1 L Albumin 2.3 L Prealbumin Triglycerides 09/13/20 09/13/20 06:20 06:20 WBC RBC Hgb Hct MCV MCH MCHC RDW Plt Count Seg Neutrophils % Sodium Potassium Chloride Carbon Dioxide Anion Gap BUN Creatinine Est GFR ( Amer) Glucose Calcium Phosphorus 3.6 Magnesium 1.3 L Total Bilirubin AST Alkaline Phosphatase Total Protein Albumin Prealbumin 9.9 L Triglycerides 176 H Impressions: Abdomen/Pelvis CT 08/22/20 23:14 IMPRESSION: 1. Pneumoperitoneum, likely due to gastric perforation 2. Scattered free fluid throughout the abdomen. KUB X-Ray 08/26/20 00:00 IMPRESSION: SATISFACTORY POSITION OF THE NASOGASTRIC TUBE. Chest X-Ray 08/28/20 00:00 IMPRESSION: 1. Positioning of support lines and tubes as above. 2. Low lung volumes with compressive changes, evidence of trace bilateral pleural effusions and minimal nonspecific patchy basilar opacities. Please note at the time of image interpretation no prior exams are available for comparison. Upper GI Series-Limited 09/13/20 00:00 IMPRESSION: NO EVIDENCE OF EXTRAVASATION OR LEAK FROM THE POSTSURGICAL AREA INVOLVING THE ANTRUM OF THE STOMACH. MODERATE NARROWING OF THE PYLORIC CHANNEL DUE TO POSTSURGICAL CHANGES SEEMS TO DELAY GASTRIC EMPTYING BUT IS NONOBSTRUCTIVE. NEW Assessment & Plan - Diagnosis (1) T2DM (type 2 diabetes mellitus) Qualifiers: Diabetes mellitus assisted insulin use: without assisted use Diabetes mellitus complication status: with neurologic complications Diabetes mellitus complication detail: with polyneuropathy Qualified Code(s): E11.42 - Type 2 diabetes mellitus with diabetic polyneuropathy Is this a current diagnosis for this admission?: Yes Plan: Continue present management (2) Perforated gastric ulcer Qualifiers: Gastric ulcer chronicity: acute Qualified Code(s): K25.1 - Acute gastric ulcer with perforation Is this a current diagnosis for this admission?: Yes (3) Rheumatoid arthritis Qualifiers: Rheumatoid arthritis location: knee Rheumatoid factor presence: with rheumatoid factor Laterality: bilateral Qualified Code(s): M05.761 - Rh eumatoid arthritis with rheumatoid factor of right knee without organ or systems involvement; M05.762 - Rheumatoid arthritis with rheumatoid factor of left knee without organ or systems involvement Is this a current diagnosis for this admission?: Yes (4) Intra-abdominal abscess Is this a current diagnosis for this admission?: Yes (5) Acute renal injury Is this a current diagnosis for this admission?: Yes (6) Edema Qualifiers: Edema type: unspecified Qualified Code(s): R60.9 - Edema, unspecified Is this a current diagnosis for this admission?: Yes Plan: Discontinue IV fluid - Time Time Spent with patient: 25-34 minutes Level of Care: IMCU Medications reviewed and adjusted accordingly: Yes Anticipated discharge: Home - Inpatient Certification Based on my medical assessment, after consideration of the patient's comorbidities, presenting symptoms, or acuity I expect that the services needed warrant INPATIENT care.: Yes I certify that my determination is in accordance with my understanding of Medicare's requirements for reasonable and necessary INPATIENT services [42 CFR 412.3e].: Yes
[2020-09-14] MEDS: HYDROMORPHONE HCL INJ/PF 2 MG/ML AMPULE IV PRN ×9 (00:03→23:48)
[2020-09-14] MEDS: LOPERAMIDE HCL 2 MG CAPSULE PO PRN ×6 (00:03→21:52)
[2020-09-14] MEDS: INSULIN LISPRO 100 UNIT/ML 3 ML VIAL SUBCUT SCH ×4 (00:13→19:05)
[2020-09-14] MEDS: ACETAMINOPHEN 1,000 MG/100 ML RTUPB IV SCH ×2 (03:40→08:12)
[2020-09-14] MEDS: CEFOXITIN SODIUM 2 GM in DEXTROSE 5%-WATER 100 ML IV SCH ×3 (03:40→16:09)
[2020-09-14 06:59] LABS: ABSOLUTE BASOPHILS # (AUTO) 0.1 10^3/uL (0.0-0.2); ABSOLUTE EOSINOPHILS # (AUTO) 0.4 10^3/uL (0.0-0.6); ABSOLUTE LYMPHOCYTES (AUTO) 1.5 10^3/uL (0.5-4.7); ABSOLUTE MONOCYTES (AUTO) 0.9 10^3/uL (0.1-1.4); ABSOLUTE NEUT (AUTO) 8.2 10^3/uL (1.7-8.2); BASOPHILS % (AUTO) 0.6 % (0-2); EOSINOPHILS % (AUTO) 3.4 % (0-6); HEMATOCRIT 22.5 % (37.9-51.0); LYMPHOCYTES % (AUTO) 13.7 % (13-45); MEAN CORPUSCULAR HEMOGLOBIN 28.9 pg (27.0-33.4); MEAN CORPUSCULAR HGB CONC 34.1 g/dL (32.0-36.0); MEAN CORPUSCULAR VOLUME 85 fl (80-97); MONOCYTES % (AUTO) 7.9 % (3-13); PLATELET COUNT 275 10^3/uL (150-450); RED BLOOD COUNT 2.65 10^6/uL (4.35-5.55); RED CELL DISTRIBUTION WIDTH 15.6 % (11.5-14.0); SEGMENTED NEUTROPHILS % (AUTO) 74.4 % (42-78); TOTAL CELLS COUNTED % (AUTO) 100 %
[2020-09-14 07:18] LABS: HEMOGLOBIN 7.7 g/dL (13.5-17.0)
[2020-09-14 07:24] LABS: ANION GAP 5 (5-19); BLOOD UREA NITROGEN 13 mg/dL (7-20); CALCIUM 7.5 mg/dL (8.4-10.2); CARBON DIOXIDE 31 mmol/L (22-30); CHLORIDE 98 mmol/L (98-107); GLUCOSE 111 mg/dL (75-110); POTASSIUM 3.9 mmol/L (3.6-5.0)
--- NOTE | 2020-09-14 17:59 | PDOC PROGRESS REPORT ---
Subjective Date:: 09/14/20 Subjective:: Patient comfortable, denies abdominal pain Reason For Visit: PERFORATED VISCUS Physical Exam Vital Signs: Temp Pulse Resp BP Pulse Ox 98.5 F 86 18 122/52 L 98 09/14/20 16:12 09/14/20 16:12 09/14/20 16:12 09/14/20 16:12 09/14/20 16:12 Intake & Output 09/13/20 09/14/20 09/15/20 06:59 06:59 06:59 Intake Total 3064 3180 221 Output Total 2050 2125 325 Balance 1014 1055 -104 Weight 154.6 kg 154.6 kg 154.6 kg General appearance: PRESENT: no acute distress, obese GI/Abdominal exam: PRESENT: soft - Obese, other - Midline incision clean, still erythematous in the midportion, no drainage, no odor Results Laboratory Results: 09/14/20 05:30 09/14/20 05:30 09/14/20 09/14/20 05:30 05:30 WBC 11.0 H RBC 2.65 L Hgb 7.7 L Hct 22.5 L MCV 85 MCH 28.9 MCHC 34.1 RDW 15.6 H Plt Count 275 Seg Neutrophils % 74.4 Sodium 133.8 L Potassium 3.9 Chloride 98 Carbon Dioxide 31 H Anion Gap 5 BUN 13 Creatinine 0.79 Est GFR ( Amer) > 60 Glucose 111 H Calcium 7.5 L 09/11/20 11:43 Abdomen - Incision Site Gram Stain - Final 09/11/20 11:43 Abdomen - Incision Site Wound Culture - Final Acinetobacter Baumannii/Haem Staphylococcus Epidermidis No Anaerobic Organisms Impressions: Abdomen/Pelvis CT 08/22/20 23:14 IMPRESSION: 1. Pneumoperitoneum, likely due to gastric perforation 2. Scattered free fluid throughout the abdomen. KUB X-Ray 08/26/20 00:00 IMPRESSION: SATISFACTORY POSITION OF THE NASOGASTRIC TUBE. Chest X-Ray 08/28/20 00:00 IMPRESSION: 1. Positioning of support lines and tubes as above. 2. Low lung volumes with compressive changes, evidence of trace bilateral pleural effusions and minimal nonspecific patchy basilar opacities. Please note at the time of image interpretation no prior exams are available for comparison. Upper GI Series-Limited 09/13/20 00:00 IMPRESSION: NO EVIDENCE OF EXTRAVASATION OR LEAK FROM THE POSTSURGICAL AREA INVOLVING THE ANTRUM OF THE STOMACH. MODERATE NARROWING OF THE PYLORIC CHANNEL DUE TO POSTSURGICAL CHANGES SEEMS TO DELAY GASTRIC EMPTYING BUT IS NONOBSTRUCTIVE. NEW Assessment & Plan - Diagnosis (1) Perforated prepyloric ulcer Is this a current diagnosis for this admission?: Yes - Time Anticipated Discharge Disposition: [facility] Anticipated Discharge Timeframe: when bed available - Plan Summary Plan Summary: Assessment: S/p perforated procedure gastric ulcer ablated x2 Patient on tube feeding well-tolerated CT scan abdomen pelvis with oral contrast reveals no leak a day gastric ulcer repair site Clear liquid diet started today and tolerated Abdominal midline surgical incision appears to be improving following wound care as well as oral antibiotics Wound culture significant for Enterobacter and Staphylococcus Patient currently on Mefoxin and Diflucan IV Patient has the current IJ central venous line time in order for surgery Plan: Advance diet to full liquids Discontinue central venous line Change antibiotics to oral (Augmentin and Diflucan) LTAC contacted by assistant media planner for possible transfer in the next 2 days We'll remove abdominal drain tomorrow We'll keep the gastrostomy tube in place and clamped
[2020-09-14] MEDS ORDERED: PROCHLORPERAZINE EDISYLATE INJ 10 MG/2 ML VIAL IM PRN (18:05)
[2020-09-14] MEDS: ACETAMINOPHEN 325 MG TABLET PO PRN (19:47)
[2020-09-14] MEDS ORDERED: FLUCONAZOLE 100 MG TABLET PO ONE (20:00)
--- NOTE | 2020-09-14 21:13 | PDOC PROGRESS REPORT ---
Subjective Date:: 09/14/20 Subjective:: Patient is seen by the bedside, complain of pain Reason For Visit: PERFORATED VISCUS Physical Exam Vital Signs: Temp Pulse Resp BP Pulse Ox 98.2 F 90 17 160/70 H 98 09/14/20 19:54 09/14/20 19:54 09/14/20 19:54 09/14/20 19:54 09/14/20 19:54 Intake & Output 09/13/20 09/14/20 09/15/20 06:59 06:59 06:59 Intake Total 3064 3180 442 Output Total 2050 2125 475 Balance 1014 1055 -33 Weight 154.6 kg 154.6 kg 154.6 kg General appearance: PRESENT: no acute distress Eye exam: PRESENT: PERRLA Respiratory exam: PRESENT: clear to auscultation anabella Cardiovascular exam: PRESENT: +S1, +S2 GI/Abdominal exam: PRESENT: soft Neurological exam: PRESENT: alert Results Laboratory Results: 09/14/20 05:30 09/14/20 05:30 09/14/20 09/14/20 05:30 05:30 WBC 11.0 H RBC 2.65 L Hgb 7.7 L Hct 22.5 L MCV 85 MCH 28.9 MCHC 34.1 RDW 15.6 H Plt Count 275 Seg Neutrophils % 74.4 Sodium 133.8 L Potassium 3.9 Chloride 98 Carbon Dioxide 31 H Anion Gap 5 BUN 13 Creatinine 0.79 Est GFR ( Amer) > 60 Glucose 111 H Calcium 7.5 L 09/11/20 11:43 Abdomen - Incision Site Gram Stain - Final 09/11/20 11:43 Abdomen - Incision Site Wound Culture - Final Acinetobacter Baumannii/Haem Staphylococcus Epidermidis No Anaerobic Organisms Impressions: Abdomen/Pelvis CT 08/22/20 23:14 IMPRESSION: 1. Pneumoperitoneum, likely due to gastric perforation 2. Scattered free fluid throughout the abdomen. KUB X-Ray 08/26/20 00:00 IMPRESSION: SATISFACTORY POSITION OF THE NASOGASTRIC TUBE. Chest X-Ray 08/28/20 00:00 IMPRESSION: 1. Positioning of support lines and tubes as above. 2. Low lung volumes with compressive changes, evidence of trace bilateral pleural effusions and minimal nonspecific patchy basilar opacities. Please note at the time of image interpretation no prior exams are available for comparison. Upper GI Series-Limited 09/13/20 00:00 IMPRESSION: NO EVIDENCE OF EXTRAVASATION OR LEAK FROM THE POSTSURGICAL AREA INVOLVING THE ANTRUM OF THE STOMACH. MODERATE NARROWING OF THE PYLORIC CHANNEL DUE TO POSTSURGICAL CHANGES SEEMS TO DELAY GASTRIC EMPTYING BUT IS NONOBSTRUCTIVE. NEW Assessment & Plan - Diagnosis (1) T2DM (type 2 diabetes mellitus) Qualifiers: Diabetes mellitus mcfp insulin use: without mcfp use Diabetes mellitus complication status: with neurologic complications Diabetes mellitus complication detail: with polyneuropathy Qualified Code(s): E11.42 - Type 2 diabetes mellitus with diabetic polyneuropathy Is this a current diagnosis for this admission?: Yes Plan: Continue present management (2) Perforated gastric ulcer Qualifiers: Gastric ulcer chronicity: acute Qualified Code(s): K25.1 - Acute gastric ulcer with perforation Is this a current diagnosis for this admission?: Yes (3) Rheumatoid arthritis Qualifiers: Rheumatoid arthritis location: knee Rheumatoid factor presence: with rheumatoid factor Laterality: bilateral Qualified Code(s): M05.761 - Rheumatoid arthritis with rheumatoid factor of right knee without organ or systems involvement; M05.762 - Rheumatoid arthritis with rheumatoid factor of left knee without organ or systems involvement Is this a current diagnosis for this admission?: Yes (4) Intra-abdominal abscess Is this a current diagnosis for this admission?: Yes (5) Acute renal injury Is this a current diagnosis for this admission?: Yes (6) Edema Qualifiers: Edema type: unspecified Qualified Code(s): R60.9 - Edema, unspecified Is this a current diagnosis for this admission?: Yes - Time Time Spent with patient: 15-24 minutes Medications reviewed and adjusted accordingly: Yes Anticipated discharge: Home
[2020-09-14] MEDS: AMOXICILLIN TR/POT CLAVULANATE 875-125 MG TAB PO SCH (21:45)
[2020-09-15] MEDS: INSULIN LISPRO 100 UNIT/ML 3 ML VIAL SUBCUT SCH ×4 (00:08→19:13)
[2020-09-15] MEDS: HYDROMORPHONE HCL INJ/PF 2 MG/ML AMPULE IV PRN ×11 (02:11→23:37)
[2020-09-15] MEDS: LOPERAMIDE HCL 2 MG CAPSULE PO PRN ×3 (02:16→20:32)
[2020-09-15 08:02] LABS: ABSOLUTE BASOPHILS # (AUTO) 0.1 10^3/uL (0.0-0.2); ABSOLUTE EOSINOPHILS # (AUTO) 0.5 10^3/uL (0.0-0.6); ABSOLUTE LYMPHOCYTES (AUTO) 2.1 10^3/uL (0.5-4.7); ABSOLUTE MONOCYTES (AUTO) 0.9 10^3/uL (0.1-1.4); ABSOLUTE NEUT (AUTO) 9.1 10^3/uL (1.7-8.2); EOSINOPHILS % (AUTO) 3.7 % (0-6); HEMATOCRIT 25.6 % (37.9-51.0); HEMOGLOBIN 8.3 g/dL (13.5-17.0); LYMPHOCYTES % (AUTO) 16.8 % (13-45); MEAN CORPUSCULAR HEMOGLOBIN 27.6 pg (27.0-33.4); MEAN CORPUSCULAR HGB CONC 32.6 g/dL (32.0-36.0); MEAN CORPUSCULAR VOLUME 85 fl (80-97); MONOCYTES % (AUTO) 6.8 % (3-13); PLATELET COUNT 258 10^3/uL (150-450); RED BLOOD COUNT 3.02 10^6/uL (4.35-5.55); RED CELL DISTRIBUTION WIDTH 15.2 % (11.5-14.0); SEGMENTED NEUTROPHILS % (AUTO) 71.7 % (42-78); TOTAL CELLS COUNTED % (AUTO) 100 %; WHITE BLOOD COUNT 12.7 10^3/uL (4.0-10.5)
[2020-09-15 08:21] LABS: ANION GAP 7 (5-19); BLOOD UREA NITROGEN 14 mg/dL (7-20); CARBON DIOXIDE 28 mmol/L (22-30); CHLORIDE 99 mmol/L (98-107); GLUCOSE 105 mg/dL (75-110); POTASSIUM 4.8 mmol/L (3.6-5.0)
--- NOTE | 2020-09-15 09:05 | PDOC PROGRESS REPORT ---
Subjective Date:: 09/15/20 Subjective:: no c/o Reason For Visit: PERFORATED VISCUS Physical Exam Vital Signs: Temp Pulse Resp BP Pulse Ox 98.5 F 83 20 138/65 H 100 09/15/20 07:31 09/15/20 07:31 09/15/20 07:31 09/15/20 07:31 09/15/20 07:31 Intake & Output 09/14/20 09/15/20 09/16/20 06:59 06:59 06:59 Intake Total 3180 1795 Output Total 2125 1575 Balance 1055 220 Weight 154.6 kg 154.6 kg General appearance: PRESENT: no acute distress, obese Respiratory exam: PRESENT: clear to auscultation anabella Cardiovascular exam: PRESENT: RRR GI/Abdominal exam: PRESENT: soft, other - midline wound= still some persistent erythema, granulating, no drainage or odor Results Laboratory Results: 09/15/20 07:53 09/15/20 07:53 09/15/20 09/15/20 07:53 07:53 WBC 12.7 H RBC 3.02 L Hgb 8.3 L Hct 25.6 L MCV 85 MCH 27.6 MCHC 32.6 RDW 15.2 H Plt Count 258 Seg Neutrophils % 71.7 Sodium 134.2 L Potassium 4.8 Chloride 99 Carbon Dioxide 28 Anion Gap 7 BUN 14 Creatinine 0.79 Est GFR ( Amer) > 60 Glucose 105 Calcium 8.0 L 09/11/20 11:43 Abdomen - Incision Site Gram Stain - Final 09/11/20 11:43 Abdomen - Incision Site Wound Culture - Final Acinetobacter Baumannii/Haem Staphylococcus Epidermidis No Anaerobic Organisms Impressions: Abdomen/Pelvis CT 08/22/20 23:14 IMPRESSION: 1. Pneumoperitoneum, likely due to gastric perforation 2. Scattered free fluid throughout the abdomen. KUB X-Ray 08/26/20 00:00 IMPRESSION: SATISFACTORY POSITION OF THE NASOGASTRIC TUBE. Chest X-Ray 08/28/20 00:00 IMPRESSION: 1. Positioning of support lines and tubes as above. 2. Low lung volumes with compressive changes, evidence of trace bilateral pleural effusions and minimal nonspecific patchy basilar opacities. Please note at the time of image interpretation no prior exams are available for comparison. Upper GI Series-Limited 09/13/20 00:00 IMPRESSION: NO EVIDENCE OF EXTRAVASATION OR LEAK FROM THE POSTSURGICAL AREA INVOLVING THE ANTRUM OF THE STOMACH. MODERATE NARROWING OF THE PYLORIC CHANNEL DUE TO POSTSURGICAL CHANGES SEEMS TO DELAY GASTRIC EMPTYING BUT IS NONOBSTRUCTIVE. NEW Assessment & Plan - Diagnosis (1) Perforated prepyloric ulcer Is this a current diagnosis for this admission?: Yes - Time Anticipated Discharge Disposition: [facility] Facility Anticipated Discharge Timeframe: when bed available - Plan Summary Plan Summary: Assessment: S/p perforated procedure gastric ulcer ablated x2 Patient on tube feeding well-tolerated CT scan abdomen pelvis with oral contrast negative for leakno leak a day gastric ulcer repair site Full liquid diet started today Abdominal midline surgical incision slowly improving, local wound care as well as oral antibiotics (Augmentin, Fluconazole) Wound culture significant for Enterobacter and Staphylococcus Plan: Advance diet to diabetic diet if full is tolerated Will remove NYDIA drain if no increased output after full liquid diet LTAC contacted by senior program planner for possible transfer in the next 2 days We'll keep the gastrostomy tube in place and clamped
[2020-09-15] MEDS: FLUCONAZOLE 100 MG TABLET PO SCH (10:54)
[2020-09-15] MEDS: AMOXICILLIN TR/POT CLAVULANATE 875-125 MG TAB PO SCH ×2 (10:54→21:37)
--- NOTE | 2020-09-15 17:29 | PDOC PROGRESS REPORT ---
Subjective Date:: 09/15/20 Subjective:: Patient seen by the bedside Reason For Visit: PERFORATED VISCUS Physical Exam Vital Signs: Temp Pulse Resp BP Pulse Ox 98.5 F 83 20 141/67 H 99 09/15/20 15:27 09/15/20 15:27 09/15/20 15:27 09/15/20 15:27 09/15/20 15:27 Intake & Output 09/14/20 09/15/20 09/16/20 06:59 06:59 06:59 Intake Total 3180 1795 240 Output Total 2125 1575 Balance 1055 220 240 Weight 154.6 kg 154.6 kg General appearance: PRESENT: no acute distress Eye exam: PRESENT: PERRLA Respiratory exam: PRESENT: clear to auscultation anabella Cardiovascular exam: PRESENT: +S1, +S2 GI/Abdominal exam: PRESENT: soft Neurological exam: PRESENT: alert Results Laboratory Results: 09/15/20 07:53 09/15/20 07:53 09/15/20 09/15/20 07:53 07:53 WBC 12.7 H RBC 3.02 L Hgb 8.3 L Hct 25.6 L MCV 85 MCH 27.6 MCHC 32.6 RDW 15.2 H Plt Count 258 Seg Neutrophils % 71.7 Sodium 134.2 L Potassium 4.8 Chloride 99 Carbon Dioxide 28 Anion Gap 7 BUN 14 Creatinine 0.79 Est GFR ( Amer) > 60 Glucose 105 Calcium 8.0 L Impressions: Abdomen/Pelvis CT 08/22/20 23:14 IMPRESSION: 1. Pneumoperitoneum, likely due to gastric perforation 2. Scattered free fluid throughout the abdomen. KUB X-Ray 08/26/20 00:00 IMPRESSION: SATISFACTORY POSITION OF THE NASOGASTRIC TUBE. Chest X-Ray 08/28/20 00:00 IMPRESSION: 1. Positioning of support lines and tubes as above. 2. Low lung volumes with compressive changes, evidence of trace bilateral pleural effusions and minimal nonspecific patchy basilar opacities. Please note at the time of image interpretation no prior exams are available for comparison. Upper GI Series-Limited 09/13/20 00:00 IMPRESSION: NO EVIDENCE OF EXTRAVASATION OR LEAK FROM THE POSTSURGICAL AREA INVOLVING THE ANTRUM OF THE STOMACH. MODERATE NARROWING OF THE PYLORIC CHANNEL DUE TO POSTSURGICAL CHANGES SEEMS TO DELAY GASTRIC EMPTYING BUT IS NONOBSTRUCTIVE. NEW Assessment & Plan - Diagnosis (1) T2DM (type 2 diabetes mellitus) Qualifiers: Diabetes mellitus skilled nursing insulin use: without television cable installer use Diabetes mellitus complication status: with neurologic complications Diabetes mellitus complication detail: with polyneuropathy Qualified Code(s): E11.42 - Type 2 diabetes mellitus with diabetic polyneuropathy Is this a current diagnosis for this admission?: Yes (2) Perforated gastric ulcer Qualifiers: Gastric ulcer chronicity: acute Qualified Code(s): K25.1 - Acute gastric ulcer with perforation Is this a current diagnosis for this admission?: Yes (3) Rheumatoid arthritis Qualifiers: Rheumatoid arthritis location: knee Rheumatoid factor presence: with rheumatoid factor Laterality: bilateral Qualified Code(s): M05.761 - Rheuma toid arthritis with rheumatoid factor of right knee without organ or systems involvement; M05.762 - Rheumatoid arthritis with rheumatoid factor of left knee without organ or systems involvement Is this a current diagnosis for this admission?: Yes (4) Intra-abdominal abscess Is this a current diagnosis for this admission?: Yes (5) Acute renal injury Is this a current diagnosis for this admission?: Yes (6) Edema Qualifiers: Edema type: unspecified Qualified Code(s): R60.9 - Edema, unspecified Is this a current diagnosis for this admission?: Yes - Time Time Spent with patient: Less than 15 minutes Level of Care: MEDICAL Medications reviewed and adjusted accordingly: Yes Anticipated discharge: Home Anticipated DC Timeframe: Other
[2020-09-16] MEDS: INSULIN LISPRO 100 UNIT/ML 3 ML VIAL SUBCUT SCH ×4 (00:49→18:32)
[2020-09-16] MEDS: HYDROMORPHONE HCL INJ/PF 2 MG/ML AMPULE IV PRN ×9 (01:36→22:05)
[2020-09-16 08:34] LABS: ABSOLUTE BASOPHILS # (AUTO) 0.1 10^3/uL (0.0-0.2); ABSOLUTE EOSINOPHILS # (AUTO) 0.5 10^3/uL (0.0-0.6); ABSOLUTE LYMPHOCYTES (AUTO) 1.9 10^3/uL (0.5-4.7); ABSOLUTE MONOCYTES (AUTO) 0.8 10^3/uL (0.1-1.4); ABSOLUTE NEUT (AUTO) 8.3 10^3/uL (1.7-8.2); BASOPHILS % (AUTO) 0.8 % (0-2); EOSINOPHILS % (AUTO) 4.2 % (0-6); HEMATOCRIT 25.2 % (37.9-51.0); HEMOGLOBIN 8.1 g/dL (13.5-17.0); LYMPHOCYTES % (AUTO) 16.6 % (13-45); MEAN CORPUSCULAR HEMOGLOBIN 27.3 pg (27.0-33.4); MEAN CORPUSCULAR HGB CONC 32.2 g/dL (32.0-36.0); MEAN CORPUSCULAR VOLUME 85 fl (80-97); MONOCYTES % (AUTO) 7.1 % (3-13); PLATELET COUNT 271 10^3/uL (150-450); RED BLOOD COUNT 2.97 10^6/uL (4.35-5.55); RED CELL DISTRIBUTION WIDTH 15.7 % (11.5-14.0); SEGMENTED NEUTROPHILS % (AUTO) 71.3 % (42-78); TOTAL CELLS COUNTED % (AUTO) 100 %; WHITE BLOOD COUNT 11.6 10^3/uL (4.0-10.5)
[2020-09-16 09:39] LABS: ANION GAP 9 (5-19); BLOOD UREA NITROGEN 10 mg/dL (7-20); CALCIUM 8.5 mg/dL (8.4-10.2); CARBON DIOXIDE 27 mmol/L (22-30); CHLORIDE 97 mmol/L (98-107); GLUCOSE 114 mg/dL (75-110); POTASSIUM 4.6 mmol/L (3.6-5.0)
[2020-09-16 09:46] LABS: PREALBUMIN 13.4 mg/dL (17.6-36.0)
--- NOTE | 2020-09-16 10:48 | RADIOLOGY REPORT (SQ) ---
EXAM DESCRIPTION: INJECT EXISTING/TUBE PLACEMENT IMAGES COMPLETED DATE/TIME: 09/16/2020 10:22 am REASON FOR STUDY: declogging of jejunostomy tube COMPARISON: None. FLUOROSCOPY TIME: 2 minutes 28 seconds of fluoroscopy was used. 4 images saved to PACS. TECHNIQUE: Injection of contrast through existing catheter. LIMITATIONS: None. FINDINGS: PROCEDURE: The catheter was difficult to flush. Under fluoroscopy, there is a visualized tight loop of the jejunostomy tube presumably within the loop of jejunum. After contrast injection th ere is a moderate amount of debris throughout this area of the catheter. Multiple attempts, with vari ous angiographic guide wires, to pass this area were unsuccessful. Multiple additional attempts at f lushing and aspiration were also unsuccessful. CONTRAST INJECTED: 30 mL Omnipaque 300. IMPRESSION: UNSUCCESSFUL ATTEMPT AT UNCLOGGING PATIENT'S INDWELLING JEJUNOSTOMY TUBE UTILIZING GUIDE WIRES. SIDE OF OBSTRUCTION IS WITHIN A TIGHT COILED LOOP OF JEJUNOSTOMY TUBE JUST DISTAL TO THE INSE RTION SITE OF THE JEJUNOSTOMY TUBE. COMMENT: Quality ID [id number]: Final reports for procedures using fluoroscopy that document radiation exp osure indices, or exposure time and number of fluorographic images (if radiation exposure indices are not available) TECHNICAL DOCUMENTATION: JOB ID: [id number] 2010 [employer]- All Rights Reserved Reading location - IP/workstation name: [email or web address] [id number]
[2020-09-16] MEDS: FLUCONAZOLE 100 MG TABLET PO SCH (11:02)
[2020-09-16] MEDS: AMOXICILLIN TR/POT CLAVULANATE 875-125 MG TAB PO SCH ×2 (11:02→22:06)
[2020-09-16] MEDS: OXYCODONE HCL IR 5 MG TABLET PO PRN ×2 (19:37→23:47)
--- NOTE | 2020-09-16 19:56 | PDOC PROGRESS REPORT ---
Subjective Date:: 09/16/20 Reason For Visit: PERFORATED VISCUS Physical Exam Vital Signs: Temp Pulse Resp BP Pulse Ox 98.1 F 77 20 151/64 H 99 09/16/20 15:53 09/16/20 15:53 09/16/20 15:53 09/16/20 15:53 09/16/20 15:53 Intake & Output 09/15/20 09/16/20 09/17/20 06:59 06:59 06:59 Intake Total 1795 1241 457 Output Total 1575 1300 600 Balance 220 -59 -143 Weight 154.6 kg 156 kg 156 kg Results Laboratory Results: 09/16/20 08:15 09/16/20 08:15 09/16/20 09/16/20 08:15 08:15 WBC 11.6 H RBC 2.97 L Hgb 8.1 L Hct 25.2 L MCV 85 MCH 27.3 MCHC 32.2 RDW 15.7 H Plt Count 271 Seg Neutrophils % 71.3 Sodium 133.1 L Potassium 4.6 Chloride 97 L Carbon Dioxide 27 Anion Gap 9 BUN 10 Creatinine 0.80 Est GFR ( Amer) > 60 Glucose 114 H Calcium 8.5 Phosphorus 4.0 Prealbumin 13.4 L Impressions: Abdomen/Pelvis CT 08/22/20 23:14 IMPRESSION: 1. Pneumoperitoneum, likely due to gastric perforation 2. Scattered free fluid throughout the abdomen. KUB X-Ray 08/26/20 00:00 IMPRESSION: SATISFACTORY POSITION OF THE NASOGASTRIC TUBE. Chest X-Ray 08/28/20 00:00 IMPRESSION: 1. Positioning of support lines and tubes as above. 2. Low lung volumes with compressive changes, evidence of trace bilateral pleural effusions and minimal nonspecific patchy basilar opacities. Please note at the time of image interpretation no prior exams are available for comparison. Upper GI Series-Limited 09/13/20 00:00 IMPRESSION: NO EVIDENCE OF EXTRAVASATION OR LEAK FROM THE POSTSURGICAL AREA INVOLVING THE ANTRUM OF THE STOMACH. MODERATE NARROWING OF THE PYLORIC CHANNEL DUE TO POSTSURGICAL CHANGES SEEMS TO DELAY GASTRIC EMPTYING BUT IS NONOBSTRUCTIVE. NEW Tube Placement 09/16/20 00:00 IMPRESSION: UNSUCCESSFUL ATTEMPT AT UNCLOGGING PATIENT'S INDWELLING JEJUNOSTOMY TUBE UTILIZING GUIDEWIRES. SIDE OF OBSTRUCTION IS WITHIN A TIGHT COILED LOOP OF JEJUNOSTOMY TUBE JUST DISTAL TO THE INSERTION SITE OF THE JEJUNOSTOMY TUBE. Assessment & Plan - Diagnosis (1) Perforated gastric ulcer Qualifiers: Gastric ulcer chronicity: acute Qualified Code(s): K25.1 - Acute gastric ulcer with perforation Is this a current diagnosis for this admission?: Yes - Time Anticipated Discharge Disposition: [facility] Facility Anticipated Discharge Timeframe: when bed available - Plan Summary Plan Summary: 65-year-old male status post repeat laparotomy for perforated gastric ulcer. The patient appears to be doing reasonably well. Restart home oral pain medications. Minimize IV pain medicines. Advance to soft mechanical diet. J- tube was unclogged at the bedside by me today. Leave J-tube clamped for now. Continue with supportive care.
--- NOTE | 2020-09-16 20:35 | PDOC PROGRESS REPORT ---
Subjective Date:: 09/16/20 Subjective:: Patient seen by the bedside Reason For Visit: PERFORATED VISCUS Physical Exam Vital Signs: Temp Pulse Resp BP Pulse Ox 97.9 F 87 18 154/74 H 100 09/16/20 19:14 09/16/20 19:14 09/16/20 19:14 09/16/20 19:14 09/16/20 19:14 Intake & Output 09/15/20 09/16/20 09/17/20 06:59 06:59 06:59 Intake Total 1795 1241 457 Output Total 1575 1300 600 Balance 220 -59 -143 Weight 154.6 kg 156 kg 156 kg General appearance: PRESENT: no acute distress Eye exam: PRESENT: PERRLA Respiratory exam: PRESENT: clear to auscultation anabella Cardiovascular exam: PRESENT: +S1, +S2 GI/Abdominal exam: PRESENT: soft Results Laboratory Results: 09/16/20 08:15 09/16/20 08:15 09/16/20 09/16/20 08:15 08:15 WBC 11.6 H RBC 2.97 L Hgb 8.1 L Hct 25.2 L MCV 85 MCH 27.3 MCHC 32.2 RDW 15.7 H Plt Count 271 Seg Neutrophils % 71.3 Sodium 133.1 L Potassium 4.6 Chloride 97 L Carbon Dioxide 27 Anion Gap 9 BUN 10 Creatinine 0.80 Est GFR ( Amer) > 60 Glucose 114 H Calcium 8.5 Phosphorus 4.0 Prealbumin 13.4 L Impressions: Abdomen/Pelvis CT 08/22/20 23:14 IMPRESSION: 1. Pneumoperitoneum, likely due to gastric perforation 2. Scattered free fluid throughout the abdomen. KUB X-Ray 08/26/20 00:00 IMPRESSION: SATISFACTORY POSITION OF THE NASOGASTRIC TUBE. Chest X-Ray 08/28/20 00:00 IMPRESSION: 1. Positioning of support lines and tubes as above. 2. Low lung volumes with compressive changes, evidence of trace bilateral pleural effusions and minimal nonspecific patchy basilar opacities. Please note at the time of image interpretation no prior exams are available for comparison. Upper GI Series-Limited 09/13/20 00:00 IMPRESSION: NO EVIDENCE OF EXTRAVASATION OR LEAK FROM THE POSTSURGICAL AREA INVOLVING THE ANTRUM OF THE STOMACH. MODERATE NARROWING OF THE PYLORIC CHANNEL DUE TO POSTSURGICAL CHANGES SEEMS TO DELAY GASTRIC EMPTYING BUT IS NONOBSTRUCTIVE. NEW Tube Placement 09/16/20 00:00 IMPRESSION: UNSUCCESSFUL ATTEMPT AT UNCLOGGING PATIENT'S INDWELLING JEJUNOSTOMY TUBE UTILIZING GUIDEWIRES. SIDE OF OBSTRUCTION IS WITHIN A TIGHT COILED LOOP OF JEJUNOSTOMY TUBE JUST DISTAL TO THE INSERTION SITE OF THE JEJUNOSTOMY TUBE. 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 insulin use: without terminal press operator use Diabetes mellitus complication status: with neurologic complications Diabetes mellitus complication detail: with polyneuropathy Qualified Code(s): E11.42 - Type 2 diabetes mellitus with diabetic polyneuropathy Is this a current diagnosis for this admission?: Yes (2) Perforated gastric ulcer Qualifiers: Gastric ulcer chronicity: acute Qualified Code(s): K25.1 - Acute gastric ulcer with perforation Is this a current diagnosis for this admission?: Yes (3) Rheumatoid arthritis Qualifiers: Rheumatoid arthritis location: knee Rheumatoid factor presence: with rheumatoid factor Laterality: bilateral Qualified Code(s): M05.761 - Rheumatoid arthritis with rheumatoid factor of right knee without organ or systems involvement; M05.762 - Rheumatoid arthritis with rheumatoid factor of left knee without organ or systems involvement Is this a current diagnosis for this admission?: Yes (4) Intra-abdominal abscess Is this a current diagnosis for this admission?: Yes (5) Acute renal injury Is this a current diagnosis for this admission?: Yes (6) Edema Qualifiers: Edema type: unspecified Qualified Code(s): R60.9 - Edema, unspecified Is this a current diagnosis for this admission?: Yes - Time Time Spent with patient: 15-24 minutes Smoking Cessation Education: 3 to 10 minutes - Inpatient Certification Based on my medical assessment, after consideration of the patient's comorbidities, presenting symptoms, or acuity I expect that the services needed warrant INPATIENT care.: Yes I certify that my determination is in accordance with my understanding of Medicare's requirements for reasonable and necessary INPATIENT services [42 CFR 412.3e].: Yes
[2020-09-17] MEDS: INSULIN LISPRO 100 UNIT/ML 3 ML VIAL SUBCUT SCH ×5 (00:21→23:30)
[2020-09-17] MEDS: HYDROMORPHONE HCL INJ/PF 2 MG/ML AMPULE IV PRN ×6 (02:09→22:25)
[2020-09-17] MEDS: OXYCODONE HCL IR 5 MG TABLET PO PRN ×5 (03:59→20:15)
[2020-09-17 05:51] LABS: ABSOLUTE BASOPHILS # (AUTO) 0.1 10^3/uL (0.0-0.2); ABSOLUTE EOSINOPHILS # (AUTO) 0.5 10^3/uL (0.0-0.6); ABSOLUTE LYMPHOCYTES (AUTO) 1.8 10^3/uL (0.5-4.7); ABSOLUTE MONOCYTES (AUTO) 0.9 10^3/uL (0.1-1.4); ABSOLUTE NEUT (AUTO) 7.3 10^3/uL (1.7-8.2); BASOPHILS % (AUTO) 0.8 % (0-2); EOSINOPHILS % (AUTO) 4.4 % (0-6); HEMATOCRIT 23.7 % (37.9-51.0); HEMOGLOBIN 8.1 g/dL (13.5-17.0); LYMPHOCYTES % (AUTO) 17.2 % (13-45); MEAN CORPUSCULAR HGB CONC 34.3 g/dL (32.0-36.0); MEAN CORPUSCULAR VOLUME 85 fl (80-97); MONOCYTES % (AUTO) 8.4 % (3-13); PLATELET COUNT 258 10^3/uL (150-450); RED CELL DISTRIBUTION WIDTH 15.3 % (11.5-14.0); SEGMENTED NEUTROPHILS % (AUTO) 69.2 % (42-78); TOTAL CELLS COUNTED % (AUTO) 100 %; WHITE BLOOD COUNT 10.5 10^3/uL (4.0-10.5)
[2020-09-17 06:24] LABS: ANION GAP 10 (5-19); BLOOD UREA NITROGEN 8 mg/dL (7-20); CALCIUM 8.4 mg/dL (8.4-10.2); CARBON DIOXIDE 24 mmol/L (22-30); CHLORIDE 97 mmol/L (98-107); GLUCOSE 97 mg/dL (75-110); POTASSIUM 4.5 mmol/L (3.6-5.0)
[2020-09-17] MEDS: AMOXICILLIN TR/POT CLAVULANATE 875-125 MG TAB PO SCH ×2 (09:17→22:25)
--- NOTE | 2020-09-17 14:06 | PDOC PROGRESS REPORT ---
Subjective Date:: 09/17/20 Reason For Visit: PERFORATED VISCUS Physical Exam Vital Signs: Temp Pulse Resp BP Pulse Ox 98.1 F 97 18 139/64 H 99 09/17/20 12:05 09/17/20 12:05 09/17/20 12:05 09/17/20 12:05 09/17/20 12:05 Intake & Output 09/16/20 09/17/20 09/18/20 06:59 06:59 06:59 Intake Total 1241 1117 510 Output Total 1300 1670 Balance -59 -553 510 Weight 156 kg 156.3 kg Results Laboratory Results: 09/17/20 05:13 09/17/20 05:13 09/17/20 09/17/20 05:13 05:13 WBC 10.5 RBC 2.80 L Hgb 8.1 L Hct 23.7 L MCV 85 MCH 29.0 MCHC 34.3 RDW 15.3 H Plt Count 258 Seg Neutrophils % 69.2 Sodium 131.0 L Potassium 4.5 Chloride 97 L Carbon Dioxide 24 Anion Gap 10 BUN 8 Creatinine 0.73 Est GFR ( Amer) > 60 Glucose 97 Calcium 8.4 Impressions: Abdomen/Pelvis CT 08/22/20 23:14 IMPRESSION: 1. Pneumoperitoneum, likely due to gastric perforation 2. Scattered free fluid throughout the abdomen. KUB X-Ray 08/26/20 00:00 IMPRESSION: SATISFACTORY POSITION OF THE NASOGASTRIC TUBE. Chest X-Ray 08/28/20 00:00 IMPRESSION: 1. Positioning of support lines and tubes as above. 2. Low lung volumes with compressive changes, evidence of trace bilateral pleural effusions and minimal nonspecific patchy basilar opacities. Please note at the time of image interpretation no prior exams are available for comparison. Upper GI Series-Limited 09/13/20 00:00 IMPRESSION: NO EVIDENCE OF EXTRAVASATION OR LEAK FROM THE POSTSURGICAL AREA INVOLVING THE ANTRUM OF THE STOMACH. MODERATE NARROWING OF THE PYLORIC CHANNEL DUE TO POSTSURGICAL CHANGES SEEMS TO DELAY GASTRIC EMPTYING BUT IS NONOBSTRUCTIVE. NEW Tube Placement 09/16/20 00:00 IMPRESSION: UNSUCCESSFUL ATTEMPT AT UNCLOGGING PATIENT'S INDWELLING JEJUNOSTOMY TUBE UTILIZING GUIDEWIRES. SIDE OF OBSTRUCTION IS WITHIN A TIGHT COILED LOOP OF JEJUNOSTOMY TUBE JUST DISTAL TO THE INSERTION SITE OF THE JEJUNOSTOMY TUBE. Assessment & Plan - Diagnosis (1) Perforated gastric ulcer Qualifiers: Gastric ulcer chronicity: acute Qualified Code(s): K25.1 - Acute gastric ulcer with perforation Is this a current diagnosis for this admission?: Yes - Time Anticipated Discharge Disposition: Nursing Home Facility Anticipated Discharge Timeframe: when bed available - Plan Summary Plan Summary: 65-year-old male status post repeat laparotomy for perforated gastric ulcer. The patient appears to be doing reasonably well. Cont home oral pain medications. Minimize IV pain medicines. Cont soft mechanical diet. J-tube is unclogged and functional. Leave J-tube clamped for now, and continue with oral feedings. Continue with supportive care. D/c planning.
--- NOTE | 2020-09-17 21:31 | PDOC PROGRESS REPORT ---
Subjective Date:: 09/17/20 Subjective:: Patient seen by the bedside Reason For Visit: PERFORATED VISCUS Physical Exam Vital Signs: Temp Pulse Resp BP Pulse Ox 98.1 F 86 18 144/81 H 99 09/17/20 19:13 09/17/20 19:13 09/17/20 19:13 09/17/20 19:13 09/17/20 19:13 Intake & Output 09/16/20 09/17/20 09/18/20 06:59 06:59 06:59 Intake Total 1241 1117 1222 Output Total 1300 1670 625 Balance -59 -553 597 Weight 156 kg 156.3 kg General appearance: PRESENT: no acute distress Eye exam: PRESENT: PERRLA Respiratory exam: PRESENT: clear to auscultation anabella Cardiovascular exam: PRESENT: +S1, +S2 GI/Abdominal exam: PRESENT: soft Neurological exam: PRESENT: alert Results Laboratory Results: 09/17/20 05:13 09/17/20 05:13 09/17/20 09/17/20 05:13 05:13 WBC 10.5 RBC 2.80 L Hgb 8.1 L Hct 23.7 L MCV 85 MCH 29.0 MCHC 34.3 RDW 15.3 H Plt Count 258 Seg Neutrophils % 69.2 Sodium 131.0 L Potassium 4.5 Chloride 97 L Carbon Dioxide 24 Anion Gap 10 BUN 8 Creatinine 0.73 Est GFR ( Amer) > 60 Glucose 97 Calcium 8.4 Impressions: Abdomen/Pelvis CT 08/22/20 23:14 IMPRESSION: 1. Pneumoperitoneum, likely due to gastric perforation 2. Scattered free fluid throughout the abdomen. KUB X-Ray 08/26/20 00:00 IMPRESSION: SATISFACTORY POSITION OF THE NASOGASTRIC TUBE. Chest X-Ray 08/28/20 00:00 IMPRESSION: 1. Positioning of support lines and tubes as above. 2. Low lung volumes with compressive changes, evidence of trace bilateral pleural effusions and minimal nonspecific patchy basilar opacities. Please note at the time of image interpretation no prior exams are available for comparison. Upper GI Series-Limited 09/13/20 00:00 IMPRESSION: NO EVIDENCE OF EXTRAVASATION OR LEAK FROM THE POSTSURGICAL AREA INVOLVING THE ANTRUM OF THE STOMACH. MODERATE NARROWING OF THE PYLORIC CHANNEL DUE TO POSTSURGICAL CHANGES SEEMS TO DELAY GASTRIC EMPTYING BUT IS NONOBSTRUCTIVE. NEW Tube Placement 09/16/20 00:00 IMPRESSION: UNSUCCESSFUL ATTEMPT AT UNCLOGGING PATIENT'S INDWELLING JEJUNOSTOMY TUBE UTILIZING GUIDEWIRES. SIDE OF OBSTRUCTION IS WITHIN A TIGHT COILED LOOP OF JEJUNOSTOMY TUBE JUST DISTAL TO THE INSERTION SITE OF THE JEJUNOSTOMY TUBE. 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 insulin use: without mcc use Diabetes mellitus complication status: with neurologic complications Diabetes mellitus complication detail: with polyneuropathy Qualified Code(s): E11.42 - Type 2 diabetes mellitus with diabetic polyneuropathy Is this a current diagnosis for this admission?: Yes (2) Perforated gastric ulcer Qualifiers: Gastric ulcer chronicity: acute Qualified Code(s): K25.1 - Acute gastric ulcer with perforation Is this a current diagnosis for this admission?: Yes (3) Rheumatoid arthritis Qualifiers: Rheumatoid arthritis location: knee Rheumatoid factor presence: with rheumatoid factor Laterality: bilateral Qualified Code(s): M05.761 - Rheumatoid arthritis with rheumatoid factor of right knee without organ or systems involvement; M05.762 - Rheumatoid arthritis with rheumatoid factor of left knee without organ or systems involvement Is this a current diagnosis for this admission?: Yes (4) Intra-abdominal abscess Is this a current diagnosis for this admission?: Yes (5) Acute renal injury Is this a current diagnosis for this admission?: Yes (6) Edema Qualifiers: Edema type: unspecified Qualified Code(s): R60.9 - Edema, unspecified Is this a current diagnosis for this admission?: Yes - Time Time Spent with patient: 15-24 minutes Level of Care: MEDICAL Anticipated discharge: Home Anticipated DC Timeframe: within 72 hours
[2020-09-18] MEDS: OXYCODONE HCL IR 5 MG TABLET PO PRN ×6 (00:16→21:43)
[2020-09-18] MEDS: HYDROMORPHONE HCL INJ/PF 2 MG/ML AMPULE IV PRN ×5 (02:27→22:39)
[2020-09-18] MEDS: INSULIN LISPRO 100 UNIT/ML 3 ML VIAL SUBCUT SCH ×4 (05:58→23:42)
--- NOTE | 2020-09-18 09:03 | PDOC PROGRESS REPORT ---
Subjective Date:: 09/18/20 Reason For Visit: PERFORATED VISCUS Physical Exam Vital Signs: Temp Pulse Resp BP Pulse Ox 97.8 F 76 16 162/68 H 97 09/18/20 07:09 09/18/20 07:09 09/18/20 07:09 09/18/20 07:09 09/18/20 07:09 Intake & Output 09/17/20 09/18/20 09/19/20 06:59 06:59 06:59 Intake Total 1117 1922 Output Total 1670 1425 Balance -553 497 Weight 156.3 kg 154 kg Results Laboratory Results: 09/17/20 05:13 09/17/20 05:13 Impressions: Abdomen/Pelvis CT 08/22/20 23:14 IMPRESSION: 1. Pneumoperitoneum, likely due to gastric perforation 2. Scattered free fluid throughout the abdomen. KUB X-Ray 08/26/20 00:00 IMPRESSION: SATISFACTORY POSITION OF THE NASOGASTRIC TUBE. Chest X-Ray 08/28/20 00:00 IMPRESSION: 1. Positioning of support lines and tubes as above. 2. Low lung volumes with compressive changes, evidence of trace bilateral pleural effusions and minimal nonspecific patchy basilar opacities. Please note at the time of image interpretation no prior exams are available for comparison. Upper GI Series-Limited 09/13/20 00:00 IMPRESSION: NO EVIDENCE OF EXTRAVASATION OR LEAK FROM THE POSTSURGICAL AREA INVOLVING THE ANTRUM OF THE STOMACH. MODERATE NARROWING OF THE PYLORIC CHANNEL DUE TO POSTSURGICAL CHANGES SEEMS TO DELAY GASTRIC EMPTYING BUT IS NONOBSTRUCTIVE. NEW Tube Placement 09/16/20 00:00 IMPRESSION: UNSUCCESSFUL ATTEMPT AT UNCLOGGING PATIENT'S INDWELLING JEJUNOSTOMY TUBE UTILIZING GUIDEWIRES. SIDE OF OBSTRUCTION IS WITHIN A TIGHT COILED LOOP OF JEJUNOSTOMY TUBE JUST DISTAL TO THE INSERTION SITE OF THE JEJUNOSTOMY TUBE. Assessment & Plan - Diagnosis (1) Perforated gastric ulcer Qualifiers: Gastric ulcer chronicity: acute Qualified Code(s): K25.1 - Acute gastric ulcer with perforation Is this a current diagnosis for this admission?: Yes - Time Anticipated Discharge Disposition: Intermediate Facility Anticipated Discharge Timeframe: when bed available - Plan Summary Plan Summary: 65-year-old male status post repeat laparotomy for perforated gastric ulcer. The patient appears to be doing reasonably well. Cont home oral pain medic ations. Minimize IV pain medicines. Cont soft mechanical diet. J-tube is unclogged and functional. Leave J-tube clamped for now, and continue with oral feedings. Continue with supportive care. D/c planning.
[2020-09-18] MEDS: AMOXICILLIN TR/POT CLAVULANATE 875-125 MG TAB PO SCH ×2 (09:47→21:44)
[2020-09-18] MEDS: ACETAMINOPHEN 325 MG TABLET PO PRN (12:23)
--- NOTE | 2020-09-18 17:13 | PDOC PROGRESS REPORT ---
Subjective Date:: 09/18/20 Subjective:: Patient seen by the bedside,still continues to require pain medication Reason For Visit: PERFORATED VISCUS Physical Exam Vital Signs: Temp Pulse Resp BP Pulse Ox 98.3 F 86 20 152/80 H 99 09/18/20 15:43 09/18/20 15:43 09/18/20 15:43 09/18/20 15:43 09/18/20 15:43 Intake & Output 09/17/20 09/18/20 09/19/20 06:59 06:59 06:59 Intake Total 1117 1922 120 Output Total 1670 1425 350 Balance -553 497 -230 Weight 156.3 kg 154 kg General appearance: PRESENT: no acute distress Eye exam: PRESENT: PERRLA Respiratory exam: PRESENT: clear to auscultation anabella Cardiovascular exam: PRESENT: +S1, +S2 GI/Abdominal exam: PRESENT: soft Neurological exam: PRESENT: alert Results Laboratory Results: 09/17/20 05:13 09/17/20 05:13 Impressions: Abdomen/Pelvis CT 08/22/20 23:14 IMPRESSION: 1. Pneumoperitoneum, likely due to gastric perforation 2. Scattered free fluid throughout the abdomen. KUB X-Ray 08/26/20 00:00 IMPRESSION: SATISFACTORY POSITION OF THE NASOGASTRIC TUBE. Chest X-Ray 08/28/20 00:00 IMPRESSION: 1. Positioning of support lines and tubes as above. 2. Low lung volumes with compressive changes, evidence of trace bilateral pleural effusions and minimal nonspecific patchy basilar opacities. Please note at the time of image interpretation no prior exams are available for comparison. Upper GI Series-Limited 09/13/20 00:00 IMPRESSION: NO EVIDENCE OF EXTRAVASATION OR LEAK FROM THE POSTSURGICAL AREA INVOLVING THE ANTRUM OF THE STOMACH. MODERATE NARROWING OF THE PYLORIC CHANNEL DUE TO POSTSURGICAL CHANGES SEEMS TO DELAY GASTRIC EMPTYING BUT IS NONOBSTRUCTIVE. NEW Tube Placement 09/16/20 00:00 IMPRESSION: UNSUCCESSFUL ATTEMPT AT UNCLOGGING PATIENT'S INDWELLING JEJUNOSTOMY TUBE UTILIZING GUIDEWIRES. SIDE OF OBSTRUCTION IS WITHIN A TIGHT COILED LOOP OF JEJUNOSTOMY TUBE JUST DISTAL TO THE INSERTION SITE OF THE JEJUNOSTOMY TUBE. Assessment & Plan - Diagnosis (1) T2DM (type 2 diabetes mellitus) Qualifiers: Diabetes mellitus buttermaker insulin use: without snf use Diabetes mellitus complication status: with neurologic complications Diabetes mellitus complication detail: with polyneuropathy Qualified Code(s): E11.42 - Type 2 diabetes mellitus with diabetic polyneuropathy Is this a current diagnosis for this admission?: Yes (2) Perforated gastric ulcer Qualifiers: Gastric ulcer chronicity: acute Qualified Code(s): K25.1 - Acute gastric ulcer with perforation Is this a current diagnosis for this admission?: Yes (3) Rheumatoid arthritis Qualifiers: Rheumatoid arthritis location: knee Rheumatoid factor presence: with rheumatoid factor Laterality: bilateral Qualified Code(s): M05.761 - Rheumatoid arthritis with rheumatoid factor of right knee without organ or systems involvement; M05.762 - Rheumatoid arthritis with rheumatoid factor of left knee without organ or systems involvement Is this a current diagnosis for this admission?: Yes (4) Intra-abdominal abscess Is this a current diagnosis for this admission?: Yes (5) Acute renal injury Is this a current diagnosis for this admission?: Yes (6) Edema Qualifiers: Edema type: unspecified Qualified Code(s): R60.9 - Edema, unspecified Is this a current diagnosis for this admission?: Yes - Time Time Spent with patient: 15-24 minutes Level of Care: MEDICAL Medications reviewed and adjusted accordingly: Yes Anticipated discharge: Home Anticipated DC Timeframe: within 72 hours
[2020-09-19] MEDS: OXYCODONE HCL IR 5 MG TABLET PO PRN ×5 (01:48→19:59)
[2020-09-19] MEDS: HYDROMORPHONE HCL INJ/PF 2 MG/ML AMPULE IV PRN ×5 (06:00→21:48)
[2020-09-19] MEDS: INSULIN LISPRO 100 UNIT/ML 3 ML VIAL SUBCUT SCH ×3 (07:21→19:35)
--- NOTE | 2020-09-19 08:48 | PDOC PROGRESS REPORT ---
Subjective Date:: 09/19/20 Subjective:: feels ok Reason For Visit: PERFORATED VISCUS Physical Exam Vital Signs: Temp Pulse Resp BP Pulse Ox 97.9 F 81 18 134/54 H 100 09/19/20 08:16 09/19/20 08:16 09/19/20 08:16 09/19/20 08:16 09/19/20 08:16 Intake & Output 09/18/20 09/19/20 09/20/20 06:59 06:59 06:59 Intake Total 1922 650 Output Total 1425 2070 Balance 497 -1420 Weight 154 kg 153.3 kg 153.3 kg General appearance: PRESENT: morbidly obese Head exam: PRESENT: normocephalic Eye exam: PRESENT: EOMI Ear exam: PRESENT: normal external ear exam Mouth exam: PRESENT: moist Teeth exam: PRESENT: poor dentation Neck exam: PRESENT: full ROM Respiratory exam: PRESENT: clear to auscultation anabella Cardiovascular exam: PRESENT: RRR Pulses: PRESENT: normal femoral pulses Vascular exam: PRESENT: normal capillary refill Breast: PRESENT: Normal GI/Abdominal exam: PRESENT: soft, other - jtube and g-tube in place Rectal exam: PRESENT: deferred Extremities exam: PRESENT: full ROM Neurological exam: PRESENT: alert, oriented to person, oriented to place Psychiatric exam: PRESENT: appropriate affect Skin exam: PRESENT: dry Results Laboratory Results: 09/17/20 05:13 09/17/20 05:13 Impressions: Abdomen/Pelvis CT 08/22/20 23:14 IMPRESSION: 1. Pneumoperitoneum, likely due to gastric perforation 2. Scattered free fluid throughout the abdomen. KUB X-Ray 08/26/20 00:00 IMPRESSION: SATISFACTORY POSITION OF THE NASOGASTRIC TUBE. Chest X-Ray 08/28/20 00:00 IMPRESSION: 1. Positioning of support lines and tubes as above. 2. Low lung volumes with compressive changes, evidence of trace bilateral pleural effusions and minimal nonspecific patchy basilar opacities. Please note at the time of image interpretation no prior exams are available for comparison. Upper GI Series-Limited 09/13/20 00:00 IMPRESSION: NO EVIDENCE OF EXTRAVASATION OR LEAK FROM THE POSTSURGICAL AREA INVOLVING THE ANTRUM OF THE STOMACH. MODERATE NARROWING OF THE PYLORIC CHANNEL DUE TO POSTSURGICAL CHANGES SEEMS TO DELAY GASTRIC EMPTYING BUT IS NONOBSTRUCTIVE. NEW Tube Placement 09/16/20 00:00 IMPRESSION: UNSUCCESSFUL ATTEMPT AT UNCLOGGING PATIENT'S INDWELLING JEJUNOSTOMY TUBE UTILIZING GUIDEWIRES. SIDE OF OBSTRUCTION IS WITHIN A TIGHT COILED LOOP OF JEJUNOSTOMY TUBE JUST DISTAL TO THE INSERTION SITE OF THE JEJUNOSTOMY TUBE. Assessment & Plan - Time Anticipated Discharge Disposition: Intermediate Care Facility Anticipated Discharge Timeframe: within 48 hours - Plan Summary Plan Summary: 65-year-old male status post repeat laparotomy for perforated gastric ulcer. The patient appears to be doing reasonably well. Cont home oral pain medications. Minimize IV pain medicines. Cont soft mechanical diet. J-tube is unclogged and functional. Leave J-tube clamped for now, and continue with oral feedings. Continue with supportive care. D/c planning.
[2020-09-19] MEDS: AMOXICILLIN TR/POT CLAVULANATE 875-125 MG TAB PO SCH ×2 (09:57→21:49)
--- NOTE | 2020-09-19 15:41 | PDOC PROGRESS REPORT ---
Subjective Date:: 09/19/20 Subjective:: Patient is physically deconditioned, he will need physical therapy, otherwise he is medically ready for discharge Reason For Visit: PERFORATED VISCUS Physical Exam Vital Signs: Temp Pulse Resp BP Pulse Ox 97.8 F 94 18 129/53 H 100 09/19/20 12:16 09/19/20 12:16 09/19/20 12:16 09/19/20 12:16 09/19/20 12:16 Intake & Output 09/18/20 09/19/20 09/20/20 06:59 06:59 06:59 Intake Total 1922 650 460 Output Total 1425 2070 300 Balance 497 -1420 160 Weight 154 kg 153.3 kg 153.3 kg General appearance: PRESENT: no acute distress Eye exam: PRESENT: PERRLA Respiratory exam: PRESENT: clear to auscultation anabella Cardiovascular exam: PRESENT: +S1, +S2 GI/Abdominal exam: PRESENT: soft Results Laboratory Results: 09/17/20 05:13 09/17/20 05:13 Impressions: Abdomen/Pelvis CT 08/22/20 23:14 IMPRESSION: 1. Pneumoperitoneum, likely due to gastric perforation 2. Scattered free fluid throughout the abdomen. KUB X-Ray 08/26/20 00:00 IMPRESSION: SATISFACTORY POSITION OF THE NASOGASTRIC TUBE. Chest X-Ray 08/28/20 00:00 IMPRESSION: 1. Positioning of support lines and tubes as above. 2. Low lung volumes with compressive changes, evidence of trace bilateral pleural effusions and minimal nonspecific patchy basilar opacities. Please note at the time of image interpretation no prior exams are available for comparison. Upper GI Series-Limited 09/13/20 00:00 IMPRESSION: NO EVIDENCE OF EXTRAVASATION OR LEAK FROM THE POSTSURGICAL AREA INVOLVING THE ANTRUM OF THE STOMACH. MODERATE NARROWING OF THE PYLORIC CHANNEL DUE TO POSTSURGICAL CHANGES SEEMS TO DELAY GASTRIC EMPTYING BUT IS NONOBSTRUCTIVE. NEW Tube Placement 09/16/20 00:00 IMPRESSION: UNSUCCESSFUL ATTEMPT AT UNCLOGGING PATIENT'S INDWELLING JEJUNOSTOMY TUBE UTILIZING GUIDEWIRES. SIDE OF OBSTRUCTION IS WITHIN A TIGHT COILED LOOP OF JEJUNOSTOMY TUBE JUST DISTAL TO THE INSERTION SITE OF THE JEJUNOSTOMY TUBE. Assessment & Plan - Diagnosis (1) T2DM (type 2 diabetes mellitus) Qualifiers: Diabetes mellitus salvage determiner insulin use: without snf use Diabetes mellitus complication status: with neurologic complications Diabetes mellitus complication detail: with polyneuropathy Qualified Code(s): E11.42 - Type 2 diabetes mellitus with diabetic polyneuropathy Is this a current diagnosis for this admission?: Yes (2) Perforated gastric ulcer Qualifiers: Gastric ulcer chronicity: acute Qualified Code(s): K25.1 - Acute gastric ulcer with perforation Is this a current diagnosis for this admission?: Yes (3) Rheumatoid arthritis Qualifiers: Rheumatoid arthritis location: knee Rheumatoid factor presence: with rheuma toid factor Laterality: bilateral Qualified Code(s): M05.761 - Rheumatoid arthritis with rheumatoid factor of right knee without organ or systems involvement; M05.762 - Rheumatoid arthritis with rheumatoid factor of left knee without organ or systems involvement Is this a current diagnosis for this admission?: Yes (4) Intra-abdominal abscess Is this a current diagnosis for this admission?: Yes (5) Acute renal injury Is this a current diagnosis for this admission?: Yes (6) Edema Qualifiers: Edema type: unspecified Qualified Code(s): R60.9 - Edema, unspecified Is this a current diagnosis for this admission?: Yes - Time Time Spent with patient: 15-24 minutes Level of Care: MEDICAL Anticipated discharge: Home Anticipated DC Timeframe: within 72 hours
[2020-09-20] MEDS: OXYCODONE HCL IR 5 MG TABLET PO PRN ×6 (00:05→23:29)
[2020-09-20] MEDS: INSULIN LISPRO 100 UNIT/ML 3 ML VIAL SUBCUT SCH ×4 (01:42→18:22)
[2020-09-20] MEDS: HYDROMORPHONE HCL INJ/PF 2 MG/ML AMPULE IV PRN ×4 (07:59→21:04)
[2020-09-20] MEDS: AMOXICILLIN TR/POT CLAVULANATE 875-125 MG TAB PO SCH (09:36)
--- NOTE | 2020-09-20 15:30 | PDOC PROGRESS REPORT ---
Subjective Date:: 09/20/20 Reason For Visit: PERFORATED VISCUS Patient sitting in chair; tolerating p.o. diet. Gastrostomy and jejunostomy tubes clamped. Patient on soft mechanical diet. Physical Exam Vital Signs: Temp Pulse Resp BP Pulse Ox 98.1 F 84 12 137/72 H 100 09/20/20 10:59 09/20/20 10:59 09/20/20 10:59 09/20/20 10:59 09/20/20 10:59 Intake & Output 09/19/20 09/20/20 09/21/20 06:59 06:59 06:59 Intake Total 650 1340 200 Output Total 2070 2550 900 Balance -1420 -1210 -700 Weight 153.3 kg 153.3 kg 153.3 kg General appearance: PRESENT: no acute distress GI/Abdominal exam: PRESENT: other - Abdomen examined. G-tube and J-tube clamped. Sites satisfactory. Midline dressing packing examined, minimal drainage, no foul smell. Surrounding skin intact. Retention sutures intact. Results Laboratory Results: 09/17/20 05:13 09/17/20 05:13 Impressions: Abdomen/Pelvis CT 08/22/20 23:14 IMPRESSION: 1. Pneumoperitoneum, likely due to gastric perforation 2. Scattered free fluid throughout the abdomen. KUB X-Ray 08/26/20 00:00 IMPRESSION: SATISFACTORY POSITION OF THE NASOGASTRIC TUBE. Chest X-Ray 08/28/20 00:00 IMPRESSION: 1. Positioning of support lines and tubes as above. 2. Low lung volumes with compressive changes, evidence of trace bilateral pleural effusions and minimal nonspecific patchy basilar opacities. Please note at the time of image interpretation no prior exams are available for comparison. Upper GI Series-Limited 09/13/20 00:00 IMPRESSION: NO EVIDENCE OF EXTRAVASATION OR LEAK FROM THE POSTSURGICAL AREA INVOLVING THE ANTRUM OF THE STOMACH. MODERATE NARROWING OF THE PYLORIC CHANNEL DUE TO POSTSURGICAL CHANGES SEEMS TO DELAY GASTRIC EMPTYING BUT IS NONOBSTRUCTIVE. NEW Tube Placement 09/16/20 00:00 IMPRESSION: UNSUCCESSFUL ATTEMPT AT UNCLOGGING PATIENT'S INDWELLING JEJUNOSTOMY TUBE UTILIZING GUIDEWIRES. SIDE OF OBSTRUCTION IS WITHIN A TIGHT COILED LOOP OF JEJUNOSTOMY TUBE JUST DISTAL TO THE INSERTION SITE OF THE JEJUNOSTOMY TUBE. Assessment & Plan - Diagnosis (1) Perforated gastric ulcer Qualifiers: Gastric ulcer chronicity: acute Qualified Code(s): K25.1 - Acute gastric ulcer with perforation Is this a current diagnosis for this admission?: Yes Plan: IMPression: Patient nearly 3 weeks status post exploratory laparotomy, control of a perforated gastric antral ulcer with G-tube and J-tube, now tolerating soft mechanical diet, no evidence of sepsis, with support tubes either removed or clamped. Recommendations: 1. Await placement 2. May discontinue p.o. Augmentin (2) Perforated prepyloric ulcer Is this a current diagnosis for this admission?: Yes (3) T2DM (type 2 diabetes mellitus) Qualifiers: Diabetes mellitus mcc insulin use: without mcc use Diabetes mellitus complication status: with neurologic complications Diabetes mellitus complication detail: with polyneuropathy Qualified Code(s): E11.42 - Type 2 diabetes mellitus with diabetic polyneuropathy Is this a current diagnosis for this admission?: Yes - Time Anticipated Discharge Disposition: Intermediate Care Facility Anticipated Discharge Timeframe: within 24 hours Critical Time spent with patient: Less than 15 minutes
--- NOTE | 2020-09-20 22:06 | PDOC PROGRESS REPORT ---
Subjective Date:: 09/20/20 Subjective:: Patient is physically deconditioned, he will need physical therapy, otherwise he is medically ready for discharge Reason For Visit: PERFORATED VISCUS Physical Exam Vital Signs: Temp Pulse Resp BP Pulse Ox 98.6 F 94 18 155/70 H 98 09/20/20 19:25 09/20/20 19:25 09/20/20 19:25 09/20/20 19:25 09/20/20 19:25 Intake & Output 09/19/20 09/20/20 09/21/20 06:59 06:59 06:59 Intake Total 650 1340 460 Output Total 2070 2550 1200 Balance -1420 -1210 -740 Weight 153.3 kg 153.3 kg 153.3 kg General appearance: PRESENT: no acute distress Eye exam: PRESENT: PERRLA Respiratory exam: PRESENT: clear to auscultation anabella Cardiovascular exam: PRESENT: +S1, +S2 GI/Abdominal exam: PRESENT: soft Neurological exam: PRESENT: alert Results Laboratory Results: 09/17/20 05:13 09/17/20 05:13 Impressions: Abdomen/Pelvis CT 08/22/20 23:14 IMPRESSION: 1. Pneumoperitoneum, likely due to gastric perforation 2. Scattered free fluid throughout the abdomen. KUB X-Ray 08/26/20 00:00 IMPRESSION: SATISFACTORY POSITION OF THE NASOGASTRIC TUBE. Chest X-Ray 08/28/20 00:00 IMPRESSION: 1. Positioning of support lines and tubes as above. 2. Low lung volumes with compressive changes, evidence of trace bilateral pleural effusions and minimal nonspecific patchy basilar opacities. Please note at the time of image interpretation no prior exams are available for comparison. Upper GI Series-Limited 09/13/20 00:00 IMPRESSION: NO EVIDENCE OF EXTRAVASATION OR LEAK FROM THE POSTSURGICAL AREA INVOLVING THE ANTRUM OF THE STOMACH. MODERATE NARROWING OF THE PYLORIC CHANNEL DUE TO POSTSURGICAL CHANGES SEEMS TO DELAY GASTRIC EMPTYING BUT IS NONOBSTRUCTIVE. NEW Tube Placement 09/16/20 00:00 IMPRESSION: UNSUCCESSFUL ATTEMPT AT UNCLOGGING PATIENT'S INDWELLING JEJUNOSTOMY TUBE UTILIZING GUIDEWIRES. SIDE OF OBSTRUCTION IS WITHIN A TIGHT COILED LOOP OF JEJUNOSTOMY TUBE JUST DISTAL TO THE INSERTION SITE OF THE JEJUNOSTOMY TUBE. Assessment & Plan - Diagnosis (1) T2DM (type 2 diabetes mellitus) Qualifiers: Diabetes mellitus prison insulin use: without prison use Diabetes mellitus complication status: with neurologic complications Diabetes mellitus complication detail: with polyneuropathy Qualified Code(s): E11.42 - Type 2 diabetes mellitus with diabetic polyneuropathy Is this a current diagnosis for this admission?: Yes (2) Perforated gastric ulcer Qualifiers: Gastric ulcer chronicity: acute Qualified Code(s): K25.1 - Acute gastric ulcer with perforation Is this a current diagnosis for this admission?: Yes (3) Rheumatoid arthritis Qualifiers: Rheumatoid arthritis location: knee Rheumatoid factor presence: with rheumatoid factor Laterality: bilateral Qualified Code(s): M05.761 - Rheumatoid arthritis with rheumatoid factor of right knee without organ or systems involvement; M05.762 - Rheumatoid arthritis with rheumatoid factor of left knee without organ or systems involvement Is this a current diagnosis for this admission?: Yes (4) Intra-abdominal abscess Is this a current diagnosis for this admission?: Yes (5) Acute renal injury Is this a current diagnosis for this admission?: Yes (6) Edema Qualifiers: Edema type: unspecified Qualified Code(s): R60.9 - Edema, unspecified Is this a current diagnosis for this admission?: Yes - Time Time Spent with patient: 15-24 minutes Level of Care: MEDICAL Anticipated discharge: Home Anticipated DC Timeframe: within 72 hours - Inpatient Certification Based on my medical assessment, after consideration of the patient's comorbidities, presenting symptoms, or acuity I expect that the services needed warrant INPATIENT care.: Yes I certify that my determination is in accordance with my understanding of Medicare's requirements for reasonable and necessary INPATIENT services [42 CFR 412.3e].: Yes
[2020-09-21] MEDS: HYDROMORPHONE HCL INJ/PF 2 MG/ML AMPULE IV PRN ×6 (00:53→21:03)
[2020-09-21] MEDS: INSULIN LISPRO 100 UNIT/ML 3 ML VIAL SUBCUT SCH ×5 (01:30→22:00)
[2020-09-21] MEDS: OXYCODONE HCL IR 5 MG TABLET PO PRN ×6 (03:29→23:51)
--- NOTE | 2020-09-21 10:13 | PDOC PROGRESS REPORT ---
Subjective Date:: 09/21/20 Subjective:: Feels okay. Tolerating a diet well. Reason For Visit: PERFORATED VISCUS Physical Exam Vital Signs: Temp Pulse Resp BP Pulse Ox 98.5 F 92 18 136/55 H 97 09/21/20 07:33 09/20/20 23:11 09/20/20 23:11 09/20/20 23:11 09/20/20 23:11 Intake & Output 09/20/20 09/21/20 09/22/20 06:59 06:59 06:59 Intake Total 1340 1240 Output Total 2550 2450 Balance -1210 -1210 Weight 153.3 kg 155 kg General appearance: PRESENT: no acute distress, cooperative Respiratory exam: PRESENT: clear to auscultation anabella Cardiovascular exam: PRESENT: RRR GI/Abdominal exam: PRESENT: other - Protuberant but soft. Retention sutures in place. Blanching erythema of the skin in between the retention sutures. Open portions of the wound appears clean with no purulent drainage. Gastrostomy tube and jejunostomy tube in place. Results Laboratory Results: 09/17/20 05:13 09/17/20 05:13 Impressions: Abdomen/Pelvis CT 08/22/20 23:14 IMPRESSION: 1. Pneumoperitoneum, likely due to gastric perforation 2. Scattered free fluid throughout the abdomen. KUB X-Ray 08/26/20 00:00 IMPRESSION: SATISFACTORY POSITION OF THE NASOGASTRIC TUBE. Chest X-Ray 08/28/20 00:00 IMPRESSION: 1. Positioning of support lines and tubes as above. 2. Low lung volumes with compressive changes, evidence of trace bilateral pleural effusions and minimal nonspecific patchy basilar opacities. Please note at the time of image interpretation no prior exams are available for comparison. Upper GI Series-Limited 09/13/20 00:00 IMPRESSION: NO EVIDENCE OF EXTRAVASATION OR LEAK FROM THE POSTSURGICAL AREA INVOLVING THE ANTRUM OF THE STOMACH. MODERATE NARROWING OF THE PYLORIC CHANNEL DUE TO POSTSURGICAL CHANGES SEEMS TO DELAY GASTRIC EMPTYING BUT IS NONOBSTRUCTIVE. NEW Tube Placement 09/16/20 00:00 IMPRESSION: UNSUCCESSFUL ATTEMPT AT UNCLOGGING PATIENT'S INDWELLING JEJUNOSTOMY TUBE UTILIZING GUIDEWIRES. SIDE OF OBSTRUCTION IS WITHIN A TIGHT COILED LOOP OF JEJUNOSTOMY TUBE JUST DISTAL TO THE INSERTION SITE OF THE JEJUNOSTOMY TUBE. Assessment & Plan - Diagnosis (1) Perforated prepyloric ulcer Is this a current diagnosis for this admission?: Yes Plan: Status post reexploration with a perforated ulcer closure. Patient looks reasonably well. Patient now wants to go home with home health which I think it would be appropriate. Once home health is set up, will discharge patient home. We will ask Dr. Reid to help us with his outpatient home meds especially pain meds management. - Time Anticipated Discharge Disposition: Home with Home Health Anticipated Discharge Timeframe: within 72 hours
[2020-09-22] MEDS: HYDROMORPHONE HCL INJ/PF 2 MG/ML AMPULE IV PRN ×6 (01:00→22:43)
[2020-09-22] MEDS: OXYCODONE HCL IR 5 MG TABLET PO PRN ×4 (06:49→19:43)
[2020-09-22] MEDS: INSULIN LISPRO 100 UNIT/ML 3 ML VIAL SUBCUT SCH ×3 (08:34→16:55)
--- NOTE | 2020-09-22 16:37 | PDOC PROGRESS REPORT ---
Subjective Date:: 09/22/20 Reason For Visit: PERFORATED VISCUS Physical Exam Vital Signs: Temp Pulse Resp BP Pulse Ox 98.1 F 93 18 138/60 H 99 09/22/20 11:31 09/22/20 11:31 09/22/20 11:31 09/22/20 11:31 09/22/20 11:31 Intake & Output 09/21/20 09/22/20 09/23/20 06:59 06:59 06:59 Intake Total 1240 1107 942 Output Total 2450 1450 800 Balance -1210 -343 142 Weight 155 kg 155 kg Results Laboratory Results: 09/17/20 05:13 09/17/20 05:13 Impressions: Abdomen/Pelvis CT 08/22/20 23:14 IMPRESSION: 1. Pneumoperitoneum, likely due to gastric perforation 2. Scattered free fluid throughout the abdomen. KUB X-Ray 08/26/20 00:00 IMPRESSION: SATISFACTORY POSITION OF THE NASOGASTRIC TUBE. Chest X-Ray 08/28/20 00:00 IMPRESSION: 1. Positioning of support lines and tubes as above. 2. Low lung volumes with compressive changes, evidence of trace bilateral pleural effusions and minimal nonspecific patchy basilar opacities. Please note at the time of image interpretation no prior exams are available for comparison. Upper GI Series-Limited 09/13/20 00:00 IMPRESSION: NO EVIDENCE OF EXTRAVASATION OR LEAK FROM THE POSTSURGICAL AREA INVOLVING THE ANTRUM OF THE STOMACH. MODERATE NARROWING OF THE PYLORIC CHANNEL DUE TO POSTSURGICAL CHANGES SEEMS TO DELAY GASTRIC EMPTYING BUT IS NONOBSTRUCTIVE. NEW Tube Placement 09/16/20 00:00 IMPRESSION: UNSUCCESSFUL ATTEMPT AT UNCLOGGING PATIENT'S INDWELLING JEJUNOSTOMY TUBE UTILIZING GUIDEWIRES. SIDE OF OBSTRUCTION IS WITHIN A TIGHT COILED LOOP OF JEJUNOSTOMY TUBE JUST DISTAL TO THE INSERTION SITE OF THE JEJUNOSTOMY TUBE. Assessment & Plan - Diagnosis (1) Perforated gastric ulcer Qualifiers: Gastric ulcer chronicity: acute Qualified Code(s): K25.1 - Acute gastric ulcer with perforation Is this a current diagnosis for this admission?: Yes - Time Anticipated Discharge Disposition: Home with Home Health Anticipated Discharge Timeframe: when bed available - Plan Summary Plan Summary: 65-year-old male status post repeat laparotomy for perforated gastric ulcer. The patient appears to be doing reasonably well. Cont home oral pain medications. Minimize IV pain medicines. Continue with oral feedings. Continue with supportive care. D/c planning.
[2020-09-23] MEDS: INSULIN LISPRO 100 UNIT/ML 3 ML VIAL SUBCUT SCH ×5 (00:05→21:39)
[2020-09-23] MEDS: OXYCODONE HCL IR 5 MG TABLET PO PRN ×6 (00:14→22:11)
[2020-09-23] MEDS: HYDROMORPHONE HCL INJ/PF 2 MG/ML AMPULE IV PRN ×2 (02:30→06:29)
[2020-09-23 07:03] LABS: PHOSPHORUS 4.3 mg/dL (2.5-4.5)
[2020-09-23 07:10] LABS: PREALBUMIN 10.2 mg/dL (17.6-36.0)
--- NOTE | 2020-09-23 09:43 | PDOC PROGRESS REPORT ---
Subjective Date:: 09/23/20 Subjective:: Tolerating diet well. No new complaints. Reason For Visit: PERFORATED VISCUS Physical Exam Vital Signs: Temp Pulse Resp BP Pulse Ox 98.5 F 92 17 124/59 L 98 09/23/20 08:28 09/23/20 08:28 09/23/20 08:28 09/23/20 08:28 09/23/20 08:28 Intake & Output 09/22/20 09/23/20 09/24/20 06:59 06:59 06:59 Intake Total 1107 1192 Output Total 1450 1999 Balance -343 -808 Weight 155 kg 155 kg General appearance: PRESENT: no acute distress, cooperative Respiratory exam: PRESENT: clear to auscultation anabella Cardiovascular exam: PRESENT: RRR GI/Abdominal exam: PRESENT: other - Soft, retention sutures in place. Intervening skin erythema. Open portions of wound appears clean with no purulent drainage. Minimal tenderness. Results Laboratory Results: 09/17/20 05:13 09/23/20 05:30 Phosphorus 4.3 Prealbumin 10.2 L Impressions: Abdomen/Pelvis CT 08/22/20 23:14 IMPRESSION: 1. Pneumoperitoneum, likely due to gastric perforation 2. Scattered free fluid throughout the abdomen. KUB X-Ray 08/26/20 00:00 IMPRESSION: SATISFACTORY POSITION OF THE NASOGASTRIC TUBE. Chest X-Ray 08/28/20 00:00 IMPRESSION: 1. Positioning of support lines and tubes as above. 2. Low lung volumes with compressive changes, evidence of trace bilateral pleural effusions and minimal nonspecific patchy basilar opacities. Please note at the time of image interpretation no prior exams are available for comparison. Upper GI Series-Limited 09/13/20 00:00 IMPRESSION: NO EVIDENCE OF EXTRAVASATION OR LEAK FROM THE POSTSURGICAL AREA INVOLVING THE ANTRUM OF THE STOMACH. MODERATE NARROWING OF THE PYLORIC CHANNEL DUE TO POSTSURGICAL CHANGES SEEMS TO DELAY GASTRIC EMPTYING BUT IS NONOBSTRUCTIVE. NEW Tube Placement 09/16/20 00:00 IMPRESSION: UNSUCCESSFUL ATTEMPT AT UNCLOGGING PATIENT'S INDWELLING JEJUNOSTOMY TUBE UTILIZING GUIDEWIRES. SIDE OF OBSTRUCTION IS WITHIN A TIGHT COILED LOOP OF JEJUNOSTOMY TUBE JUST DISTAL TO THE INSERTION SITE OF THE JEJUNOSTOMY TUBE. Assessment & Plan - Diagnosis (1) Perforated prepyloric ulcer Is this a current diagnosis for this admission?: Yes Plan: Status post reexploration with a perforated ulcer closure. Patient looks well. Patient wants to go home with home health which I think it would be appropriate. Once home health is set up, will discharge patient home. - Time Anticipated Discharge Disposition: Home with Home Health Anticipated Discharge Timeframe: within 72 hours
[2020-09-23 10:16] LABS: ALBUMIN 3.1 g/dL (3.5-5.0); ALKALINE PHOSPHATASE 115 U/L (38-126); ANION GAP 11 (5-19); ASPARTATE AMINO TRANSFERASE 23 U/L (17-59); BILIRUBIN,DIRECT 0.2 mg/dL (0.0-0.4); BILIRUBIN,TOTAL 0.4 mg/dL (0.2-1.3); BLOOD UREA NITROGEN 7 mg/dL (7-20); CALCIUM 9.4 mg/dL (8.4-10.2); CARBON DIOXIDE 26 mmol/L (22-30); CHLORIDE 93 mmol/L (98-107); GLUCOSE 110 mg/dL (75-110); TOTAL PROTEIN 6.4 g/dL (6.3-8.2)
[2020-09-23 10:24] LABS: POTASSIUM 4.8 mmol/L (3.6-5.0)
[2020-09-23] MEDS ORDERED: HYDROMORPHONE HCL INJ/PF 2 MG/ML AMPULE IV PRN (21:49)
[2020-09-24] MEDS: OXYCODONE HCL IR 5 MG TABLET PO PRN ×3 (02:28→10:30)
[2020-09-24] MEDS: INSULIN LISPRO 100 UNIT/ML 3 ML VIAL SUBCUT SCH ×2 (07:47→11:20)
--- NOTE | 2020-09-24 09:31 | PDOC DISCHARGE SUMMARY ---
General - Admit/Disc Date/PCP Admission Date/Primary Care Provider: 08/23/20 00:36 Discharge Date: 09/24/20 - Discharge Diagnosis Final Diagnosis: Perforated viscus - Assessment Summary: Is a 65-year-old male who was admitted with a perforated ulcer gastric. Underwent exploratory laparotomy with attempted repair. Required a second operation for repeat repair. Subsequent to that he has had a long prolonged hospital course secondary to his morbid obesity. He had a jejunostomy tube placed as well as gastrostomy tube after the second repair. Over the hospital course he is progressively and slowly improved his wound was opened at one-point secondary to the wound infection but now is granulating well undergoing dressing changes. He has been slowly weaned off his jejunostomy tube feedings which had not been converted to completely oral feedings and is tolerating a regular diet. He has multiple other comorbidities which are being managed by medicine Dr. Reid. At this point from a surgical standpoint he is ready for discharge home with home health he will be followed up in the surgical clinic in 7 to 10 days. He will be undergoing wound care by home health with daily dressing changes. - Additional Information Resuscitation Status: Full Code Referrals: [facility] [Provider Group] Home Medications: Oxycodone HCl 15 mg PO 5XDP PRN 02/19/19 Amlodipine Besylate [Norvasc 10 mg Tablet] 10 mg PO DAILY #90 07/26/20 Gabapentin [Neurontin 300 mg Capsule] 300 mg PO Q8 #90 07/26/20 Metformin HCl [Glucophage] 1,000 mg PO DAILY #90 07/26/20 Valsartan/Hydrochlorothiazide [Valsartan-Hctz 320-25 mg Tab] 1 each PO DAILY #90 07/26/20 Folic Acid [Folvite 1 mg Tablet] 1 mg PO DAILY #90 tablet 08/11/20 Methotrexate Sodium [Rheumatrex 2.5 mg Tablet] 10 mg PO SA@1000 08/23/20 History of Present Illiness History of Present Illness: ZI DAVE is a 65 year old male Physical Exam Vital Signs: Temp Pulse Resp BP Pulse Ox 98.4 F 90 18 145/65 H 98 09/23/20 23:11 09/23/20 23:11 09/23/20 23:11 09/23/20 23:11 09/23/20 23:11 Intake & Output 09/23/20 09/24/20 09/25/20 06:59 06:59 06:59 Intake Total 1191 1362 Output Total 1999 1929 Balance -808 -568 Weight 155 kg Results Laboratory Results: WBC 10.5 10^3/uL (4.0-10.5) 09/17/20 05:13 RBC 2.80 10^6/uL (4.35-5.55) L 09/17/20 05:13 Hgb 8.1 g/dL (13.5-17.0) L 09/17/20 05:13 Hct 23.7 % (37.9-51.0) L 09/17/20 05:13 MCV 85 fl (80-97) 09/17/20 05:13 MCH 29.0 pg (27.0-33.4) 09/17/20 05:13 MCHC 34.3 g/dL (32.0-36.0) 09/17/20 05:13 RDW 15.3 % (11.5-14.0) H 09/17/20 05:13 Plt Count 258 10^3/uL (150-450) 09/17/20 05:13 Lymph % (Auto) 17.2 % (13-45) 09/17/20 05:13 Ballard % (Auto) 8.4 % (3-13) 09/17/20 05:13 Eos % (Auto) 4.4 % (0-6) 09/17/20 05:13 Baso % (Auto) 0.8 % (0-2) 09/17/20 05:13 Absolute Neuts (auto) 7.3 10^3/uL (1.7-8.2) 09/17/20 05:13 Absolute Lymphs (auto) 1.8 10^3/uL (0.5-4.7) 09/17/20 05:13 Absolute Monos (auto) 0.9 10^3/uL (0.1-1.4) 09/17/20 05:13 Absolute Eos (auto) 0.5 10^3/uL (0.0-0.6) 09/17/20 05:13 Absolute Basos (auto) 0.1 10^3/uL (0.0-0.2) 09/17/20 05:13 Total Counted 100 09/12/20 05:49 Seg Neutrophils % 69.2 % (42-78) 09/17/20 05:13 Seg Neuts % (Manual) 75 % (42-78) 09/12/20 05:49 Band Neutrophils % 1 % (3-5) L 08/29/20 05:45 Lymphocytes % (Manual) 14 % (13-45) 09/12/20 05:49 Monocytes % (Manual) 6 % (3-13) 09/12/20 05:49 Eosinophils % (Manual) 3 % (0-6) 09/12/20 05:49 Basophils % (Manual) 1 % (0-2) 09/12/20 05:49 Metamyelocytes % 1 % (0-1) 09/12/20 05:49 Abs Neuts (Manual) 7.3 10^3/uL (1.7-8.2) 09/12/20 05:49 Abs Lymphs (Manual) 1.3 10^3/uL (0.5-4.7) 09/12/20 05:49 Abs Monocytes (Manual) 0.6 10^3/uL (0.1-1.4) 09/12/20 05:49 Absolute Eos (Manual) 0.3 10^3/uL (0.0-0.6) 09/12/20 05:49 Abs Basophils (Manual) 0.1 10^3/uL (0.0-0.2) 09/12/20 05:49 Toxic Granulation 1+ 08/22/20 22:38 Large Platelets PRESENT 08/29/20 05:45 Platelet Comment ADEQUATE 09/12/20 05:49 Poikilocytosis SLIGHT 09/12/20 05:49 Anisocytosis SLIGHT 09/12/20 05:49 Tear Drop Cells SLIGHT 08/22/20 22:38 Ovalocytes 1+ 08/22/20 22:38 Rouleaux SLIGHT 09/12/20 05:49 PT 16.2 SEC (11.4-15.4) H 08/30/20 05:10 INR 1.28 08/30/20 05:10 APTT 35.5 SEC (23.5-35.8) 08/30/20 05:10 Carbonic Acid 1.01 mmol/L (1.05-1.35) L 08/23/20 10:48 HCO3/H2CO3 Ratio 22:1 08/23/20 10:48 ABG pH 7.45 (7.35-7.45) 08/23/20 10:48 ABG pCO2 33.4 mmHg (35-45) L 08/23/20 10:48 ABG pO2 89.7 mmHg (80-100) 08/23/20 10:48 ABG HCO3 22.9 mmol/L (20-24) 08/23/20 10:48 ABG Total CO2 23.9 mmol/L (23-27) 08/23/20 10:48 ABG O2 Saturation 97.3 % (94-98) 08/23/20 10:48 ABG Base Excess -0.4 mmol/L 08/23/20 10:48 FiO2 50% 08/23/20 10:48 Sodium 130.0 mmol/L (137-145) L 09/23/20 05:30 Potassium 4.8 mmol/L (3.6-5.0) 09/23/20 05:30 Chloride 93 mmol/L (98-107) L 09/23/20 05:30 Carbon Dioxide 26 mmol/L (22-30) 09/23/20 05:30 Anion Gap 11 (5-19) 09/23/20 05:30 BUN 7 mg/dL (7-20) 09/23/20 05:30 Creatinine 0.76 mg/dL (0.52-1.25) 09/23/20 05:30 Est GFR ( Amer) > 60 (>60) 09/23/20 05:30 Est GFR (MDRD) Non-Af > 60 (>60) 09/23/20 05:30 Glucose 110 mg/dL (75-110) 09/23/20 05:30 POC Glucose 132 mg/dL (70-110) H 09/24/20 06:00 Lactic Acid 0.7 mmol/L (0.7-2.1) 09/02/20 16:26 Calcium 9.4 mg/dL (8.4-10.2) 09/23/20 05:30 Phosphorus 4.3 mg/dL (2.5-4.5) 09/23/20 05:30 Magnesium 1.3 mg/dL (1.6-2.3) L 11/09/20 06:20 Total Bilirubin 0.4 mg/dL (0.2-1.3) 09/23/20 05:30 Direct Bilirubin 0.2 mg/dL (0.0-0.4) 09/23/20 05:30 Neonat Total Bilirubin Not Reportable 09/23/20 05:30 Neonat Direct Bilirubin Not Reportable 09/23/20 05:30 Neonat Indirect Bili Not Reportable 09/23/20 05:30 AST 23 U/L (17-59) 09/23/20 05:30 ALT 13 U/L (<50) 09/23/20 05:30 Alkaline Phosphatase 115 U/L (38-126) 09/23/20 05:30 Ammonia < 8.7 umol/L (9-33) L 09/02/20 16:26 Total Protein 6.4 g/dL (6.3-8.2) 09/23/20 05:30 Albumin 3.1 g/dL (3.5-5.0) L 09/23/20 05:30 Prealbumin 10.2 mg/dL (17.6-36.0) L 09/23/20 05:30 Triglycerides 176 mg/dL (<150) H 09/13/20 06:20 Lipase 29.3 U/L (23-300) 08/22/20 22:38 Random Cortisol 24.10 ug/dL (None Established) 08/24/20 12:35 COVID-19 Source See comment 09/06/20 12:00 COVID-19 (NUZHAT) Not Detected (Not Detect) 09/06/20 12:00 SARS-CoV-2 (PCR) NEGATIVE (NEGATIVE) 08/23/20 00:21 Blood Type O POSITIVE 09/11/20 14:15 Blood Type Confirm O POSITIVE 09/11/20 14:25 Antibody Screen NEGATIVE 09/11/20 14:15 Crossmatch See Detail 09/11/20 14:15 Impressions: Chest X-Ray 08/22/20 23:05 IMPRESSION: Improving right basilar pneumonia. Abdomen/Pelvis CT 08/22/20 23:14 IMPRESSION: 1. Pneumoperitoneum, likely due to gastric perforation 2. Scattered free fluid throughout the abdomen. Upper GI Series-Limited 08/25/20 00:00 IMPRESSION: No extravasation of oral contrast stomach or duodenum Chest X-Ray 08/25/20 05:00 IMPRESSION: Persistent blunting of the costophrenic sulci and patchy curvilinear opacities in the bases that could represent atelectasis. The tip of the enteric tube projects past the gastroesophageal junction and outside the field of view of the radiograph. Chest X-Ray 08/26/20 00:00 IMPRESSION: Side-port for the nasogastric tube is near the gastroesophageal junction. Recommend advancement by at least 8 cm for optimal placement. copyright 2011 [employer]- All Rights Reserved KUB X-Ray 08/26/20 00:00 IMPRESSION: SATISFACTORY POSITION OF THE NASOGASTRIC TUBE. Chest X-Ray 08/28/20 00:00 IMPRESSION: 1. Positioning of support lines and tubes as above. 2. Low lung volumes with compressive changes, evidence of trace bilateral pleural effusions and minimal nonspecific patchy basilar opacities. Please note at the time of image interpretation no prior exams are available for comparison. Upper GI Series-Limited 09/03/20 00:00 IMPRESSION: POSTSURGICAL MUCOSAL THICKENING AND EDEMA AROUND THE ANTRUM, DUODENAL BULB, AND PROXIMAL DUODENUM WITHOUT EVIDENCE OF EXTRAVASATION OR LEAK. Upper GI Series-Limited 09/13/20 00:00 IMPRESSION: NO EVIDENCE OF EXTRAVASATION OR LEAK FROM THE POSTSURGICAL AREA INVOLVING THE ANTRUM OF THE STOMACH. MODERATE NARROWING OF THE PYLORIC CHANNEL DUE TO POSTSURGICAL CHANGES SEEMS TO DELAY GASTRIC EMPTYING BUT IS NONOBSTRUCTIVE. NEW Tube Placement 09/16/20 00:00 IMPRESSION: UNSUCCESSFUL ATTEMPT AT UNCLOGGING PATIENT'S INDWELLING JEJUNOSTOMY TUBE UTILIZING GUIDEWIRES. SIDE OF OBSTRUCTION IS WITHIN A TIGHT COILED LOOP OF JEJUNOSTOMY TUBE JUST DISTAL TO THE INSERTION SITE OF THE JEJUNOSTOMY TUBE.
[2020-09-24 12:35] VITALS: BP 121/60
== END 2020-09-24 12:50 | disposition home health service (06) | DRG 327 ==
LOC: ER 22:27 → EH 08-23 00:36 → ICU 08-23 04:40 → 4S 08-25 17:11 → ICU 08-28 23:45 → 3W 08-30 16:36 → 4S 09-08 13:23
PROVIDERS: ADMIT Surgery; ATTEND Surgery
PROC: 0DQ60ZZ Repair Stomach, Open Approach (ICD-10-PCS; 2020-08-23)
PROC: 5A1955Z Respiratory Ventilation, Greater than 96 Consecutive Hours (ICD-10-PCS; 2020-08-23)
PROC: 0BH17EZ Insertion of Endotracheal Airway into Trachea, Via Natural or Artificial Opening (ICD-10-PCS; 2020-08-23)
PROC: 0D9600Z Drainage of Stomach with Drainage Device, Open Approach (ICD-10-PCS; 2020-08-28)
PROC: 0DHA0UZ Insertion of Feeding Device into Jejunum, Open Approach (ICD-10-PCS; 2020-08-28)
PROC: 3E0G76Z Introduction of Nutritional Substance into Upper GI, Via Natural or Artificial Opening (ICD-10-PCS; 2020-08-28)
PROC: 02HV33Z Insertion of Infusion Device into Superior Vena Cava, Percutaneous Approach (ICD-10-PCS; 2020-08-28)
PROC: 0DU607Z Supplement Stomach with Autologous Tissue Substitute, Open Approach (ICD-10-PCS; principal; 2020-08-28 20:30)
PROC: 30233N1 Transfusion of Nonautologous Red Blood Cells into Peripheral Vein, Percutaneous Approach (ICD-10-PCS; 2020-09-11)
DX: K25.1 Acute gastric ulcer with perforation (principal); Z68.41 Body mass index [BMI] 40.0-44.9, adult; E87.1 Hypo-osmolality and hyponatremia; J44.9 Chronic obstructive pulmonary disease, unspecified; E88.09 Other disorders of plasma-protein metabolism, not elsewhere classified; E11.42 Type 2 diabetes mellitus with diabetic polyneuropathy; D64.9 Anemia, unspecified; E66.01 Morbid (severe) obesity due to excess calories; I10 Essential (primary) hypertension; E78.5 Hyperlipidemia, unspecified; F32.9 Major depressive disorder, single episode, unspecified; Z82.49 Family history of ischemic heart disease and other diseases of the circulatory system; D72.829 Elevated white blood cell count, unspecified; F40.240 Claustrophobia; G47.33 Obstructive sleep apnea (adult) (pediatric); M05.761 Rheumatoid arthritis with rheumatoid factor of right knee without organ or systems involvement; M05.762 Rheumatoid arthritis with rheumatoid factor of left knee without organ or systems involvement; N28.89 Other specified disorders of kidney and ureter; R60.9 Edema, unspecified; Z79.84 Long term (current) use of oral hypoglycemic drugs; Z79.899 Other long term (current) drug therapy; Z98.1 Arthrodesis status; Z87.891 Personal history of nicotine dependence; Z83.3 Family history of diabetes mellitus; Z53.31 Laparoscopic surgical procedure converted to open procedure; Z11.59 Encounter for screening for other viral diseases
CPT/HCPCS: 00790; 36415; 36430; 49465; 71045; 74018; 74177; 74240; 80048; 80053; 82140; 82533; 82803; 82962; 83605; 83690; 83735; 84100; 84134; 84478; 85025; 85027; 85610; 85730; 86850; 86900; 86901; 86920; 87040; 87070; 87075; 87077; 87186; 87205; 87635; 88305; 88341; 88342; 93005; 93010; 94002; 94660; 94799; 96365; 96367; 96375; 99140; 99285; 99291; C1751; C1758; C1769; C9113; C9803; J0131; J0330; J0694; J0834; J1100; J1170; J1450; J1642; J1815; J1885; J1940; J2250; J2270; J2370; J2405; J2543; J2704; J2710; J3010; J3475; J3480; J3490; J7030; J7042; J7050; J7060; J7120; P9016